=== PATIENT | female | born 1965 | race Caucasian/White ===

== ENCOUNTER 2019-03-28 10:41 | Inpatient (IN) ==
[2019-03-28 14:33] LABS: BASO% 0.2 % (0.0-0.8); EOS# 0.08 X1000 (0.0-0.7); EOS% 1.4 % (0.0-10.0); HEMATOCRIT 23.8 % (37.0-47.0); HEMOGLOBIN 7.7 g/dL (12.0-16.0); IMM GRAN% 0.5 % (0.0-0.5); LYMPH% 11.9 % (20.5-51.1); MCH 24.5 PG (27-31); MCHC 32.4 g/dL (33-37); MCV 75.8 FL (81-99); MONO# 0.51 X1000 (0.11-0.59); MONO% 8.7 % (1.7-9.3); MPV 11.2 FL (7.4-10.4); NEUT# 4.55 X1000 (1.4-6.5); NEUT% 77.3 % (42.2-75.2); PLT 258 X1000 (130-400); RBC 3.14 XMIL (4.2-5.4); RDW 13.3 % (11.5-14.5); WBC 5.88 X1000 (4.8-10.8)
[2019-03-28 14:34] LABS: BASO# 0.01 X1000 (0.0-0.2); IMM GRAN# 0.03 X1000 (0.0-0.04)
[2019-03-28 14:49] LABS: ALB/GLOB RATIO 0.6; CALCIUM 8.1 mg/dL (8.8-10.2); CREATININE 2.8 mg/dL (0.5-0.9); POTASSIUM 4.1 mmol/L (3.5-5.1); TOTAL BILIRUBIN 0.3 mg/dL (0.20-1.00); TOTAL PROTEIN 7.7 g/dL (6.3-8.3)
[2019-03-28 16:54] LABS: URINE SOURCE CLEAN CATCH
[2019-03-28 16:57] LABS: BILIRUBIN URINE NEGATIVE (NEGATIVE); BLOOD URINE SMALL (NEGATIVE); COLOR YELLOW; GLUCOSE URINE 300 mg/dL (NEGATIVE); KETONE URINE NEGATIVE (NEGATIVE); LEUKOCYTES URINE SMALL (NEGATIVE); NITRITE URINE NEGATIVE (NEGATIVE); PROTEIN URINE 300 mg/dL (NEGATIVE); SP GRAVITY URINE 1.005; TURBIDITY URINE HAZY (CLEAR); UROBILINOGEN URINE NORMAL (NORMAL)
[2019-03-28 16:58] LABS: UR EPITHELIAL CELLS <10 /HPF (<10); URINE BACTERIA 1+ /HPF; URINE RBC <10 /HPF (<10); URINE WBC TNTC /HPF (<10)
[2019-03-28] MEDS ORDERED: MERREM 1 GM in NS 50 ML IV ONE (18:36)
[2019-03-28 20:32] LABS: RETIC% 1.1 % (0.8-2.1)
[2019-03-28 20:55] LABS: UR AMPHETAMINES QUAL NONE DETECTED (NONE DETECT); UR BARBITUATES QUAL NONE DETECTED (NONE DETECT); UR BENZODIAZEPIN QUAL NONE DETECTED (NONE DETECT); UR CANNABINOIDS QUAL NONE DETECTED (NONE DETECT); UR COCAINE QUAL NONE DETECTED (NONE DETECT); UR METHADONE QUAL NONE DETECTED (NONE DETECT); UR OPIATES QUAL NONE DETECTED (NONE DETECT); UR OXYCODONE QUAL NONE DETECTED (NONE DETECT); UR PCP QUAL NONE DETECTED (NONE DETECT)
[2019-03-28 21:03] LABS: TSH 1.25 uIUmL (0.27-4.20)
--- NOTE | 2019-03-28 21:06 | Diag Imaging Result Doc PS360 ---
EXAM: CHEST-2 VIEWS HISTORY: CHF TECHNIQUE: Chest two views COMPARISON: 11/10/2017 FINDINGS: The lungs are well expanded. The heart is not enlarged. The vessels are not distended. There are no infiltrates. No pleural effusions. No change in the lower right lung nodule. IMPRESSION: No congestive failure. Electronically signed by Jose Eduardo Euceda 03/28/2019 9:03 PM
[2019-03-28] MEDS: NORVASC PO SCH ×2 (21:35→22:31)
[2019-03-28] MEDS ORDERED: TYLENOL WITH CODEINE #3 PO ONE (21:46)
[2019-03-28] MEDS: BACTROBAN OINTMENT TOP SCH (23:54)
[2019-03-29] MEDS: TOPROL XL PO SCH ×2 (00:03→08:37)
[2019-03-29] MEDS: TYLENOL PO PRN ×2 (02:36→23:40)
[2019-03-29] MEDS ORDERED: NS 250 ML ONE (03:16)
--- NOTE | 2019-03-29 06:04 | HISTORY AND PHYSICAL ---
PRIMARY CARE PHYSICIAN: Patient of Dr. Bowers in [place], [place]. REASON FOR ADMISSION: Bilateral lower extremity pain for one week's duration. HISTORY OF PRESENT ILLNESS: Ms. Rosa is a 53-year-old woman with past medical history of CKD stage 3, type 2 diabetes, hypertension, CHF type unknown and intermittent vaginal bleeding. About a week ago was at a local [facility] and had the toilet chisholm fall on to her left thigh. She says since then she has been having extreme pain, unable to bear weight on it and said there was also a tiny gash when it occurred, but over the last couple of days, she has noticed that there has been some swelling and pain in the posterior aspect of her left eye. As a result of this, she went to [facility]. In the process of their workup, she said the straight catheter that they put in her had a hard time coming out, and eventually they did remove it, and since then, she is having dysuria and subjective fevers for the last couple of days. No hematuria. She denies any cardiorespiratory symptoms. He denies any blood loss from any orifice. No vomiting or diarrhea. She also has a longstanding history of chronic intermittent bilateral chavez ulcers, which usually present as blisters and subsequently rupture and heal, only for another set of blisters to recur. This has been ongoing for several years according to the patient. Otherwise the patient denies any focal neurological complaints. No new onset arthralgias. No polyuria or polydipsia. She does also complain of left upper quadrant pain, which is chronic, with no specific aggravating or relieving factor, sometimes worse with movement. Otherwise, 12-system review was done, positive for findings per HPI except for chronic intermittent lower extremity swelling, which she attributes to diagnosis of CHF. No PND or orthopnea or chest pain. ALLERGIES: Quinolone, sulfa, penicillins, latex, codeine, SAMIR inhibitors. HOME MEDICATIONS: Have not been reconciled. FAMILY HISTORY: For diabetes, heart disease, Alzheimer's. SURGICAL HISTORY: Cholecystectomy, appendectomy, section, eye surgery for glaucoma. 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 SOCIAL HISTORY: Drinks alcohol occasionally, maybe once every 3 to 4 months and socially. LABORATORY DATA: White count 5000, hemoglobin and hematocrit 7 and 24, MCV of 75, platelet count 258, 77% neutrophils, sodium 131, BUN 36, creatinine 2.8. Last creatinine was 2.1, glucose 277, calcium 8.4, albumin 3.0, alk phos 180. Urinalysis: 300 protein, 200 glucose, too numerous to count WBCs, 1+ bacteria. IMAGING STUDIES: Patient reports that she had Doppler study of the legs. I cannot find the report. This was done today. PHYSICAL EXAMINATION: VITAL SIGNS: Blood pressure 165/70, respirations 18, heart rate is 94, temperature is 99 degrees. GENERAL: Chronically ill, legally blind, middle-aged woman who is not in acute distress. She is A and O x3. Normal mood and affect. HEENT: Head is normocephalic, atraumatic. Eyes: Pupils are reactive to light. She has no nystagmus. She has irregular pupils from prior surgery. Anicteric and mildly pale. ENT and oropharyngeal exam is grossly normal. NECK: Supple. No JVD or carotid bruit. No thyromegaly. CHEST: Decreased entry in the bases. CARDIOVASCULAR: First and second heart sounds heard. No gallops or rubs. Rhythm is regular. The patient does have a 2/6 ejection systolic murmur. ABDOMEN: Protuberant, soft with tenderness confined to the left upper quadrant area. No rebound or guarding. Bowel sounds are hypoactive. RECTAL: Deferred at this time. EXTREMITIES: Patient has trace edema in both lower extremities. She also has numerous superficial chronic ulcers of shins. Some of them are at various stages of healing. No surrounding erythema. Distal pulse volume is equal, symmetrical, regular. No clubbing or peripheral cyanosis. Patient has bilateral posterior thigh tenderness. The right one is actually slightly more swollen and slightly tender compared to the left one where she had the injury; however, there is no crepitus. No fluctuance. No redness in either thigh. NEUROLOGICAL EXAM: No gross focal deficits appreciated. SKIN: See above. Otherwise unremarkable. MUSCULAR EXAM: Grossly normal. ASSESSMENT: At this time: 1. Microcytic anemia probably secondary to chronic blood loss. 2. Acute on chronic kidney disease, could be from poor oral intake or medication effect i.e. diuretics. 3. Urinary tract infection. 4. Bilateral lower extremity weakness, proximal muscle weakness. ? myositis. 5. 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 6. Heart failure, type unknown. 7. Hypertensive heart disease and kidney disease. 8. Vaginal bleeding, etiology to be determined. PLAN: Patient will be transfused 1 unit of packed blood cells prior but after anemia workup is done to find a thorough etiology of her anemia since she is not actively bleeding anymore. It is still possible that this could be the result of the torrential vaginal bleeding she had a couple of months ago. Also we will treat patient with Keflex, which she has had in the past for bladder infection, will check urine cultures. The patient's thigh pain which I find somewhat unusual could be a myositis of known origin. I have ordered a total CK and aldolase as he patient is still profoundly tender and weak. Rheumatological workup and/or muscle biopsy may be entertained. The patient's chronic lesions on her chavez need to be explored further. This could be a manifestation of a vasculitis. A vasculitic process such as cryoglobulinemia may need to be explored. Hepatitis panel was ordered to assess hepatitis C. The patient has splenomegaly, which is a little worrisome for a lymphoproliferative disorder. A CT scan of the abdomen was ordered to further evaluate the etiology of her vaginal bleeding i.e. a pelvic mass and the prior history of splenomegaly. I would suggest if the patient complains of pain and weakness and CK is normal, maybe one can do a soft tissue MRI scan of both thighs to see if there is anything under the deep fascia that may be causing her symptoms. cc: MD Adan Gonzalez MD [facility] CENTERShari
--- NOTE | 2019-03-29 06:34 | Diag Imaging Result Doc PS360 ---
CT ABDOMEN/PELVIS W/O CONTRAST - 03/28/2019 INDICATION: LUQ pain anemia Splenomegaly COMPARISON: Chest CT 11/10/2017 FINDINGS: There is a stable granuloma in the lateral right middle lobe. No infiltrates in the lung bases. There is splenomegaly. The spleen measures 14.7 x 12.8 x 6.2 cm. The liver is grossly normal. There are cholecystectomy clips. There are some shotty retroperitoneal lymph nodes but no significant adenopathy. No radiodense renal stones. No hydronephrosis or hydroureter. Urinary bladder is rather distended. There is a drop of air in the urinary bladder, correlate with recent catheterization. The bladder wall appears normal. Uterus and rectum are normal. No bowel obstruction or inflammation. No herniation. There are moderate degenerative changes of the spine. No acute or suspicious bony lesion. IMPRESSION: 1. Splenomegaly. 2. Distended urinary bladder. There is also a drop of air in the urinary bladder, correlate with catheterization. This exam was performed using automated exposure control, adjustment of mA or kV according to patient size, and/or use of iterative reconstruction technique Electronically signed by Rico Grey 03/29/2019 6:32 AM
[2019-03-29] MEDS: KEFLEX PO SCH ×3 (08:30→19:14)
[2019-03-29] MEDS: NORVASC PO SCH (08:37)
[2019-03-29 09:17] LABS: BASO# 0.01 X1000 (0.0-0.2); BASO% 0.2 % (0.0-0.8); EOS# 0.13 X1000 (0.0-0.7); HEMATOCRIT 24.1 % (37.0-47.0); HEMOGLOBIN 7.9 g/dL (12.0-16.0); LYMPH# 0.79 X1000 (1.2-3.4); MCH 25.2 PG (27-31); MCHC 32.8 g/dL (33-37); MCV 76.8 FL (81-99); MONO% 10.7 % (1.7-9.3); MPV 10.8 FL (7.4-10.4); NEUT# 4.93 X1000 (1.4-6.5); NEUT% 75.1 % (42.2-75.2); PLT 230 X1000 (130-400); RBC 3.14 XMIL (4.2-5.4); RDW 13.7 % (11.5-14.5); WBC 6.56 X1000 (4.8-10.8)
[2019-03-29 09:53] LABS: CALCIUM 7.6 mg/dL (8.8-10.2); CREATININE 2.7 mg/dL (0.5-0.9); POTASSIUM 3.8 mmol/L (3.5-5.1)
[2019-03-29] MEDS: BACTROBAN OINTMENT TOP SCH ×3 (10:28→21:34)
--- NOTE | 2019-03-29 11:00 | PROVIDER DOCUMENTATION ---
This chart was entered by Gabriela Madison Scribe, acting as scribe for Ruben Medina MD. HPI-General Adult - General Chief Complaint: Edema Stated Complaint: EDEMA/LEGS Time Seen by Provider: 03/28/19 13:31 Source: patient, family Allergies/Adverse Reactions: Patient Allergies Allergy/AdvReac Type Severity Reaction Status Date / Time SAMIR Inhibitors Allergy SWELLING Verified 03/21/19 21:04 codeine Allergy SWELLING Verified 03/21/19 21:04 latex Allergy SWELLING Verified 03/21/19 21:04 levofloxacin [From Levaquin] Allergy ANAPHYLAXIS Verified 03/21/19 21:04 Sulfa (Sulfonamide Allergy NAUSEA Verified 03/21/19 21:04 Antibiotics) Penicillins AdvReac ANAPHYLAXIS Verified 03/21/19 21:04 Home Medications: Home Medication List Medication Instructions Recorded Confirmed Last Taken Type Apixaban [Eliquis] 5 mg PO QAM 03/28/19 03/28/19 03/28/19 09:00 History Furosemide 80 mg PO QAM 03/28/19 03/28/19 03/27/19 09:00 History Insulin Aspart [Novolog Flexpen] 10 unit SUBQ DIRECTED 03/28/19 03/28/19 03/27/19 09:00 History Insulin Aspart [Novolog] 10 unit SUBQ DIRECTED 03/28/19 03/28/19 Unknown History Metoprolol Tartrate 25 mg PO BID 03/28/19 03/28/19 Unknown History Mupirocin Ointment [Bactroban 1 ea TOP DIRECTED 03/28/19 03/28/19 Unknown History Ointment] - History of Present Illness -Gen Adult Nature of Presenting Problems: 53 yowf presents to the ed with c/o left posterior leg after a paper towel chisholm fell at [facility] hitting the back of her leg. pt sts she now believes she has a blood clot. pt sts she is blind. pt has been seen at multiple er recently. pt has BLE swelling with healing wounds noted. pt sts is taking all medications including insulin and blood thinners pt sts she is homeless and during the day sts in her car with her daughter. pt is legally blind and sts was turned away from the [employer]. Location of Pain/Injury: reports: lower extremity Quality of Pain: reports: fullness, indigestion Severity: reports: moderate Onset/Duration: reports: unsure Timing: reports: still present Context/Activities at Onset: reports: light activity Modifying Factors: improves with: nothing. worse with: palpation Associated Symptoms: reports: trouble walking. denies: back/neck pain, chest pain, diarrhea, EENT symptoms, headaches, nausea, shortness of breath, vomiting Similar Symptoms Previously?: Yes Recently seen or treated by another doctor?: Yes (has been seen at [facility] and [facility] ) Review of Systems - Adult - REVIEW OF SYSTEMS - ADULT Constitutional: denies: chills, fever Eyes: reports: see HPI, other (blind) Ears, Nose, Mouth & Throat: reports: no symptoms reported Cardiovascular: denies: chest pain, palpitations, syncope Respiratory: denies: shortness of breath, wheezing Gastrointestinal: denies: abdominal pain, diarrhea, nausea, vomiting Genitourinary: reports: no symptoms reported Musculoskeletal: reports: see HPI, other (BLE edema with pain). denies: bone pain, back pain, neck pain Integumentary: reports: no symptoms reported Neurological: denies: dizziness/vertigo, headache/migraines Psychiatric: reports: no symptoms reported Endocrine: reports: no symptoms reported Hematologic/Lymphatic: reports: no symptoms reported Allergic/Immunologic: reports: no symptoms reported All Other Systems: Reviewed and Negative Past History - Adult - PAST MEDICAL HISTORY-ADULT Review of Records: reports: Nursing Assessment Review, Medications Reviewed Major Childhood Illnesses: reports: denies history Cardiovascular: reports: blood clots, HTN Respiratory: reports: other (mass on lung) Gastrointestinal: reports: denies history Obstetrical/Gynecological: reports: denies history Genitourinary: reports: ESRD, kidney disease Musculoskeletal: reports: chronic pain Hand Dominance: Right Handed Neurological: reports: denies history Psychiatric: reports: denies history Endocrine/Immune: reports: Diabetes Diabetes Type: Type 2 Diabetes controlled by:: Insulin Dependent Other Conditions: reports: blindness - PRIOR SURGERIES/PROCEDURES Surgical/Procedure History: reports: cholecystectomy, - IMMUNIZATION STATUS Childhood Immunizations: See Nurse Assessment Flu Vaccine: See Nurse Assessment - FAMILY HISTORY Family History: reviewed, not pertinent - SOCIAL HISTORY Smoking: quit greater than 1 year Substance Use: alcohol Alcohol Use Frequency: occasionally Number of drinks per typical drinking period:: 2 drinks Living Situation: homeless Physical Exam-General - PHYSICAL EXAM-ADULT Initial Vital Signs Reviewed: Yes - CONSTITUTIONAL General Appearance: alert, obese - EYES Eyes: other (pt sts she is blind) - HEAD, EARS, NOSE, MOUTH & THROAT HENMT: moist mucous membranes, dental decay - NECK Neck: normal inspection - RESPIRATORY Respiratory: chest non-tender, lungs clear, normal breath sounds - CARDIOVASCULAR Cardiovascular: normal peripheral pulses, regular rate, rhythm - GASTROINTESTINAL (ABDOMEN) Abdominal Exam: normal bowel sounds, non tender, soft - LYMPHATIC Lymphatic: no adenopathy - MUSCULOSKELETAL Back Exam: normal inspection Extremity: normal range of motion, normal capillary refill, pelvis stable, swel ling (BLE edema), tenderness (BLE L>r), other (multiple wounds in diffrent stages of healing that daughter sts is baseline) - SKIN Integumentary: normal turgor, warm/dry, pallor, other (multiple healing wounds on BLE) - NEUROLOGIC Neurologic: grossly normal - PSYCHIATRIC Psych/Mental Status: normal mood/affect, normal thought content, normal thought process, oriented x 3 Progress - PLAN OF CARE/RESULTS Progress/Plan/Lab Results: Vital Signs - 8 hr 03/28/19 10:45 Temperature 99.0 F Pulse Rate 94 H Respiratory Rate 18 Blood Pressure 154/75 O2 Sat by Pulse Oximetry 98 social media developer is being contacted to see if help can be given pt and family [id number] Result Diagrams: 03/29/19 09:05 03/29/19 09:05 - REASSESSMENT Reassessment #1 Time Reassessed: 14:47 (pt is lying in bed with family at bedside) Status: unchanged Reassessment #2 Time Reassessed: 17:50 (pt is in bed with family at bedside) Status: unchanged - CONSULTS/PCP/HOSPITALIST Notification #1 *Consult/PCP/Hospitalist*: dr yang Time Discussed: 15:05 (spoke with dr yang in ed and dr yang requested pt f/u in his office ) Consult Disposition: F/U in office #2 Consult: hospitalist Consult Disposition: Admit Departure - Departure Date of Disposition Decision: 03/28/19 Time of Disposition Decision: 19:00 DIAGNOSIS: Urinary tract infection Anemia Qualifiers: Anemia type: unspecified type Qualified Code(s): D64.9 - Anemia, unspecified Disposition: ADMITTED INPATIENT 09 Certified Medical Emergency: Emergent Condition: Serious - Critical Care Note This patient required my direct & personal management of CC.: Yes Total Time (mins): 37 Critical Care Statement: This patient required my direct personal management to treat or rule out processes, the absence of which, could potentiallly result in sudden, clinically significant life or limb threatening deterioration. Attestation - Physician/ YOLANDA Attestation Patient care was provided by Advanced Practice Provider:: No The physician spent face to face time with patient:: Yes Advanced Practice Provider documentation review:: Supervising physician onsite and consulted in the evaluation and care of this patient. The physician did have a face to face encounter with the patient. This chart was documented by the indicated scribe, (Gabriela Madison Scribe) and accurately reflects the services I performed and decisions made by me, Ruben Medina MD, as attested by the provider's signature.
[2019-03-29 12:28] LABS: HEPATITIS PROFILE ACUTE SEE COMMENTS
[2019-03-29] MEDS ORDERED: D50W SYRINGE IV PRN (14:15)
--- NOTE | 2019-03-29 14:29 | PROGRESS NOTE ---
DATE: 03/29/2019 SUBJECTIVE: The patient reports still mild abdominal pain in the left upper quadrant. Denies any vaginal bleeding. The patient is blind. Denies any other complaints at this time. OBJECTIVE: Vital Signs: Temperature 98.4 degrees, heart rate 83, respiratory rate 18, blood pressure 155/59, O2 saturation 99% on room air. General: This is a chronically ill-appearing, 53- year-old, female, lying in bed in no acute distress. Cardiovascular: S1, S2 heard. No murmurs, gallops, or rubs. Regular rate and rhythm. Respiratory: Decreased air entry in both bases. The patient is not using any accessory muscles or having work of breathing. Abdomen: Soft, a little bit distended, nontender to palpation. Bowel sounds present. No organomegaly noted. No signs of peritoneal irritation. Extremities: The patient has trace edema in both lower extremity, with several superficial chronic ulcers on both shins that are at various stages of healing. There is also bilateral posterior thigh tenderness. The right one is actually slightly more swollen and slightly tender compared with the left one. No fluctuance. Neurological: The patient is alert and oriented x3. Moves all 4 extremities. LABORATORY DATA: Reviewed. ASSESSMENT AND PLAN: 1. Iron-deficiency anemia/splenomegaly. The reason why this patient came to the hospital was because of bilateral lower extremity pain, but the labs reveal low iron, and to look for the source of iron deficiency, we have done a CT scan of the abdomen, which shows splenomegaly. The patient reports having had a strong history of leukemia in her family. At this point, I am planning to consult Hematology/Oncology, and will go from there. There is also a history of recurrent vaginal bleeding, but according to the clerical assistant who is at bedside, she has not had any vaginal bleeding for the last year. 2. Urinary tract infection. The patient is on antibiotics. Will continue with antibiotics, and will wait for urine culture. 3. Bilateral lower extremity weakness. We are suspecting myositis. In any case, at this point, will continue treating infection, and see if that helps with muscle weakness. 4. Diabetes mellitus type 2 with nephropathy. Will continue with Accu-Cheks before meals and also at bedtime, and sliding scale insulin as well. 5. Hypertensive heart disease. Aware. 6. Disposition. Will continue to monitor this patient closely. cc: Tigre Pollard MD
[2019-03-29] MEDS ORDERED: INSULIN PEN NEEDLES ONE (15:26)
--- NOTE | 2019-03-29 16:26 | Extremity Venous Study ---
PROCEDURE NAME: Venous U/S Bilateral Legs - 03/28/2019 PROCEDURE: Bilateral lower extremity venous ultrasound. DATE OF STUDY: 03/28/2019. SWIMMING POOL SALESPERSON: Nabor. REQUESTING PHYSICIAN: Carol. INDICATIONS: Edema and history of DVT. FINDINGS: Deep and superficial veins bilateral lower extremities visualized along their course. All veins appeared compressible to forward flow. No evidence of intraluminal thrombus. SUMMARY: No deep or superficial venous thromboses in bilateral lower extremities. cc: Onofre Nova MD
[2019-03-29] MEDS: NON-FORMULARY BULK MED SUBQ SCH ×2 (17:47→21:33)
[2019-03-29] MEDS: ZOFRAN IV PRN (23:41)
[2019-03-30] MEDS: NON-FORMULARY BULK MED SUBQ SCH ×3 (06:14→18:31)
[2019-03-30] MEDS: TOPROL XL PO SCH (09:00)
[2019-03-30] MEDS: NORVASC PO SCH (09:01)
[2019-03-30] MEDS: BACTROBAN OINTMENT TOP SCH ×2 (09:01→21:10)
[2019-03-30] MEDS: KEFLEX PO SCH ×3 (09:01→18:31)
--- NOTE | 2019-03-30 09:56 | ECHO REPORT ---
ORDER DATE: 03/28/2019 INTERPRETING PHYSICIAN: Dr. Horton CLINICAL INDICATIONS: 53-year-old female with CHF, knee pain. REQUESTING PHYSICIAN: Hospitalist. M-MODE MEASUREMENTS: Left ventricle end diastole: 4.9 cm. Left ventricle end systole: 2.7 cm. Posterior wall: 1.1 cm. Interventricular septum: 1.1 cm. Left atrium: 3.8 cm. Aortic root: 3.0 cm. SUMMARY OF 2-DIMENSIONAL IMAGIN. The left ventricular function is normal, ejection fraction is estimated at 59%. Optison was added to optimize visualization of the endocardium. The study was difficult. There is mild degree of concentric LVH. 2. Right ventricle and right atrium appears to be normal. 3. The left atrium may be borderline enlarged. 4. Mitral valve opens normally with very mild degree of regurgitation. 5. Pulse wave Doppler of mitral inflow is normal. 6. Tissue Doppler of septal and lateral mitral annulus averages 5.5 cm. 7. Pulmonary venous flow shows normal pattern. There may be some impaired left ventricular relaxation in this case. 8. Tricuspid valve shows mild degree of regurgitation. 9. The inferior vena cava is not dilated. 10.Pulmonary pressure is estimated at 38 mmHg. 11.Pulmonic valve appears to be grossly normal. 12.There is no pericardial effusion, no mass, and no thrombus. Clinical correlation is recommended. cc: MD Adan Delacruz MD
[2019-03-30 10:58] LABS: HEMATOCRIT 24.6 % (37.0-47.0); MCH 24.7 PG (27-31); MCHC 32.5 g/dL (33-37); MCV 75.9 FL (81-99); MPV 11.1 FL (7.4-10.4); RBC 3.24 XMIL (4.2-5.4); RDW 13.5 % (11.5-14.5); WBC 8.48 X1000 (4.8-10.8)
[2019-03-30] MEDS ORDERED: VENOFER 500 MG in NS 250 ML IV ONE (11:00)
[2019-03-30 11:09] LABS: HEMOGLOBIN A1C 10.1 % (4.8-6.0)
--- NOTE | 2019-03-30 11:09 | PROGRESS NOTE ---
DATE: 03/30/2019 SUBJECTIVE: The patient reports still noticing some swelling in both legs. Denies any vaginal bleeding. Denies any abdominal pain. OBJECTIVE: Vital Signs: Temperature 99 degrees, heart rate 81, respiratory rate 20, blood pressure 156/61 and O2 saturation 98% on room air. General: This is a chronically ill-appearing, 53-year-old female lying in bed in no acute distress. Cardiovascular: S1, S2 heard. No murmurs, gallops, or rubs. Regular rate and rhythm. Respiratory: Decreased air entry in both bases. Patient is not using any accessory muscles or having work of breathing. Abdomen: Soft, a little bit distended. Nontender to palpation. Bowel sounds present. No organomegaly. No signs of peritoneal irritation. Extremities: Patient has trace edema in both lower extremities with several superficial chronic ulcers on both shins that are at bases stage of healing bilateral posterior thigh tenderness. Neurological: Patient alert and oriented x3. Moves all 4 extremities. LABORATORY DATA: Reviewed. ASSESSMENT AND PLAN: 1. Iron deficiency anemia/hepatosplenomegaly. We are going to replete iron today with Venofer. We are waiting for hematology or oncology consult to see what they think. No vaginal bleeding during the last year. We will see what hematology has to say. 2. Urinary tract infection secondary to Escherichia coli pansensitive. Urine culture shows greater than positive cocci. I do not know what the bacteria is yet. Considering that she reports some burning on urination, I prefer to go ahead and cover this patient with Zyvox. 3. Bilateral lower extremity weakness and swelling. For possible deep vein thrombosis, we are going to do a Doppler ultrasound and see what it shows. 4. Diabetes mellitus type 2. We will continue with Accu-Chek before meals and also at bedtime. 5. Hypertensive heart disease. Aware. 6. Disposition: Awaiting consult from hematology oncology and also checking CBC daily as well as to check hemoglobin. cc: Tigre Pollard MD
[2019-03-30 11:15] LABS: CALCIUM 7.4 mg/dL (8.8-10.2); CREATININE 3.1 mg/dL (0.5-0.9); POTASSIUM 4.3 mmol/L (3.5-5.1)
[2019-03-30] MEDS: TYLENOL PO PRN ×2 (15:40→21:10)
[2019-03-30] MEDS: ZYVOX 600 MG/D5W 600 MG/300 ML IVPB IV SCH ×2 (15:58→21:10)
--- NOTE | 2019-03-30 23:31 | HEMO/ONC CONSULTATION ---
DATE: 03/30/2019 ADMITTING PHYSICIAN: Dr. Caballero. REQUESTING PHYSICIAN: Dr. Rojas. We appreciate this consult. CHIEF COMPLAINT: Anemia and splenomegaly. HISTORY OF PRESENT ILLNESS: Ms Rosa is a very pleasant, 53-year-old female with history of CKD stage 3, diabetes mellitus type 2, hypertension, and congestive heart failure. The patient presented to [facility] Emergency Department after suffering an accident involving her left thigh. On presentation, the patient reported significant pain and swelling of her left thigh after an accident. The patient also reported that she was having dysuria and subjective fevers for several days prior. The patient was found to have a urinary tract infection in the emergency department. Additionally, the patient was found to be significantly anemic. CT of the abdomen and pelvis was obtained which revealed splenomegaly and distended bladder. The patient was admitted secondary to anemia and urinary tract infection as well as acute on chronic kidney disease. We are consulted secondary to anemia and splenomegaly. PAST MEDICAL HISTORY: As in HPI. PAST SURGICAL HISTORY: 1. Cholecystectomy. 2. Appendectomy. 3. section. 4. Glaucoma surgery. FAMILY HISTORY: Negative for any hematologic or oncologic problems. SOCIAL HISTORY: The patient drinks alcohol occasionally. She denies tobacco or illicit drug use. MEDICATIONS ON ADMISSION: Reconciliation is pending. ALLERGIES: To quinolones, sulfa, penicillin, latex, codeine, and SAMIR inhibitors. REVIEW OF SYSTEMS: A 14-point review of systems was obtained and is negative, except as mentioned in HPI. PHYSICAL EXAM: General: Ms Rosa is a 53-year-old female lying supine in bed in no immediate distress. Vital Signs: Temp 99 degrees, blood pressure 156/61, heart rate 91, respirations 20, O2 saturation 98% on room air. HEENT: Normocephalic, atraumatic. Mucous membranes are pale and moist. Sclerae is anicteric. Extraocular movements intact. Neck: Supple. Lungs: Clear to auscultation bilaterally. Chest expansion is equal bilaterally. Cardiovascular: S1, S2 is heard. No murmurs, rubs or gallops. Abdomen: Nondistended. Extremities: No clubbing or cyanosis. The patient does have 1+ bilateral lower extremity edema. Dermatologic: No rashes bruises. The patient does have scattered open lesions to bilateral lower extremities with no evidence of infection. Neurologic: The patient is awake, alert, and oriented x3. She has no focal deficit. LABORATORY DATA: MCV 76.8, MCHC 32.8, hemoglobin is 7.9, hematocrit 24.1, white blood cell count is 6.56, platelets 230,000. Sodium 131, potassium 3.8, chloride 97, CO2 is 22, BUN 34, creatinine 2.7. Glucose is 207, calcium 7.6. Hepatitis panel was nonreactive. IMAGING STUDIES: CT of the abdomen and pelvis reveals splenomegaly and distended bladder. Chest x-ray reveals no congestive heart failure. Extremity venous study reveals no deep or superficial venous thrombosis. ASSESSMENT AND PLAN: 1. Microcytic hypochromic anemia of questionable etiology. Will initiate workup at this time. 2. Splenomegaly. We will initiate workup. Additionally, we will scheduled a PET scan as an outpatient. 3. Acute on chronic kidney disease with known chronic kidney disease. Creatinine is currently 2.7. 4. Urinary tract infection. The patient is currently on antibiotics. 5. Diabetes mellitus type 2. The patient remains on sliding-scale insulin. Blood glucose is 207. 6. Hypertension. Blood pressure 156/61. Blood pressure is stable on medications. 7. We will follow along with you and make further recommendations pending outcomes. The above reflects the history, exam, assessment and plan of Dr. Austin. Dictated by TEODORO Cee for Chuckie Austin MD cc: TEODORO Cee MD
[2019-03-31] MEDS: ZYVOX 600 MG/D5W 600 MG/300 ML IVPB IV SCH ×2 (00:37→11:43)
[2019-03-31] MEDS: NON-FORMULARY BULK MED SUBQ SCH ×5 (00:37→21:20)
[2019-03-31] MEDS: ZOFRAN IV PRN (00:46)
--- NOTE | 2019-03-31 07:16 | EKG Report ---
Test Performed on : 03/31/2019 01:12:43 AM Test Reason : chest pain Blood Pressure : / mmHG Vent. Rate : 085 BPM Atrial Rate : 085 BPM P-R Int : 152 ms QRS Dur : 078 ms QT Int : 372 ms P-R-T Axes : 033 -32 106 degrees QTc Int : 442 ms Sinus rhythm. with premature atrial complexes. Left axis deviation Septal infarct (cited on or before 10-NOV-2017) T wave abnormality, consider lateral ischemia Abnormal ECG When compared with ECG of 10-NOV-2017 19:14, premature atrial complexes. are now present Confirmed by Jeff AMATO, Damir Caldera ([id number]) on 04/04/2019 12:41:01 PM
[2019-03-31 08:02] LABS: HEMATOCRIT 24.3 % (37.0-47.0); HEMOGLOBIN 7.9 g/dL (12.0-16.0); MCH 24.9 PG (27-31); MCHC 32.5 g/dL (33-37); MCV 76.7 FL (81-99); MPV 11.2 FL (7.4-10.4); RBC 3.17 XMIL (4.2-5.4); RDW 13.7 % (11.5-14.5); WBC 7.98 X1000 (4.8-10.8)
[2019-03-31 08:15] LABS: CALCIUM 7.5 mg/dL (8.8-10.2); CREATININE 3.7 mg/dL (0.5-0.9); POTASSIUM 4.6 mmol/L (3.5-5.1)
[2019-03-31] MEDS: KEFLEX PO SCH (09:29)
[2019-03-31] MEDS: TOPROL XL PO SCH (09:29)
[2019-03-31] MEDS: BACTROBAN OINTMENT TOP SCH ×2 (09:30→21:18)
[2019-03-31] MEDS: NORVASC PO SCH (09:30)
[2019-03-31] MEDS ORDERED: INSULIN PEN NEEDLES ONE (10:00)
[2019-03-31] MEDS: TYLENOL PO PRN (10:52)
[2019-03-31] MEDS ORDERED: NS 1,000 ML IV SCH (11:30)
--- NOTE | 2019-03-31 14:40 | PROGRESS NOTE ---
DATE: 03/31/2019 SUBJECTIVE: Patient reports still complaining of some pain in both legs. We have already ruled out DVT in both legs. No vaginal bleeding. She reports intermittent abdominal pain on and off. Daughter reports that she was having mild temperature but so far in the last 24 hours at least in what was documented in the chart the highest temperature has been 100 just around 3:30 in the evening, but she reports not feeling feverish. OBJECTIVE: Vital Signs: Temperature 98.6 degrees, heart rate 82, respiratory rate 16, blood pressure 160/69, and O2 saturation 100% on room air. General: This is a chronically ill- appearing 53-year-old female lying in bed in no acute distress. Cardiovascular: S1, S2 heard. No murmurs, gallops, or rubs. Regular rate and rhythm. Respiratory: Decreased air entry globally. The patient is not using any accessory muscles or having work of breathing. Abdomen: Soft. A little bit distended but nontender to palpation. Bowel sounds present. No organomegaly. No signs of peritoneal irritation. Extremities: Patient has trace edema in both lower extremities with several superficial chronic ulcers on both hands that are in several stages of healing. Neurological: Patient is alert and oriented x3. Moves 4 extremities. ASSESSMENT AND PLAN: 1. Iron deficiency anemia/splenomegaly. Patient has received here Venofer 500 mg IV. Also, hematology oncology has been consulted. They have ordered a test for rule out any leukemia. We will follow recommendations from Hematology/Oncology. 2. Urinary tract infection. The urine culture showed contaminant which is Staphylococcus epidermidis. I think at this time we will not need to continue with antibiotics so Zyvox has been stopped. 3. Bilateral lower extremity weakness and skin infection. Patient is going to receive Teflaro 600 mg IV q.12 hours and see how this patient does. 4. Diabetes mellitus type 2. We will continue with Accu-Chek's before meals and also at bedtime. 5. Acute on chronic kidney disease. Renal function has been at baseline at the beginning started getting worse. In that regard, I prefer to order a renal ultrasound. We will consult Dr. Martinez from Nephrology and we will go from there. 6. Disposition: We will continue to monitor this patient closely. cc: MD TODD Aguiar
[2019-03-31] MEDS: TEFLARO 600 MG in NS 250 ML IV SCH (15:42)
--- NOTE | 2019-03-31 18:16 | Diag Imaging Result Doc PS360 ---
EXAM: US RENAL 2 (RETROPER) COMPLETE HISTORY: amber/arf TECHNIQUE: Renal ultrasound COMPARISON: None. FINDINGS: The right kidney measures 10.2 x 5.2 x 4.8 cm. Normal cortical thickness. Normal echotexture. No stone or hydronephrosis. The left kidney measures 11.8 x 5.3 x 6.2 cm. Normal renal echotexture and cortical thickness. No renal stone or hydronephrosis. Several small renal cysts. The urinary bladder is distended and is normal. IMPRESSION: Normal renal ultrasound. Electronically signed by Jose Eduardo Euceda 03/31/2019 6:14 PM
[2019-03-31] MEDS: NS 1,000 ML IV SCH (18:41)
[2019-03-31] MEDS: AMBIEN PO SCH (21:20)
[2019-04-01] MEDS: TYLENOL PO PRN (01:45)
[2019-04-01] MEDS: TEFLARO 600 MG in NS 250 ML IV SCH ×2 (01:45→15:31)
[2019-04-01] MEDS: NON-FORMULARY BULK MED SUBQ SCH ×4 (06:17→22:23)
[2019-04-01 07:48] LABS: HEMOGLOBIN 7.4 g/dL (12.0-16.0); MCH 24.4 PG (27-31); MCHC 32.2 g/dL (33-37); MCV 75.9 FL (81-99); RBC 3.03 XMIL (4.2-5.4); RDW 13.9 % (11.5-14.5); WBC 8.17 X1000 (4.8-10.8)
[2019-04-01 08:00] LABS: CALCIUM 7.4 mg/dL (8.8-10.2); CREATININE 4.2 mg/dL (0.5-0.9); POTASSIUM 4.3 mmol/L (3.5-5.1)
[2019-04-01] MEDS: BACTROBAN OINTMENT TOP SCH ×2 (09:18→22:23)
[2019-04-01] MEDS: NS 1,000 ML IV SCH (09:18)
[2019-04-01] MEDS: TOPROL XL PO SCH (09:19)
[2019-04-01] MEDS: NORVASC PO SCH (09:20)
[2019-04-01 09:36] LABS: URINE SOURCE VOIDED
[2019-04-01 10:33] LABS: BILIRUBIN URINE NEGATIVE (NEGATIVE); BLOOD URINE SMALL (NEGATIVE); COLOR YELLOW; GLUCOSE URINE 200 mg/dL (NEGATIVE); KETONE URINE NEGATIVE (NEGATIVE); LEUKOCYTES URINE NEGATIVE (NEGATIVE); NITRITE URINE NEGATIVE (NEGATIVE); PROTEIN URINE 300 mg/dL (NEGATIVE); SP GRAVITY URINE 1.005; TURBIDITY URINE HAZY (CLEAR); UROBILINOGEN URINE NORMAL (NORMAL)
[2019-04-01 11:01] LABS: UR CREAT RANDOM 63.5 mg/dL (11-20)
--- NOTE | 2019-04-01 11:06 | Diag Imaging Result Doc PS360 ---
EXAM: CHEST-2 VIEWS HISTORY: Diminished lung sounds TECHNIQUE: Chest two views COMPARISON: 03/28/2019 FINDINGS: The lungs are well expanded. The heart is not enlarged. The vessels are not distended. Atelectasis versus a small infiltrate in the right costophrenic angle. Tiny pleural effusions. IMPRESSION: Development of tiny pleural effusions with right costophrenic angle atelectasis versus a tiny infiltrate. Electronically signed by Jose Eduardo Euceda 04/01/2019 11:04 AM
[2019-04-01 11:19] LABS: UR PROT RANDOM 283.9 mg/dL
[2019-04-01 11:26] LABS: UR EPITHELIAL CELLS <10 /HPF (<10); URINE BACTERIA NEGATIVE /HPF; URINE WBC <10 /HPF (<10)
[2019-04-01 11:28] LABS: URINE CASTS GRANULAR PRESENT; URINE YEAST NONE SEEN
--- NOTE | 2019-04-01 14:42 | NEPHROLOGY CONSULTATION ---
DATE: 04/01/2019 REASON FOR ADMISSION: Lower extremity pain, UTI, anemia. REASON FOR CONSULTATION: [id number] kidney disease. CONSULTING PHYSICIAN: Tigre Pollard MD. HISTORY OF PRESENT ILLNESS: This is a 53-year-old female known to our service for CKD, who was last seen in our office March 2018. She canceled all subsequent appointments for various reasons. She has called us multiple times secondary to "kidney pain" and had been referred for both emergency evaluation as well as for lab workup, which she never presented for. The patient's baseline creatinine is around 2.2. The patient on this admission came in to the hospital secondary to bilateral lower extremity pain when she had an injury at a restaurant and had extreme pain in her leg and was unable to bear weight on it. She went to [facility] and was catheterized for urine specimen and has had dysuria and subjective fevers since then. The patient states that she has had nausea and vomiting for about 2 months now. She also states that she has been homeless for the last month. Her primary physician is Dr. Robinson lopez at a medical clinic in [place], [place]. The patient underwent workup and imaging that indicated initial WBC of 5.8 and hemoglobin of 7.7. On admission, her creatinine was 2.8, she had a CO2 of 22, sodium 131, potassium 4.1, calcium 8.1. She was extremely in iron at 11 and had marginal albumin. Her urine on admission had 3+ protein, 3+ glucose, too numerous to count WBCs. She has underwent CT as well as x-ray. She was noted to have splenomegaly and distended urinary bladder that correlated with previous catheterization. There was no hydronephrosis. The bladder appeared normal otherwise. She has moderate degenerative changes of the spine. Renal ultrasound indicated kidney size 10 cm and 11.8 cm with no hydronephrosis. Chest x-ray negative for congestive heart failure on the . She had a lower extremity Doppler that was negative. During the course of the hospitalization, her creatinine has slowly crept up and yesterday jumped up to 3.7, today is 4.2. The patient states that she has not been eating and drinking well and that her urine output has decreased. PAST MEDICAL HISTORY: CKD stage 3, diabetes type 2, hypertension, CHF, glaucoma with legal blindness. PAST SURGICAL HISTORY: Cataract surgery, cholecystectomy, appendectomy, section. ALLERGIES: SAMIR inhibitors causes facial edema, codeine, Latex, Levaquin, sulfa, penicillin. Please see chart for complete list. The patient is also complaining that Norvasc is causing her throat and tongue to swell. HOME MEDICATIONS: Are listed as Eliquis, NovoLog, metoprolol, Bactroban, and furosemide. FAMILY HISTORY: Alzheimer's, heart disease, diabetes. SOCIAL HISTORY: Occasional ETOH. Denies tobacco or illicit drug use. The patient states that she is currently homeless. PHYSICAL EXAMINATION: VITAL SIGNS: Temperature 98.5, pulse 67, respiratory rate 19, blood pressure is 159/66, intake 240 mL, output not measured. GENERAL: Chronically ill-appearing female resting in bed. She is in no acute distress. HEENT: Normocephalic, atraumatic. Her pupils are irregular but reactive. Her conjunctivae are pale. She is noted to be legally blind. Oral mucosa moist. NECK: Supple without JVD. CARDIOVASCULAR: Regular rate and rhythm. She has a systolic murmur. PULMONARY: Clear bilaterally. She is on room air and no increased work of breathing. ABDOMEN: Soft, obese, positive bowel sounds. GENITOURINARY: She is voiding. EXTREMITIES: She has trace lower extremity edema more pedal than pretibial. She is ambulatory to the bedside commode. INTEGUMENTARY: Skin is warm and dry. She has chronic ulcers noted to the bilateral lower extremities with vascular changes noted. NEUROLOGIC: Grossly nonfocal otherwise. IMAGING: As noted above, kidney size 10 and 11.8 cm. ASSESSMENT AND PLAN: 1. [id number] kidney disease. Urine studies have been sent down. The patient has been on multiple antibiotics secondary to urinary tract infection. This could be ATN, however, she has also had significant decreased oral intake over the last few days. She has been refusing IV fluids secondary to her fear of her CHF becoming worse even though she is on room air at this time. She is now refusing antibiotics and her Norvasc. I did discuss with the patient that if her renal function continues to worsen and if her other labs worsen to a dangerous level that we would have to use dialysis as a bridge to recovery. The patient has agreed that if her urine indicate that she is dehydrated, I will go ahead and order a chest x- ray for her to assure that she does not have any current CHF issues going on and will start some gentle hydration. I discussed with the patient that I would not infuse fluids at a rapid rate secondary to her CHF. 2. Fluid volume. She does have some lower extremity edema. The patient's albumin is marginal. She normally takes 80 mg of Lasix a day per her clinical business manager secondary to her CHF. We will evaluate her labs prior to restarting that. 3. Social issues. Will make sure the family welfare social work professor is aware of the patient's home status. From the contents of the patient's room, it looks like all of her personal belongings are with her. They are requesting a private room so that her family can stay with her. I will defer that to the housekeeper and geriatric social worker to assist this patient. Dictated by TEODORO Esquivel for Deangelo Martinez MD cc: Deangelo Martinez MD MTD
--- NOTE | 2019-04-01 18:50 | PROGRESS NOTE ---
DATE: 04/01/2019 SUBJECTIVE: Patient is still complaining of pain in both legs. The patient, because she reports not drinking enough water, considering her renal function is getting worse. We decide to place on some gentle fluid hydration but she refused. Also apparently she refused to receive her antibiotics as well. OBJECTIVE: Vitals: Temperature 97.2 degrees, heart rate 86, respiratory rate 19, blood pressure 115/105, O2 saturation 98% on room air. General Examination: This is a chronically ill- appearing, 53-year-old female lying in bed, in no acute distress. Cardiovascular: S1, S2 heard. No murmurs, gallops, or rubs. Regular rate and rhythm. Respiratory: Decreased air entry globally. Patient is not using any accessory muscles or having work of breathing. Abdomen: Soft, nontender to palpation. Bowel sounds present. No organomegaly. Extremities: Patient has trace edema in both lower extremities with several superficial chronic ulcers in both hands that are in several stages of healing. Neurological: Patient alert and oriented x3. Moves 4 extremities. LABORATORY DATA: Reviewed. ASSESSMENT AND PLAN: 1. Iron deficiency anemia, splenomegaly. Patient is being evaluated by Oncology and Hematology. Workup is in progress. 2. Acute on chronic kidney disease. Creatinine continues to get worse. Apparently, patient is not making enough urine and she is supposed to. In any case, we are monitoring ins and outs and renal ultrasound has been ordered. That is normal and Dr. Martinez from Nephrology has been consulted. 3. Urine tract infection, resolved. 4. Bilateral lower extremity weakness on the skin infection. We will continue with Teflaro 600 mg IV q.12 hours. 5. Diabetes mellitus, type 2. We will continue with Accu-Chek's before meals and also at bedtime. cc: Tigre Pollard MD
[2019-04-01] MEDS: AMBIEN PO SCH (22:22)
[2019-04-02] MEDS: TYLENOL PO PRN (01:44)
[2019-04-02] MEDS: TEFLARO 600 MG in NS 250 ML IV SCH ×3 (02:34→22:49)
[2019-04-02] MEDS: NS 1,000 ML IV SCH ×2 (03:44→10:40)
[2019-04-02] MEDS: NON-FORMULARY BULK MED SUBQ SCH ×5 (06:03→22:16)
[2019-04-02 07:54] LABS: HEMATOCRIT 21.6 % (37.0-47.0); HEMOGLOBIN 7.1 g/dL (12.0-16.0); MCHC 32.9 g/dL (33-37); MCV 76.1 FL (81-99); MPV 10.9 FL (7.4-10.4); RBC 2.84 XMIL (4.2-5.4); WBC 6.64 X1000 (4.8-10.8)
[2019-04-02 08:11] LABS: CALCIUM 7.5 mg/dL (8.8-10.2); CREATININE 3.5 mg/dL (0.5-0.9); POTASSIUM 4.1 mmol/L (3.5-5.1)
[2019-04-02] MEDS: TOPROL XL PO SCH (10:38)
[2019-04-02] MEDS: NORVASC PO SCH (10:39)
[2019-04-02] MEDS: BACTROBAN OINTMENT TOP SCH ×2 (10:39→22:05)
[2019-04-02] MEDS ORDERED: LASIX IV SCH (11:15)
--- NOTE | 2019-04-02 13:53 | PROGRESS NOTE ---
DATE: 04/02/2019 SUBJECTIVE: The patient reports mild shortness of breath, but denies any fever or chills. OBJECTIVE: Vital Signs: Temperature 98.4 degrees, heart rate 85, respiratory rate 20, blood pressure 147/48, O2 saturation 100% on room air. General: This is a chronically ill-appearing 53-year-old female, lying in bed, in no acute distress. Cardiovascular: S1, S2 heard. No murmurs, gallops, or rubs. Regular rate and rhythm. Respiratory: Decreased air entry globally. The patient is not using any accessory muscles or having work of breathing. Abdomen: Soft, nontender to palpation. Bowel sounds present. No organomegaly. Extremity: The patient has trace edema in both lower extremities with several superficial chronic ulcers in both lower extremities. Neurological: Patient alert and oriented x3. Moves 4 extremities. LABORATORY DATA: White cell count 8.7, hemoglobin 7.4, hematocrit 21.6, platelets 243,000. BMP remarkable for creatinine 3.5. ASSESSMENT AND PLAN: 1. Iron deficiency anemia/splenomegaly. Hematology/Oncology is following this patient. Also because the hemoglobin has dropped again even though she received 1 unit of blood, I prefer to get Gastroenterology involved in her case, and we will see what they have to say. 2. Acute on chronic kidney disease. Creatinine started getting better today. It was 4.3 yesterday and 3.[address] Martinez following this patient. 3. Urinary tract infection, resolved. 4. Bilateral lower extremity weakness/skin infection. We will continue with Teflaro. 5. Iron deficiency anemia. As we mentioned above, hemoglobin has reached 7.1 ,and considering her history of CHF, I prefer to go ahead and transfuse 2 units of blood. 6. Diabetes, type 2, stable. We will continue to monitor. cc: Tigre Pollard MD
[2019-04-02] MEDS ORDERED: NS 500 ML ONE (16:08)
--- NOTE | 2019-04-02 18:59 | GASTROENTEROLOGY CONSULTATION ---
DATE: 04/02/2019 REASON FOR CONSULTATION: Iron-deficiency anemia. HISTORY OF PRESENT ILLNESS: This is a pleasant lady who came in 03/28/2019 with lower extremity pain, found to be anemic and had splenomegaly as well. Anemia is mostly microcytic. There are no signs of hematemesis or melena. The patient also has a chronic kidney disease with a baseline creatinine of 3. I do not have any iron studies or blood in the stool studies; however, she had grossly microcytic anemia. PAST MEDICAL HISTORY: See as in HPI. PAST SURGICAL HISTORY: Cholecystectomy, appendectomy, section, glaucoma. FAMILY HISTORY: Negative. SOCIAL HISTORY: Drinks occasionally. MEDICATIONS: Reviewed. ALLERGIES: Allergies to quinolone, sulfa, penicillin. REVIEW OF SYSTEMS: Negative. PHYSICAL EXAMINATION: General: A 53-year-old lady in no distress. Vital Signs: Temperature 99, blood pressure 150/60, heart rate 91, respirations 20, O2 sats 98%. HEENT: Conjunctival pallor. Neck: Supple. Trachea midline. Heart: Normal. Lungs: Normal. Abdomen: Soft, nontender. There is 1+ edema. Neurologic: Intact. LABORATORY DATA: Microcytic anemia with a hemoglobin and hematocrit of 7.9 and 24. She has had transfusions. A CT of the abdomen showed splenomegaly. IMPRESSION AND PLAN: 1. Microcytic hypochromic anemia. 2. Splenomegaly. 3. Acute on chronic kidney disease. 4. Diabetes. 5. [*] 6. GI prophylaxis. [*]. We will do an upper and lower endoscopy to eliminate any GI source for her anemia Wednesday electively. cc: Vijay Faith MD
[2019-04-02] MEDS: AMBIEN PO SCH ×2 (22:05→22:17)
[2019-04-03] MEDS: NS 1,000 ML IV SCH ×2 (00:08→16:03)
[2019-04-03] MEDS: TYLENOL PO PRN (00:17)
[2019-04-03 06:53] LABS: HEMATOCRIT 28.9 % (37.0-47.0); HEMOGLOBIN 9.5 g/dL (12.0-16.0); MCHC 32.9 g/dL (33-37); RBC 3.66 XMIL (4.2-5.4); WBC 5.56 X1000 (4.8-10.8)
[2019-04-03 07:16] LABS: ALBUMIN 2.5 g/dL (3.5-5.0); CALCIUM 7.9 mg/dL (8.8-10.2); CREATININE 3.2 mg/dL (0.5-0.9); PHOSPHORUS 3.8 mg/dL (2.7-4.5); POTASSIUM 4.1 mmol/L (3.5-5.1)
[2019-04-03] MEDS: TOPROL XL PO SCH (09:30)
[2019-04-03] MEDS: TEFLARO 600 MG in NS 250 ML IV SCH ×2 (09:50→23:24)
[2019-04-03] MEDS: NORVASC PO SCH (09:51)
--- NOTE | 2019-04-03 12:16 | PROGRESS NOTE ---
DATE: 04/03/2019 SUBJECTIVE: Patient reports feeling fine. Denies any hematemesis or blood in the stools. No fever or chills noted. OBJECTIVE: Vital Signs: Temperature 98.1, heart rate 79, respiratory rate 15, blood pressure 183/77, O2 saturation 97% on room air. General Examination: This is a chronically ill-appearing 53-year-old female lying in bed, in no acute distress. Cardiovascular: S1, S2 heard. No murmurs, gallops, or rubs. Regular rate and rhythm. Respiratory: Decreased air entry globally. Some coarse breath sounds noted in both pulmonary bases. Patient is not using any accessory muscles or having work of breathing. Abdomen: Soft, nontender to palpation. Bowel sounds present. No organomegaly. Extremity: Trace edema in both lower extremities with several superficial chronic ulcers in both lower extremities. Neurological: Patient is alert and oriented x3. Moves 4 extremities. LABORATORY DATA: White cell count 5.56, hemoglobin 9.5, hematocrit 28.9, platelets 237,000. BNP shows sodium 133, creatinine 2.2. ASSESSMENT AND PLAN: 1. Iron deficiency anemia. Splenomegaly. Hematology has been consulted and doing workup for possible leukemia. Because of drop again in hemoglobin, Gastroenterology has been consulted who are planning to do a colonoscopy and endoscopy tomorrow we will follow recommendations. 2. Acute on chronic kidney disease. Patient's creatinine is getting better. Today is 3.[address] Martinez is following this patient. 3. Urinary tract infection, resolved. 4. Bilateral lower extremity skin infection. We will continue with Teflaro. 5. Diabetes mellitus type 2. We will continue to check Accu-Cheks before meals and also at bedtime and sliding scale insulin as well. 6. Physical deconditioning. Physical Therapy has been working with this patient. 7. Disposition. If this patient is cleared with GI, I think she can be discharged home. Apparently, she has become very weak and addiction social worker is working on getting a rehab bed for her. cc: Tigre Pollard MD
[2019-04-03] MEDS: NON-FORMULARY BULK MED SUBQ SCH ×3 (12:33→23:23)
[2019-04-03] MEDS ORDERED: GOLYTELY PO ONE (14:00)
--- NOTE | 2019-04-03 14:15 | NEPHROLOGY PROGRESS NOTE ---
DATE: 04/03/2019 SUBJECTIVE: Patient sitting up on the side of the bed complaining some about her daughter. OBJECTIVE: Vital Signs: Temperature 98.1 degrees, pulse 79, respiratory rate 15, blood pressure 173/66, intake 1 L, output not measured. General: Middle-aged female resting in bed awake, alert, no acute distress. HEENT: Normocephalic, atraumatic. Oral mucosa moist. Neck: Supple. No JVD. Cardiovascular: Regular rate and rhythm. No murmur. Pulmonary: Clear bilaterally. Abdomen: Soft, positive bowel sounds. : Voiding. Extremities: Trace lower extremity edema. Integument: Skin is warm and dry with multiple vascular changes and old lesions that are healing noted. LAB DATA: WBC 5.5, hemoglobin 9.5, sodium 133, potassium 4.1, CO2 20, creatinine 3.2. ASSESSMENT AND PLAN: 1. Acute on chronic kidney disease. It looks like she had some prerenal issues that caused her creatinine to elevate. She did allow small amount of intravenous fluid to be given. She has had improvement with creatinine over the last 2 days. I have no indication to intervene with dialysis. The patient does have a baseline creatinine around 2.2. I did discuss with the patient the importance of medical followup regarding her kidney disease so that we can assist her with trying to prevent further worsening of her renal function. Will check labs in the morning. 2. Fluid volume. She is requesting her intravenous fluids be stopped again. Patient is eating and drinking. I will not restart them as she has had continued improvement with renal function. 3. Hypertension. The patient has currently her Lasix has been restarted, she has been initiated on Cozaar, is known that she has an SAMIR inhibitor allergy but not an ARB allergy. She continues on Toprol. Would add hydralazine if we need further addition for medications to maintain adequate blood pressure. Dictated by TEODORO Esquivel for Deangelo Martinez MD Face to face encounter, data reviewed, discussed with Raghu Stoddard on 04/03/19. I agree with the above assessment and plan of care. cc: Deangelo Martinez MD [facility]
[2019-04-03] MEDS: BACTROBAN OINTMENT TOP SCH (16:09)
[2019-04-03] MEDS: ANALGESIC BALM TOP PRN (16:10)
[2019-04-03] MEDS: APRESOLINE PO SCH ×2 (16:18→23:23)
[2019-04-03] MEDS: AMBIEN PO SCH (23:23)
[2019-04-03] MEDS: COZAAR PO SCH (23:24)
[2019-04-04] MEDS: BACTROBAN OINTMENT TOP SCH ×2 (04:19→11:10)
[2019-04-04] MEDS: NS 1,000 ML IV SCH (05:26)
[2019-04-04] MEDS: NON-FORMULARY BULK MED SUBQ SCH ×3 (06:43→18:13)
[2019-04-04] MEDS ORDERED: INSULIN PEN NEEDLES ONE (07:33)
[2019-04-04 08:16] LABS: HEMATOCRIT 28.2 % (37.0-47.0); HEMOGLOBIN 9.2 g/dL (12.0-16.0); MCH 25.8 PG (27-31); MCHC 32.6 g/dL (33-37); MCV 79.2 FL (81-99); MPV 10.9 FL (7.4-10.4); RBC 3.56 XMIL (4.2-5.4); RDW 14.7 % (11.5-14.5); WBC 6.65 X1000 (4.8-10.8)
[2019-04-04 08:33] LABS: ALBUMIN 2.5 g/dL (3.5-5.0); CALCIUM 7.3 mg/dL (8.8-10.2); CREATININE 2.8 mg/dL (0.5-0.9); PHOSPHORUS 3.3 mg/dL (2.7-4.5); POTASSIUM 4.2 mmol/L (3.5-5.1)
[2019-04-04] MEDS ORDERED: TOPROL XL PO SCH (09:00)
[2019-04-04 09:06] LABS: FLOW CYTOMETERY SOURCE WHOLE BLOOD; LEUKEMIA LYMPHOMA BY FLOW REFERRED FOR TESTING
[2019-04-04] MEDS: COZAAR PO SCH (11:10)
[2019-04-04] MEDS: APRESOLINE PO SCH (11:10)
[2019-04-04] MEDS: TYLENOL PO PRN (11:14)
[2019-04-04] MEDS: TEFLARO 600 MG in NS 250 ML IV SCH ×2 (11:17→23:00)
--- NOTE | 2019-04-04 14:19 | NEPHROLOGY PROGRESS NOTE ---
DATE: 04/04/2019 DATE SEEN: 04/04/2019. TIME SEEN: 0655. SUBJECTIVE: Ms. Rosa is resting quietly in bed. She complains of her left knee pain, states that she had fallen on it previously. She has been n.p.o., taking GoLYTELY during the night in prep of an EGD and colonoscopy this a.m. OBJECTIVE: VITAL SIGNS: Her most recent vital signs, temperature 97.7 degrees, blood pressure 162/78, heart rate 79, respirations 18. She is on room air. Last recorded saturation 100%. She has had 250 in. She has had only 4 mL documented out though patient has been stooling all night. LABORATORY DATA: Sodium 132, potassium 4.2, chloride 99, CO2 19, BUN 32, creatinine 2.8, glucose 164. Her anion gap is 14. Calcium 7.3. Phosphorus is 3.3, albumin is 2.5. Previous hemoglobin 9.2, hematocrit 28.2, white count 6.65, platelets 239,000. PHYSICAL EXAMINATION: General: This is a 54-year-old white female resting quietly in bed. She is in moderate distress secondary to left knee pain. Otherwise, no complaints of chest pain or increased work of breathing. HEENT: Normocephalic, atraumatic. Conjunctiva is pale. She has ROBERTH. Mucous membranes are moist. Neck: Supple. Trachea midline. No evidence of JVD. Cardiovascular: Regular rate and rhythm without murmur or gallop. Lungs: Clear to auscultation bilaterally. Equal excursion on room air. Abdomen: Soft, nontender. Positive bowel sounds. Genitourinary: Not inspected. Patient has been voiding adequate amounts with stooling. Extremities: Have trace pretibial edema. No clubbing or cyanosis. Left knee slightly swollen at site of a bruised area on the patella. Integumentary: Warm and dry. The patient does have old lesions that are healing to her bilateral lower extremities. Neurological: She is alert to person and to place and to time. ASSESSMENT AND PLAN: 1. Acute on chronic kidney disease. Patient's BUN and creatinine have continued to slowly improve. Difficulty obtaining an adequate intake and output. We will continue to monitor. 2. Fluid volume. We will stop her IV fluid at this time. The patient has been eating and drinking well. We will stop this fluid after her EGD and colonoscopy today. 3. Electrolytes and acid-base balance. These are acceptable. 4. Anemia. This is low but stable. 5. Hypertension. This is improved in the last 24 to 48 hours. 6. Left knee pain, we will defer to the primary care team. I would like to thank you for allowing us to follow with this patient. Dictated by TEODORO Fernandez for Deangelo Martinez MD Face to face encounter, data reviewed, discussed with Rohan High on 04/04/19. I agree with the above assessment and plan of care. cc: TEODORO Fernandez MD [facility]
--- NOTE | 2019-04-04 14:30 | PROGRESS NOTE ---
DATE: 04/04/2019 SUBJECTIVE: The patient reports feeling fine. As per nursing staff, she continues to refuse care. She was supposed to have a colonoscopy endoscopy, but yesterday she refused preparation, even though she expressed her desire to be scoped to find out the reason of her anemia. Unfortunately that has been going on for the last few days, that she refused sometimes antibiotics or fluids or any other medication that she considered she does not need to be on and it is becoming really difficult to manage her. OBJECTIVE: Vital Signs: Temperature 97.4 degrees, heart rate 91, respiratory rate 20, blood pressure 194/72 with O2 saturation 97% on room air. General examination: This is a chronically ill appearing, legally blind bilaterally, 53-year-old female, lying in bed in no acute distress. Cardiovascular exam: S1, S2 heard. No murmurs, gallops or rubs. Regular rate and rhythm. Respiratory exam: Decreased air entry globally. Some coarse breath sounds still present in both pulmonary bases, but patient is not using any accessory muscles or having work of breathing. Abdomen: Soft, nontender to palpation. Bowel sounds present. No organomegaly. Extremities: Mild edema in both lower extremities with several superficial chronic ulcers in both lower extremities. Neurological exam: Patient alert and oriented x3. Moves 4 extremities. LABORATORY DATA: White cell count 6.65, hemoglobin 9.2, hematocrit 28.2 platelets 239 with BMP that shows creatinine 2.8. ASSESSMENT AND PLAN: 1. Iron deficiency anemia/splenomegaly. Hematology has been consulted and workup has been ordered. Because of this anemia, Gastroenterology has been consulted, and they were planning to do colonoscopy endoscopy, but the patient is refusing care. She is not drinking her preparation and refused the procedure ultimately. Patient has been made aware of the risks of continuing refusing care. Unfortunately, I do think that this patient is able to understand her current situation. The daughter, who is at bedside, also is informed on a daily basis about the plan of care. 2. Acute on chronic kidney disease. Creatinine continues to improve. Actually, is almost back to her baseline. Dr. Martinez from Nephrology is following. 3. Urinary tract infection, resolved. 4. Bilateral lower extremity skin infection. Patient continues with Teflaro. 5. Diabetes mellitus type 2. We will continue with Accu-Cheks before meals and also at bedtime, and sliding scale insulin as well. 6. Physical deconditioning. Physical therapy working with this patient. She has become very weak, mostly in both lower extremities. 7. Disposition: I think if patient continues to refuse care and patient is interested in going to rehabilitation facility, we will talk with social science research assistant to inform her that this patient is ready to go to rehab. As we mentioned before, she is refusing care from Gastroenterology. She refused sometimes her antibiotics for skin infection. I think the best thing for her is to send to rehabilitation. cc: Tigre Pollard MD
--- NOTE | 2019-04-04 16:22 | PROVIDER PROGRESS NOTE ---
Progress Note SUBJECTIVE: Patient refused to complete golytely prep overnight. She is still having solid to loose brown stools. No abdominal pain, N/V. She is refusing to drink prep for diagnostic EGD/colonoscopy tomorrow. OBJECTIVE: Last Vital Signs Temp 98.0 F 04/04/19 15:47 Pulse 75 04/04/19 15:47 Resp 17 04/04/19 15:47 BP 163/68 04/04/19 15:47 Pulse Ox 100 04/04/19 15:47 Height 5 ft 4 in Weight 177 lb 2 oz GEN: awake, alert, NAD HEENT: anicteric, MMM NECK: supple, no jvd CV: RRR, no murmurs PULM: CTAB ABD: soft NT/ND, NABS EXT: excoriations LEs, no c/c NEURO: moving all extremities symmetrically LABS: 04/04/19 04/04/19 07:37 07:37 WBC 6.65 Hgb 9.2 L Plt Count 239 Sodium 132 L Potassium 4.2 Chloride 99 Carbon Dioxide 19 L BUN 32 H Creatinine 2.8 H Glucose 164 H Albumin 2.5 L A/P: Ms. Sejal Rosa is a 54 year old blind and homeless woman with CKD stage 3, IDDM2, hypertension, and congestive heart failure who was admitted with DIOR, UTI, and BRYANT on CKD. She also apparently has had vaginal bleeding in the recent past. She is currently refusing prep to perform diagnostic colonoscopy. #Anemia: hgb stable; she is having brown stools; no rectal bleeding; patient is refusing colonoscopy; recommend iron replacement therapy; hematology following #Splenomegaly: noted; no thrombocytopenia #IDDM2: SSI per primary #UTI: on abx #Hyponatremia: replete lytes prn #Hypoalbuminemia: noted Will follow with you. Please call with questions
[2019-04-05] MEDS: BACTROBAN OINTMENT TOP SCH ×2 (00:26→09:02)
[2019-04-05] MEDS: NON-FORMULARY BULK MED SUBQ SCH ×5 (00:26→17:45)
[2019-04-05] MEDS: AMBIEN PO SCH (00:26)
[2019-04-05] MEDS: COZAAR PO SCH ×3 (00:26→21:40)
[2019-04-05] MEDS: APRESOLINE PO SCH ×3 (00:27→21:39)
[2019-04-05 08:22] LABS: ALBUMIN 2.2 g/dL (3.5-5.0); CALCIUM 7.4 mg/dL (8.8-10.2); PHOSPHORUS 3.7 mg/dL (2.7-4.5); POTASSIUM 4.1 mmol/L (3.5-5.1)
[2019-04-05] MEDS: ANALGESIC BALM TOP PRN (09:02)
[2019-04-05] MEDS: TEFLARO 600 MG in NS 250 ML IV SCH ×2 (10:47→23:00)
[2019-04-05] MEDS: TOPROL XL PO SCH (10:57)
--- NOTE | 2019-04-05 12:11 | PROGRESS NOTE ---
DATE: 04/05/2019 SUBJECTIVE: The patient continues to refuse care. The patient was supposed to have an upper endoscopy, but said that she is not going to have it. In brief, during the last few days, she continues to refuse almost all care that we provided to her. OBJECTIVE: Vital Signs: Temperature 98.0, heart rate 76, respiratory rate 20, blood pressure 142/107, O2 saturation 97% on room air. General examination: This is a chronically ill appearing, legally blind bilaterally, 53-year-old, female lying in bed, in no acute distress. Cardiovascular: S1, S2 heard. No murmurs, gallops, or rubs. Regular rate and rhythm. Respiratory: Decreased air entry globally with some coarse breath sounds still present in both pulmonary bases, but patient is not using any accessory muscles or having work of breathing. Abdomen: Soft. Nontender to palpation. Bowel sounds present. No organomegaly. Extremities: Mild edema in both lower extremities with several superficial chronic ulcers in both lower extremities. Neurological: Patient is alert and oriented x3. Moves 4 extremities spontaneously. LABORATORY DATA: White cell count 6.6. The BMP from today reveals creatinine 3.0, sodium 133. ASSESSMENT AND PLAN: 1. Iron deficiency anemia/splenomegaly. Hematology has been consulted for this condition and work up has been ordered. Because of this anemia, also Gastroenterology was consulted and they were planning to do a colonoscopy/endoscopy, but unbelievably, she refused to have those procedures done here and she prefers to get them done as an outpatient. Daughter is aware of the refusal of care from this patient. 2. Acute on chronic kidney disease. I think renal function is back to her baseline. Dr. Martinez from Nephrology is following this patient. 3. Urinary tract infection, resolved. 4. Bilateral lower extremity skin infection. Patient continues with Teflaro. 5. Diabetes mellitus type 2. We will continue with Accu-Chek before meals and also at bedtime and sliding scale insulin as well. 6. Physical deconditioning. Physical therapy working with this patient. DISPOSITION: I think at this point, even though patient continues to refuse care, we will continue to check on her in a daily basis and checking labs daily as well. Also, we were informed regarding her request for rehabilitation that insurance company will provide a pre authorization and when that happen will start looking for a bed for her so she is going to stay in the hospital for a while. Clinically, this patient is stable, but unfortunately, she continues to refuse care. I do not know why. cc: Tigre Pollard MD [facility]
--- NOTE | 2019-04-05 14:25 | Diag Imaging Result Doc PS360 ---
EXAM: CHEST-2 VIEWS HISTORY: rib pain TECHNIQUE: Chest two views COMPARISON: 04/01/2019 FINDINGS: There are small bilateral pleural effusions. The heart remains mildly prominent. No pulmonary edema. No pneumothoraces. There is right basilar atelectasis. The overall appearance is similar to the prior exam IMPRESSION: Stable chest. Electronically signed by Jose Eduardo Euceda 04/05/2019 2:23 PM
--- NOTE | 2019-04-05 14:26 | Diag Imaging Result Doc PS360 ---
EXAM: RIBS ONLY LEFT HISTORY: left rib pain TECHNIQUE: Left rib detail, two views COMPARISON: None. FINDINGS: No displaced fracture. No pneumothorax. No lung contusion. No other rib abnormality. IMPRESSION: Negative exam. Electronically signed by Jose Eduardo Euceda 04/05/2019 2:24 PM
--- NOTE | 2019-04-05 15:30 | NEPHROLOGY PROGRESS NOTE ---
DATE: 04/05/2019 TIME SEEN: 07:05. SUBJECTIVE: Ms. Rosa is resting quietly on the right side. She prefers to lay this way. States that she complains of left chest rib pain radiating around towards her back, and left knee pain continues. OBJECTIVE: Vital Signs: Her most recent vital signs. Her last temperature 98.4 degrees, blood pressure 168/66, heart rate 76, respirations 18. She is on room air. Last recorded saturation is 96%. She has had 7850 recorded in; she has had zero recorded out. PHYSICAL EXAMINATION: This is a 54-year-old white female resting quietly in bed. Head of the bed is elevated. She appears in no acute distress.Skin: Warm and dry. HEENT: Normocephalic, atraumatic. Conjunctivae are pale pink. She has ROBERTH. Mucous membranes are dry. Neck: Supple. Trachea midline. No evidence of JVD. Cardiovascular: She is regular rate and rhythm. She is without murmur or gallop. Lungs: Clear to auscultation bilaterally. Equal excursion on room air. Abdomen: Soft, nontender, positive bowel sounds. She is tender to touch on her left mid axillary rib region. Abdomen is soft, round, nontender. Positive bowel sounds. Genitourinary: Not inspected. Patient has been voiding. Extremities: Have no edema. No clubbing or cyanosis except to the left knee which is slightly swollen with old bruising present over the patella area. Integumentary: Warm and dry with patient with old lesions and healing to bilateral lower extremities. Neurological: She is alert to person and place. LABORATORY DATA: Her sodium is 133, potassium 4.1, chloride 102, CO2 of 20, BUN 36, creatinine 3, glucose is 195. Her white count 6.65, hemoglobin 9.2, hematocrit 28.2, with a platelet count of 239,000. The patient has an anion gap of 11, calcium is 7.4, phosphorus 3.7, and albumin of 2.2. She has an erythropoietin level of 6. ASSESSMENT AND PLAN: 1. [id number] kidney disease. Patient's BUN and creatinine are stable. No improvement from yesterday. Her urine output has not been documented. 2. Volume status. IV fluids have been stopped. She is eating and drinking well. We will monitor. Request that they record her fluid and intake and output more accurately. 3. Electrolytes and acid-base balance. These are acceptable. 4. Anemia, low but stable. 5. Hypertension. This remains stable. 6. Left knee pain and left rib pain. We have ordered a chest x-ray this a.m. and a left knee to be completed today. This has not been completed at this time and remains ordered. I would like to thank you for allowing us to follow with this patient. Dictated by TEODORO Fernandez for Deangelo Martinez MD Face to face encounter, data reviewed, discussed with Rohan High on 04/05/19. I agree with the above assessment and plan of care. cc: TEODORO Fernandez MD [facility]
--- NOTE | 2019-04-05 19:03 | PROVIDER PROGRESS NOTE ---
Progress Note SUBJECTIVE: No acute overnight events. No N/V/F, CP, SOB, abdominal pain. Plan was for patient to have diagnostic EGD since she refused to drink prep for diagnostic colonoscopy. However, this morning, she refused EGD and asked for it to be schedule as outpatient as she said she could no longer remain NPO. OBJECTIVE: Last Vital Signs Temp 98.3 F 04/05/19 16:09 Pulse 67 04/05/19 16:09 Resp 24 04/05/19 16:09 BP 152/61 04/05/19 16:09 Pulse Ox 98 04/05/19 16:09 Height 5 ft 4 in Weight 177 lb 2 oz GEN: awake, alert, NAD HEENT: anicteric, MMM NECK: supple, no jvd CV: RRR, no murmurs PULM: CTAB ABD: soft NT/ND, NABS EXT: excoriations LEs, no c/c NEURO: moving all extremities symmetrically LABS: 04/05/19 07:45 Sodium 133 L Potassium 4.1 Chloride 102 Carbon Dioxide 20 L BUN 36 H Creatinine 3.0 H Glucose 195 H A/P: Ms. Sejal Rosa is a 54 year old blind and homeless woman with CKD stage 3, IDDM2, hypertension, and congestive heart failure who was admitted with DIOR, UTI, and BRYANT on CKD. She also apparently has had vaginal bleeding in the recent past. She is currently refusing prep to perform diagnostic colonoscopy and now EGD. #Anemia: hgb stable; she is having brown stools; no rectal bleeding; patient is refusing inpatient EGD/colonoscopy; recommend iron replacement therapy as per hematology #Splenomegaly: noted; no thrombocytopenia #IDDM2: SSI per primary #UTI: on abx #Hyponatremia: replete lytes prn #Hypoalbuminemia: noted #BRYANT: creatinine stable; renally dose meds Will sign off. Please call with questions or concerns. Follow-up in 2-4 weeks upon discharge.
[2019-04-06] MEDS: AMBIEN PO SCH (01:38)
[2019-04-06] MEDS: BACTROBAN OINTMENT TOP SCH ×3 (01:39→21:21)
[2019-04-06] MEDS: NON-FORMULARY BULK MED SUBQ SCH ×4 (01:40→17:34)
[2019-04-06 08:15] LABS: ALBUMIN 2.2 g/dL (3.5-5.0); CALCIUM 7.6 mg/dL (8.8-10.2); PHOSPHORUS 3.9 mg/dL (2.7-4.5); POTASSIUM 4.1 mmol/L (3.5-5.1)
[2019-04-06] MEDS: APRESOLINE PO SCH ×2 (09:26→21:21)
[2019-04-06] MEDS: TOPROL XL PO SCH (09:27)
[2019-04-06] MEDS: COZAAR PO SCH (09:28)
[2019-04-06] MEDS: TEFLARO 600 MG in NS 250 ML IV SCH ×2 (10:48→21:21)
[2019-04-06] MEDS ORDERED: EPOGEN SUBQ SCH (12:00)
--- NOTE | 2019-04-06 15:05 | NEPHROLOGY PROGRESS NOTE ---
DATE: 04/06/2019 DATE AND TIME: Date seen 04/06/2019. Time seen 0635. SUBJECTIVE: Ms. Rosa complains of rib discomfort on the left side and complains of left knee discomfort. OBJECTIVE: Vital Signs: Her most recent vital signs: Last temperature 98.2, blood pressure 140/50, heart rate 70, respirations 18. She is on room air. Last recorded saturation is 97%. She has had 250 mL in. She has had 0 recorded out, though she states that she has been getting up and going to the bathroom. LABORATORY: Sodium 132, potassium 4.1, chloride 102, CO2 21, BUN 39, creatinine 3, glucose 199. Her anion gap is 9. Her calcium is 7.6, phosphorus 3.9, albumin is 2.2. Previous hemoglobin of 9.2 on the . PHYSICAL EXAMINATION: General: This is a 54-year-old white female who is currently resting quietly in bed. She appears in no acute distress. Skin: Warm and dry. HEENT: Normocephalic, atraumatic. Conjunctivae pale pink. She has ROBERTH. Mucous membranes dry. Neck: Supple. Trachea midline. No JVD. Cardiovascular: Regular rate and rhythm. She is without murmur or gallop. Lungs: Clear to auscultation bilaterally. Equal excursion on room air. Abdomen: Soft, nontender. Positive bowel sounds. Genitourinary: Not inspected. Patient has been voiding adequate amounts. Requested to assist with keeping a strict I and O. Extremities: No edema except to the left knee with an area of ecchymosis over the patella. Neurologic: Alert and oriented x 3. ASSESSMENT AND PLAN: 1. Acute on chronic kidney disease. The patient's BUN and creatinine have remained stable. We will go ahead and request that she start a 24 hour urine today prior to her discharge and we will request that she follow up in our office upon discharge 2 weeks after leaving the hospital. 2. Fluid volume status. Patient's IVs have been stopped. No edema. Fluid volume seems to be unstable, not quite euvolemic. Again, requesting that they keep a strict I and O. 3. Electrolytes, acid-base balance and anemia. These are all acceptable. 4. Hypertension. This is improved. 5. Left knee pain and left rib pain. These are negative on x-rays. I would to thank you for allowing us to follow with this patient. Dictated by TEODORO Fernandez for Deangelo Martinez MD Face to face encounter, data reviewed, discussed with Rohan High on 04/06/19. I agree with the above assessment and plan of care. cc: TEODORO Fernandez MD [facility]
--- NOTE | 2019-04-06 18:26 | PROGRESS NOTE ---
DATE: 04/06/2019 INTERVAL HISTORY: No acute events overnight. SUBJECTIVE: She is feeling fine. Denies any chest pain or shortness of breath. The patient's family is at bedside. They want me to take her losartan off as she is supposedly allergic to her losartan. We discussed about her high blood pressure. We also discussed about her leg wounds. VITALS SIGNS: Suggestive of temperature of 97.9 degrees, pulse 67, respiratory rate 20, blood pressure 160/66, saturating 97% on room air. PHYSICAL EXAMINATION: General: Does not appear in any acute distress. HEENT: Oral cavity is moist. Lungs: Air entry bilaterally equal. No wheeze, rhonchi, or crackles. Cardiovascular: S1 and S2 normal. No murmur, rub or gallop. Abdomen: Soft. Generalized tender. Extremities: She has mild bilateral lower extremity edema extending up to the knee level. She also has bilateral lower extremity superficial appearing wound without any active discharge. LABORATORY DATA: Suggestive of no CBC today. She does have what appears to be now chronic kidney disease stage 4 to stage 5. She is on 24-hour urine collection at the moment. ASSESSMENT AND PLAN: 1. Iron deficiency anemia with splenomegaly. Hematology Oncology has been working her up. She also has an outpatient PET scan scheduled. The patient refused to undergo colonoscopy or upper endoscopy, and she wanted to get it done as an outpatient. I will continue her on erythropoietin as per Hematology recommendation. She has so far received 2 units of blood transfusion since admission since her hemoglobin was low. 2. Acute kidney injury on chronic kidney disease stage 3, now appears to have chronic kidney disease stage 4. She is getting 24-hour urine collection. Nephrology on board. Currently appears to be in stable condition. She should get outpatient nephrology, 3. Staphylococcus epidermidis urinary tract infection. She has been on intravenous ceftaroline and she has received 5 days of therapy. She also has a bilateral lower extremity wound, which does not look infected. She is not complaining of any burning micturition and my plan is to stop antibiotics today. 4. Diabetes mellitus type 2. I will consider increasing her insulin dose as she has hyperglycemia. 5. Essential hypertension. I will increase the dose of hydralazine and continue current dose of metoprolol. Apparently she has been listed to be allergic to a lot of medications including losartan as per the family and amlodipine. 6. Physical deconditioning. We are awaiting insurance approval, at that point the plan is to discharge her as soon as insurance is approved. Plan of care discussed with the patient and her family at bedside. All of their questions have been satisfactorily answered. cc: Nawaf Treadwell MD
[2019-04-06] MEDS ORDERED: HUMALOG SUBQ SCH (21:00)
[2019-04-07] MEDS: AMBIEN PO SCH ×2 (04:48→21:04)
[2019-04-07] MEDS: NON-FORMULARY BULK MED SUBQ SCH ×5 (04:49→21:06)
[2019-04-07] MEDS: TEFLARO 600 MG in NS 250 ML IV SCH (04:49)
[2019-04-07 07:35] LABS: BASO# 0.01 X1000 (0.0-0.2); BASO% 0.1 % (0.0-0.8); EOS# 0.26 X1000 (0.0-0.7); EOS% 3.8 % (0.0-10.0); HEMOGLOBIN 9.1 g/dL (12.0-16.0); IMM GRAN# 0.09 X1000 (0.0-0.04); IMM GRAN% 1.3 % (0.0-0.5); LYMPH# 0.74 X1000 (1.2-3.4); LYMPH% 10.9 % (20.5-51.1); MCHC 32.5 g/dL (33-37); MONO# 0.53 X1000 (0.11-0.59); MONO% 7.8 % (1.7-9.3); MPV 11.3 FL (7.4-10.4); NEUT# 5.19 X1000 (1.4-6.5); NEUT% 76.1 % (42.2-75.2); PLT 210 X1000 (130-400); RDW 15.1 % (11.5-14.5); WBC 6.82 X1000 (4.8-10.8)
[2019-04-07 10:48] LABS: UR CREATININE 118.4 mg/dL (11-20)
[2019-04-07 10:54] LABS: UR PROTEIN 498.5 mg/dL
[2019-04-07] MEDS: BACTROBAN OINTMENT TOP SCH ×2 (11:36→21:05)
[2019-04-07] MEDS: APRESOLINE PO SCH ×2 (11:36→21:04)
[2019-04-07] MEDS: TOPROL XL PO SCH (11:37)
[2019-04-07] MEDS: LOMOTIL PO SCH ×3 (11:55→21:05)
--- NOTE | 2019-04-07 13:06 | DISCHARGE SUMMARY ---
ADMISSION DATE: 03/28/2019 DISCHARGE DISPOSITION: To Rehab Facility. DISCHARGE CONDITION: The patient is hemodynamically stable. Alert and oriented x3. 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 She wants to go out of this hospital as soon as possible. She was previously refusing a lot of care. DISCHARGE DIAGNOSES: 1. Microcytic hypochromic anemia, likely due to iron deficiency anemia with suspected chronic blood loss. 2. Anemia with splenomegaly. Workup in progress. 3. Acute kidney injury on chronic kidney disease stage 3. 4. Now stable what appears to be chronic kidney disease stage 4. 5. Staphylococcus epidermidis cystitis. 6. Bilateral lower extremity wounds. 7. Insulin-dependent diabetes mellitus type 2 with hyperglycemia. 8. Essential hypertension. 9. Physical deconditioning. OTHER DIAGNOSES: 1. History of chronic kidney disease. 2. History of insulin-dependent diabetes mellitus. 3. History of recurrent urinary tract infection. 4. History of lower extremity DVT about 6 months ago. The details of which are unclear on home Eliquis which was held. 5. History of congestive heart failure and chronic bilateral lower extremity edema. DISCHARGE MEDICATIONS: 1. Mupirocin ointment to be applied on bilateral lower extremities b.i.d. 2. Insulin Aspart sliding scale with meals and at nighttime. The regimen of sliding scale has been provided to the facility. 3. Menthol methyl salicylate analgesic balm 1 g as needed on the areas of hip pain and knee pain. 4. Hydralazine 25 mg b.i.d. 5. Epoetin jostin 40,000 international units subcutaneously every 7 day. 6. Metoprolol succinate 100 mg daily. 7. Acetaminophen 650 mg every 6 hours as needed. CONSULTATIONS DURING HOSPITALIZATION: 1. Gastroenterology Dr. Arias. 2. Hematology Dr. Austin. 3. Nephrology Dr. Martinez. PROCEDURES DURING HOSPITALIZATION: None. Initially, there was a plan for EGD and colonoscopy. However, patient had refused to undergo these procedures, saying that she would prefer to get this procedure done as an outpatient. VITALS: At the time of discharge, temperature 98.2 degrees, pulse 72, respiratory rate 17, blood pressure 159/54, and saturating 96% on room air. PHYSICAL EXAMINATION: Patient has legal blindness. Does not appear in any acute distress. Oral cavity is moist. Air entry bilaterally equal. No wheeze, rhonchi, or crackles. Cardiovascular: S1, S2 normal. No murmur or gallop. Abdomen: Soft, nontender. She is complaining of diarrhea for which Lomotil has been ordered. Extremities: Bilateral lower extremity edema extending up to knee. She also has healed bilateral ulcers of lower extremities for which she was given intravenous ceftaroline. She was advised to discuss with the doctor about resuming her Lasix, adjusting for her kidney function. SIGNIFICANT LABS DURING HOSPITAL ADMISSION: The patient had a hemoglobin of 7.7 at the time of admission, which was 9.1 at the time of discharge. She received 2 units of packed red blood cells during this hospital admission. Platelet count of 210,000. At the time of discharge, her sodium is 132, carbon dioxide 21, BUN 39, creatinine of 3. Her blood glucose is 226. Her 24 hour urine suggests urine creatinine of 118. Urine protein of 498, and creatinine clearance of 19. Flow cytometric analysis of lymphocyte was canceled. Significant microbiology during hospital admission. Urine culture had Staphylococcus epidermidis. However, repeat urinalysis on 04/01 did not have any WBCs. She was on intravenous ceftaroline. SIGNIFICANT IMAGING DURING HOSPITAL ADMISSION: 1. Extremity venous study on 03/31 did not have any superficial or DVT of lower extremities. 2. Chest x-ray on 03/28 did not having congestive heart failure. 3. Abdominal pelvis CT performed for left upper quadrant pain and anemia with splenomegaly, distended urinary bladder. 4. Renal ultrasound on 03/31 had normal renal ultrasound. 5. Chest x-ray on 04/05 had negative exam. HOSPITAL COURSE/SUMMARY: Ms. Rosa is a 54 year old lady with past medical history of chronic kidney disease stage 3 and congestive heart failure of unclear type. She had echocardiogram during this admission, which had ejection fraction of 59% with mild concentric left ventricular hypertrophy with impaired left ventricular relaxation, who came in with chief complaints of bilateral lower extremity pain of about 1 weeks duration. Apparently, a week ago patient had a fall in the toilet of a restaurant on her left thigh. Since then, she has been having left lower extremity pain, and she was unable to bear weight. She had also noticed increasing swelling and pain in the posterior aspect of left eye. As a result of this, she had gone to [facility] where she had trouble with Rosario catheterization. Since then, she has been having some burning and subjective fevers without any hematuria. However, her lower extremity pain was getting worse so she decided to come to hospital. She also had bilateral intermittent chavez ulcers which would present with blisters, which was thought to be secondary to fluid buildup in her legs. While in the emergency room, she was found to have anemia with hemoglobin of 7.7. She received 2 units of blood transfusion. It was thought that anemia could be related to chronic blood loss, though fecal occult blood test was not performed. She was on Eliquis for history of deep venous thrombosis. Ultrasound did not detect any DVT over the lower extremities and Eliquis was held. The patient refused to undergo EGD and colonoscopy. Hematology was also consulted for her splenomegaly with anemia. However, the results were pending, and she was advised to follow up with Hematology as outpatient. While on arrival, she was also found to have acute kidney injury on chronic kidney disease stage 3. She did not require any dialysis, and she was making adequate urine. She was just managed conservatively, and it appears that her chronic kidney disease appeared to have stabilized to stage 4 level at the time of discharge. She was advised to follow up with outpatient Nephrology. She was treated with intravenous ceftaroline for Staph epidermidis urinary tract infection, and insulin for her hyperglycemia. Adjustments were made in her hydralazine dose to address her hypertension. At the time of discharge, she was hemodynamically stable. Discharge instructions were provided in detail to the patient's family and patient herself. All of their questions have been satisfactorily answered. TIME SPENT: More than 30 minutes were spent in discharging this patient. cc: Nawaf Treadwell MD [facility]
--- NOTE | 2019-04-07 15:09 | HEMO/ONC PROGRESS NOTE ---
DATE: 04/06/2019 CHIEF COMPLAINT: No new complaints. OBJECTIVE: Vital signs: Temperature 97.9 degrees, blood pressure 141/53, heart rate 67, respirations 16, O2 saturation 99% on room air. HEENT: Normocephalic, atraumatic. Mucous membranes are pale and moist. Sclerae is anicteric. Extraocular movements intact. Neck: Supple. Lungs: Clear to auscultation bilaterally. Chest expansion equal bilaterally. Cardiovascular: S1, S2 is heard. No murmurs, rubs or gallops. Abdomen: Nondistended. Extremities: No clubbing or cyanosis. She does have trace bilateral lower extremity edema. Dermatologic: The patient does have multiple bilateral lower extremity lesions. Neurologic: The patient is awake, alert, and oriented x3 and has no focal motor deficit. LABORATORY DATA: Sodium 132, potassium 4.1, chloride 102, CO2 is 21, BUN 39, creatinine 3.0, and glucose is 199. ASSESSMENT AND PLAN: 1. Anemia/splenomegaly, likely multifactorial secondary to iron deficiency as well as chronic kidney disease. The patient will receive Neupogen 52971 weekly beginning today. We will continue to follow the patient as an outpatient for Aranesp treatment. Of note, the patient is currently refusing a gastroenterology workup. 2. Acute on chronic kidney disease. Creatinine is currently 3.0. Nephrology is following. 3. Bilateral lower extremity skin infection. Currently on Teflaro. 4. Deconditioning. Physical therapy is following. PLANS: 1. Discharge to rehabilitation. 2. We will follow along and make further recommendations pending outcomes. Liezt Baldwin, Nurse Practitioner, dictating a progress note on Sejalmiriam Rosa for Dr. Divine Hamilton. The above reflects the history, exam, assessment and plan of Dr. Divine Hamilton. Dictated by TEODORO Cee for Divine Hamilton MD cc: TEODORO Cee MD
--- NOTE | 2019-04-07 16:57 | NEPHROLOGY PROGRESS NOTE ---
DATE: 04/07/2019 SUBJECTIVE: She is lying on her right side. Sleeping but easily arousable. She is anticipating transfer to rehab. OBJECTIVE: Vital Signs: Blood pressure 159/54, heart rate 72, respirations 17, afebrile. General: No acute distress. Skin: Warm and dry. Neck: Neck veins are not appreciated. Heart: Regular. No gallops. Lungs: Equal. No crackles. Abdomen: Soft, nontender. Bowel sounds present. Extremities: With minimal edema. No clubbing or cyanosis. IMPRESSION: Chronic kidney disease stage 4. Creatinine is stable at 3.0. A 24 hour urine was collected but with a creatinine clearance of 19. We will follow her closely in the office. Electrolytes, acid-base, anemia are acceptable. No change in treatment required at this time. Blood pressure is above target but acceptable. I would not titrate her regimen at this time but we will manage this as an outpatient. cc: Deangelo Martinez MD
[2019-04-07] MEDS ORDERED: INSULIN PEN NEEDLES ONE (21:05)
[2019-04-08] MEDS: NON-FORMULARY BULK MED SUBQ SCH ×4 (06:17→20:13)
[2019-04-08] MEDS: APRESOLINE PO SCH ×2 (09:36→20:11)
[2019-04-08] MEDS: LOMOTIL PO SCH ×4 (09:36→16:52)
[2019-04-08] MEDS: TOPROL XL PO SCH (09:37)
[2019-04-08] MEDS: BACTROBAN OINTMENT TOP SCH ×2 (09:37→20:12)
[2019-04-08] MEDS ORDERED: VENTOLIN HFA INH PRN (10:33)
[2019-04-08] MEDS ORDERED: VENTOLIN HFA INH SCH (11:30)
--- NOTE | 2019-04-08 13:25 | Diag Imaging Result Doc PS360 ---
CHEST-PORTABLE - 04/08/2019 INDICATION: dyspnea COMPARISON: 04/05/2019 FINDINGS: There is worsening opacification at the right lateral costophrenic angle compatible with some combination of infiltrate and possibly pleural effusion. The left lung is fairly clear. Heart size is normal. IMPRESSION: Worsening opacification at the right lateral costophrenic angle. Likely represents an infiltrate and possibly small pleural effusion. Electronically signed by Rico Grey 04/08/2019 1:22 PM
[2019-04-08] MEDS ORDERED: LEVAQUIN 750 MG/D5W 750 MG/150 ML IVPB IV ONE (13:41)
[2019-04-08] MEDS ORDERED: LASIX IV ONE (13:43)
[2019-04-08] MEDS: DUONEB (A & A) INH SCH ×3 (15:15→22:42)
--- NOTE | 2019-04-08 16:23 | PROGRESS NOTE ---
DATE: 04/08/2019 INTERVAL HISTORY: Patient has been complaining of shortness of breath and wanted to get breathing treatment especially nebulizer. At the time of my evaluation, she is denying any chest pain. She is occasionally coughing, but she is not bringing up any stuff. She was not able to be discharged yesterday because there were a few issues with the facility that I am not entirely aware about. VITAL SIGNS: Currently, vitals suggest temperature of 98 degrees, pulse 64, respiratory rate 13, blood pressure 150/59 and saturating 98% on room air. She did have a T-max of 99.8 degrees. PHYSICAL EXAMINATION: General: Does not appear in any acute distress. Oral cavity is moist. Lungs: Air entry bilaterally equal in suprascapular region. However, she does have significantly decreased air entry on the right infrascapular region as compared to left. No wheeze or rhonchi. S1, S2 normal. No murmur or gallop. Abdomen: Soft. Generalized tender. Extremities: She has mild bilateral lower extremity edema extending up to knee level. She has a bilateral lower extremity healing wounds, which looks like blisters which have healed. LABORATORY: No CBC or BMP today. Chest x-ray performed today suggests right lower lobe infiltrate or effusion. ASSESSMENT AND PLAN: 1. Shortness of breath and acute respiratory distress. This is likely hospital acquired pneumonia considering she has not had fever, and did not have white count yesterday. I am going to treat her with intravenous levofloxacin. Dose modified according to her kidney function. I will also give her a dose of intravenous Lasix. I will give her albuterol ipratropium nebulization. I will follow up with CBC and BMP tomorrow. 2. Iron deficiency anemia with splenomegaly. Hematology Oncology has been working her up. The patient refused to undergo colonoscopy or upper endoscopy, and wanted to get it done as an outpatient. Continue erythropoietin as per Hematology recommendations. She is status post 2 units of PRBC's since admission. I will also continue monitoring her hemoglobin. 3. Acute kidney injury on chronic kidney disease stage 3, now appears to have chronic kidney disease stage 4. Nephrology on board. Currently, unstable. She should get outpatient nephrology followup. 4. Staphylococcus epidermidis urinary tract infection, status post intravenous ceftaroline and 5 days treatment of it. 5. Diabetes mellitus type 2. Continue sliding scale insulin for hyperglycemia 6. Others: Essential hypertension. Continue current dose of hydralazine and metoprolol. Currently, blood pressure is in acceptable range. 7. Physical deconditioning. We are awaiting placement to a facility. Apparently, patient was homeless and would like to go to facility. 8. Plan of care discussed with the patient and her daughter at bedside. All of their questions have been satisfactorily answered. cc: Nawaf Treadwell MD
[2019-04-08] MEDS: AMBIEN PO SCH (20:10)
[2019-04-09] MEDS: DUONEB (A & A) INH SCH ×4 (03:30→22:26)
[2019-04-09] MEDS: NON-FORMULARY BULK MED SUBQ SCH ×5 (06:28→23:38)
[2019-04-09 08:00] LABS: CALCIUM 7.5 mg/dL (8.8-10.2); CREATININE 3.6 mg/dL (0.5-0.9); POTASSIUM 4.3 mmol/L (3.5-5.1)
[2019-04-09] MEDS: TOPROL XL PO SCH (08:27)
[2019-04-09] MEDS: APRESOLINE PO SCH ×2 (08:27→20:12)
[2019-04-09] MEDS: LOMOTIL PO SCH ×3 (08:30→17:52)
[2019-04-09] MEDS: BACTROBAN OINTMENT TOP SCH ×2 (08:31→20:12)
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
[2019-04-09] MEDS: AMBIEN PO SCH ×2 (20:12→23:39)
[2019-04-10] MEDS: DUONEB (A & A) INH SCH ×2 (03:46→10:11)
[2019-04-10] MEDS ORDERED: LEVAQUIN 500 MG/D5W 500 MG/100 ML IVPB IV SCH (06:00)
[2019-04-10] MEDS: NON-FORMULARY BULK MED SUBQ SCH ×2 (09:01→11:50)
[2019-04-10] MEDS: APRESOLINE PO SCH (09:02)
[2019-04-10] MEDS: BACTROBAN OINTMENT TOP SCH (09:04)
[2019-04-10] MEDS: LOMOTIL PO SCH ×2 (09:04→15:48)
[2019-04-10] MEDS: TOPROL XL PO SCH (09:05)
[2019-04-10] MEDS ORDERED: INSULIN PEN NEEDLES ONE (09:25)
[2019-04-10] MEDS ORDERED: DOXYCYCLINE PO SCH (13:30)
--- NOTE | 2019-04-10 13:44 | DISCHARGE SUMMARY ---
ADMISSION DATE: 03/28/2019 DISCHARGE DATE: 04/10/2019 Addendum to Discharge of 04/07/2019 DISCHARGE DISPOSITION: Home with family. Actually patient and her family is homeless. VITALS: On the day of discharge, temperature 98.2 degrees, pulse 71, respiratory rate 18, blood pressure 154/62, and saturating 96% on room air. PHYSICAL EXAMINATION: General: Does not appear in any acute distress. HEENT: She is legally blind on the left eye. On the right eye, she has perception of light. Oral cavity is moist. No pallor, cyanosis, clubbing, or icterus. Lungs: Air entry bilaterally equal except inspiratory crackles on right infrascapular region. No wheeze or rhonchi. Heart: S1, S2 normal. No murmur or gallop. Abdomen: Soft. Nontender. Extremities: Bilateral lower extremity edema extending up to knee levels. She also has healed blisters, bilateral lower extremity thought to be secondary to chronic edema. MEDICATION AT TIME OF DISCHARGE: Blood sugar is 245. MEDICATIONS: Updated medication list: 1. Mupirocin ointment 1 application as applied on both legs. 2. Insulin aspart 6 units with meals and night time or as per sliding scale- 30 day supply. 3. Albuterol sulfate 8.5 g inhaled every 4 hours as needed for shortness of breath. 4. Methanol salicylates/menthol ointment topical as needed for back pain and joint pain. 5. Hydralazine 25 mg p.o. TID - 90 tabs 6. Doxycycline 100 mg p.o. b.i.d. for 5 days for pneumonia. 7. Epoetin jostin 13878 units subcutaneously every 7 day for anemia of chronic kidney disease. 8. Metoprolol succinate 100 mg daily - 30 day supply. 9. Acetaminophen 650 mg p.o. every 6 hours as needed for pain. DISCHARGE INSTRUCTIONS: Patient should complete course of antibiotics for pneumonia. She should get her Lasix 80 mg in the morning time as per her breathing status as well as kidney function. She should also get a complete blood count and basic metabolic panel done within 3 to 5 days of discharge. Plan of care discussed with the patient. ADDENDUM: Many attempts were made to find a rehab place for this patient. She is currently homeless and has poor functional status. She needs help standing up out of bed. She is not able to go to the bathroom as her legs are weak and would give out. However, eventually, her insurance said that she has the same functional status as she had in January and she is not a candidate for a rehab. We conveyed this to the patient. She expressed that she would want to get discharged and go with her daughter. Her daughter is on phone at the time of my second encounter and I could overhear her agreement. cc: Nawaf Treadwell MD [facility]
[2019-04-10] MEDS ORDERED: ATIVAN PO ONE (15:48)
[2019-04-10 16:02] VITALS: BP 174/65
--- NOTE | 2019-04-10 18:23 | NEPHROLOGY PROGRESS NOTE ---
DATE: 04/10/2019 SUBJECTIVE: Patient resting in bed. She is hoping to go to a rehab facility today. OBJECTIVE: Vital Signs: Temperature 98.2 degrees, pulse 72, respiratory rate 12, blood pressure 151/49, intake 600 mL, output 700 mL. General: Middle-aged female currently resting in bed. She is awake and alert. She does not appear in any distress. HEENT: Normocephalic, atraumatic. Oral mucosa moist. Neck: Supple. No JVD. Cardiovascular: Regular rate and rhythm. Pulmonary: Clear bilaterally. Abdomen: Soft, positive bowel sounds. : Not inspected, voiding. Extremities: Trace lower edema. Integumentary: Skin warm and dry. LABORATORY DATA: Creatinine today 3.6 (3.0). ASSESSMENT AND PLAN: 1. Chronic kidney disease stage 4. Creatinine has been fairly stable at her baseline over several days. We will follow her up in the office in 2 to 3 weeks. 2. Electrolytes, acid-base balance, anemia, see above. 3. Fluid volume. She is not overloaded. 4. Hypertension, continue home or current medications. Dictated by TEODORO Esquivel for Deangelo Martinez MD Face to face encounter, data reviewed, discussed with Raghu Stoddard on 04/10/19. I agree with the above assessment and plan of care. cc: Deangelo Martinez MD [facility] [place]
== END 2019-04-10 17:13 | disposition home or self-care (01) | DRG 811 ==
LOC: ED 10:41 → SUATTDRO 20:21 → 3N 20:21
PROVIDERS: ATTEND Internal Medicine
CPT/HCPCS: 36430; 71010; 71020; 71045; 71046; 71100; 74176; 76770; 80048; 80053; 80069; 80074; 80101; 80301; 80307; 80324; 80345; 80346; 80353; 80358; 80361; 80365; 81001; 81050; 82550; 82570; 82575; 82607; 82668; 82728; 82746; 82948; 83036; 83540; 83615; 83992; 84155; 84156; 84165; 84300; 84443; 84484; 85025; 85027; 85045; 85651; 86850; 86900; 86901; 86920; 87077; 87088; 87186; 87205; 88184; 88185; 93005; 93010; 93306; 93970; 94640; 96365; 97110; 97163; 97166; 97530; 99285; A9270; C8929; G0431; G0434; G0479; G0480; J0712; J0885; J1756; J1940; J2020; J2185; J2405; J7030; J7040; J7050; P9016; Q9957; XXXXX

== ENCOUNTER 2019-06-18 01:39 | Inpatient (IN) ==
[2019-06-18 03:24] LABS: BASO# 0.02 X1000 (0.0-0.2); BASO% 0.4 % (0.0-0.8); EOS# 0.21 X1000 (0.0-0.7); EOS% 4.1 % (0.0-10.0); HEMATOCRIT 25.5 % (37.0-47.0); HEMOGLOBIN 8.4 g/dL (12.0-16.0); IMM GRAN# 0.02 X1000 (0.0-0.04); IMM GRAN% 0.4 % (0.0-0.5); LYMPH# 1.05 X1000 (1.2-3.4); LYMPH% 20.5 % (20.5-51.1); MCH 26.5 PG (27-31); MCHC 32.9 g/dL (33-37); MCV 80.4 FL (81-99); MONO# 0.51 X1000 (0.11-0.59); MPV 11.9 FL (7.4-10.4); NEUT% 64.6 % (42.2-75.2); PLT 140 X1000 (130-400); RBC 3.17 XMIL (4.2-5.4); RDW 14.4 % (11.5-14.5); WBC 5.11 X1000 (4.8-10.8)
[2019-06-18 03:46] LABS: ALBUMIN 2.7 g/dL (3.5-5.0); CALCIUM 7.4 mg/dL (8.8-10.2); CREATININE 2.3 mg/dL (0.5-0.9); POTASSIUM 4.5 mmol/L (3.5-5.1); TOTAL BILIRUBIN 0.3 mg/dL (0.20-1.00); TOTAL PROTEIN 6.3 g/dL (6.3-8.3)
--- NOTE | 2019-06-18 03:55 | PROVIDER DOCUMENTATION ---
HPI-General Adult - General Chief Complaint: General Adult Stated Complaint: EAR PAIN/CONGESTION Time Seen by Provider: 06/18/19 02:06 Source: patient, family (DAUGHTER AND SON-IN-LAW) Allergies/Adverse Reactions: Patient Allergies Allergy/AdvReac Type Severity Reaction Status Date / Time SAMIR Inhibitors Allergy SWELLING Verified 05/27/19 02:29 clonidine Allergy ANAPHYLAXIS Verified 05/27/19 02:29 codeine Allergy SWELLING Verified 05/27/19 02:29 hydralazine Allergy SWELLING Verified 05/27/19 02:29 latex Allergy SWELLING Verified 05/27/19 02:29 levofloxacin [From Levaquin] Allergy ANAPHYLAXIS Verified 05/27/19 02:29 losartan Allergy SWELLING Verified 05/27/19 02:29 nitroglycerin Allergy ANAPHYLAXIS Verified 05/27/19 02:29 Sulfa (Sulfonamide Allergy NAUSEA Verified 05/27/19 02:29 Antibiotics) Penicillins AdvReac ANAPHYLAXIS Verified 05/27/19 02:29 amlodipine AdvReac ANAPHYLAXIS Uncoded 05/27/19 02:29 Home Medications: Home Medication List Medication Instructions Recorded Confirmed Last Taken Type Insulin Aspart [Novolog] 10 unit SUBQ DIRECTED 03/28/19 06/18/19 Unknown History Metoprolol Succinate E.r. [Toprol 100 mg PO DAILY tab 04/07/19 06/18/19 Unknown Rx Xl] Albuterol Sulfate [Proair Hfa] 8.5 gm INHALATION Q4H PRN PRN 04/08/19 06/18/19 1 Day Ago History ~04/07/19 Apixaban [Eliquis] 5 mg PO DAILY 05/03/19 06/18/19 Unknown History Diphenoxylate/Atropine [Lomotil] 1 ea PO 4XDAY PRN PRN #5 tab 05/03/19 06/18/19 Unknown Rx Promethazine [Phenergan] 25 mg PO Q6H PRN PRN #14 tab 05/03/19 06/18/19 Unknown Rx Bacitracin Ointment 1 applicatn TOP TID #15 gm 05/27/19 06/18/19 Unknown Rx - History of Present Illness -Gen Adult Nature of Presenting Problems: A 54 Y/O FEMALE PRESENTS WITH C/O LEFT EAR PAIN, CHEST CONGESTION AND PRODUCTIVE COUGH FOR PAST 1 WEEK. PER FAMILY HAS HAD LOW GRADE FEVER. DENIES ANY EAR DISCHARGE, HEADACHE, DIZZINESS OR CP OR NAUSEA OR VOMITING. PT ALSO C/O ITCHING AND DISCHARGE FROM L EYE, SAYS SHE HAS BEEN RUBBIBG IT A LOT. PT HAS MULTIPLE BLISTERS ON HER LEGS AND SCALP AND SHE SAYS SHE PICKS IT UP ALL THE TIME. DENIES ANY SORE THROAT OR ABD PAIN. PT HAS MULTIPLE MEDICAL PROBLEMS AND IS BLIND. PT IS ACCOMPANIED BY HER SON-IN-LAW. PT HAS A HABIT OF PICKING ON HER SKIN LESIONS. Review of Systems - Adult - REVIEW OF SYSTEMS - ADULT Constitutional: reports: fever Eyes: reports: see HPI, decreased vision, other (ITCHING OF THE LEFT EYELID. BLEPHERITIS) Ears, Nose, Mouth & Throat: reports: see HPI Cardiovascular: reports: see HPI Respiratory: reports: see HPI, cough, shortness of breath Gastrointestinal: denies: no symptoms reported Genitourinary: denies: no symptoms reported Musculoskeletal: denies: no symptoms reported Integumentary: denies: no symptoms reported Neurological: denies: no symptoms reported Psychiatric: denies: no symptoms reported Endocrine: denies: no symptoms reported Hematologic/Lymphatic: denies: no symptoms reported Allergic/Immunologic: denies: no symptoms reported Past History - Adult - PAST MEDICAL HISTORY-ADULT Review of Records: reports: Nursing Assessment Review, Medications Reviewed, Social history reviewed & non-contributory. Major Childhood Illnesses: reports: denies history Cardiovascular: reports: denies history Respiratory: reports: denies history Gastrointestinal: reports: denies history Obstetrical/Gynecological: reports: denies history Genitourinary: reports: denies history Musculoskeletal: reports: denies history Neurological: reports: denies history Psychiatric: reports: denies history Endocrine/Immune: reports: Diabetes Other Conditions: reports: denies history - PRIOR SURGERIES/PROCEDURES Surgical/Procedure History: reports: cholecystectomy, - IMMUNIZATION STATUS Childhood Immunizations: See Nurse Assessment Flu Vaccine: See Nurse Assessment - FAMILY HISTORY Family History: reviewed, not pertinent Physical Exam-General - PHYSICAL EXAM-ADULT Initial Vital Signs Reviewed: Yes - CONSTITUTIONAL General Appearance: appears well, alert, no apparent distress - EYES Eyes: pink conjunctivae, other (LEFT LOWER EYELID BLEPHERITIS). negative: subconjunctival hemorrhage - HEAD, EARS, NOSE, MOUTH & THROAT HENMT: normocephalic/atraumatic, moist mucous membranes, normal ENT inspection, pharynx normal. negative: pharyngeal erythema - NECK Neck: full range of motion, supple - RESPIRATORY Respiratory: no accessory muscle use, crackles (AT THE BASES) - CARDIOVASCULAR Cardiovascular: normal peripheral pulses, regular rate, rhythm, no murmur - GASTROINTESTINAL (ABDOMEN) Abdominal Exam: non tender, soft - LYMPHATIC Lymphatic: negative: cervical node tenderness - MUSCULOSKELETAL Back Exam: no CVA tenderness, no vertebral tenderness Extremity: no calf tenderness, erythema, pedal edema, swelling DTR: knee (R): 2+, knee (L): 2+ - SKIN Integumentary: other (PT HAS SOME OPENED BLISTERS ON THE BILATERAL GORMAN, R>L PT HAS FOLLICULITIS OF SCALP WITH SOME SCABS.) Progress - PLAN OF CARE/RESULTS Progress/Plan/Lab Results: Vital Signs - 8 hr 06/18/19 01:44 Temperature 99.1 F Pulse Rate 76 Respiratory Rate 20 Blood Pressure 203/77 O2 Sat by Pulse Oximetry 98 Laboratory Results - last 24 hr 06/18/19 06/18/19 02:24 02:24 WBC 5.11 RBC 3.17 L Hgb 8.4 L Hct 25.5 L MCV 80.4 L MCH 26.5 L MCHC 32.9 L RDW Std Deviation 14.4 Plt Count 140 MPV 11.9 H Immature Gran % (Auto) 0.4 Neut % (Auto) 64.6 Lymph % (Auto) 20.5 Grainger % (Auto) 10.0 H Eos % (Auto) 4.1 Baso % (Auto) 0.4 Immature Gran # (Auto) 0.02 Neut # (Auto) 3.30 Lymph # (Auto) 1.05 L Grainger # (Auto) 0.51 Eos # (Auto) 0.21 Baso # (Auto) 0.02 Sodium 132 L Potassium 4.5 Chloride 99 Carbon Dioxide 23 L Anion Gap 10 BUN 31 H Creatinine 2.3 H Estimated GFR/1.73 m2 22 BUN/Creatinine Ratio 13 Glucose 229 H Calculated Osmolality 278 Calcium 7.4 L Total Bilirubin 0.30 AST 11 ALT 7 L Alkaline Phosphatase 197 H Total Protein 6.3 Albumin 2.7 L Globulin 4.0 Albumin/Globulin Ratio 1.0 Orders Category Date Time Status CHEST-2 VIEWS [RAD] Stat Exams 06/18/19 02:29 Taken CBC WITH ELECTRONIC DIFF [HEME] Stat Lab 06/18/19 02:24 Completed COMPREHENSIVE METABOLIC PANEL [CHEM] Stat Lab 06/18/19 02:24 Completed pro-bnp [PRO B-NATRIURETIC PEPTIDE] Stat Lab 06/18/19 02:24 Received Result Diagrams: 06/18/19 02:24 06/18/19 02:24 Departure - Departure Date of Disposition Decision: 06/18/19 Time of Disposition Decision: 04:20 DIAGNOSIS: CHF (congestive heart failure), Cough, Anemia, Blepharitis Disposition: ADMITTED INPATIENT 09 Certified Medical Emergency: Emergent Condition: Stable Referrals and Follow-Ups: Fern Bowers [Primary Care Provider] - - Critical Care Note This patient required my direct & personal management of CC.: No Attestation - Physician/ YOLANDA Attestation Patient care was provided by Advanced Practice Provider:: No The physician spent face to face time with patient:: Yes Advanced Practice Provider documentation review:: Supervising physician onsite and consulted in the evaluation and care of this patient. The physician did have a face to face encounter with the patient.
[2019-06-18] MEDS ORDERED: LASIX IV ONE (04:31)
[2019-06-18] MEDS ORDERED: DOXYCYCLINE PO ONE (04:35)
[2019-06-18] MEDS ORDERED: ERYTHROMYCIN OPH OINTMENT OPH ONE (04:45)
[2019-06-18] MEDS ORDERED: ZOFRAN IV PRN (07:19)
[2019-06-18] MEDS ORDERED: LOMOTIL PO PRN (07:22)
--- NOTE | 2019-06-18 07:25 | Diag Imaging Result Doc PS360 ---
EXAM: CHEST-2 VIEWS 06/18/2019 HISTORY: cough TECHNIQUE: PA and lateral chest COMMENT: There is blunting of the right costophrenic angle. There is a nodular opacity over the right base probably in the anterior lower lobe which has not changed since 05/03/2019. Overall the appearance the chest has changed very little. IMPRESSION: Right pleural effusion. Stable pulmonary nodule. Electronically signed by Merrick Yao 06/18/2019 7:23 AM
[2019-06-18] MEDS ORDERED: DOXYCYCLINE PO SCH (09:00)
[2019-06-18] MEDS ORDERED: TOPROL XL PO SCH (09:00)
[2019-06-18] MEDS: LASIX IV SCH (11:37)
[2019-06-18] MEDS: KEFLEX PO SCH ×2 (11:37→20:43)
[2019-06-18] MEDS: ELIQUIS PO SCH (11:38)
[2019-06-18] MEDS: PRILOSEC PO SCH (11:38)
[2019-06-18] MEDS: HUMULIN R (PARKWAY) SUBQ SCH ×3 (11:41→21:56)
[2019-06-18] MEDS: ERYTHROMYCIN OPH OINTMENT OPH SCH ×4 (11:44→20:44)
[2019-06-18] MEDS: BACITRACIN OINTMENT TOP SCH ×3 (11:44→16:46)
--- NOTE | 2019-06-18 11:46 | HISTORY AND PHYSICAL ---
CHIEF COMPLAINT: Congestion. HISTORY OF PRESENT ILLNESS: Ms. Rosa is a 54-year-old female. She states that she has been having congestion for greater than a month. She was in [facility] a month ago for a stroke, and she believes that after she was discharged, she had some type of viral infection. She had fevers, chills, and congestion. She was taking Tylenol at home for this. She also states that she had some kind of cellulitis to the left side of her face, and she was on Keflex for this. She states that the congestion has never got any better. States she has difficulty breathing at times. States she does not have any sputum production with this congestion. She is now denying any fever or chills. She does have chronic migraines, and since her stroke, she says she has facial numbness and weakness with her migraines. The patient is currently homeless. She stays with family and friends. Her daughter is her care caregiver, and she is at the bedside. The patient is legally blind. She is able to see some light reflections, but is unable to see. The patient states she was in [facility] last month, where she had a stroke and had severe left- sided weakness. This weakness has since improved. She does have bilateral lower leg weakness, and is unable to ambulate very well. The patient also has multiple skin ulcers all over her bilateral lower extremities. She has very hard edema and blistering noted and ulcerations. Most of these ulcers on her bilateral lower extremities are from ruptured blisters. She also has two very large scalp lesions. The patient seems to have ulcers all over her body. She states that these are present most of the time, some of them are open, some of them are not. The patient does pick at these wounds. The patient is denying any pain at this time. She states that she is still able to urinate appropriately. However, she does have chronic kidney disease. She is on 80 mg of Lasix at home. Daughter states she takes this Lasix. The patient also has chronic anemia. Her hemoglobin is 8.4 today. The patient denies any blood in her stools. ProBNP in the ER was noted to be 6699. The sodium was noted to be 132, glucose 229, BUN is 31, creatinine is 2.3. White blood cell count was normal at 5, hemoglobin is 8.4, hematocrit 25.5. Chest x-ray did show a right pleural effusion. However, this is unchanged since her last x-ray in April. PAST MEDICAL HISTORY: CVA last month with left-sided weakness, CHF, diabetes, chronic kidney disease, hypertension, hyperlipidemia, glaucoma which has caused the patient to be legally blind, migraines, DVT. PAST SURGICAL HISTORY: Eye surgery for glaucoma, section, left rotator cuff surgery, D and C, cholecystectomy, and appendectomy. FAMILY HISTORY: Significant for diabetes and Alzheimer's disease, and father had a stroke. SOCIAL HISTORY: The patient is homeless. She states that she stays with family or friends. Her daughter who is at the bedside is her superintendent gas distribution, and she lives with her. They state that they are trying to find temporary housing. She denies any alcohol, smoking, or illicit drug use. ALLERGIES: SAMIR inhibitors, clonidine, codeine, hydralazine, latex, Levaquin, losartan, nitroglycerin, sulfa, penicillin, amlodipine. HOME MEDICATIONS: 1. Phenergan 25 mg p.o. every 6 hours p.r.n. 2. Albuterol sulfate inhaler every 4 hours p.r.n. 3. Eliquis 5 mg p.o. daily. 4. Bacitracin ointment topical 3 times a day. 5. Lomotil 1 tablet p.o. 4 times a day p.r.n. 6. Insulin NovoLog 10 units subcutaneously. 7. Metoprolol 100 mg p.o. daily. LABORATORY AND DIAGNOSTIC DATA: White blood cell count 5.11, red blood cell count 3.17, hemoglobin 8.4, hematocrit 25.5, MCV 80.4, MCH 26.5, MCHC is 32.9, platelet count 140,000. Sodium 132, potassium 4.5, chloride 99, carbon dioxide 23, anion gap 10, BUN is 31, creatinine is 2.3, estimated GFR is 22, glucose is 229, calcium 7.4. Total bilirubin is 0.3, AST is 11, ALT is 7, alkaline phosphatase is 197. ProBNP is 6699. Chest x-ray shows right pleural effusion and a stable pulmonary nodule. This has not changed since the last x-ray of 05/03/2019. REVIEW OF SYSTEMS: A 10-point review of systems has been obtained and all were negative, except what is stated above in the HPI. PHYSICAL EXAMINATION: VITAL SIGNS: Temperature 98.3, pulse rate 80, respiratory rate 20, blood pressure is 181/74, O2 saturation is 99% on room air. Weight is 179 pounds, height 5 feet 4 inches. GENERAL: This is a 54-year-old female. She is sitting up on the side of the bed. She is in no acute distress. She is well nourished and well developed. HEENT: There are two very large lesions noted to the top of the scalp. She is atraumatic and normocephalic. There is drainage noted to the left eye area. Mucous membranes are moist. Pupils are equal, round, reactive to light. The patient is legally blind. She states that she can see shadows though. NECK: Supple. No lymphadenopathy. Trachea is midline. There is no JVD. No thyromegaly or bruits. CARDIOVASCULAR: Regular rate and rhythm. No murmurs, gallops, or rubs appreciated. RESPIRATORY: Lung sounds are clear with equal chest excursion. Respirations are nonlabored. GASTROINTESTINAL: Abdomen is soft, nontender, nondistended. Bowel sounds are present. NEUROLOGIC: Cranial nerves II through XII are intact. The patient is awake, alert, and oriented. She is able to follow all my commands and answer all my questions appropriately. There is no facial droop noted. No abnormalities. MUSCULOSKELETAL: Full distal strength throughout. The patient does have generalized weakness noted to the lower extremities. EXTREMITIES: There is no clubbing. The patient does have a severe amount of edema to the bilateral lower extremities. This is hardened. The lower extremities have some notable erythema. DP and PT pulses are present. SKIN: Warm and dry. There are multiple skin lesions all over the body. The patient does have blisters noted to the bilateral lower extremities. This appears to be from edema. Several other blisters have ruptured and have open wounds draining. ASSESSMENT AND PLAN: 1. Congestive heart failure exacerbation. The patient was given a dose of Lasix in the emergency room. We will repeat that dose today. We have placed her on the medical floor. She is on site monitor. She does not appear to be in any acute distress at this time. We have provided her with a diabetic diet, and will restart her home medications and check her fingerstick blood sugars before meals and at bedtime. 2. Hypertension, heart disease, and chronic kidney disease. We have placed this patient on her home medication of metoprolol. 3. Chronic kidney disease. The patient has a creatinine of 2.3 right now. This is a mild improvement since her last lab check. This probably is her normal range. She has seen Nephrology in the past. 4. Type 2 diabetes mellitus. We are going to check her fingersticks before meals and at bedtime. I provided her with sliding scale insulin if needed. I also started her on home dose insulin. 5. Anemia of chronic disease. The patient was followed up by Hematology on last admission. Her hemoglobin low at 8.4. This could be from her chronic kidney disease. However, she refused Gastroenterology consult on last admission. I am not quite sure if she is actually having some bleeding. We are going to check iron studies on her, and repeat her labs in the morning. The patient is on Eliquis at home for a past medical history of a deep venous thrombosis. She does not state that she is having any blood from her stools, and caregiver states that there is no blood in her stools. 6. Chronic skin lesions. Some of these lesions are from edema, and some of these lesions are some where she has scratched them and made them worse. She is receiving bacitracin ointment at home. We are going to continue this. We are also going to put her on Keflex. She has taken this at home before. She is allergic to several different kinds of antibiotics. 7. Possible conjunctivitis to the left eye. She is having some drainage from her left eye. However, the patient has been rubbing her eye quite a bit. She did have some difficulties with her eye in the past. I am just going to put her on some erythromycin ointment and see if this resolves her issue. 8. History of cerebrovascular accident. The patient does have weakness noted to her bilateral lower extremities. I believe she has had this in the past prior to her cerebrovascular accident. Will get Physical Therapy to come by and check on her and evaluate her and help her with ambulation. All other further treatment pending hospital course and lab data. Dictated by TEODORO Mai for Ziggy Mccormick MD cc: Ziggy Mccormick MD [facility]
[2019-06-18] MEDS: TYLENOL PO PRN (12:56)
[2019-06-18] MEDS: HUMALOG (PARKWAY) SUBQ SCH ×3 (12:58→18:44)
--- NOTE | 2019-06-18 14:10 | HISTORY AND PHYSICAL ---
ADDENDUM: Patient seen and examined by myself. Full note dictated and discussed with nurse practitioner. The patient apparently recently has had a stroke. She presented to the ER with cough, congestion. We are going to admit her to the hospital, and treat her for pneumonia. We will also make sure that she has taken her blood pressure medicines since her blood pressure is 203 systolic. Will follow her renal dysfunction. Further orders as needed. cc: Ziggy Mccormick MD
[2019-06-18] MEDS: VENTOLIN HFA INH PRN (20:10)
[2019-06-19] MEDS: LOPRESSOR PO SCH ×3 (01:02→21:02)
[2019-06-19] MEDS: TYLENOL PO PRN (01:02)
[2019-06-19] MEDS: PRILOSEC PO SCH ×2 (05:22→06:19)
[2019-06-19 05:52] LABS: BASO# 0.02 X1000 (0.0-0.2); BASO% 0.4 % (0.0-0.8); EOS# 0.22 X1000 (0.0-0.7); EOS% 4.6 % (0.0-10.0); HEMATOCRIT 25.2 % (37.0-47.0); HEMOGLOBIN 8.2 g/dL (12.0-16.0); IMM GRAN# 0.01 X1000 (0.0-0.04); IMM GRAN% 0.2 % (0.0-0.5); LYMPH# 0.92 X1000 (1.2-3.4); LYMPH% 19.2 % (20.5-51.1); MCHC 32.5 g/dL (33-37); MONO# 0.45 X1000 (0.11-0.59); MONO% 9.4 % (1.7-9.3); MPV 11.9 FL (7.4-10.4); NEUT# 3.17 X1000 (1.4-6.5); NEUT% 66.2 % (42.2-75.2); PLT 160 X1000 (130-400); RBC 3.15 XMIL (4.2-5.4); RDW 14.7 % (11.5-14.5); WBC 4.79 X1000 (4.8-10.8)
[2019-06-19 06:11] LABS: CALCIUM 7.5 mg/dL (8.8-10.2); CREATININE 2.5 mg/dL (0.5-0.9); MAGNESIUM 1.1 mg/dL (1.5-2.7); POTASSIUM 4.5 mmol/L (3.5-5.1)
[2019-06-19 06:16] LABS: HEMOGLOBIN A1C 8.1 % (4.8-6.0)
[2019-06-19 06:24] LABS: TSH 2.2 uIUmL (0.27-4.20)
[2019-06-19] MEDS: HUMULIN R (PARKWAY) SUBQ SCH ×4 (06:33→21:03)
[2019-06-19] MEDS ORDERED: MAGNESIUM SULFATE 2 GM/S.W.I. 2 GM/50 ML IVPB IV ONE (07:13)
--- NOTE | 2019-06-19 07:25 | Diag Imaging Result Doc PS360 ---
EXAM: CHEST-PORTABLE HISTORY: chf TECHNIQUE: Chest single view COMPARISON: 06/18/2019 FINDINGS: The lungs are well expanded. The heart is borderline mildly enlarged. The vessels are not distended. There are no infiltrates. Tiny right effusion identified. Stable right lower lung nodule. IMPRESSION: No pulmonary edema. Electronically signed by Jose Eduardo Euceda 06/19/2019 7:23 AM
[2019-06-19] MEDS: LASIX IV SCH (08:44)
[2019-06-19] MEDS: ELIQUIS PO SCH (08:44)
[2019-06-19] MEDS: KEFLEX PO SCH ×2 (08:45→21:02)
[2019-06-19] MEDS: ERYTHROMYCIN OPH OINTMENT OPH SCH ×6 (08:51→21:01)
[2019-06-19] MEDS: BACITRACIN OINTMENT TOP SCH ×3 (08:52→17:59)
--- NOTE | 2019-06-19 11:23 | EKG Report ---
Test Performed on : 06/18/2019 04:13:58 AM Test Reason : ER Blood Pressure : / mmHG Vent. Rate : 078 BPM Atrial Rate : 078 BPM P-R Int : 150 ms QRS Dur : 076 ms QT Int : 392 ms P-R-T Axes : -03 -30 141 degrees QTc Int : 446 ms Normal sinus rhythm. Left axis deviation Minimal voltage criteria for LVH, may be normal variant Septal infarct (cited on or before 10-NOV-2017) T wave abnormality, consider lateral ischemia Abnormal ECG When compared with ECG of 31-MAR-2019 01:12, premature atrial complexes. are no longer present Unconfirmed Result
[2019-06-19] MEDS: HUMALOG (PARKWAY) SUBQ SCH ×3 (14:56→18:12)
--- NOTE | 2019-06-19 19:21 | PROGRESS NOTE ---
DATE: 06/19/2019 SUBJECTIVE: Patient this morning has multiple complaints, more so to do with her poor social situation; however, she notes that she is unable to get out of bed. OBJECTIVE: Vital Signs: Reviewed. General: She is awake, alert. She is in no respiratory distress. HEENT: Normocephalic. Neck: Supple. Cardiovascular: Regular rate. Chest: Clear, nonlabored. Abdomen: Soft. Extremities: Moves all extremities. Skin: Warm and dry. She does have multiple skin lesions as well as bilateral lower extremity erythema and edema with weeping wounds. ASSESSMENT AND PLAN: 1. Bilateral lower extremity edema with weeping sores. We are going to consult wound therapy, and we will follow. 2. Type 2 diabetes. 3. Congestive heart failure with exacerbation. Continue Lasix. 4. Hypertension. 5. Chronic kidney disease. 6. Chronic medical noncompliance. 7. Poor social situation. We will continue to follow. Further orders as needed. cc: Ziggy Mccormick MD
[2019-06-19] MEDS: VENTOLIN HFA INH PRN (21:37)
[2019-06-20] MEDS: KEFLEX PO SCH ×3 (05:23→20:58)
[2019-06-20] MEDS: PRILOSEC PO SCH (06:08)
[2019-06-20 06:20] LABS: HEMATOCRIT 25.5 % (37.0-47.0); HEMOGLOBIN 8.4 g/dL (12.0-16.0); MCH 26.3 PG (27-31); MCHC 32.9 g/dL (33-37); MCV 79.7 FL (81-99); MPV 12.2 FL (7.4-10.4); RBC 3.2 XMIL (4.2-5.4); RDW 14.6 % (11.5-14.5); WBC 4.84 X1000 (4.8-10.8)
[2019-06-20] MEDS: HUMULIN R (PARKWAY) SUBQ SCH ×4 (06:23→20:59)
[2019-06-20 06:46] LABS: ALBUMIN 2.6 g/dL (3.5-5.0); CALCIUM 7.5 mg/dL (8.8-10.2); CREATININE 2.6 mg/dL (0.5-0.9); MAGNESIUM 1.5 mg/dL (1.5-2.7); POTASSIUM 4.4 mmol/L (3.5-5.1); TOTAL BILIRUBIN 0.3 mg/dL (0.20-1.00); TOTAL PROTEIN 6.5 g/dL (6.3-8.3)
[2019-06-20] MEDS: BACITRACIN OINTMENT TOP SCH ×3 (08:31→17:01)
[2019-06-20] MEDS: ERYTHROMYCIN OPH OINTMENT OPH SCH ×4 (08:31→20:59)
[2019-06-20] MEDS: LOPRESSOR PO SCH ×3 (08:33→21:00)
[2019-06-20] MEDS: LASIX PO SCH ×2 (08:33→20:58)
[2019-06-20] MEDS: HUMALOG (PARKWAY) SUBQ SCH ×3 (08:33→18:12)
[2019-06-20] MEDS: ELIQUIS PO SCH ×2 (08:33→21:01)
[2019-06-20] MEDS ORDERED: LOPRESSOR PO ONE (10:10)
[2019-06-20] MEDS: HYDROCHLOROTHIAZIDE PO SCH (10:13)
--- NOTE | 2019-06-20 22:23 | PROGRESS NOTE ---
DATE: 06/20/2019 SUBJECTIVE: Patient notes she has a headache. States this is not uncommon. She denies any fevers or chills. Denies any focalized weakness. Unfortunately, she has been quite noncompliant while in the hospital. She has refused her medications on several occasions, refused to have her legs wrapped, stating she was too tired to allow that to happen. OBJECTIVE: Vital Signs: Temperature 98, pulse 76, respiratory rate 18, BP 156/75. General: Patient is an obese female who is in no respiratory distress. HEENT: Normocephalic. Neck: Supple. Cardiovascular: Regular rate. Chest: Clear, nonlabored. No wheezing. Abdomen: Soft, distended. Extremities: Moves all extremities. Her bilateral lower extremities are wrapped currently. ASSESSMENT: 1. Congestive heart failure, systolic, with exacerbation. 2. Hypertension. 3. Chronic kidney disease. 4. Chronic noncompliance. 5. Blindness due to previous stroke. 6. History of cerebrovascular accident. 7. Type 2 diabetes. 8. Anemia of chronic disease. 9. Chronic renal failure. PLAN: We will continue patient in the hospital. We will continue Keflex and intravenous Lasix. Unfortunately, she is very recalcitrant to trying anything for her blood pressure. States that she is allergic to all blood pressure medications. We are going to attempt to increase metoprolol and add hydrochlorothiazide, as she states those are medicines that she can tolerate. May need to consider Levodopa. We are certain patient would benefit and should consider rehab. cc: Ziggy Mccormick MD
[2019-06-21] MEDS: HUMULIN R (PARKWAY) SUBQ SCH ×4 (06:03→21:08)
[2019-06-21] MEDS: ELIQUIS PO SCH ×2 (08:48→21:07)
[2019-06-21] MEDS: PRILOSEC PO SCH (08:48)
[2019-06-21] MEDS: KEFLEX PO SCH ×3 (08:48→21:07)
[2019-06-21] MEDS: LOPRESSOR PO SCH ×2 (08:49→21:07)
[2019-06-21] MEDS: BACITRACIN OINTMENT TOP SCH ×3 (08:49→16:50)
[2019-06-21] MEDS: HYDROCHLOROTHIAZIDE PO SCH (08:49)
[2019-06-21] MEDS: HUMALOG (PARKWAY) SUBQ SCH ×3 (08:49→19:14)
[2019-06-21] MEDS: LASIX PO SCH ×2 (08:49→21:07)
[2019-06-21] MEDS: ERYTHROMYCIN OPH OINTMENT OPH SCH ×4 (08:50→21:00)
[2019-06-21] MEDS ORDERED: LANTUS INSULIN SUBQ SCH (09:00)
[2019-06-21] MEDS ORDERED: APRESOLINE IV PRN (13:49)
[2019-06-21] MEDS ORDERED: LOPRESSOR IV ONE (13:56)
--- NOTE | 2019-06-21 19:29 | PROGRESS NOTE ---
DATE: 06/21/2019 SUBJECTIVE: Patient has no new complaints. She refused her blood pressure medication last night because, despite the fact that her blood pressures were 160s and 170s, she was afraid that it would bottom out her blood pressure. She has also refused multiple other treatments during the hospital stay. Compliance certainly seems to be an issue. I would expect this is also an issue at home. PHYSICAL EXAMINATION: Vital Signs: Temperature 97.8 degrees, pulse 76, respiratory rate 18, BP 146/62. General: Patient is awake, alert. She is in no distress. HEENT: Normocephalic. Neck: Supple. Cardiovascular: Regular rate. Chest: Clear. Abdomen: Soft. Extremities: Moves all extremities. Her bandages currently are clean, dry, and intact. She has recently allowed staff to replace her bandages. ASSESSMENT: 1. Congestive heart failure with exacerbation, improved. 2. Hypertension. 3. Known coronary artery disease. 4. Chronic kidney disease. 5. History of cerebrovascular accident, with resultant blindness. 6. Medical noncompliance. 7. Type 2 diabetes. PLAN: Continue patient in the hospital. Continue to follow. Expect that she will need rehab on discharge. Lawn Sprinkler Installer will be assisting. cc: Ziggy Mccormick MD
[2019-06-22] MEDS: TYLENOL PO PRN ×2 (02:12→21:19)
[2019-06-22] MEDS: PRILOSEC PO SCH (06:31)
[2019-06-22] MEDS: HUMULIN R (PARKWAY) SUBQ SCH ×4 (07:32→21:08)
[2019-06-22 07:48] LABS: HEMATOCRIT 26.5 % (37.0-47.0); HEMOGLOBIN 8.9 g/dL (12.0-16.0); MCH 26.7 PG (27-31); MCHC 33.6 g/dL (33-37); MCV 79.6 FL (81-99); MPV 11.4 FL (7.4-10.4); RBC 3.33 XMIL (4.2-5.4); RDW 14.5 % (11.5-14.5); WBC 4.03 X1000 (4.8-10.8)
[2019-06-22 08:13] LABS: ALBUMIN 2.7 g/dL (3.5-5.0); CALCIUM 7.9 mg/dL (8.8-10.2); CREATININE 2.6 mg/dL (0.5-0.9); MAGNESIUM 1.4 mg/dL (1.5-2.7); POTASSIUM 4.5 mmol/L (3.5-5.1); TOTAL BILIRUBIN 0.3 mg/dL (0.20-1.00); TOTAL PROTEIN 6.8 g/dL (6.3-8.3)
[2019-06-22] MEDS ORDERED: MAGNESIUM SULFATE 2 GM/S.W.I. 2 GM/50 ML IVPB IV ONE (08:14)
[2019-06-22] MEDS: ELIQUIS PO SCH ×2 (10:42→21:12)
[2019-06-22] MEDS: LOPRESSOR PO SCH ×2 (10:42→21:12)
[2019-06-22] MEDS: HYDROCHLOROTHIAZIDE PO SCH (10:42)
[2019-06-22] MEDS: LASIX PO SCH ×2 (10:43→21:12)
[2019-06-22] MEDS: BACITRACIN OINTMENT TOP SCH ×3 (10:43→16:30)
[2019-06-22] MEDS: KEFLEX PO SCH ×3 (10:43→21:08)
[2019-06-22] MEDS: HUMALOG (PARKWAY) SUBQ SCH ×3 (10:44→17:52)
[2019-06-22] MEDS: ERYTHROMYCIN OPH OINTMENT OPH SCH ×4 (10:44→21:07)
[2019-06-22] MEDS: LANTUS INSULIN SUBQ SCH (10:45)
--- NOTE | 2019-06-22 11:56 | DISCHARGE SUMMARY ---
ADMISSION DATE: 06/18/2019 DISCHARGE DATE: 06/23/2019 REASON FOR EARLY DISCHARGE SUMMARY: Required for insurance. PRIMARY CARE PHYSICIAN: Fern Bowers MD. ADMISSION DIAGNOSES: 1. Congestive heart failure exacerbation. 2. Hypertension, heart disease, and chronic kidney disease. 3. Diabetes type 2. 4. Anemia of chronic disease. 5. Chronic skin lesions. 6. Possible conjunctivitis to the left eye. 7. History of cerebrovascular accident. DISCHARGE DIAGNOSES: 1. Congestive heart failure exacerbation improved. 2. Hypertension. 3. Known coronary artery disease. 4. Chronic kidney disease. 5. History of cerebrovascular accident with resultant blindness. 6. Medical noncompliance. 7. Diabetes type 2. 8. Conjunctivitis of the left eye. 9. Chronic skin lesions. SUMMARY OF FINDINGS: This is a 54-year-old female that states she has been having congestion for greater than a month. She had been in [facility] a month ago for a stroke, and believes that after she was discharged she had some type of viral infection with fevers, chills and congestion, and was taking Tylenol at home for this. She also states that she had some kind of cellulitis to the left side of her face and was on Keflex. The congestion did not improve. She had difficulty breathing, productive cough with congestion, but denied any fever or chills. She was noted to be currently homeless, but stayed with family and friends, and the daughter is her caregiver and is at bedside. The patient is noted to be legally blind. Her stroke a month ago left her with severe left-sided weakness. The weakness has since improved, but she does have bilateral lower extremity weakness, and is not able to ambulate very well. She has multiple skin ulcers all over her bilateral lower extremities with very hard edema, and blistering noted and ulcerations. Most of the ulcerations on her bilateral lower extremities are from ruptured blisters. She has 2 very large scalp lesions, and notes to have ulcers all over her body. She does pick at these wounds and denied any pain. She was admitted. We gave her Lasix for diuresis. We placed her on erythromycin ointment for the conjunctivitis of her left eye 1 inch topically 4 times daily to her left eye. I also placed her on Keflex 500 mg p.o. t.i.d. for the skin lesions on her bilateral lower extremities. She is very noncompliant and has refused antibiotics, and some medications throughout this hospitalization. Physical Therapy was consulted. Wound Therapy was consulted, and it is now felt that she can safely be discharged to rehab on 06/23/2019 pending approval from her insurance. DISCHARGE MEDICATIONS: 1. Hydrochlorothiazide 25 mg p.o. daily. 2. Keflex 500 mg p.o. t.i.d. for 7 days. 3. Lantus 10 units subcutaneous daily. 4. Metoprolol 50 mg p.o. b.i.d. 5. Tylenol 650 mg q.6 hours p.r.n. 6. Erythromycin ointment 1 inch ophthalmically 4 times daily for 7 days. 7. Lasix 40 mg p.o. b.i.d. 8. ProAir inhaler q.4 hours p.r.n. 1 puff. 9. Eliquis 5 mg p.o. b.i.d. 10. Lomotil 1 p.o. 4 times daily p.r.n. for diarrhea. 11. Phenergan 25 mg p.o. q.6 hours p.r.n. 12. Bacitracin topically 3 times daily. 13. Metoprolol 25 mg p.o. b.i.d. FOLLOWUP: She will need to follow up with her primary care physician once she completes her rehab stay. All discharge instructions have been reviewed, and she verbalized understanding. TIME SPENT: This is a 35 minute discharge. Dictated by TEODORO Nye for Ziggy Mccormick MD cc: TEODORO Nye MD
--- NOTE | 2019-06-22 19:11 | PROGRESS NOTE ---
DATE: 06/22/2019 SUBJECTIVE: The patient continues to be noncompliant during the hospital stay. She has refused blood pressure medication. Blood pressures were 171s to 180s, but the patient was afraid of dropping blood pressure. She notes she has allergies all blood pressure medications except for Toprol and hydrochlorothiazide. She has refused having her dressings changed on her lower extremities. She has declined participation with physical therapy at times. OBJECTIVE: Vital signs: Temperature 98, pulse 72, BP 151/70 to 180 systolic. General: Patient is awake. She is in no distress. She is sitting up on the side of the bed with her feet on the floor. HEENT: Normocephalic. Neck: Supple. Cardiovascular: Regular rate. No murmurs. Chest: Clear, nonlabored. Abdomen: Soft, nondistended. Extremities: Moves all extremities. Currently, she has no dressing on the bilateral lower extremities. ASSESSMENT: 1. Congestive heart failure stable. 2. Hypertension blood pressure remains elevated. We have attempted to increase her Toprol and add hydrochlorothiazide, although due to noncompliance, it is unclear as to what her blood pressure medications would be if these medicines were taken on a regular basis. 3. Chronic kidney disease, stable. 4. Type 2 diabetes. 5. Chronic skin lesions. PLAN: We will continue the patient in the hospital. We will continue to attempt to treat her if possible due to her noncompliance. We will get Disability Program Navigator to continue to look for rehab placement. cc: Ziggy Mccormick MD
[2019-06-23] MEDS: HUMULIN R (PARKWAY) SUBQ SCH ×5 (06:01→22:15)
[2019-06-23] MEDS: PRILOSEC PO SCH (06:01)
[2019-06-23] MEDS: TYLENOL PO PRN ×2 (06:50→20:48)
--- NOTE | 2019-06-23 09:38 | VASCULAR LAB ---
PROCEDURE NAME: Arterial Limited Lower Ext - 06/22/2019 LEVEL GLASS FORMING MACHINE OPERATOR: Olegario REQUESTING PHYSICIAN: Dr. Mccormick INDICATION: Wounds. [employer] Consultant noted the patient has a recent history of DVT. They have dressings in place on the wounds limiting this study. As such, only a limited study was performed. FINDINGS: Brachial pressure on the right was 184. Dorsalis pedis on the right was noncompressible, on the left noncompressible. PT noncompressible on the right and on the left 211. Toe pressure on the right is noncompressible, left noncompressible. JENNIFER on the left is 1.15. SUMMARY: Limited study, but noncompressibility suggests calcific disease. Could correlate with angiography as indicated. cc: MD Ziggy Romano MD
[2019-06-23] MEDS: LASIX PO SCH ×2 (09:52→20:48)
[2019-06-23] MEDS: ELIQUIS PO SCH ×2 (09:52→20:48)
[2019-06-23] MEDS: LOPRESSOR PO SCH ×2 (09:52→20:48)
[2019-06-23] MEDS: HYDROCHLOROTHIAZIDE PO SCH (09:52)
[2019-06-23] MEDS: LANTUS INSULIN SUBQ SCH (09:53)
[2019-06-23] MEDS: HUMALOG (PARKWAY) SUBQ SCH ×3 (09:53→17:06)
[2019-06-23] MEDS: BACITRACIN OINTMENT TOP SCH ×3 (09:54→17:06)
[2019-06-23] MEDS: ERYTHROMYCIN OPH OINTMENT OPH SCH ×4 (09:55→20:47)
[2019-06-23] MEDS: KEFLEX PO SCH ×3 (09:55→20:47)
[2019-06-23] MEDS: VENTOLIN HFA INH PRN (20:38)
[2019-06-23 21:13] LABS: BILIRUBIN URINE NEGATIVE (NEGATIVE); BLOOD URINE 1+ (NEGATIVE); CLARITY CLEAR (CLEAR); COLOR YELLOW; KETONE URINE NEGATIVE (NEGATIVE); LEUKOCYTES URINE TRACE (NEGATIVE); NITRITE URINE NEGATIVE (NEGATIVE); PH URINE 6.5; UROBILINOGEN URINE NORMAL
[2019-06-23 21:18] LABS: URINE SOURCE CLEAN CATCH
[2019-06-23 21:19] LABS: URINE BACTERIA 2+ /HFP; URINE CAST NONE SEEN /LPF; URINE CRYSTAL NONE SEEN /HPF; URINE EPITHELIAL CELLS >10 /HPF (<10); URINE YEAST PRESENT /HPF
--- NOTE | 2019-06-23 22:29 | PROGRESS NOTE ---
DATE: 06/23/2019 SUBJECTIVE: Patient has multiple new complaints. She has swelling in her lower extremities that has been present for the entire time she has been in the hospital. She thinks that she may have had a stroke causing the swelling. Her blood pressures are elevated as she frequently refuses blood pressure medications, but also notes that she is allergic to all blood pressure medicines except hydrochlorothiazide and Toprol of which she is already on. She thinks that she may have a heart valve problem causing her elevations in her blood pressures. PHYSICAL EXAMINATION: Vital Signs: Temperature 98, pulse 75, BP 147/63 to 170 systolic. General: Patient is awake, alert. She is sitting on the side of bed. She is in no respiratory distress. She is alert and oriented x3. HEENT: Normocephalic. Neck: Supple. Cardiovascular: Regular rate. No murmurs. Chest: Clear and unlabored. No crackles. Extremities: Moves all extremities. She does have 1+ edema in bilateral lower extremities. Her dressings currently are off as this frequently appears to happen although the patient is unaware how her dressings continue to fall off. ASSESSMENT: 1. Hypertension. 2. Pedal edema. 3. Congestive heart failure. 4. Cerebrovascular accident with left-sided weakness. 5. Diabetes. 6. Chronic kidney disease. 7. Hyperlipidemia. 8. Glaucoma causing the patient to be legally blind. 9. Medical noncompliance. PLAN: The patient medically appears clear to discharge home. She has been refused by several rehabs as well as her insurance has refused to pay for her to go to rehab as by their own admission she has been able to ambulate. She has been able to transfer with minimal to no assistance. She is an extremely unfortunate individual given her young age to be as ill as she is. She has a daughter who although she has not left the room the entire time Ms. Rosa has been here has also refused to assist, participate or help in Ms. Rosa's care. Although I do believe Ms. Rosa is incapable or possibly unwilling or both to care for herself at home, she medically is not required to stay in the hospital at this point. cc: Ziggy Mccormick MD
[2019-06-24] MEDS: HUMULIN R (PARKWAY) SUBQ SCH ×4 (06:05→21:42)
[2019-06-24] MEDS: PRILOSEC PO SCH (06:05)
[2019-06-24] MEDS ORDERED: ALDOMET PO SCH (09:00)
[2019-06-24] MEDS: LOPRESSOR PO SCH ×2 (10:38→21:41)
[2019-06-24] MEDS: ELIQUIS PO SCH ×2 (10:39→21:41)
[2019-06-24] MEDS: HYDROCHLOROTHIAZIDE PO SCH (10:39)
[2019-06-24] MEDS: LASIX PO SCH ×2 (10:39→21:41)
[2019-06-24] MEDS: KEFLEX PO SCH ×3 (10:39→21:41)
[2019-06-24] MEDS: ERYTHROMYCIN OPH OINTMENT OPH SCH ×4 (10:40→21:41)
[2019-06-24] MEDS: LANTUS INSULIN SUBQ SCH (10:40)
[2019-06-24] MEDS: BACITRACIN OINTMENT TOP SCH ×3 (10:40→17:03)
[2019-06-24] MEDS: HUMALOG (PARKWAY) SUBQ SCH ×4 (10:40→18:52)
--- NOTE | 2019-06-24 18:30 | PROGRESS NOTE ---
DATE: 06/24/2019 SUBJECTIVE: The patient again has multiple complaints. She is concerned that her blood pressure is elevated and yet she refuses blood pressure medications. She is concerned that her diastolic is too low, although it is in the mid 60s. She wants me to explain to her exactly what each blood pressure level means. I did very briefly discuss with her that the difference between systolic pulse pressure and diastolic resting pressures. Oddly enough, Ms. Rosa's daughter, who has not left the room, has not participated at all in her care other than walking in the [place] with her. OBJECTIVE: Temperature 98.1 degrees, pulse 71, BP 167/70.General: The patient is legally blind. She is sitting on the side of the bed. She is currently eating and feeding herself. HEENT: Normocephalic. Neck supple. Cardiovascular: Regular rate. Chest clear. Abdomen soft, nondistended. Extremities: Moves all extremities. ASSESSMENT: 1. Medical noncompliance. 2. Hypertension. 3. Congestive heart failure with mild exacerbation, currently stable and very likely at her baseline. 4. Chronic kidney disease. PLAN: The patient certainly is stable to discharge home. She is able to ambulate in the [place] with her daughter at her side several hundred feet. She is tolerating oral medications. Continues to decline blood pressure medications because she is afraid her blood pressure is going to drop, although it has been elevated the entire time she has been in the hospital. cc: Ziggy Mccormick MD
[2019-06-24] MEDS: VENTOLIN HFA INH PRN (22:09)
--- NOTE | 2019-06-25 03:00 | EKG Report ---
Test Performed on : 06/24/2019 10:07:58 PM Test Reason : CP Blood Pressure : / mmHG Vent. Rate : 077 BPM Atrial Rate : 077 BPM P-R Int : 156 ms QRS Dur : 080 ms QT Int : 396 ms P-R-T Axes : 035 -35 138 degrees QTc Int : 448 ms Normal sinus rhythm. Left axis deviation T wave abnormality, consider lateral ischemia Abnormal ECG When compared with ECG of 18-JUN-2019 04:13, (Unconfirmed) No significant change was found Confirmed by Harry Valladares MD ([id number]) on 07/13/2019 3:29:29 PM
[2019-06-25] MEDS: TYLENOL PO PRN ×2 (05:30→22:23)
[2019-06-25] MEDS: PRILOSEC PO SCH (06:21)
[2019-06-25] MEDS: HYDROCHLOROTHIAZIDE PO SCH (10:59)
[2019-06-25] MEDS: KEFLEX PO SCH ×3 (11:00→22:22)
[2019-06-25] MEDS: LANTUS INSULIN SUBQ SCH (11:00)
[2019-06-25] MEDS: ELIQUIS PO SCH ×2 (11:00→22:23)
[2019-06-25] MEDS: LOPRESSOR PO SCH ×2 (11:00→22:23)
[2019-06-25] MEDS: BACITRACIN OINTMENT TOP SCH ×3 (11:01→16:11)
[2019-06-25] MEDS: HUMULIN R (PARKWAY) SUBQ SCH ×3 (11:01→22:24)
[2019-06-25] MEDS: HUMALOG (PARKWAY) SUBQ SCH ×3 (11:01→17:30)
[2019-06-25] MEDS: ERYTHROMYCIN OPH OINTMENT OPH SCH ×4 (11:01→22:22)
--- NOTE | 2019-06-25 16:31 | PROGRESS NOTE ---
DATE: 06/25/2019 SUBJECTIVE: Patient has a multitude of complaints, but no new complaints. OBJECTIVE: Vital signs: Reviewed. Temp 98 degrees, pulse 74, respiratory rate 18, BP 149/65. General: Patient is awake, alert. She is sitting on the side of the bed. She is in no distress. HEENT: Normocephalic. Neck: Supple. CV: Regular rate. Chest: Clear. No crackles. Abdomen: Soft, nondistended. Extremities: Moves all extremities. She does have 2+ edema in her bilateral lower extremities. ASSESSMENT: 1. Medical noncompliance. 2. Hypertension. Very difficult to control as the patient is allergic to every blood pressure medication except for the 2 that she is on. 3. Systolic congestive heart failure. We have upped her Lasix to 40 twice daily. 4. Chronic kidney disease. We will continue to follow her kidneys with the increased Lasix. 5. Type 2 diabetes. PLAN: The patient currently is medically stable for discharge. She has been stable for the past 4 days. We will discharge her home hopefully in the morning after we receive Medicare's approval. cc: Ziggy Mccormick MD
[2019-06-25] MEDS: VENTOLIN HFA INH PRN (20:25)
[2019-06-25] MEDS: LASIX PO SCH (22:23)
[2019-06-26] MEDS: HUMULIN R (PARKWAY) SUBQ SCH (06:37)
[2019-06-26] MEDS: PRILOSEC PO SCH (06:37)
[2019-06-26] MEDS ORDERED: LANTUS INSULIN SUBQ SCH (09:00)
[2019-06-26 09:19] VITALS: BP 166/68
[2019-06-26] MEDS: KEFLEX PO SCH (10:02)
[2019-06-26] MEDS: LASIX PO SCH (10:02)
[2019-06-26] MEDS: HYDROCHLOROTHIAZIDE PO SCH (10:02)
[2019-06-26] MEDS: ELIQUIS PO SCH (10:02)
[2019-06-26] MEDS: LOPRESSOR PO SCH (10:02)
[2019-06-26] MEDS: HUMALOG (PARKWAY) SUBQ SCH (10:05)
[2019-06-26] MEDS: ERYTHROMYCIN OPH OINTMENT OPH SCH (10:05)
[2019-06-26] MEDS: BACITRACIN OINTMENT TOP SCH ×2 (10:05→10:09)
--- NOTE | 2019-06-26 22:42 | DISCHARGE SUMMARY ---
ADMISSION DATE: 06/18/2019 DISCHARGE DATE: 06/26/2019 ADDENDUM: Ms. Rosa was medically stable to be discharged from the hospital on 06/23/2019. She filed an appeal with Medicare during this time. Social Work continued to attempt placement in a rehab facility which they were unable to find due to patient's insurance and its network, insurances refusal were unable after multiple attempts. During this time we continued care on Ms Rosa. Social Work continued to attempt to find placement. She was refused by several rehabs as well as her insurance refused to pain for her to go to rehab as by their own admission she was able to ambulate as well as transfer with minimal to no assistance. During this time Ms Rosa continued to refuse care, refusing her Keflex, erythromycin eye ointment, Prilosec. She refused daily lab work, fingerstick blood sugars at intervals as well as insulin doses at times both short. She was evaluated by Wound Care and refused dressing changes as well as many dressing changes. Blood pressure management was very difficult during this hospitalization as the patient refused blood pressure medicines stating that she was worried that her blood pressure would drop with blood pressures in the 140s to 190s over 60s to 80s. This was despite education per Dr. Mccormick on multiple times. She does state that she is allergic to all blood pressure medicines except Toprol and hydrochlorothiazide and she would agree to taking Lasix. Medications were adjusted adding her hydrochlorothiazide to Lasix 40 mg twice a day along with her metoprolol and blood pressures ranged from the 140s to 170s over 60s and 70s. The patient did agree to taking this combination of medications. In review of her past labs, her creatinine had been 3. We did follow her kidney function during this time and in reviewing her past records from November 2017 until May 2019 creatinine ranged from 2.7 to 4.2. Through this hospitalization her creatinine remained 2.3 to 2.6. Discharge appeal was received from [employer] today 06/26/2019. [facility]. The patient and her daughter were made aware of this decision and agreed to be discharged home. I called [facility] and discussed the patient's medications to assure that she had adequate prescriptions and refills. According to the pharmacy the patient had 3 months of insulin pen, Eliquis. She had refilled metoprolol 25 mg for 3 months on the 15 of June. Although we increased her dose to 50 mg b.i.d. from 25 mg b.i.d. the pharmacist stated that insurance would not refill the new prescription at this time. Therefore Ms. Rosa was instructed verbally as well as in writing that she needed to take 2 of her 25 mg tablets twice a day for a total of 4 a day until this prescription ended and we did call in a 50 mg p.o. b.i.d. prescription for 180 days which the pharmacist will hold, a prescription for magnesium 400 mg p.o. b.i.d. as well as Keflex 500 mg p.o. t.i.d. for 7 days, erythromycin ophthalmic ointment and bacitracin were called in as well as Lasix 40 mg b.i.d. the patient and daughter are aware . FOLLOWUP: Dr. Deangelo Martinez 07/05/2019 at 10:30 a.m. At this time she will need to have a BMP drawn to check her renal function. Dr. Cummins. The patient will need to keep her scheduled appointment which she states should be coming up in the next few weeks. The patient stated that she needed to find a new primary care provider. Therefore, she was given a list of PCPs that are accepting new patients and she was encouraged to call her insurance to verify their patients accepting her insurance and they are accepted under her plan and then schedule an appointment. She was also encouraged to call her insurance if she needed assistance in finding a primary care physician. DISCHARGE MEDICATIONS: 1. Eliquis 5 mg p.o. b.i.d. 2. NovoLog 10 units subcu with meals. 3. Bacitracin ointment to apply to scalp wounds daily. 4. Erythromycin ointment 1 inch ribbon to her left eye 4 times a day. 5. Hydrochlorothiazide 25 mg p.o. daily. 6. Keflex 500 mg p.o. t.i.d. for 7 days. 7. Lasix 40 mg p.o. b.i.d. 8. Magnesium oxide 400 mg p.o. b.i.d. 9. Metoprolol tartrate 50 mg p.o. b.i.d. 10. Lantus insulin 10 units subcu daily. The patient was instructed to call to be seen sooner or return to the emergency room for any syncope, dizziness, chest pain, palpitations, any shortness of breath, cough, fever, chills, not a temperature greater than 101, any nausea, vomiting, diarrhea, constipation, black or bloody vomitus or stools or hematuria, dysuria, frequency, urgency, for any redness, warmth, or purulent drainage from wounds in her scalp, bilateral legs or right breast or any other wounds that she may have or for any questions or concerns that she may have. She is being discharged home in stable condition with her daughter. TIME SPENT: Greater than 30 minutes. Dictated by TEODORO Godoy for Ziggy Mccormick MD cc: TEODORO Godoy MD
--- NOTE | 2019-06-27 07:14 | DISCHARGE SUMMARY ---
ADMISSION DATE: 06/18/2019 DISCHARGE DATE: 06/26/2019 ADDENDUM: Patient actually was stable for discharge several days ago, but declined to go home. The Medicare food service sales representatives today agreed with discharge. Therefore, she will be discharged home. She was admitted to the hospital as she does have a history of CVA, has poorly controlled hypertension, mainly due to her allergies. She says she can only take metoprolol which she is on and hydrochlorothiazide which were restarted. Oddly enough, she frequently refused blood pressure medications stating that she had a fear that it would drop her blood pressure too low, but each day she complained that her blood pressures were too high. She does exhibit quite frequent episodes of noncompliance. She would frequently take her dressings off her lower extremities several hours after they replaced. She refused to keep her legs or even to allow her legs to be elevated for any length of time to assist with the swelling in the lower extremities. Her daughter who stayed in the room with her 24 hours a day, refused to assist with any dressing changes, leg elevation, or even to set up her food tray. Ms. Rosa will be discharged home. Please see full note. cc: Ziggy Mccormick MD
== END 2019-06-26 10:34 | disposition home health service (06) | DRG 291 ==
LOC: P.ED 01:39 → P.MEDSURG 05:10
PROVIDERS: ATTEND Family Medicine

== ENCOUNTER 2019-10-26 18:54 | Inpatient (IN) ==
--- NOTE | 2019-10-26 20:35 | PROVIDER DOCUMENTATION ---
This chart was entered by Haydee Hardin Scribe, acting as scribe for Raleigh Antonio MD. HPI-Rash/Wound/ReCheck - General Chief Complaint: Edema Stated Complaint: WOUND CHECK Time Seen by Provider: 10/26/19 19:39 Source: patient Allergies/Adverse Reactions: Allergies Allergy/AdvReac Type Severity Reaction Status Date / Time SAMIR Inhibitors Allergy SWELLING Verified 10/26/19 19:22 amlodipine Allergy ANAPHYLAXIS Verified 10/26/19 19:22 clonidine Allergy ANAPHYLAXIS Verified 10/26/19 19:22 codeine Allergy SWELLING Verified 10/26/19 19:22 hydralazine Allergy SWELLING Verified 10/26/19 19:22 latex Allergy SWELLING Verified 10/26/19 19:22 levofloxacin [From Levaquin] Allergy ANAPHYLAXIS Verified 10/26/19 19:22 losartan Allergy SWELLING Verified 10/26/19 19:22 nitroglycerin Allergy ANAPHYLAXIS Verified 10/26/19 19:22 Sulfa (Sulfonamide Allergy NAUSEA Verified 10/26/19 19:22 Antibiotics) Penicillins AdvReac ANAPHYLAXIS Verified 10/26/19 19:22 Home Medications: Home Medication List Medication Instructions Recorded Confirmed Last Taken Type Insulin Aspart [Novolog] 10 unit SUBQ DIRECTED 03/28/19 10/26/19 Unknown H istory Albuterol Sulfate [Proair Hfa] 8.5 gm INHALATION Q4H PRN PRN 04/08/19 10/26/19 1 Day Ago History ~04/07/19 Apixaban [Eliquis] 5 mg PO BID 05/03/19 10/26/19 Unknown History Acetaminophen [Tylenol] 650 mg PO Q6H PRN PRN tab 06/22/19 10/26/19 Unknown Rx Furosemide [Lasix] 40 mg PO BID tab 06/22/19 10/26/19 Unknown Rx Insulin Glargine [Lantus Insulin] 10 unit SUBQ DAILY unit 06/22/19 10/26/19 Unknown Rx Magnesium Oxide [Magnesium] 400 mg PO BID #30 tab 06/23/19 10/26/19 Unknown Rx Hydrochlorothiazide 25 mg PO DAILY #30 tab 06/26/19 10/26/19 Unknown Rx Insulin Aspart [Novolog Flexpen] 10 unit SQ AC #100 insuln.pen 10/21/19 10/26/19 Unknown Rx Nitrofurantoin Kenton/Macrocryst 100 mg PO BID #20 cap 10/21/19 10/26/19 Unknown Rx [Macrobid] Promethazine [Phenergan] 1 - 2 tab PO Q6H PRN PRN #18 tab 10/21/19 10/26/19 Unknown Rx - History of Present Illness-Dermatology Nature of Presenting Problem: pt is a homeless 54 yowf with history of diabetes,chronic renal insufficiency, diabetic leg ulcers and blindness complainng of worsening LLE edema,pain,redness, odor, and ulcer on leftheel, for past week. Patient con tinues to have UTI despite taking oral antibiotic. pt is followed by Dr. [facility] wound clinic in [place] and was referred to er for admission. denies smoking, alcohol and drug use. pt requests not to be transferred to due to daughter being trespassed there. Location: reports: lower extremity (LLE) Quality: reports: painful, other (edema) Severity: reports: mild Onset/Duration: reports: other (pt sts few days) Timing: reports: still present Context/Associated Symptoms: reports: change in skin texture, edema (LLE), swelling/mass/lumps (LLE) Identifiable cause?: Yes Recently seen or treated by another doctor?: Yes ([facility] ed few days ago for uti ) Review of Systems - Adult - REVIEW OF SYSTEMS - ADULT Constitutional: reports: no symptoms reported. denies: fever, fatique, night sweats Eyes: reports: no symptoms reported Ears, Nose, Mouth & Throat: reports: no symptoms reported Cardiovascular: reports: see HPI, edema (LLE). denies: chest pain, orthopnea, palpitations Respiratory: reports: no symptoms reported Gastrointestinal: reports: no symptoms reported Genitourinary: reports: no symptoms reported Musculoskeletal: reports: no symptoms reported Integumentary: reports: see HPI, skin sores/ulcer (DM ulcer left heel), other (LLE edema). denies: hives, hair loss, itching Neurological: reports: no symptoms reported Psychiatric: reports: no symptoms reported Endocrine: reports: no symptoms reported Hematologic/Lymphatic: reports: no symptoms reported Allergic/Immunologic: reports: no symptoms reported All Other Systems: Reviewed and Negative Past History - Adult - PAST MEDICAL HISTORY-ADULT Review of Records: reports: Nursing Assessment Review, Medications Reviewed, Social history reviewed & non-contributory. Major Childhood Illnesses: reports: denies history Cardiovascular: reports: HTN, hyperlipidemia Respiratory: reports: denies history Gastrointestinal: reports: GERD Obstetrical/Gynecological: reports: denies history Genitourinary: reports: kidney disease Musculoskeletal: reports: denies history Neurological: reports: denies history Psychiatric: reports: denies history Endocrine/Immune: reports: Diabetes Other Conditions: reports: blindness - PRIOR SURGERIES/PROCEDURES Surgical/Procedure History: reports: cholecystectomy, , other (8 eye sx, D&C) - IMMUNIZATION STATUS Childhood Immunizations: See Nurse Assessment Flu Vaccine: See Nurse Assessment - FAMILY HISTORY Family History: reviewed, not pertinent - SOCIAL HISTORY Smoking: other (former) Substance Use: denies (alcohol and drug use) Living Situation: homeless Physical Exam-General - PHYSICAL EXAM-ADULT Initial Vital Signs Reviewed: Yes - CONSTITUTIONAL General Appearance: alert, mild distress, other (pugnent odor coming from room). negative: cachetic, lethargic, slow to respond, obtunded - EYES Eyes: other (blindness bilat eyes). negative: PERRL/EOMI (rt pupil dilated), EOM palsy, subconjunctival hemorrhage, sunken eyes - HEAD, EARS, NOSE, MOUTH & THROAT HENMT: normocephalic/atraumatic, moist mucous membranes - NECK Neck: non-tender, full range of motion, supple, normal inspection - RESPIRATORY Respiratory: chest non-tender, lungs clear, normal breath sounds - CARDIOVASCULAR Cardiovascular: normal peripheral pulses, regular rate, rhythm - GASTROINTESTINAL (ABDOMEN) Abdominal Exam: normal bowel sounds, non tender, soft - LYMPHATIC Lymphatic: no adenopathy - MUSCULOSKELETAL Back Exam: normal inspection Extremity: normal range of motion, non-tender, no calf tenderness, normal capillary refill, pelvis stable, erythema (LLE, surrounding ulcer on left heel), swelling (LLE), other (crusting DM ulcer dorsum left foot w/erythema and induration. LLE induration w/weeping ulcer and crusting throughout). negative: normal inspection, deformity - SKIN Integumentary: normal color, normal turgor, warm/dry - NEUROLOGIC Neurologic: grossly normal, no motor/sensory deficits - PSYCHIATRIC Psych/Mental Status: normal mood/affect, normal thought content, normal thought process, oriented x 3 Progress - PLAN OF CARE/RESULTS Progress/Plan/Lab Results: Vital Signs - 8 hr 10/26/19 19:17 10/26/19 21:03 10/26/19 22:00 Temperature 98.2 F 100.6 F H Pulse Rate 103 H 107 H Respiratory Rate 20 Blood Pressure 198/96 165/70 O2 Sat by Pulse Oximetry 98 100 Laboratory Results - last 24 hr 10/26/19 10/26/19 10/26/19 19:36 20:23 20:23 WBC 7.98 RBC 3.36 L Hgb 8.7 L Hct 27.0 L MCV 80.4 L MCH 25.9 L MCHC 32.2 L RDW Std Deviation 13.5 Plt Count 270 MPV 11.4 H Immature Gran % (Auto) 1.3 H Neut % (Auto) 81.0 H Lymph % (Auto) 8.0 L Kenton % (Auto) 8.0 Eos % (Auto) 1.4 Baso % (Auto) 0.3 Immature Gran # (Auto) 0.10 H Neut # (Auto) 6.47 Lymph # (Auto) 0.64 L Kenton # (Auto) 0.64 H Eos # (Auto) 0.11 Baso # (Auto) 0.02 D-Dimer, Quantitative Sodium 127 L Potassium 4.1 Chloride 101 Carbon Dioxide 18 L Anion Gap 9 BUN 42 H Creatinine 3.2 H Estimated GFR/1.73 m2 15 BUN/Creatinine Ratio 13 Glucose 300 H Calculated Osmolality 277 Calcium 7.6 L Total Bilirubin 0.40 AST 20 ALT 16 Alkaline Phosphatase 192 H Total Protein 7.2 Albumin 2.5 L Globulin 5.0 Albumin/Globulin Ratio 1.0 Urine Source CLEAN CATCH Urine Color YELLOW Urine Turbidity TURBID Urine pH 6.5 Ur Specific Slayden 1.017 Urine Protein 600 A Ur Glucose (Stick) 500 A Ur Ketones (Stick) NEGATIVE Urine Blood MODERATE A Urine Nitrite NEGATIVE Urine Bilirubin NEGATIVE Urobilinogen Dipstick NORMAL Urine Leukocytes LARGE A Urine WBC (Auto) 20-40 A Urine RBC (Auto) <10 U Epithel Cells (Auto) <10 Urine Bacteria (Auto) 4+ Urine Crystals NONE SEEN Small Round Cells NONE SEEN Urine Casts NONE SEEN Urine Yeast-like Cells NONE SEEN 10/26/19 20:23 WBC RBC Hgb Hct MCV MCH MCHC RDW Std Deviation Plt Count MPV Immature Gran % (Auto) Neut % (Auto) Lymph % (Auto) Kenton % (Auto) Eos % (Auto) Baso % (Auto) Immature Gran # (Auto) Neut # (Auto) Lymph # (Auto) Kenton # (Auto) Eos # (Auto) Baso # (Auto) D-Dimer, Quantitative 4.67 H Sodium Potassium Chloride Carbon Dioxide Anion Gap BUN Creatinine Estimated GFR/1.73 m2 BUN/Creatinine Ratio Glucose Calculated Osmolality Calcium Total Bilirubin AST ALT Alkaline Phosphatase Total Protein Albumin Globulin Albumin/Globulin Ratio Urine Source Urine Color Urine Turbidity Urine pH Ur Specific Slayden Urine Protein Ur Glucose (Stick) Ur Ketones (Stick) Urine Blood Urine Nitrite Urine Bilirubin Urobilinogen Dipstick Urine Leukocytes Urine WBC (Auto) Urine RBC (Auto) U Epithel Cells (Auto) Urine Bacteria (Auto) Urine Crystals Small Round Cells Urine Casts Urine Yeast-like Cells Orders Category Date Time Status [facility] Routine AdmDCTranf 10/26/19 22:09 Active Activity - Strict Bedrest ORDERED Care 10/26/19 22:09 Active Resuscitation Status Routine Care 10/26/19 22:09 Ordered Saline Loc DIRECTED Care 10/26/19 22:09 Active Vital Signs Order Q 4-HR ASSESS Care 10/26/19 22:09 Active Diabetic Diet Diet 10/26/19 22:[address] ABDOMEN/PELVIS W/O CONTRAST [CT] Stat Exams 10/26/19 22:11 Ordered CBC WITH ELECTRONIC DIFF [HEME] Stat Lab 10/26/19 20:23 Completed CMP [COMPREHENSIVE METABOLIC PANEL] [CHEM] Stat Lab 10/26/19 20:23 Completed D-DIMER [COAG] Stat Lab 10/26/19 20:23 Completed URINALYSIS W/POSS RFLX CULT [URINALYSIS] Stat Lab 10/26/19 19:36 Completed URINE CULTURE [RM] Routine Lab 10/26/19 22:00 Ordered URINE MANUAL MICROSCOPIC [URINALYSIS] Stat Lab 10/26/19 19:36 Completed CefTRIAXONE [Rocephin] 1 gm Med 10/26/19 21:55 Active 0.9% Sodium Chloride Inj [Ns] 50 ml IV NOW Morphine Med 10/26/19 22:09 Active 2 mg IV Q2H PRN PRN Ondansetron [Zofran] Med 10/26/19 22:09 Ordered 4 mg IV Q4H PRN PRN Vancomycin 1 gm/Ns Med 10/26/19 21:06 Discontinued 1 gm in 250 ml IV NOW Transfer/Admit Order [TRANSFER] Routine Transfer 10/26/19 22:14 Ordered Result Diagrams: 10/26/19 20:23 10/26/19 20:23 - CONSULTS/PCP/HOSPITALIST Notification #1 *Consult/PCP/Hospitalist*: /Hospitalist Time Discussed: 22:05 Consult Disposition: Admit Departure - Departure Date of Disposition Decision: 10/26/19 Time of Disposition Decision: 22:17 DIAGNOSIS: Urinary tract infection Qualifiers: Urinary tract infection type: site unspecified Hematuria presence: with hematuria Qualified Code(s): N39.0 - Urinary tract infection, site not specified; R31.9 - Hematuria, unspecified Cellulitis of lower extremity Qualifiers: Laterality: left Qualified Code(s): L03.116 - Cellulitis of left lower limb T2DM (type 2 diabetes mellitus) Qualifiers: Diabetes mellitus intermission coordinator insulin use: unspecified detention insulin use status Diabetes mellitus complication status: with other specified complication Qualified Code(s): E11.69 - Type 2 diabetes mellitus with other specified complication Chronic kidney disease Qualifiers: Chronic kidney disease stage: stage 4 (severe) Qualified Code(s): N18.4 - Chronic kidney disease, stage 4 (severe) Disposition: ADMITTED INPATIENT 09 Certified Medical Emergency: Emergent Condition: Stable Referrals and Follow-Ups: Margaret Chen MD [Primary Care Provider] - - Critical Care Note This patient required my direct & personal management of CC.: No Attestation - Physician/ YOLANDA Attestation Patient care was provided by Advanced Practice Provider:: No The physician spent face to face time with patient:: Yes Advanced Practice Provider documentation review:: Supervising physician onsite and consulted in the evaluation and care of this patient. The physician did have a face to face encounter with the patient. This chart was documented by the indicated scribe, (Haydee Hardin Scribe) and accurately reflects the services I performed and decisions made by me, Raleigh Antonio MD, as attested by the provider's signature.
[2019-10-26 20:37] LABS: BASO# 0.02 X1000 (0.0-0.2); BASO% 0.3 % (0.0-0.8); EOS# 0.11 X1000 (0.0-0.7); EOS% 1.4 % (0.0-10.0); HEMOGLOBIN 8.7 g/dL (12.0-16.0); IMM GRAN% 1.3 % (0.0-0.5); LYMPH# 0.64 X1000 (1.2-3.4); MCH 25.9 PG (27-31); MCHC 32.2 g/dL (33-37); MCV 80.4 FL (81-99); MONO# 0.64 X1000 (0.11-0.59); MPV 11.4 FL (7.4-10.4); NEUT# 6.47 X1000 (1.4-6.5); PLT 270 X1000 (130-400); RBC 3.36 XMIL (4.2-5.4); RDW 13.5 % (11.5-14.5); WBC 7.98 X1000 (4.8-10.8)
[2019-10-26 21:02] LABS: ALBUMIN 2.5 g/dL (3.5-5.0); CALCIUM 7.6 mg/dL (8.8-10.2); CREATININE 3.2 mg/dL (0.5-0.9); POTASSIUM 4.1 mmol/L (3.5-5.1); TOTAL BILIRUBIN 0.4 mg/dL (0.20-1.00); TOTAL PROTEIN 7.2 g/dL (6.3-8.3)
[2019-10-26] MEDS ORDERED: VANCOMYCIN 1 GM/NS 1 GM/250 ML IVPB IV ONE (21:06)
[2019-10-26 21:44] LABS: URINE SOURCE CLEAN CATCH
[2019-10-26 21:51] LABS: BILIRUBIN URINE NEGATIVE (NEGATIVE); BLOOD URINE MODERATE (NEGATIVE); COLOR YELLOW; GLUCOSE URINE 500 mg/dL (NEGATIVE); KETONE URINE NEGATIVE (NEGATIVE); LEUKOCYTES URINE LARGE (NEGATIVE); NITRITE URINE NEGATIVE (NEGATIVE); PH URINE 6.5; PROTEIN URINE 600 mg/dL (NEGATIVE); SP GRAVITY URINE 1.017; TURBIDITY URINE TURBID (CLEAR); UROBILINOGEN URINE NORMAL (NORMAL)
[2019-10-26] MEDS ORDERED: ROCEPHIN 1 GM in NS 50 ML IV ONE (21:55)
[2019-10-26 21:59] LABS: UR EPITHELIAL CELLS <10 /HPF (<10); URINE BACTERIA 4+ /HPF; URINE CASTS NONE SEEN; URINE CRYSTALS NONE SEEN; URINE RBC <10 /HPF (<10); URINE SMALL ROUND CELLS NONE SEEN; URINE WBC 20-40 /HPF (<10); URINE YEAST NONE SEEN
[2019-10-26] MEDS ORDERED: ZOFRAN IV PRN (22:09)
[2019-10-26] MEDS ORDERED: HUMULIN R (PARKWAY) SUBQ ONE (22:18)
[2019-10-26] MEDS: MORPHINE IV PRN (22:41)
[2019-10-27] MEDS: MORPHINE IV PRN ×2 (02:10→11:51)
--- NOTE | 2019-10-27 07:07 | Diag Imaging Result Doc PS360 ---
EXAM: CT ABDOMEN/PELVIS W/O CONTRAST - 10/26/2019 HISTORY: recurrent UTI TECHNIQUE: CT abdomen/pelvis without contrast. No contrast administered per request of the referring provider. COMPARISON: 03/28/2019 FINDINGS: There is a right pleural effusion with mild adjacent dependent/compressive atelectasis. There are stable calcified granuloma from old granulomatous disease at the lateral right lung base. There is splenomegaly similar to prior. There are no acute abnormalities of the liver, adrenal glands, or pancreas identified. The gallbladder surgically absent. There is retroperitoneal adenopathy similar to prior. There is no renal stone or hydronephrosis identified. There is a small amount of air in the urinary bladder lumen. There is some diffuse thickening of the urinary bladder rojas, although this could be exaggerated by the urinary bladder being less distended compared to the prior exam. There is no evidence of bowel obstruction. There is no substantial bowel wall thickening identified. There is no abscess identified. There is no free air or substantial free fluid identified. Images of pelvis otherwise show no abnormal mass or fluid collection. There is a lumbar spine degenerative changes noted. IMPRESSION: Right pleural effusion with adjacent mild dependent/compressive atelectasis. Stable splenomegaly. Stable retroperitoneal adenopathy. Small amount of air in urinary bladder lumen, possibly related to recent catheterization. Generalized thickening of urinary bladder rojas which could be chronic or could relate to cystitis. No hydronephrosis. No bowel obstruction. No abscess. No free air. The on-call radiologist provided preliminary results at 11:32 PM on 10/26/2019. This exam was performed using automated exposure control, adjustment of mA or kV according to patient size, and/or use of iterative reconstruction technique. Electronically signed by Shreyas Luu 10/27/2019 7:05 AM
[2019-10-27] MEDS ORDERED: VANCOMYCIN IV PER PHARMACY MISC SCH (10:00)
[2019-10-27] MEDS ORDERED: PHENERGAN PO PRN (10:04)
[2019-10-27] MEDS ORDERED: NS 1,000 ML IV ONE (10:30)
[2019-10-27 10:50] LABS: BASO# 0.04 X1000 (0.0-0.2); BASO% 0.5 % (0.0-0.8); EOS# 0.14 X1000 (0.0-0.7); EOS% 1.6 % (0.0-10.0); HEMATOCRIT 25.9 % (37.0-47.0); HEMOGLOBIN 8.1 g/dL (12.0-16.0); IMM GRAN% 1.1 % (0.0-0.5); LYMPH# 1.18 X1000 (1.2-3.4); LYMPH% 13.5 % (20.5-51.1); MCH 25.5 PG (27-31); MCHC 31.3 g/dL (33-37); MCV 81.4 FL (81-99); MONO# 0.88 X1000 (0.11-0.59); MONO% 10.1 % (1.7-9.3); NEUT# 6.37 X1000 (1.4-6.5); NEUT% 73.2 % (42.2-75.2); PLT 281 X1000 (130-400); RBC 3.18 XMIL (4.2-5.4); RDW 13.5 % (11.5-14.5); WBC 8.71 X1000 (4.8-10.8)
[2019-10-27] MEDS ORDERED: HUMALOG (PARKWAY) SUBQ SCH ×2 (11:00→13:00)
[2019-10-27 11:06] LABS: HEMOGLOBIN A1C 8.2 % (4.8-6.0)
[2019-10-27 11:17] LABS: FREE T4 1.28 ng/dL (0.93-1.70); TSH 1.79 uIUmL (0.27-4.20)
[2019-10-27 11:20] LABS: ALBUMIN 2.3 g/dL (3.5-5.0); CALCIUM 7.4 mg/dL (8.8-10.2); CREATININE 3.4 mg/dL (0.5-0.9); MAGNESIUM 1.3 mg/dL (1.5-2.7); POTASSIUM 3.7 mmol/L (3.5-5.1); TOTAL BILIRUBIN 0.4 mg/dL (0.20-1.00); TOTAL PROTEIN 6.7 g/dL (6.3-8.3)
[2019-10-27] MEDS: VENTOLIN HFA INH PRN (11:37)
[2019-10-27] MEDS: ZYVOX 600 MG/D5W 600 MG/300 ML IVPB IV SCH ×2 (11:50→22:52)
[2019-10-27] MEDS: ELIQUIS PO SCH ×2 (11:51→21:06)
[2019-10-27] MEDS: MAG-OX PO SCH ×2 (11:51→21:06)
--- NOTE | 2019-10-27 12:36 | HISTORY AND PHYSICAL ---
ADDENDUM ASSESSMENT AND PLAN: Urinary tract infection, feelings of urinary incontinence, and urgency. Micro urine culture is pending. She is going to have gram-negative antibiotic coverage pending 's order. Dictated by TEODORO Cai for Tigre Pollard MD cc: TEODORO Cai MD
--- NOTE | 2019-10-27 12:56 | Diag Imaging Result Doc PS360 ---
EXAM: CHEST-1 VIEW 10/27/2019 HISTORY: r/o pna TECHNIQUE: AP portable at 1237 COMMENT: There is increasing pleural fluid on the right compared to 06/19/2019. There is apparent atelectasis or pneumonia in both lung bases particularly the right. IMPRESSION: Right pleural effusion and basilar atelectasis versus pneumonia. Minimal left lower lobe atelectasis. Electronically signed by Merrick Yao 10/27/2019 12:54 PM
--- NOTE | 2019-10-27 16:26 | Vascular Study Report ---
EXAM: Venous U/S Bilateral Legs - 10/27/2019 HISTORY: LE swelling; h/o B DVT TECHNIQUE: Bilateral lower extremity Doppler venous ultrasound COMPARISON: None. FINDINGS: The deep veins of the bilateral extremities demonstrate flow, with compressibility and augmentation. There are no filling defects identified. IMPRESSION: No evidence of deep venous thrombosis in either lower extremity. Electronically signed by Shreyas Luu 10/27/2019 4:24 PM
--- NOTE | 2019-10-27 17:23 | HISTORY AND PHYSICAL ---
PRIMARY CARE PROVIDER: Located in [place], a female doctor named Dr. Chen. CHIEF COMPLAINT: Left leg pain. HISTORY OF PRESENT ILLNESS: Ms. Sejal Rsoa is a 54-year-old female who is actually homeless, has a medical history of stroke with left-sided weakness, congestive heart failure, diabetes, chronic kidney disease, hypertension, is here with complaints of left foot wound. This left leg essentially has cellulitis throughout with open wounds throughout. She does have a deep tissue injury in the left heel. She has a left inner thigh to posterior thigh cellulitis as well. According to the daughter, who is at the bedside, she does get treated at the wound clinic, but they really were unable to give a whole lot of detail. Apparently, she says that she was prescribed Macrobid and clindamycin, but refused to take any of it. She had some nausea and vomiting last Wednesday where she had come to the ER, had apparently passed out, but was discharged, so it is really unclear how long this infection has been going on. The family says 1 week. It looks like it has been a whole lot longer than that, specifically how severe the deep tissue injury looks. She complains of chills, pain. The pain has only been for about 2 days. The family at the bedside states they do not really look at her leg and that they were just told to keep it covered. I believe they home hop. They go to different people's places to his stay or hotel rooms. She is supposed to be on Eliquis. She states she takes it, but refuses to go see her primary, so it is really unclear how medically compliant she really is. PAST MEDICAL HISTORY: 1. 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 2. Congestive heart failure. 3. Diabetes mellitus type 2. 4. CKD stage 4. 5. Hypertension. 6. Hyperlipidemia. 7. Glaucoma with legal blindness. 8. Migraines. 9. Bilateral DVTs in the past. 10. Multiple bouts of cellulitis in different locations of the body with wounds in the past. SURGICAL HISTORY: 1. Glaucoma surgery. 2. section. 3. Left rotator cuff surgery. 4. D and C. 5. Cholecystectomy. 6. Appendectomy. SOCIAL HISTORY: She is homeless. They go from car to a friend's homes to motels, essentially just wherever they can find a place to stay. She quit smoking in 1999, started at the age of 18, was a 1/2-pack per day smoker. Denies alcohol or illicit drug use. She has been wheelchair bound since May. 20 years ago. She has one daughter who is also homeless that they stay together. FAMILY HISTORY: Mother had breast cancer. Father had Alzheimer's, prostate cancer, and stroke. ALLERGIES: 1. BOSTON inhibitor, swelling. 2. Amlodipine, anaphylaxis. 3. Clonidine, anaphylaxis. 4. Codeine, swelling. 5. Hydralazine, swelling. 6. Latex, swelling. 7. Levaquin, anaphylaxis. 8. Losartan, swelling. 9. Nitroglycerin, anaphylaxis. 10. Sulfa drugs, nausea. 11. Penicillins, anaphylaxis. HOME MEDICATIONS: 1. Eliquis 5 mg p.o. twice daily. 2. Insulin NovoLog 10 units subcutaneously as directed. 3. Hydrochlorothiazide 25 mg p.o. daily. 4. Insulin Lantus 10 units subcutaneously daily. 5. Albuterol as needed. 6. Magnesium oxide 400 mg p.o. twice daily. 7. Insulin aspartate 10 units subcutaneously with meals. 8. Phenergan 1 to 2 tablets p.o. every 6 hours p.r.n. 9. Tylenol 650 mg p.o. every 6 hours p.r.n. REVIEW OF SYSTEMS: A 14-point review of systems are complete and all are negative except those mentioned above in the HPI. PHYSICAL EXAMINATION: VITAL SIGNS: Temperature 97.9 degrees, heart rate 99, respiratory rate 20, blood pressure 160/52, and O2 saturation 100% on room air. GENERAL: Ms. Sejal Rosa is a 54-year-old female. She is in no acute distress. She is able to answer some questions appropriately. HEENT: Atraumatic, normocephalic. Pupils are equal. One eye deviates, and she is legally blind. Mucous membranes are dry. NECK: Trachea midline. CARDIOVASCULAR: S1, S2. Regular rate and rhythm. No rubs, gallops, murmurs. She has left 2+ lower extremity pitting edema. Right lower extremity with 1+ pitting, edema +1 dorsalis pedal pulses, +2 radial pulses. Negative JVD or carotid bruits. PULMONARY: Clear to auscultation, bilateral breath sounds. No accessory muscle use or work of breathing noted. GASTROINTESTINAL: Soft, nontender, nondistended. Positive bowel sounds x4. EXTREMITIES: Decreased range of motion in all extremities. Weakness on the left compared to the right. NEUROLOGIC: A and O x3. Follows commands. Sensory is decreased in the lower extremities. SKIN: Warm and dry except for the left lower extremity has weeping with multiple open wounds, left heel deep tissue injury, left inner thigh to posterior thigh cellulitis, redness. The right lower extremity from the knee down is red as well. It continues to weep. Reported sacral wound, which will be visualized by wound care nurse as she is at the bedside currently treating with Betadine, the left lower extremity and Boston wrapping it. Also has multiple little scab wounds all over her body. LABORATORY DATA: White blood cells 8000, hemoglobin 8, hematocrit 25, platelet count 281,000. D- dimer 4.67. Sodium 131, potassium 3.7, BUN 43, creatinine 3.4, glucose 157. Hemoglobin A1c is 8.2, calcium 7.4, magnesium 1.3, bilirubin 0.4, AST 15, ALT 13, proBNP 15,938, albumin is 2.3. Triglycerides 104, total cholesterol 109. TSH 1.79, free T4 is 1.2. A urinalysis, 600 protein, 500 glucose, moderate blood, large leukocytes, 20 to 40 white blood cells, 4+ bacteria. Microbiology, urine culture pending. IMAGING STUDIES: Abdominal pelvic CT, right pleural effusion with adjacent mild dependent compressive atelectasis, stable state, splenomegaly, stable retroperitoneal adenopathy, small amount of air in the bladder, possible cystitis, no hydronephrosis, no bowel obstruction, no abscess, no free air. ASSESSMENT AND PLAN: 1. Left lower extremity cellulitis with multiple open wounds, a deep tissue injury of the heel and thigh is also involved with the cellulitis, the inner thigh to the posterior thigh. She is on Zyvox. Blood cultures obtained. Wound care is consulted. Culture of the weeping wounds obtained. 2. Possibly acute on chronic systolic congestive heart failure or diastolic heart failure. Last echocardiogram was in March, and the ejection fraction was 59% at that time. It was a difficult study. Pulmonary pressure 38. She is on Lasix at home. We are going to hold that for now. She does have some acute kidney injury on top of her chronic kidney disease stage 4. Home medications does not really include anything for heart failure besides having Lasix that is scheduled. ProBNP is over 15,000. 3. Acute kidney injury on chronic kidney disease stage 4. She is actually requesting that Dr. Martinez see her here. We will monitor her most likely for another day. If kidney function worsens, and we will do a consult, holding the Lasix for now. Going to give at least 1 liter of fluids slowly and hold any nephrotoxic medications. 4. Uncontrolled diabetes mellitus type 2. Hemoglobin A1c is 8.2. We will do pattern blood glucoses, sliding scale insulin, diabetic diet. 5. History of cerebrovascular accident in May 2019 with left-sided weakness. Continue on Eliquis 5 mg by mouth twice a day. 6. Hypertension. Continue home medications except for what is nephrotoxic. 7. Hyperlipidemia. 8. Glaucoma, legally blind. 9. History of deep vein thrombosis, and she has an elevated D-dimer. There is no reported shortness of breath, but she does have swelling in the lower extremities, so we will get a venous ultrasound. If we have to, we can also order a V/Q scan. Dictated by TEODORO Cai for Tigre Pollard MD Addendum: Patient seen and examined by myself. Agree with TEODORO note. It reflects my assessment and plan. Patient is being admitted to hospital for cellulitis of left lower extremities. Patient also has acute on CKD. Will monitor patient closely. Will check BMP daily. Will start insulin for diabetes mellitus. Wound care has been consulted. Patient is non compliant with meds. cc: TEODORO aCi MD [facility]
[2019-10-27] MEDS: NORCO-7.5 PO PRN (21:07)
[2019-10-27] MEDS: HUMALOG (PARKWAY) SUBQ SCH (21:07)
[2019-10-28] MEDS: MORPHINE IV PRN ×3 (05:39→21:12)
[2019-10-28 06:05] LABS: BASO# 0.02 X1000 (0.0-0.2); BASO% 0.2 % (0.0-0.8); EOS# 0.16 X1000 (0.0-0.7); HEMATOCRIT 22.6 % (37.0-47.0); IMM GRAN# 0.07 X1000 (0.0-0.04); IMM GRAN% 0.9 % (0.0-0.5); LYMPH# 1.14 X1000 (1.2-3.4); LYMPH% 14.2 % (20.5-51.1); MCH 25.5 PG (27-31); MCV 82.2 FL (81-99); MONO# 0.75 X1000 (0.11-0.59); MONO% 9.3 % (1.7-9.3); MPV 10.9 FL (7.4-10.4); NEUT# 5.91 X1000 (1.4-6.5); NEUT% 73.4 % (42.2-75.2); PLT 238 X1000 (130-400); RBC 2.75 XMIL (4.2-5.4); RDW 13.4 % (11.5-14.5); WBC 8.05 X1000 (4.8-10.8)
[2019-10-28 06:26] LABS: ALBUMIN 1.8 g/dL (3.5-5.0); CREATININE 3.6 mg/dL (0.5-0.9); MAGNESIUM 1.4 mg/dL (1.5-2.7); POTASSIUM 3.7 mmol/L (3.5-5.1); TOTAL BILIRUBIN 0.3 mg/dL (0.20-1.00); TOTAL PROTEIN 5.8 g/dL (6.3-8.3)
[2019-10-28] MEDS: HUMALOG (PARKWAY) SUBQ SCH ×4 (06:34→21:12)
[2019-10-28] MEDS ORDERED: CALCIUM GLUCONATE 2 GM in NS 100 ML IV ONE (06:38)
[2019-10-28] MEDS: MAG-OX PO SCH ×2 (08:49→20:28)
[2019-10-28] MEDS: ELIQUIS PO SCH ×2 (08:49→20:28)
[2019-10-28] MEDS: LANTUS INSULIN SUBQ SCH (08:55)
[2019-10-28] MEDS ORDERED: LASIX PO SCH (09:15)
[2019-10-28] MEDS ORDERED: BENADRYL IV PRN (09:58)
[2019-10-28] MEDS: HYDROCHLOROTHIAZIDE PO SCH (10:01)
[2019-10-28] MEDS: ZYVOX 600 MG/D5W 600 MG/300 ML IVPB IV SCH ×2 (11:53→23:03)
[2019-10-28] MEDS: LOPRESSOR PO SCH ×2 (14:07→20:29)
--- NOTE | 2019-10-28 14:37 | PROGRESS NOTE ---
DATE: 10/28/2019 SUBJECTIVE: Patient reports feeling some itching. Patient attributes it to allergic reaction but was very mild. Denies any fever or chills. OBJECTIVE: Vital Signs: Temperature 98.2 degrees, heart rate 90, respiratory rate 20, blood pressure 171/64, O2 saturation 100% on room air. General: On examination, this is a chronically ill-appearing, 54-year-old lying in bed, in no acute distress. Cardiovascular: S1, S2 heard. No murmurs, gallops, or rubs. Regular rate and rhythm. Respiratory: Clear bilaterally to auscultation. No work of breathing or using accessory muscles. Abdomen: Soft, nontender to palpation. Bowel sounds present. No organomegaly. Extremities: There is 2+ pedal edema noted in both lower extremities. Neurological exam: Weakness in the left lower extremity greater than the right. The patient is awake and alert. Skin: Left lower extremity has weeping with multiple open wounds. Left heel deep tissue injury. Left inner thigh to posterior thigh cellulitis. There are also weeping lesions noted in all toes in the left foot. LABORATORY DATA: Hemoglobin 7.0 today. Sodium 128 with calcium 7.0. ASSESSMENT AND PLAN: 1. Left lower extremity cellulitis with multiple open wounds. Wound Care has been consulted. The patient has been on Zyvox. We will continue with same management. 2. Acute on chronic systolic congestive heart failure. The patient is going to be started on Lasix today. Her renal function is a little bit elevated but I think she needs to start the medication today. ProBNP has been high at admission. 3. Acute on chronic kidney disease stage 4. Creatinine continues to get worse but in's and out's have not been charted. We will instruct the nurse to do it and if we notice some oliguria, then we will consult Dr. Martinez from Nephrology. 4. Uncontrolled diabetes mellitus type 2. Hemoglobin A1c is 8.2. We will continue insulin sliding scale and Accu-Chek before meals and also at bedtime. 5. History of cerebrovascular accident in 2012 with left-sided weakness. We will continue with Eliquis. 6. Hypertension. Blood pressure is uncontrolled. Patient claimed that she is on beta-delbert but she is not. At this point, we will start small doses of Coreg and see how her blood pressure is after that. 7. Hyperlipidemia. We will continue home medications. 8. History of DVT. We have order ultrasound of both legs and those are negative for DVT. cc: Tigre Pollard MD MTDD
[2019-10-28] MEDS: NORCO-7.5 PO PRN (23:28)
[2019-10-29] MEDS: NORCO-7.5 PO PRN ×2 (05:06→18:01)
[2019-10-29] MEDS: LOPRESSOR PO SCH ×4 (05:06→20:49)
[2019-10-29 06:08] LABS: BASO# 0.03 X1000 (0.0-0.2); BASO% 0.3 % (0.0-0.8); EOS# 0.28 X1000 (0.0-0.7); EOS% 2.8 % (0.0-10.0); HEMATOCRIT 23.7 % (37.0-47.0); HEMOGLOBIN 7.3 g/dL (12.0-16.0); LYMPH# 1.38 X1000 (1.2-3.4); LYMPH% 13.6 % (20.5-51.1); MCH 25.3 PG (27-31); MCHC 30.8 g/dL (33-37); MCV 82.3 FL (81-99); MONO# 0.67 X1000 (0.11-0.59); MONO% 6.6 % (1.7-9.3); MPV 10.8 FL (7.4-10.4); NEUT% 75.7 % (42.2-75.2); PLT 296 X1000 (130-400); RBC 2.88 XMIL (4.2-5.4); RDW 13.5 % (11.5-14.5); WBC 10.16 X1000 (4.8-10.8)
[2019-10-29] MEDS: HUMALOG (PARKWAY) SUBQ SCH ×4 (06:08→22:02)
[2019-10-29 06:19] LABS: ALBUMIN 1.9 g/dL (3.5-5.0); CALCIUM 7.3 mg/dL (8.8-10.2); CREATININE 3.5 mg/dL (0.5-0.9); MAGNESIUM 1.5 mg/dL (1.5-2.7); POTASSIUM 4.1 mmol/L (3.5-5.1); TOTAL BILIRUBIN 0.2 mg/dL (0.20-1.00); TOTAL PROTEIN 6.3 g/dL (6.3-8.3)
[2019-10-29] MEDS ORDERED: ALBUMIN 25% IV ONE ×2 (07:41→10:30)
[2019-10-29] MEDS ORDERED: MAGNESIUM SULFATE 2 GM/S.W.I. 2 GM/50 ML IVPB IV ONE (07:42)
[2019-10-29] MEDS: VENTOLIN HFA INH PRN (09:00)
[2019-10-29] MEDS: ROCEPHIN 1 GM in NS 50 ML IV SCH (09:35)
[2019-10-29] MEDS: LANTUS INSULIN SUBQ SCH (09:37)
[2019-10-29] MEDS: MAG-OX PO SCH ×2 (09:37→20:49)
[2019-10-29] MEDS: ELIQUIS PO SCH ×2 (09:37→20:49)
[2019-10-29] MEDS: HYDROCHLOROTHIAZIDE PO SCH (09:37)
[2019-10-29] MEDS ORDERED: XANAX PO PRN (10:52)
--- NOTE | 2019-10-29 11:52 | PROGRESS NOTE ---
DATE: 10/29/2019 SUBJECTIVE: This patient is complaining of bilateral lower extremity pain. As per the patient, she is allergic to penicillin, and apparently she stops breathing when she takes the treatment. She received ceftriaxone in the emergency department, and she did well. Also, I gave her a dose of ceftriaxone at least 1 hour ago, and she has been doing fine after that. So since I have a positive culture that showed Serratia marcescens in her left foot and urine culture that showed Klebsiella pneumoniae, both of them sensitive to ceftriaxone, I will go ahead and continue with the same treatment. I will also continue providing coverage for Staphylococcus. Her blood sugar has been stable. She is hyponatremic, which is chronic. Also she has chronic kidney disease, her legs are swollen, and her left leg looks really infected with her erythema and some pus around her toes. Wound Care on board, and they wrapped her leg. It has a strong odor. I will continue with ceftriaxone and Zyvox for now. Since this patient has low albumin, I will give her albumin to see if that helps with the swelling. I will also replace the magnesium which is low. OBJECTIVE: Vital Signs: Temperature 97.7 degrees, pulse 73, respiratory rate 18, blood pressure 145/59, oxygen saturation 99% on room air. HEENT: Head normocephalic, no trauma. Neck: Supple no JVD. Central trachea. Chest: Clear to auscultation. Some crepitus at the bases. Abdomen: Soft, nontender, nondistended. No hepatosplenomegaly. Extremities: Two to 3+ lower extremity edema. She does have left lower extremity covered with a new dressing. She has some pus around her toes and erythema, swollen foot. The left lower extremity also has been weeping with multiple superficial open wounds. She has a left heel deep tissue injury, and the posterior leg and side is erythematous as well. LABORATORY: WBC 10.1, hemoglobin 7.3, hematocrit 23.7, and platelets 296,000. Sodium 136, potassium 4.1, chloride 100, bicarbonate 16, BUN 46, creatinine 3.5, glucose 137, calcium 7.3, magnesium 1.5, albumin 1.9. ASSESSMENT AND PLAN: 1. Left lower extremity cellulitis with multiple open wounds. Wound Care on board, and I also have requested Surgery Department to see the patient. I will add ceftriaxone to her medications, and she seems to be tolerating this treatment. She already received 2 doses of that, and the patient states that she is allergic to penicillins. 2. Fluid overload. I requested to the patient to keep the legs elevated as much as she can. She has been placed on hydrochlorothiazide which I will stop for now given her kidney dysfunction. I am also going to give her albumin because her albumin level is 1.9. Probably depending on the kidney function tomorrow, we will start this patient on Lasix to see how she does. We did an echocardiogram a couple months ago and did not show any acute ejection fraction problems. Actually, her ejection fraction is 59% with stable wall motion. She does have some pulmonary hypertension, though. 3. Chronic kidney is, probably stage 4. I will give her a dose of albumin and will monitor. Probably, we need to start this patient on some Lasix as well. I will stop the hydrochlorothiazide. I will give her a low dose of Lasix tonight after the albumin to see how she does and monitor in the morning. She already received 40 of Lasix during this hospitalization. 4. Type 2 diabetes, hemoglobin A1c is 8.2. For now we will continue with the same management. 5. History of cerebrovascular accident in 2013 with left-sided weakness, aware. 6. Hypertension, stable. 7. Hyperlipidemia. Continue home medication. 8. History of DVT, aware. We did a lower extremity venous ultrasound to rule out deep venous thrombosis, and those did not show any blood clots. 9. Right pleural effusion versus pneumonia, continue with antibiotics. 1. Possible urinary tract infection due to Klebsiella pneumoniae, continue with ceftriaxone. 2. Hypoalbuminemia. I will replace the magnesium. 3. Anemia. Her hemoglobin is 7.3 with borderline low MCV. I will ask for an anemia workup. 4. It looks like this patient is homeless, and she has been living in her car with her daughter and son. As per the patient, she has not been eating well lately. She has hypoalbuminemia, and I requested to give her some protein shake with all meals. Also had requested a dietitian to evaluate this patient. The leg is covered at this moment, but I want Surgery Department to evaluate this patient. I think she will probably need some more aggressive intervention at this moment, but I will let Surgery Department to have that decision. As per the patient, she is allergic to penicillins, but she is tolerating the ceftriaxone. This is the second dose, and she is not having any kind of reactions. On the other hand, we have a positive culture of her left foot that showed Serratia marcescens and also urine culture that showed Klebsiella pneumoniae. Continue with the same treatment. cc: Forrest Mead MD
[2019-10-29] MEDS: ZYVOX 600 MG/D5W 600 MG/300 ML IVPB IV SCH ×2 (12:47→20:55)
[2019-10-29] MEDS ORDERED: BENADRYL PO ONE (13:52)
[2019-10-29] MEDS ORDERED: LASIX IV ONE (21:00)
[2019-10-30] MEDS: ZYVOX 600 MG/D5W 600 MG/300 ML IVPB IV SCH ×2 (02:01→11:07)
[2019-10-30] MEDS: LOPRESSOR PO SCH ×4 (02:02→20:22)
[2019-10-30 06:05] LABS: BASO# 0.01 X1000 (0.0-0.2); BASO% 0.1 % (0.0-0.8); EOS# 0.22 X1000 (0.0-0.7); EOS% 2.4 % (0.0-10.0); HEMATOCRIT 22.6 % (37.0-47.0); HEMOGLOBIN 6.9 g/dL (12.0-16.0); IMM GRAN# 0.06 X1000 (0.0-0.04); IMM GRAN% 0.7 % (0.0-0.5); LYMPH# 1.06 X1000 (1.2-3.4); LYMPH% 11.6 % (20.5-51.1); MCH 25.3 PG (27-31); MCHC 30.5 g/dL (33-37); MCV 82.8 FL (81-99); MONO# 0.61 X1000 (0.11-0.59); MONO% 6.7 % (1.7-9.3); MPV 10.8 FL (7.4-10.4); NEUT% 78.5 % (42.2-75.2); PLT 285 X1000 (130-400); RBC 2.73 XMIL (4.2-5.4); RDW 13.5 % (11.5-14.5); WBC 9.16 X1000 (4.8-10.8)
[2019-10-30 06:15] LABS: ALBUMIN 2.1 g/dL (3.5-5.0); CALCIUM 7.4 mg/dL (8.8-10.2); CREATININE 4.1 mg/dL (0.5-0.9); MAGNESIUM 2.1 mg/dL (1.5-2.7); POTASSIUM 4.4 mmol/L (3.5-5.1); TOTAL BILIRUBIN 0.2 mg/dL (0.20-1.00); TOTAL PROTEIN 6.2 g/dL (6.3-8.3)
[2019-10-30] MEDS: HUMALOG (PARKWAY) SUBQ SCH ×3 (06:37→16:31)
[2019-10-30] MEDS: VENTOLIN HFA INH PRN (07:40)
[2019-10-30] MEDS: ROCEPHIN 1 GM in NS 50 ML IV SCH (09:39)
[2019-10-30] MEDS: ELIQUIS PO SCH ×2 (09:39→20:21)
[2019-10-30] MEDS: LANTUS INSULIN SUBQ SCH (09:39)
[2019-10-30] MEDS: MAG-OX PO SCH ×2 (09:39→20:22)
[2019-10-30] MEDS: NORCO-7.5 PO PRN (10:14)
[2019-10-30] MEDS ORDERED: NS 500 ML IV ONE (13:51)
--- NOTE | 2019-10-30 14:53 | PROGRESS NOTE ---
DATE: 10/30/2019 SUBJECTIVE: Patient has no major complaints except she does not feel well. OBJECTIVE: VITAL SIGNS: Blood pressure is 139/46, heart rate 77, respiratory rate 18, temperature was 100.2 degrees. Cardiovascular: Regular rate and rhythm. Pulmonary: Bilateral breath sounds clear to auscultation. Gastrointestinal: Abdomen is soft, nontender, nondistended. Bowel sounds are positive. LABORATORY DATA: White count 9, hemoglobin 6.9 and 22, platelets 285,000. Sodium 129, creatinine>4. PROBLEM LIST: 1. Left lower extremity cellulitis positive for Serratia marcescens. We will continue Rocephin and follow closely. It is sensitive both the urinary tract infection and the Klebsiella in her urine. 2. Klebsiella urinary tract infection. She is on Rocephin. We will continue that. 3. Volume overload. We will continue diuretics and follow. Her creatinine is rising, so we will continue to monitor. She may need further treatment. 4. Chronic renal failure which is acute on chronic and progressing to stage 5. She may need renal input. 5. History of cerebrovascular accident. We will continue treatment and follow. DISPOSITION: Pending her clinical status. Her social situation is very poor. They are homeless and they live in a car with her invalid daughter and several dogs. We will continue to follow closely. cc: Ricky Shah MD MTDShari
[2019-10-30] MEDS: LASIX IV SCH (14:56)
[2019-10-30 15:22] LABS: FERRITIN 365 ng/mL (13-150)
[2019-10-30] MEDS ORDERED: NS 500 ML ONE (18:13)
[2019-10-30] MEDS: TYLENOL PO PRN (18:19)
[2019-10-30] MEDS ORDERED: MOTRIN LIQUID PO ONE (19:49)
[2019-10-31] MEDS: LOPRESSOR PO SCH ×4 (02:22→20:56)
[2019-10-31] MEDS: HUMALOG (PARKWAY) SUBQ SCH ×6 (02:24→21:15)
[2019-10-31 07:17] LABS: BASO# 0.01 X1000 (0.0-0.2); BASO% 0.1 % (0.0-0.8); EOS# 0.27 X1000 (0.0-0.7); EOS% 3.9 % (0.0-10.0); HEMATOCRIT 25.5 % (37.0-47.0); HEMOGLOBIN 7.9 g/dL (12.0-16.0); IMM GRAN# 0.05 X1000 (0.0-0.04); IMM GRAN% 0.7 % (0.0-0.5); LYMPH% 8.8 % (20.5-51.1); MCH 25.7 PG (27-31); MCV 83.1 FL (81-99); MONO# 0.73 X1000 (0.11-0.59); MONO% 10.7 % (1.7-9.3); MPV 10.6 FL (7.4-10.4); NEUT# 5.18 X1000 (1.4-6.5); NEUT% 75.8 % (42.2-75.2); PLT 267 X1000 (130-400); RBC 3.07 XMIL (4.2-5.4); RDW 13.5 % (11.5-14.5); WBC 6.84 X1000 (4.8-10.8)
[2019-10-31 07:21] LABS: ALBUMIN 2.2 g/dL (3.5-5.0); CALCIUM 7.3 mg/dL (8.8-10.2); CREATININE 4.4 mg/dL (0.5-0.9); MAGNESIUM 2.1 mg/dL (1.5-2.7); POTASSIUM 4.4 mmol/L (3.5-5.1); TOTAL BILIRUBIN 0.4 mg/dL (0.20-1.00); TOTAL PROTEIN 6.5 g/dL (6.3-8.3)
[2019-10-31] MEDS: TYLENOL PO PRN (07:50)
[2019-10-31] MEDS: ROCEPHIN 1 GM in NS 50 ML IV SCH (07:51)
[2019-10-31] MEDS: ELIQUIS PO SCH ×2 (10:37→20:56)
[2019-10-31] MEDS: LASIX IV SCH (10:37)
[2019-10-31] MEDS: MAG-OX PO SCH ×2 (10:38→20:56)
[2019-10-31] MEDS: LANTUS INSULIN SUBQ SCH (10:38)
[2019-10-31] MEDS: NORCO-7.5 PO PRN (15:07)
--- NOTE | 2019-10-31 15:39 | PROGRESS NOTE ---
DATE: 10/31/2019 SUBJECTIVE: She seems better today, not as upset; there is no family in the room today. OBJECTIVE: Vital Signs: Blood pressure 143/59, heart rate 75, respiratory rate 20, temperature 98 degrees, 98% on room air. Cardiovascular: Regular rate and rhythm. Pulmonary: Bilateral breath sounds, diminished at bases. GI: Abdomen soft, nontender, nondistended. Bowel sounds are positive. LOWER EXTREMITIES: Her leg was seen without a dressing today. She has kind of diffuse ichthyotic changes. She also has some open areas of ulceration with occasional active bleeding. LABORATORY DATA: White count is 6, hemoglobin and hematocrit 7 and 25, platelets 267,000. Creatinine is 4.4. PROBLEM LIST: 1. Left lower extremity cellulitis with serratia marcescens. She is on Rocephin, seems to be doing okay. 2. Klebsiella urinary tract infection. She is on Rocephin. This will be day 3 of treatment. 3. Type 2 diabetes, appears to be stable. DISPOSITION: She is requesting rehab now so we will go ahead and pursue that. She is homeless otherwise, but I think she would benefit from skilled therapy. Dr. Farmer has evaluated her and will make final recommendations on her wound care. cc: Ricky Shah MD [facility]
--- NOTE | 2019-10-31 16:53 | GENERAL SURGERY CONSULTATION ---
DATE: 10/31/2019 CHIEF COMPLAINT: left heel ulcer and cellulitis left leg. HISTORY: This is a 54-year-old female who has diabetes and chronic kidney disease plus other medical problems. She presented with some left leg discomfort. She has some ulcerations of her leg primarily her heel with some erythema in her medial thigh. She also reports some discomfort in her left lateral hip. Apparently she has been followed by wound care doctor in [place] who did debrided her heel. Other medical problems are listed. She has had previous surgeries which are also listed. SOCIAL HISTORY: She apparently is homeless and noncompliant with regard to her medical care FAMILY HISTORY: Pertinent for breast cancer. MEDICATIONS: Listed. ALLERGIES: She has multiple drug allergies. REVIEW OF SYSTEMS: Noted above. PHYSICAL EXAMINATION: Vital Signs: She is afebrile. Heart rate 75, blood pressure 143/59. Lungs: Clear. Heart: Regular rate and rhythm. Abdomen: Soft. Extremities: She has some mild erythema and swelling and tenderness the left medial thigh. The left leg has been wrapped. There is a left heel eschar. I did not palpate pedal pulses. White count is 6800, hemoglobin 7, hematocrit 25. BUN 56, creatinine 4.4. ASSESSMENT: Left heel decubitus ulcer and left thigh cellulitis. The cellulitis should respond to antibiotic therapy. The heel ulcer will need to be elevated and she will need to have her heel suspended off the bed. We will x-ray her heel to be certain there is no evidence of osteomyelitis. With complaints of her left hip, it may be judicious to x-ray her left hip, as well. cc: Sanket Farmer MD
--- NOTE | 2019-10-31 16:59 | Diag Imaging Result Doc PS360 ---
HIP 1 VIEW LEFT - 10/31/2019 INDICATION: left hip pain TECHNIQUE: COMPARISON: None FINDINGS: There is no visible fracture or dislocation. IMPRESSION: No definite fracture or dislocation. Electronically signed by Rico Grey 10/31/2019 4:57 PM
--- NOTE | 2019-10-31 17:00 | Diag Imaging Result Doc PS360 ---
FOOT COMPLETE LEFT - 10/31/2019 INDICATION: left heel eschar TECHNIQUE: Three views COMPARISON: 09/30/2019 FINDINGS: There is diffuse pedal edema. There is soft tissue ulceration over the calcaneus. There are degenerative heel spurs. No fractures or bony erosions. There is severe peripheral vascular disease with arterial calcification. IMPRESSION: Nonspecific findings. Electronically signed by Rico Grey 10/31/2019 4:58 PM
[2019-11-01] MEDS: LOPRESSOR PO SCH ×4 (01:24→22:28)
[2019-11-01 05:59] LABS: CREATININE 4.4 mg/dL (0.5-0.9); POTASSIUM 4.9 mmol/L (3.5-5.1); TOTAL BILIRUBIN 0.2 mg/dL (0.20-1.00); TOTAL PROTEIN 6.2 g/dL (6.3-8.3)
[2019-11-01 06:01] LABS: BASO# 0.01 X1000 (0.0-0.2); BASO% 0.1 % (0.0-0.8); EOS% 2.9 % (0.0-10.0); HEMATOCRIT 24.7 % (37.0-47.0); HEMOGLOBIN 7.6 g/dL (12.0-16.0); IMM GRAN# 0.03 X1000 (0.0-0.04); IMM GRAN% 0.4 % (0.0-0.5); LYMPH% 11.5 % (20.5-51.1); MCH 25.4 PG (27-31); MCHC 30.8 g/dL (33-37); MCV 82.6 FL (81-99); MONO# 0.63 X1000 (0.11-0.59); MPV 10.7 FL (7.4-10.4); NEUT# 5.31 X1000 (1.4-6.5); NEUT% 76.1 % (42.2-75.2); PLT 246 X1000 (130-400); RBC 2.99 XMIL (4.2-5.4); RDW 13.6 % (11.5-14.5); WBC 6.98 X1000 (4.8-10.8)
[2019-11-01] MEDS ORDERED: CALCIUM GLUCONATE 1 GM in NS 50 ML IV ONE (06:37)
[2019-11-01] MEDS: HUMALOG (PARKWAY) SUBQ SCH ×4 (06:38→22:29)
[2019-11-01] MEDS: VENTOLIN HFA INH PRN (07:39)
[2019-11-01] MEDS: LANTUS INSULIN SUBQ SCH (08:47)
[2019-11-01] MEDS: LASIX IV SCH (08:47)
[2019-11-01] MEDS: TYLENOL PO PRN ×2 (08:48→16:56)
[2019-11-01] MEDS: MAG-OX PO SCH (08:48)
[2019-11-01] MEDS: ELIQUIS PO SCH ×2 (08:48→22:31)
[2019-11-01] MEDS ORDERED: CALCIUM GLUCONATE 1 GM in NS 100 ML IV ONE (09:00)
[2019-11-01] MEDS: ROCEPHIN 1 GM in NS 50 ML IV SCH (11:53)
--- NOTE | 2019-11-01 13:51 | PROGRESS NOTE ---
DATE: 11/01/2019 SUBJECTIVE: The patient has no major complaints. She is sitting up in bed. OBJECTIVE: Vital Signs: Blood pressure is 144/60, heart rate 76, respiratory rate 14, temperature 98 degrees, saturating 98% on room air. Cardiovascular: Regular rate and rhythm. Pulmonary: Bilateral breath sounds, diminished at bases. GI: Soft, nontender, nondistended. Bowel sounds are positive. Extremities: Right leg is wrapped in an Unna boot. LABORATORY DATA: White count 6.9, hemoglobin and hematocrit 7.6 and 24.7, platelets 246,000. Sodium is at 128, creatinine is up to 4.4, which is stable from yesterday, but increased from earlier in the week. She has been in the 4 range before previously. PROBLEM LIST: 1. Left lower extremity cellulitis with Serratia marcescens. She is on Rocephin, which is day 4, and she seems to be doing okay. She has not had any fevers since 10/30/2019. 2. Klebsiella urinary tract infection. We will continue to monitor. She is also on Rocephin day 4. 3. Type 2 diabetes. Appears to be relatively well. 4. Diabetic foot ulcers. We are getting wound care. Dr. Farmer does not feel like we need any further debridement or anything from that standpoint. 5. Acute on chronic renal failure. Her baseline creatinine is usually less than 3. It is up to 4.4. I am going to hold her Lasix today, and will continue to monitor. Will stop her magnesium oxide and will see how her numbers look. If it continues to worsen, we may need to get a Nephrology opinion. cc: Ricky Shah MD
[2019-11-02] MEDS: LOPRESSOR PO SCH ×4 (01:15→20:23)
[2019-11-02] MEDS: TYLENOL PO PRN (01:33)
[2019-11-02] MEDS: NORCO-7.5 PO PRN ×2 (05:47→20:24)
[2019-11-02 07:06] LABS: BASO# 0.01 X1000 (0.0-0.2); BASO% 0.2 % (0.0-0.8); EOS# 0.17 X1000 (0.0-0.7); EOS% 2.9 % (0.0-10.0); HEMATOCRIT 25.1 % (37.0-47.0); HEMOGLOBIN 7.8 g/dL (12.0-16.0); IMM GRAN# 0.04 X1000 (0.0-0.04); IMM GRAN% 0.7 % (0.0-0.5); LYMPH# 0.81 X1000 (1.2-3.4); MCH 25.8 PG (27-31); MCHC 31.1 g/dL (33-37); MCV 83.1 FL (81-99); MONO# 0.68 X1000 (0.11-0.59); MONO% 11.7 % (1.7-9.3); MPV 10.3 FL (7.4-10.4); NEUT# 4.08 X1000 (1.4-6.5); NEUT% 70.5 % (42.2-75.2); PLT 211 X1000 (130-400); RBC 3.02 XMIL (4.2-5.4); RDW 13.7 % (11.5-14.5); WBC 5.79 X1000 (4.8-10.8)
[2019-11-02 07:26] LABS: ALBUMIN 2.3 g/dL (3.5-5.0); CALCIUM 7.1 mg/dL (8.8-10.2); CREATININE 4.1 mg/dL (0.5-0.9); MAGNESIUM 2.1 mg/dL (1.5-2.7); POTASSIUM 5.2 mmol/L (3.5-5.1); TOTAL BILIRUBIN 0.2 mg/dL (0.20-1.00); TOTAL PROTEIN 6.7 g/dL (6.3-8.3)
[2019-11-02] MEDS: HUMALOG (PARKWAY) SUBQ SCH ×4 (07:41→20:49)
[2019-11-02] MEDS: ELIQUIS PO SCH ×2 (08:58→20:23)
[2019-11-02] MEDS ORDERED: LASIX PO SCH (09:00)
[2019-11-02] MEDS: LANTUS INSULIN SUBQ SCH (09:00)
--- NOTE | 2019-11-02 11:45 | PROGRESS NOTE ---
DATE: 11/02/2019 SUBJECTIVE: The patient still complains of being tired and fatigued. She is still having pain in her feet. PHYSICAL EXAMINATION: Vital Signs: Temperature 98 degrees, pulse 78, respiratory rate 18, BP 153/59. General: The patient is awake, alert. She is sitting on the side of the bed. She is in no distress. HEENT: Normocephalic. Neck: Supple. Cardiovascular: Regular rate. Chest: Clear. Abdomen: Soft. Extremities: Moves all extremities. Right leg is still wrapped in an Unna boot. ASSESSMENT: 1. Cellulitis with Serratia marcescens. 2. Klebsiella urinary tract infection. 3. Diabetes with very poor home control and diabetic foot ulcerations, as well as blindness. 4. Acute on chronic renal failure. 5. Volume depletion. PLAN: The patient's IV has infiltrated. We are going to try switching her over to Keflex, which both her cellulitis Serratia and her urinary tract infection Klebsiella are sensitive to. Will continue to follow her blood sugars. Her creatinine is elevated a little bit at 4.1. We stopped her IV Lasix. Will hold Lasix entirely today. Continue to push fluids. Potassium is up a little at 5.2, sodium is at 130. She does have some anemia at 7 and 25. I expect at some point, she will require dialysis, but currently she is stable. She has refused in the past. Will continue to follow. Further orders as needed. cc: Ziggy Mccormick MD
[2019-11-02] MEDS: KEFLEX PO SCH ×2 (13:23→17:43)
[2019-11-03] MEDS: LOPRESSOR PO SCH ×4 (01:44→20:51)
[2019-11-03] MEDS: NORCO-7.5 PO PRN ×2 (04:59→20:52)
[2019-11-03] MEDS: HUMALOG (PARKWAY) SUBQ SCH ×4 (06:28→21:39)
[2019-11-03 06:44] LABS: BASO# 0.01 X1000 (0.0-0.2); BASO% 0.1 % (0.0-0.8); EOS# 0.12 X1000 (0.0-0.7); EOS% 1.7 % (0.0-10.0); HEMATOCRIT 24.6 % (37.0-47.0); HEMOGLOBIN 7.6 g/dL (12.0-16.0); IMM GRAN# 0.03 X1000 (0.0-0.04); IMM GRAN% 0.4 % (0.0-0.5); LYMPH# 1.12 X1000 (1.2-3.4); LYMPH% 15.7 % (20.5-51.1); MCH 25.6 PG (27-31); MCHC 30.9 g/dL (33-37); MCV 82.8 FL (81-99); MONO# 0.81 X1000 (0.11-0.59); MONO% 11.3 % (1.7-9.3); MPV 10.2 FL (7.4-10.4); NEUT# 5.06 X1000 (1.4-6.5); NEUT% 70.8 % (42.2-75.2); PLT 208 X1000 (130-400); RBC 2.97 XMIL (4.2-5.4); RDW 13.8 % (11.5-14.5); WBC 7.15 X1000 (4.8-10.8)
[2019-11-03 07:08] LABS: ALBUMIN 2.2 g/dL (3.5-5.0); CREATININE 3.8 mg/dL (0.5-0.9); POTASSIUM 5.3 mmol/L (3.5-5.1); TOTAL BILIRUBIN 0.3 mg/dL (0.20-1.00); TOTAL PROTEIN 6.8 g/dL (6.3-8.3)
[2019-11-03 07:10] LABS: CALCIUM 6.9 mg/dL (8.8-10.2)
[2019-11-03] MEDS: VENTOLIN HFA INH PRN (08:35)
[2019-11-03] MEDS ORDERED: KEFLEX PO SCH (09:00)
[2019-11-03] MEDS: CALTRATE 600 PO SCH (09:16)
[2019-11-03] MEDS: ELIQUIS PO SCH ×2 (09:16→20:51)
[2019-11-03] MEDS: LANTUS INSULIN SUBQ SCH (09:16)
[2019-11-03] MEDS: OMNICEF PO SCH ×2 (09:16→20:52)
[2019-11-03] MEDS: TYLENOL PO PRN ×2 (10:26→17:26)
--- NOTE | 2019-11-03 11:34 | PROGRESS NOTE ---
DATE: 11/03/2019 SUBJECTIVE: Patient still complains of foot pain. OBJECTIVE: Vital Signs: Temperature 98, pulse 78, respiratory 20, BP 153/59. General: Patient is awake, sitting on side of the bed with her feet dangling over the side. She is in no current respiratory distress. HEENT: Normocephalic. Neck: Supple. Cardiovascular: Regular rate. Chest: Clear. Abdomen: Soft. Extremities: Left lower extremity bandage is clean and intact. ASSESSMENT/PLAN: 1. Hypocalcemia 6.9, but corrects to normal given her albumin at 2.2. 2. Left lower extremity cellulitis with Serratia marcescens. 3. Klebsiella urinary tract infection. 4. Diabetes with diabetic foot ulcerations. 5. Acute on chronic renal failure. Creatinine has improved slightly down to 3.8. 6. Hyperkalemia, stable at 5.3. 7. Hyponatremia stable at 128. 8. Intentional medical noncompliance. Patient refuses to participate at all with physical therapy. Either she or her daughter, who is currently living in the hospital room with the patient, frequently unwraps her feet and then complains that the staff did not wrap her foot. We are going to continue her in the hospital for now and attempt to develop some type of follow-up plan that hopefully she will comply with. cc: Ziggy Mccormick MD
--- NOTE | 2019-11-03 17:10 | GENERAL SURGERY PROGRESS NOTE ---
DATE: 11/03/2019 SUBJECTIVE: She remains afebrile with normal white count. ASSESSMENT AND PLAN: We are treating her leg wounds with Betadine. Her heel eschar may need excisional debridement. She continues to need to keep the heel off the bed. Dr. Schmidt will cover the weekend in my absence. Her x-rays done were negative for bone injury or infection. cc: Sanket Farmer MD
[2019-11-04] MEDS: LOPRESSOR PO SCH ×4 (02:14→20:51)
[2019-11-04] MEDS: NORCO-7.5 PO PRN ×2 (04:20→20:51)
[2019-11-04] MEDS: HUMALOG (PARKWAY) SUBQ SCH ×4 (06:27→22:17)
[2019-11-04 06:54] LABS: CALCIUM 7.1 mg/dL (8.8-10.2); CREATININE 3.9 mg/dL (0.5-0.9); POTASSIUM 5.2 mmol/L (3.5-5.1); TOTAL BILIRUBIN 0.3 mg/dL (0.20-1.00); TOTAL PROTEIN 6.4 g/dL (6.3-8.3)
[2019-11-04 07:12] LABS: HEMATOCRIT 22.7 % (37.0-47.0); MCH 25.5 PG (27-31); MCHC 30.8 g/dL (33-37); MCV 82.8 FL (81-99); MPV 10.2 FL (7.4-10.4); RBC 2.74 XMIL (4.2-5.4); RDW 13.7 % (11.5-14.5); WBC 5.58 X1000 (4.8-10.8)
[2019-11-04] MEDS: ELIQUIS PO SCH ×2 (09:04→20:51)
[2019-11-04] MEDS: CALTRATE 600 PO SCH (09:04)
[2019-11-04] MEDS: OMNICEF PO SCH ×2 (09:04→20:51)
[2019-11-04] MEDS: LANTUS INSULIN SUBQ SCH (10:11)
--- NOTE | 2019-11-04 17:59 | PROGRESS NOTE ---
DATE: 11/04/2019 SUBJECTIVE: The patient states that she has lots of pain in both legs, all the way down to her feet. Denies any fevers or chills. OBJECTIVE: Temperature 98 degrees, pulse 78, respiratory rate 18, BP 153/59.General: The patient is awake, alert. She is sitting in the bed, actually with her feet up on the bed. HEENT: Normocephalic. Neck supple. Cardiovascular: Regular rate. Chest clear. Abdomen soft. Extremities: Moves all extremities. Left lower extremity bandage is clean, dry and intact. ASSESSMENT: 1. Anemia of chronic disease. We did offer the patient transfusion; however, her daughter notes that she had a fever with the last transfusion, so therefore they have declined transfusing at this point. 2. Hyponatremia. 3. Hyperkalemia. 4. Chronic kidney disease with a creatinine of 3.9. 5. Hypocalcemia, although corrects to normal with her low albumin. 6. Moderate protein-calorie malnutrition. 7. Type 2 diabetes with very poor home control. Blood sugar has actually been very well controlled here. 8. Klebsiella urinary tract infection. Continue Omnicef. PLAN: We will continue her in the hospital over the weekend. General Surgery has seen her and felt as though she may have to have debridement, after which time we will ask Advertising Rep to assist with discharge planning. cc: Ziggy Mccormick MD
[2019-11-05] MEDS: LOPRESSOR PO SCH ×4 (02:25→19:51)
[2019-11-05] MEDS: HUMALOG (PARKWAY) SUBQ SCH ×4 (06:09→21:28)
[2019-11-05] MEDS: LANTUS INSULIN SUBQ SCH (08:20)
[2019-11-05] MEDS: ELIQUIS PO SCH ×2 (08:21→21:28)
[2019-11-05] MEDS: CALTRATE 600 PO SCH (08:21)
[2019-11-05] MEDS: OMNICEF PO SCH ×2 (08:21→21:28)
[2019-11-05] MEDS: SODIUM BICARBONATE PO SCH ×3 (11:42→21:28)
--- NOTE | 2019-11-05 12:58 | PROGRESS NOTE ---
DATE: 11/05/2019 SUBJECTIVE: Patient still complains of pain in her bilateral lower extremities. PHYSICAL EXAMINATION: Vital Signs: Reviewed. Temperature 99.5 degrees, pulse 80, respiratory rate 18, BP 160/45. General: Patient is in no distress. She is sitting in the bed with her legs hanging over the side. HEENT: Normocephalic. Neck: Supple. Cardiovascular: Regular rate. Chest: Clear. Abdomen: Soft. Extremities: Moves all extremities. ASSESSMENT: 1. Left lower extremity cellulitis. Continue antibiotics. 2. Klebsiella urinary tract infection, on antibiotics. 3. Type 2 diabetes with diabetic foot ulcerations and poor control. 4. Acute metabolic acidosis secondary to renal failure. We attempted to start patient on sodium bicarbonate but she has refused. PLAN: We will continue patient in the hospital. Continue antibiotics and we will follow. Hopefully, she can transition to rehab. If not, she will need to go home. cc: Ziggy Mccormick MD
[2019-11-06] MEDS: TYLENOL PO PRN (00:17)
[2019-11-06] MEDS: LOPRESSOR PO SCH ×4 (01:02→20:56)
[2019-11-06 05:54] LABS: HEMATOCRIT 22.4 % (37.0-47.0); HEMOGLOBIN 6.8 g/dL (12.0-16.0); MCH 25.7 PG (27-31); MCHC 30.4 g/dL (33-37); MCV 84.5 FL (81-99); MPV 10.1 FL (7.4-10.4); RBC 2.65 XMIL (4.2-5.4); RDW 13.7 % (11.5-14.5); WBC 5.72 X1000 (4.8-10.8)
[2019-11-06] MEDS: HUMALOG (PARKWAY) SUBQ SCH ×4 (06:18→20:56)
[2019-11-06 06:25] LABS: CREATININE 3.6 mg/dL (0.5-0.9); TOTAL BILIRUBIN 0.3 mg/dL (0.20-1.00); TOTAL PROTEIN 6.7 g/dL (6.3-8.3)
[2019-11-06 06:26] LABS: CALCIUM 6.6 mg/dL (8.8-10.2)
[2019-11-06] MEDS: ELIQUIS PO SCH ×2 (09:17→20:56)
[2019-11-06] MEDS: OMNICEF PO SCH ×2 (09:17→20:56)
[2019-11-06] MEDS: SODIUM BICARBONATE PO SCH ×2 (09:17→21:02)
[2019-11-06] MEDS: CALTRATE 600 PO SCH (09:18)
[2019-11-06] MEDS: LANTUS INSULIN SUBQ SCH (09:18)
--- NOTE | 2019-11-06 22:11 | PROGRESS NOTE ---
DATE: 11/06/2019 SUBJECTIVE: Patient has a multitude of complaints in an attempt to stay in the hospital longer. States that her legs are swelling, which has not really changed. Her legs are having pain, which again, has not really changed. States she is too tired to go home. States that she will be better off going home tomorrow. States that she has no home to go. PHYSICAL EXAM: Vital signs: Temperature 95, pulse 88, respiratory rate 18, BP 160/45. General: Patient is a very difficult individual who continually declines medical treatment. Although, oddly enough, also refuses to leave the hospital. HEENT: Normocephalic. Neck: Supple. Cardiovascular: Regular rate. Chest: Clear. Abdomen: Soft. Extremities: Her left lower extremity bandage is clean, dry and intact. Edema actually is less than it has been in the past. Neurologic: No focal changes. ASSESSMENT: 1. Anemia. Hemoglobin and hematocrit has dropped slightly to 6.8 and 22. However as noted previously, the patient has refused transfusions because she had a fever once with a transfusion. 2. Left lower extremity cellulitis with Serratia. She is on p.o. antibiotics as she had continued to manipulate her IV until it infiltrated. 3. Klebsiella urinary tract infection. Again, she is on p.o. antibiotics due to the failure to be able to continue with IV antibiotics. 4. Type 2 diabetes. 5. Diabetic foot ulcerations. 6. Acute on chronic renal failure. Creatinine is 3.8. Discussed with patient that she is not a candidate yet, but certainly should consider dialysis in the future. The patient states that she will not start dialysis. 7. Hyponatremia. 8. Hyperkalemia. Resolved. 9. Metabolic acidosis secondary to renal tubular acidosis. The patient again refuses sodium bicarb. PLAN: As expected, when we told Ms. Rosa that she would discharged home today. I have actually told her that she is going to be discharged home today for the past 3 days. As expected, the patient invoked her Medicare right to stay in the hospital for the next 3 days. We will not change any medical care. The patient is actually not receiving any medical care for the past 3 days that would require her to be in the hospital. We are going to continue treating her with whatever treatments she allows. Again, certainly would prefer to give her a blood transfusion, although, she has declined this for 2 days in a row. cc: Ziggy Mccormick MD
[2019-11-07] MEDS: LOPRESSOR PO SCH ×4 (01:00→21:33)
[2019-11-07] MEDS: HUMALOG (PARKWAY) SUBQ SCH ×4 (06:16→21:51)
[2019-11-07] MEDS: SODIUM BICARBONATE PO SCH ×3 (09:10→21:51)
[2019-11-07] MEDS: CALTRATE 600 PO SCH ×2 (09:10→09:13)
[2019-11-07] MEDS: OMNICEF PO SCH ×2 (09:10→21:33)
[2019-11-07] MEDS: ELIQUIS PO SCH ×2 (09:10→21:33)
[2019-11-07] MEDS: LANTUS INSULIN SUBQ SCH (09:17)
--- NOTE | 2019-11-07 17:38 | PROGRESS NOTE ---
DATE: 11/07/2019 SUBJECTIVE: Patient refused to go home yesterday stating that she had appealed her Medicare right to stay 3 more days. Oddly enough her daughter has been overheard yelling at Ms. Rosa telling her that she cannot go into the longterm because they will take her check and then the daughter would have nothing to live off. No current change in Ms. Rosa's chronic clinical condition. She appears to be at her stable but unfortunate baseline. PHYSICAL EXAMINATION: Vital Signs: Reviewed. She is afebrile. Blood pressure 160/45, heart rate stable in the 80s. Physical exam is unchanged. ASSESSMENT: 1. Chronic renal failure as noted previously. Patient has refused any type of treatment including dialysis. However, she did finally allow sodium bicarb. 2. Anemia. Hemoglobin and hematocrit is low and she certainly should consider having a transfusion, although again, the patient's daughter refused to allow that to happen as Ms. Rosa had a fever once before when she had transfusion. 3. Diabetes. 4. Hypocalcemia that corrects to normal due to her protein calorie malnutrition. 5. Moderate protein-calorie malnutrition. 6. Left lower lobe extremity cellulitis, stable. 7. Klebsiella urinary tract infection stable. PLAN: We will continue to await Medicare decision as Medicare has previously declined her to go to rehab. We will leave her in the hospital until Medicare decides otherwise. cc: Ziggy Mccormick MD
[2019-11-08] MEDS: LOPRESSOR PO SCH ×4 (02:36→21:28)
[2019-11-08] MEDS: HUMALOG (PARKWAY) SUBQ SCH ×4 (07:17→21:43)
[2019-11-08] MEDS: ELIQUIS PO SCH ×2 (08:05→21:28)
[2019-11-08] MEDS: CALTRATE 600 PO SCH ×2 (08:05→08:09)
[2019-11-08] MEDS: OMNICEF PO SCH ×2 (08:05→21:29)
[2019-11-08] MEDS: SODIUM BICARBONATE PO SCH ×3 (08:05→21:29)
[2019-11-08] MEDS: LANTUS INSULIN SUBQ SCH (08:06)
--- NOTE | 2019-11-08 15:10 | PROGRESS NOTE ---
DATE: 11/08/2019 SUBJECTIVE: Patient only complains of the same complaint that she has had each day which is legs hurt. She does not take pain medications for her leg pain. PHYSICAL EXAMINATION: Temperature 98, pulse 72, respiratory rate 18, BP 157/60. General: Patient is in no respiratory distress. HEENT: Normocephalic. Neck: Supple. Cardiovascular: Regular rate. No murmurs. Chest: Clear and unlabored. Abdomen: Soft, nontender. Extremities: Moves all extension. Left lower extremity is bandaged, clean, dry, and intact. ASSESSMENT: 1. Chronic renal failure. Creatinine is mildly elevated compared to her baseline. Currently is at 3.6. That has been stable throughout the hospitalization. 2. Moderate protein calorie malnutrition, stable. 3. Hypocalcemia, corrects to normal due to her low albumin. 4. Anemia. As noted multiple times previously, the patient has declined transfusion. 5. Left lower extremity cellulitis with Serratia marcescens. She is currently day 10 of antibiotics. 6. Klebsiella urinary tract infection. Again, day 10 of antibiotics. 7. Diabetic foot ulceration. PLAN: The patient was ready for discharge 3 days ago but declined the opportunity to go home and Medicare. We are awaiting Medicare's decision. The patient had been turned down as far as rehab goes. Patient is hinting that she is going to refuse to go home until [facility]. Discussed with her that the [facility] is actually an outpatient treatment facility and that she could very easily go home and follow up with them for treatment. We will continue antibiotics. Continue to follow. cc: Ziggy Mccormick MD MTDD
[2019-11-08] MEDS ORDERED: BENADRYL CREAM TOP PRN (21:25)
[2019-11-09] MEDS: LOPRESSOR PO SCH ×3 (02:07→14:32)
[2019-11-09] MEDS: HUMALOG (PARKWAY) SUBQ SCH ×2 (06:35→11:54)
[2019-11-09] MEDS: OMNICEF PO SCH (08:03)
[2019-11-09] MEDS: ELIQUIS PO SCH (08:03)
[2019-11-09] MEDS: SODIUM BICARBONATE PO SCH (08:04)
[2019-11-09] MEDS: CALTRATE 600 PO SCH (08:04)
[2019-11-09] MEDS: LANTUS INSULIN SUBQ SCH (08:04)
[2019-11-09 12:14] VITALS: BP 148/71
--- NOTE | 2019-11-09 20:23 | DISCHARGE SUMMARY ---
ADMISSION DATE: 10/26/2019 DISCHARGE DATE: 11/09/2019 SUBJECTIVE: Patient has no major complaints. OBJECTIVE: Blood pressure 148/71, heart rate 82, respiratory rate 18, temperature 97.8 degrees, 99% on room air. Cardiovascular: Regular rate and rhythm. Pulmonary: Bilateral breath sounds clear to auscultation. GI: Soft, nontender, nondistended. Bowel sounds are positive. LABORATORY DATA: I do not have any new data. ASSESSMENT: 1. Cellulitis of the left lower extremity. She has had multiple treatments. She is on day 10 of antibiotics, day 11 today, probably 14. 2. Escherichia coli urinary tract infection. Same thing. I am going to continue regular antibiotics and follow. 3. Chronic renal failure is stable. DISPOSITION: 1. She has no inpatient rehab ability right now or options #1 except [facility], but after discussion with her family and her daughter feels that she would be unable to go there because she will lose access to her mother's financial abilities. We are looking at that right now. 2. She feels that she is going to probably be discharged back to her car because that is where she has been before. We will continue to monitor. cc: Ricky Shah MD
== END 2019-11-09 16:49 | DRG 637 ==
LOC: P.ED 18:54 → P.MEDSURG 22:46 → SUATTDRO 22:46
PROVIDERS: ATTEND Internal Medicine

== ENCOUNTER 2019-11-22 18:33 | Inpatient (IN) ==
--- NOTE | 2019-11-22 19:48 | PROVIDER DOCUMENTATION ---
HPI-Rash/Wound/ReCheck - General Chief Complaint: Edema Stated Complaint: SWELLING Time Seen by Provider: 11/22/19 19:19 Source: patient Allergies/Adverse Reactions: Allergies Allergy/AdvReac Type Severity Reaction Status Date / Time SAMIR Inhibitors Allergy SWELLING Verified 11/22/19 18:55 amlodipine Allergy ANAPHYLAXIS Verified 11/22/19 18:55 clonidine Allergy ANAPHYLAXIS Verified 11/22/19 18:55 codeine Allergy SWELLING Verified 11/22/19 18:55 hydralazine Allergy SWELLING Verified 11/22/19 18:55 latex Allergy SWELLING Verified 11/22/19 18:55 levofloxacin [From Levaquin] Allergy ANAPHYLAXIS Verified 11/22/19 18:55 losartan Allergy SWELLING Verified 11/22/19 18:55 nitroglycerin Allergy ANAPHYLAXIS Verified 11/22/19 18:55 Sulfa (Sulfonamide Allergy NAUSEA Verified 11/22/19 18:55 Antibiotics) Penicillins AdvReac ANAPHYLAXIS Verified 11/22/19 18:55 Home Medications: Home Medication List Medication Instructions Recorded Confirmed Last Taken Type Insulin Aspart [Novolog] 10 unit SUBQ DIRECTED 03/28/19 10/26/19 Unknown History Albuterol Sulfate [Proair Hfa] 8.5 gm INHALATION Q4H PRN PRN 04/08/19 10/26/19 1 Day Ago History ~04/07/19 Apixaban [Eliquis] 5 mg PO BID 05/03/19 10/26/19 Unknown History Acetaminophen [Tylenol] 650 mg PO Q6H PRN PRN tab 06/22/19 10/26/19 Unknown Rx Furosemide [Lasix] 40 mg PO BID tab 06/22/19 10/26/19 Unknown Rx Insulin Glargine [Lantus Insulin] 10 unit SUBQ DAILY unit 06/22/19 10/26/19 Unknown Rx Magnesium Oxide [Magnesium] 400 mg PO BID #30 tab 06/23/19 10/26/19 Unknown Rx Hydrochlorothiazide 25 mg PO DAILY #30 tab 06/26/19 10/26/19 Unknown Rx Insulin Aspart [Novolog Flexpen] 10 unit SQ AC #100 insuln.pen 10/21/19 10/26/19 Unknown Rx Promethazine [Phenergan] 1 - 2 tab PO Q6H PRN PRN #18 tab 10/21/19 10/26/19 Unknown Rx Metoprolol [Lopressor] 25 mg PO BID 11/05/19 11/05/19 Unknown History Calcium Carbonate [Caltrate 600] 600 mg PO DAILY tab 11/06/19 Unknown Rx CefDINIR [Omnicef] 300 mg PO BID #20 cap 11/06/19 Unknown Rx Hydrocodone/APAP 7.5 mg/325 mg 1 ea PO Q12H PRN PRN #10 tab 11/06/19 Unknown Rx [[place]-7.5] Metoprolol [Lopressor] 25 mg PO Q12HR #60 tab 11/06/19 Unknown Rx Nystatin Powder [Mycostatin Powder] 1 applicatn TOP BID #1 bottle 11/09/19 Unknown Rx Apixaban [Eliquis] 5 mg PO BID #60 tab 11/20/19 Unknown Rx Sulfamethoxazole/Tmp D.s. [Septra 1 ea PO BID #30 tab 11/20/19 Unknown Rx Ds] - History of Present Illness-Dermatology Nature of Presenting Problem: Pt is a 54 year old female presenting today from Dr. To's office with the complaint of bilateral lower extremity pain and swelling with blister like sores that are oozing. Denies fever, chest pain, and SOB at this time. Pt has chronic history of PVD, DM, CFH, HTN, HLD, and CKD. Location: reports: lower extremity (bilateral) Quality: reports: painful Severity: reports: severe Onset/Duration: reports: gradual Timing: reports: still present, getting worse Context/Associated Symptoms: reports: denies symptoms Exposure: reports: other (chornic PVD and DM) Similar Symptoms Previously?: Yes Recently seen or treated by another doctor?: Yes (Dr. To today) Review of Systems - Adult - REVIEW OF SYSTEMS - ADULT Constitutional: reports: no symptoms reported Eyes: reports: no symptoms reported Ears, Nose, Mouth & Throat: reports: no symptoms reported Cardiovascular: reports: see HPI Respiratory: reports: no symptoms reported Gastrointestinal: reports: no symptoms reported Genitourinary: reports: no symptoms reported Musculoskeletal: reports: no symptoms reported Integumentary: reports: see HPI Neurological: reports: no symptoms reported Psychiatric: reports: no symptoms reported Endocrine: reports: no symptoms reported Hematologic/Lymphatic: reports: no symptoms reported Allergic/Immunologic: reports: no symptoms reported All Other Systems: Reviewed and Negative Past History - Adult - PAST MEDICAL HISTORY-ADULT Review of Records: reports: Old Records Reviewed, Nursing Assessment Review, Medications Reviewed, Social history reviewed & non-contributory. Major Childhood Illnesses: reports: denies history Cardiovascular: reports: HTN, hyperlipidemia Respiratory: reports: denies history Gastrointestinal: reports: GERD Obstetrical/Gynecological: reports: denies history Genitourinary: reports: kidney disease Musculoskeletal: reports: denies history Neurological: reports: denies history Psychiatric: reports: denies history Endocrine/Immune: reports: Diabetes Other Conditions: reports: blindness - PRIOR SURGERIES/PROCEDURES Surgical/Procedure History: reports: cholecystectomy, , other (8 eye sx, D&C) - IMMUNIZATION STATUS Childhood Immunizations: See Nurse Assessment Flu Vaccine: See Nurse Assessment - FAMILY HISTORY Family History: reviewed, not pertinent - SOCIAL HISTORY Smoking: other (former smoker) Physical Exam-General - PHYSICAL EXAM-ADULT Initial Vital Signs Reviewed: Yes - CONSTITUTIONAL General Appearance: appears well, alert, no apparent distress - EYES Eyes: pink conjunctivae, other (pt blind) - HEAD, EARS, NOSE, MOUTH & THROAT HENMT: normocephalic/atraumatic, moist mucous membranes, normal ENT inspection - NECK Neck: non-tender, full range of motion, supple, normal inspection - RESPIRATORY Respiratory: chest non-tender, lungs clear, normal breath sounds, no pleuratic chest pain, no respiratory distress, no accessory muscle use - CARDIOVASCULAR Cardiovascular: regular rate, rhythm - GASTROINTESTINAL (ABDOMEN) Abdominal Exam: normal bowel sounds, non tender, soft - LYMPHATIC Lymphatic: no adenopathy - MUSCULOSKELETAL Back Exam: normal inspection, no CVA tenderness, no vertebral tenderness Extremity: erythema (mild to moderate), inflammation (moderate to severe with blister like sore that are oozing bilaterally. worse on the left.), pulse deficit (mild), pedal edema, swelling (moderate to severe bilateral 4+ edema noted), tenderness (moderate tenderness noted bilaterally to feet and legs) - SKIN Integumentary: other (see lower extremity exam) - NEUROLOGIC Neurologic: dental hygienist mobile coordinator II-XII nml as tested, grossly normal, no motor/sensory deficits - PSYCHIATRIC Psych/Mental Status: normal mood/affect, normal thought content, normal thought process, oriented x 3 Progress - PLAN OF CARE/RESULTS Progress/Plan/Lab Results: Vital Signs - 8 hr 11/22/19 23:18 11/23/19 00:00 11/23/19 00:30 Temperature 97.6 F Pulse Rate 83 83 80 Respiratory Rate 25 H 26 H 21 Blood Pressure 176/97 187/76 178/79 O2 Sat by Pulse Oximetry 100 11/23/19 01:00 11/23/19 01:46 11/23/19 02:01 Temperature Pulse Rate 78 85 79 Respiratory Rate 24 20 23 Blood Pressure 173/93 185/74 181/87 O2 Sat by Pulse Oximetry 100 100 11/23/19 02:15 11/23/19 03:55 11/23/19 04:30 Temperature Pulse Rate 85 79 80 Respiratory Rate 20 26 H 25 H Blood Pressure 180/88 149/77 109/70 O2 Sat by Pulse Oximetry 100 98 95 11/23/19 05:00 Temperature Pulse Rate 74 Respiratory Rate 18 Blood Pressure 148/62 O2 Sat by Pulse Oximetry 96 Laboratory Results - last 24 hr 11/22/19 11/22/19 11/22/19 20:35 20:35 20:35 WBC 6.82 RBC 2.90 L Hgb 7.1 L Hct 24.0 L MCV 82.8 MCH 24.5 L MCHC 29.6 L RDW Std Deviation 14.5 Plt Count 263 MPV 11.0 H Immature Gran % (Auto) 0.4 Neut % (Auto) 73.4 Lymph % (Auto) 15.5 L Rab[place] % (Auto) 8.7 Eos % (Auto) 1.9 Baso % (Auto) 0.1 Immature Gran # (Auto) 0.03 Neut # (Auto) 5.00 Lymph # (Auto) 1.06 L Rab[place] # (Auto) 0.59 Eos # (Auto) 0.13 Baso # (Auto) 0.01 Sodium Cancelled 131 L Potassium Cancelled 4.9 Chloride Cancelled 102 Carbon Dioxide Cancelled 16 L Anion Gap Cancelled 13 BUN Cancelled 42 H Creatinine Cancelled 3.8 H Estimated GFR/1.73 m2 Cancelled 12 BUN/Creatinine Ratio Cancelled 11 Glucose Cancelled 183 H POC Glucose Calculated Osmolality Cancelled 278 Calcium Cancelled 6.8 L* Total Bilirubin 0.30 AST 21 ALT 13 Alkaline Phosphatase 168 H Creatine Kinase 288 H Creatine Kinase Index 1.4 CK-MB (CK-2) 3.89 Troponin T High Sens Total Protein 7.1 Albumin 2.2 L Globulin 5.0 Albumin/Globulin Ratio 0.0 Plasma Lactate 01/15/20 01/15/20 01/15/20 20:35 20:35 22:47 WBC RBC Hgb Hct MCV MCH MCHC RDW Std Deviation Plt Count MPV Immature Gran % (Auto) Neut % (Auto) Lymph % (Auto) Rabun % (Auto) Eos % (Auto) Baso % (Auto) Immature Gran # (Auto) Neut # (Auto) Lymph # (Auto) Rabun # (Auto) Eos # (Auto) Baso # (Auto) Sodium Potassium Chloride Carbon Dioxide Anion Gap BUN Creatinine Estimated GFR/1.73 m2 BUN/Creatinine Ratio Glucose POC Glucose 143 H Calculated Osmolality Calcium Total Bilirubin AST ALT Alkaline Phosphatase Creatine Kinase Creatine Kinase Index CK-MB (CK-2) Troponin T High Sens 102 H* Total Protein Albumin Globulin Albumin/Globulin Ratio Plasma Lactate 0.6 11/22/19 23:59 WBC RBC Hgb Hct MCV MCH MCHC RDW Std Deviation Plt Count MPV Immature Gran % (Auto) Neut % (Auto) Lymph % (Auto) Rab[place] % (Auto) Eos % (Auto) Baso % (Auto) Immature Gran # (Auto) Neut # (Auto) Lymph # (Auto) Rabun # (Auto) Eos # (Auto) Baso # (Auto) Sodium Potassium Chloride Carbon Dioxide Anion Gap BUN Creatinine Estimated GFR/1.73 m2 BUN/Creatinine Ratio Glucose POC Glucose Calculated Osmolality Calcium Total Bilirubin AST ALT Alkaline Phosphatase Creatine Kinase Creatine Kinase Index CK-MB (CK-2) Troponin T High Sens 98 H Total Protein Albumin Globulin Albumin/Globulin Ratio Plasma Lactate Orders Category Date Time Status Admit - [facility] Routine AdmDCTranf 11/22/19 22:20 Active Activity - Strict Bedrest ORDERED Care 11/22/19 22:20 Active FSBS/Accucheck Result AC + HS Care 11/22/19 22:28 Active Resuscitation Status Routine Care 11/22/19 22:20 Ordered Vital Signs Order Q 4-HR ASSESS Care 11/22/19 22:20 Active Z-Document. for Tele Applied ORDERED Care 11/22/19 22:22 Active Diabetic Diet Diet 11/22/19 22:22 Active BLOOD CULTURE [BLDCUL] Stat Lab 11/22/19 20:35 Results BMP [BASIC METABOLIC PANEL] [CHEM] Timed Lab 11/23/19 06:00 Ordered CBC WITH ELECTRONIC DIFF [HEME] Stat Lab 11/22/19 20:35 Completed CBC WITH ELECTRONIC DIFF [HEME] Timed Lab 11/23/19 06:00 Uncollected CK PROFILE [SP CHEM] Stat Lab 11/22/19 20:35 Completed COMPREHENSIVE METABOLIC PANEL [CHEM] Stat Lab 11/22/19 20:35 Completed LACTATE, PLASMA [CHEM] Stat Lab 11/22/19 20:35 Completed TROPONIN T HIGH SENSITIVITY Stat Lab 11/22/19 20:35 Completed TROPONIN T HIGH SENSITIVITY Stat Lab 11/22/19 23:59 Completed 0.9% Sodium Chloride Inj [Ns] 100 ml Med 11/23/19 00:57 Discontinued .ROUTE As directed Calcium Carbonate [Oscal 500] Med 11/22/19 21:10 Discontinued 2 each PO NOW ONE Calcium Carbonate [Oscal 500] Med 11/22/19 23:14 Discontinued 2 each PO NOW ONE Calcium Gluconate 1 gm Med 11/23/19 00:45 Discontinued 0.9% Sodium Chloride Inj [Ns] 50 ml IV NOW CefEPIME 2 GM/NS [Maxipime 2 gm/Ns] Med 11/23/19 09:00 Active 2 gm in 100 ml IV DAILY CefEPIME [Maxipime] Med 11/23/19 00:56 Discontinued 2 gm .ROUTE .STK-MED ONE Insulin Human Regular ([place] [Humulin R ([place])] Med 11/22/19 22:22 Discontinued See Protocol SUBQ NOW ONE Linezolid 600 mg/D5w [Zyvox 600 mg/D5w] Med 11/22/19 23:00 Discontinued 600 mg in 300 ml IV Q12H Linezolid [Zyvox] Med 11/22/19 22:30 Discontinued 2,000 mg .SEE ORDER Q24H Pharmacy Order [Vancomycin IV Per Pharmacy] Med 11/22/19 22:30 Active 1 each MISC DIRECTED Vancomycin 1 gm/Ns Med 11/22/19 21:15 Discontinued 1 gm in 250 ml IV NOW Vancomycin 1,250 mg Med 11/25/19 10:00 Active 0.9% Sodium Chloride Inj [Ns] 250 ml IV Q60H Vancomycin 500 mg/Ns Med 11/23/19 02:00 Discontinued 500 mg in 100 ml IV NOW Oxygen Device Routine Oth 11/22/19 22:22 Active Telemetry [OM.EQ] Routine Oth 11/22/19 22:20 Active EKG [EKG] Stat Ther 11/22/19 19:40 Draft Transfer/Admit Order [TRANSFER] Routine Transfer 11/22/19 22:28 Completed Transfer/Admit Order [TRANSFER] Routine Transfer 11/23/19 00:47 Completed Discussed POC with Dr. Shah. Agree to admit. Pt having increased pain to bilateral lower extremities. Will continue Vanc, start Zyvox 2g IV daily, order wound care consult, and schedule a CBC and BMP for tomorrow. Orders read-back and verified. Discussed with pharmacy the dosage for Zyvox. They recommend 600mg IV BID. Clarified with Dr. Shah. ABX was not Zyvox (this medication was held). Clarified read-back, verified, and spelled out abx ordered is cefepime 2g IV once daily (this medication given). Also new orders for calcium gluconate 1amp IV once. Verified that Dr. Shah was comfortable admitting to med-surg here instead of cardiac unit and DG and he was okay with pt staying here. Result Diagrams: 11/22/19 20:35 11/22/19 20:35 - EKG 1 Time of EKG reading by physician:: 21:25 EKG Read and Signed by:: Raleigh Antonio Rate: 81 Rhythm: Normal Sinus Rhythm [place]: normal QRS: normal VA Interval: normal ST Wave: normal Departure - Departure Date of Disposition Decision: 11/22/19 Time of Disposition Decision: 22:04 DIAGNOSIS: Troponin level elevated, Hypocalcemia Cellulitis Qualifiers: Site of cellulitis: extremity Site of cellulitis of extremity: lower extremity Laterality: unspecified laterality Qualified Code(s): L03.119 - Cellulitis of unspecified part of limb Anemia Qualifiers: Anemia type: unspecified type Qualified Code(s): D64.9 - Anemia, unspecified Disposition: ADMITTED INPATIENT 09 Certified Medical Emergency: Emergent Condition: Stable Referrals and Follow-Ups: None,PCP [Primary Care Provider] - - Critical Care Note This patient required my direct & personal management of CC.: No Attestation - Physician/ YOLANDA Attestation Patient care was provided by Advanced Practice Provider:: Yes Advanced Practice Provider:: Annita Suero V. Advanced Practice Provider documentation review:: The Mid-level provider documentation, treatment plan and medical decision making was reviewed by the physician who agrees with all treatment and medical decision making by the MLP. The physician spent face to face time with patient:: No Advanced Practice Provider documentation review:: Supervising physician onsite and consulted in the evaluation and care of this patient. The physician did not have a face to face encounter with the patient.
[2019-11-22 20:53] LABS: BASO# 0.01 X1000 (0.0-0.2); BASO% 0.1 % (0.0-0.8); EOS# 0.13 X1000 (0.0-0.7); EOS% 1.9 % (0.0-10.0); HEMOGLOBIN 7.1 g/dL (12.0-16.0); IMM GRAN# 0.03 X1000 (0.0-0.04); IMM GRAN% 0.4 % (0.0-0.5); LYMPH# 1.06 X1000 (1.2-3.4); LYMPH% 15.5 % (20.5-51.1); MCH 24.5 PG (27-31); MCHC 29.6 g/dL (33-37); MCV 82.8 FL (81-99); MONO# 0.59 X1000 (0.11-0.59); MONO% 8.7 % (1.7-9.3); NEUT% 73.4 % (42.2-75.2); PLT 263 X1000 (130-400); RDW 14.5 % (11.5-14.5); WBC 6.82 X1000 (4.8-10.8)
[2019-11-22 21:00] LABS: ALBUMIN 2.2 g/dL (3.5-5.0); CREATININE 3.8 mg/dL (0.5-0.9); POTASSIUM 4.9 mmol/L (3.5-5.1); TOTAL BILIRUBIN 0.3 mg/dL (0.20-1.00); TOTAL PROTEIN 7.1 g/dL (6.3-8.3)
[2019-11-22 21:01] LABS: CALCIUM 6.8 mg/dL (8.8-10.2)
[2019-11-22] MEDS ORDERED: OSCAL 500 PO ONE ×2 (21:10→23:14)
[2019-11-22] MEDS ORDERED: VANCOMYCIN 1 GM/NS 1 GM/250 ML IVPB IV ONE (21:15)
[2019-11-22 21:16] LABS: CK INDEX 1.4 (0.0-2.5); CK-MB 3.89 ng/mL (0.0-5.0)
[2019-11-22] MEDS ORDERED: HUMULIN R (PARKWAY) SUBQ ONE (22:22)
[2019-11-22] MEDS ORDERED: VANCOMYCIN IV PER PHARMACY MISC SCH (22:30)
[2019-11-22] MEDS ORDERED: ZYVOX SCH (22:30)
[2019-11-22] MEDS ORDERED: ZYVOX 600 MG/D5W 600 MG/300 ML IVPB IV SCH (23:00)
--- NOTE | 2019-11-22 23:19 | EKG Report ---
Test Performed on : 11/22/2019 9:15:52 PM Test Reason : chest pain Blood Pressure : / mmHG Vent. Rate : 081 BPM Atrial Rate : 081 BPM P-R Int : 138 ms QRS Dur : 074 ms QT Int : 398 ms P-R-T Axes : 028 -17 074 degrees QTc Int : 462 ms Normal sinus rhythm. Septal infarct , age undetermined Abnormal ECG When compared with ECG of 24-JUN-2019 22:07, Nonspecific T wave abnormality now evident in Inferior leads Nonspecific T wave abnormality has replaced inverted T waves in Lateral leads Unconfirmed Result
[2019-11-23] MEDS ORDERED: CALCIUM GLUCONATE 1 GM in NS 50 ML IV ONE (00:45)
[2019-11-23] MEDS ORDERED: MAXIPIME ONE (00:56)
[2019-11-23] MEDS ORDERED: NS 0 ML ONE (00:57)
[2019-11-23] MEDS ORDERED: VANCOMYCIN 500 MG/NS 500 MG/100 ML IVPB IV ONE (02:00)
[2019-11-23 07:06] LABS: BASO# 0.01 X1000 (0.0-0.2); BASO% 0.1 % (0.0-0.8); EOS# 0.23 X1000 (0.0-0.7); EOS% 3.3 % (0.0-10.0); HEMATOCRIT 22.1 % (37.0-47.0); HEMOGLOBIN 6.6 g/dL (12.0-16.0); IMM GRAN# 0.03 X1000 (0.0-0.04); IMM GRAN% 0.4 % (0.0-0.5); LYMPH% 18.5 % (20.5-51.1); MCH 24.9 PG (27-31); MCHC 29.9 g/dL (33-37); MCV 83.4 FL (81-99); MONO# 0.62 X1000 (0.11-0.59); MONO% 8.8 % (1.7-9.3); NEUT# 4.84 X1000 (1.4-6.5); NEUT% 68.9 % (42.2-75.2); PLT 269 X1000 (130-400); RBC 2.65 XMIL (4.2-5.4); RDW 14.7 % (11.5-14.5); WBC 7.03 X1000 (4.8-10.8)
[2019-11-23 07:38] LABS: CREATININE 3.3 mg/dL (0.5-0.9); POTASSIUM 4.5 mmol/L (3.5-5.1)
[2019-11-23] MEDS ORDERED: MAXIPIME 2 GM/NS 2 GM/100 ML IVPB IV SCH (09:00)
[2019-11-23] MEDS ORDERED: NORCO-7.5 PO PRN (09:04)
[2019-11-23] MEDS ORDERED: ZOFRAN IV PRN (09:23)
[2019-11-23 09:55] LABS: IRON SATURATION 12 %; TIBC 162 ug/dL; TOTAL IRON 20 ug/dL (49-151); UNBOUND IRON 142 ug/dL (112-346)
[2019-11-23] MEDS: MAG-OX PO SCH ×2 (10:16→21:55)
[2019-11-23] MEDS: CALTRATE 600 PO SCH (10:16)
[2019-11-23] MEDS ORDERED: MAXIPIME 2 GM in NS 100 ML IV SCH (10:30)
[2019-11-23] MEDS: MAXIPIME 2 GM in NS 100 ML IV SCH (11:08)
[2019-11-23] MEDS: VENTOLIN HFA INH PRN ×2 (11:33→20:55)
[2019-11-23] MEDS: HUMULIN R (PARKWAY) SUBQ SCH ×4 (11:36→21:55)
[2019-11-23 14:55] LABS: FERRITIN 481 ng/mL (13-150)
--- NOTE | 2019-11-23 15:26 | HISTORY AND PHYSICAL ---
PRIMARY CARE PROVIDER: Dr. To. CHIEF COMPLAINT: Left lower extremity swelling, wound and oozing. HISTORY OF PRESENT ILLNESS: Ms. Sejal Rosa is a 54-year-old female with a medical history of stroke that left her with some left-sided weakness in May 2019, congestive heart failure, diabetes mellitus type 2, CKD stage 4, hypertension, hyperlipidemia, glaucoma with legal blindness, bilateral DVTs in the past, multiple bouts of cellulitis in different locations of the body with wounds in the past and migraines. Now she has a nonhealing wound in the left heel that is currently oozing with signs of cellulitis. She will be going to [facility] on Wednesday for permanent residence. Currently, we are going to treat her for the cellulitis on the leg with IV antibiotics. She is also requesting that she have a hospice consult. She states that she is stage IV on her CKD that she will refuse to have dialysis and she would rather have palliative care than have dialysis. PAST MEDICAL HISTORY: 1. 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 2. Congestive heart failure. 3. Diabetes mellitus type 2. 4. Chronic kidney disease stage 4. 5. Hypertension. 6. Hyperlipidemia. 7. Glaucoma with legal blindness. 8. Migraines. 9. Bilateral DVTs in the past. 10. Multiple bouts of cellulitis in different locations of the body with wounds in the past. SURGICAL HISTORY: 1. Glaucoma surgery. 2. section. 3. Left greater rotator cuff surgery. 4. D and C. 5. Cholecystectomy. 6. Appendectomy. SOCIAL HISTORY: Currently homeless, but will have a permanent residence at [facility] on Wednesday. Currently, her daughter and recently her daughter's boyfriend, who just apparently left, have been living in a friend's home, [employer], in the car just wherever they could find a place to stay. She states in the last 3 days the daughter's boyfriend left, nowhere to be found, left them without food or anywhere to stay. She states that her daughter is unable to help her care for her wounds. Even though her daughter is 21 years old, she has mental conditions that prevent her from being able to adequately care for her mother. She quit smoking in the year 1999. She started at the age of 18, was a half pack per day smoker. Denies alcohol or illicit drug use. She has been wheelchair bound since May, 20 years ago. Her daughter is 21 years old. FAMILY HISTORY: Mother, breast cancer. Father, Alzheimer's, prostate cancer, and stroke. Daughter has morbid obesity and mental illness. ALLERGIES: 1. SAMIR inhibitors cause swelling. 2. Amlodipine anaphylaxis. 3. Clonidine anaphylaxis. 4. Codeine swelling. 5. Hydralazine swelling. 6. Latex swelling. 7. Levaquin anaphylaxis. 8. Losartan swelling. 9. Nitroglycerin anaphylaxis. 10. Sulfa drugs nausea. 11. Penicillin anaphylaxis. HOME MEDICATIONS: 1. Eliquis 5 mg p.o. twice daily. 2. Albuterol inhaled daily. 3. Lopressor 25 mg p.o. every 12 hours. 4. Calcium carbonate 600 mg p.o. daily. 5. Hydrochlorothiazide 25 mg p.o. daily. 6. Lantus 10 units subcutaneous daily. 7. Lasix 40 mg p.o. twice daily. 8. Magnesium oxide 400 mg p.o. twice daily. 9. Nystatin powder topical. 10. [place] 7.5 one tablet p.o. every 12 hours p.r.n. 11. NovoLog 10 units subcutaneously before meals. 12. Phenergan 1 to 2 tabs 25 mg tablets every 6 hours p.r.n. 13. Tylenol 650 mg p.o. every 6 hours p.r.n. REVIEW OF SYSTEMS: Fourteen point review of systems are complete. All are negative except as mentioned in the above HPI. PHYSICAL EXAMINATION: VITAL SIGNS: Temperature 98.1 degrees, heart rate 82, respiratory rate 18, blood pressure 153/59, O2 saturation 100% on room air. GENERAL: Ms. Sejal Rosa is a 54-year-old female. She is in no acute distress. She is able to answer questions appropriately. HEENT: Atraumatic, normocephalic. Pupils are equal, reactive unable to do extraocular movements as she is legally blind. She only sees shadows. Mucous membranes are moist. NECK: Trachea midline. CARDIOVASCULAR: S1, S2. Regular rate and rhythm. No rubs, gallops, murmurs. One to 2+ lower extremity edema +1 dorsalis pedal pulses, +2 radial pulses. Negative JVD or carotid bruits. PULMONARY: Clear to auscultation bilateral breath sounds. No accessory muscle use or work of breathing noted. Tolerating room air. GASTROINTESTINAL: Soft, nontender, nondistended. Positive bowel sounds x4. EXTREMITIES: Decreased range of motion. Decreased strength. NEUROLOGIC: A and O x3. Follows commands. Decreased sensory in the lower extremities. SKIN: Warm dry. Bilateral lower extremities multiple skin wounds, small little wounds that are dry and in different healing stages. She has cellulitis on the left leg and then the inner aspect of the left knee and thigh area is red. It almost looks cellulitic. The left heel was eschar the last time she was here now it is draining and open. LABORATORY DATA: White blood cells 7000, hemoglobin 6.6, hematocrit 22.1, platelet count 269,000. Sodium 132, potassium 4.5, BUN 45, creatinine 3.3, glucose 155, calcium 7.0, iron is 20, total iron binding capacity is 162, saturation 12, unsaturated iron 142, bilirubin 0.30, AST 21, ALT 13, CK 288, troponins 98, was initially 102. This is in the setting of kidney failure. Albumin 2.2. Cultures: Blood cultures obtained. IMAGING: Only an EKG, normal sinus rhythm, rate 81, QTc is 462. ASSESSMENT AND PLAN: 1. Nonhealing wound in the left heel. Wound care has been consulted. She is on IV antibiotic coverage. Cellulitis. Continue the IV antibiotics as prescribed. 2. Anxiety. We will do some Xanax at night to have before bed as needed. 3. Patient is requesting for hospice or palliative care, so we will do a consult. 4. She is homeless, but it looks like she is going to go to [facility] Wednesday with a permanent residence to receive adequate health care. 5. History of strokes, has been on Eliquis. Although she is anemic at this time we will continue the Eliquis. 6. History of deep venous thrombosis. We will continue the Eliquis. 7. Anemia is chronic in nature. There is some iron deficiency, and vital signs are stable. However, her hematocrit is only 22.1. Her hemoglobin 6.6. We will check a stool sample. She denies any bloody stools, but she does not really have any help either. She cannot see visually what color it is. She denies any abdominal pain. 8. Chronic kidney disease stage 4. The reason she is requesting to have hospice is she states she will refuse to have dialysis if she ever needed it. Currently, chronic kidney disease stage 4 is stable, but we will monitor it daily. 9. Diabetes mellitus type 2 with hyperglycemia. Pattern blood glucoses, sliding scale insulin. 10. Hypocalcemia. She received some calcium. 11. Reported congestive heart failure. She is on Lasix. Her ejection fraction was actually 59% back in March. 12. Glaucoma with legal blindness. She can only see shadows. 13. Deep venous thrombosis prophylaxis. She is on Eliquis. Dictated by TEODORO Cai for Ziggy Mccormick MD cc: TEODORO Cai MD
[2019-11-23] MEDS: LASIX PO SCH (17:09)
[2019-11-23] MEDS ORDERED: NS 500 ML IV ONE (18:44)
[2019-11-23] MEDS ORDERED: LASIX PO SCH (21:00)
[2019-11-23] MEDS: MYCOSTATIN POWDER TOP SCH (21:54)
[2019-11-23] MEDS: ELIQUIS PO SCH (21:55)
[2019-11-23] MEDS: ICAR-C PO SCH (21:55)
[2019-11-23] MEDS: LOPRESSOR PO SCH (22:11)
[2019-11-23 22:19] LABS: URINE SOURCE CLEAN CATCH
[2019-11-23 22:22] LABS: BILIRUBIN URINE NEGATIVE (NEGATIVE); BLOOD URINE SMALL (NEGATIVE); COLOR YELLOW; GLUCOSE URINE 200 mg/dL (NEGATIVE); KETONE URINE NEGATIVE (NEGATIVE); LEUKOCYTES URINE NEGATIVE (NEGATIVE); NITRITE URINE NEGATIVE (NEGATIVE); PROTEIN URINE 300 mg/dL (NEGATIVE); SP GRAVITY URINE 1.017; TURBIDITY URINE HAZY (CLEAR); UROBILINOGEN URINE NORMAL (NORMAL)
[2019-11-23 22:23] LABS: UR EPITHELIAL CELLS <10 /HPF (<10); URINE BACTERIA NEGATIVE /HPF; URINE RBC <10 /HPF (<10); URINE WBC <10 /HPF (<10)
[2019-11-23] MEDS: XANAX PO PRN (22:33)
--- NOTE | 2019-11-23 22:52 | HISTORY AND PHYSICAL ---
ADDENDUM: Patient seen and examined by myself. Full note dictated and discussed with nurse practitioner. Patient presented to the hospital as she has multiple times in the past. The ER initially called overnight for admission stating that her right foot had some necrosis area. This is chronic, actually unchanged and in fact probably even better than when she left the hospital last time. They noted that she was hypocalcemic which actually given her significantly low albumin corrects to normal. We, however, did agree to admit given that her hemoglobin and hematocrit have dropped slightly although I believe this is more delusional affect to 6.6 and 22. Sodium is 132. Her potassium is actually better than she has been at 3.3. We are going to transfuse her, admit her to observation. She apparently does have a chronic inpatient bed on Wednesday. cc: Ziggy Mccormick MD
[2019-11-24] MEDS: HUMULIN R (PARKWAY) SUBQ SCH ×4 (06:03→20:51)
[2019-11-24] MEDS: LASIX PO SCH ×2 (06:03→17:00)
[2019-11-24] MEDS: MAG-OX PO SCH ×2 (09:14→20:51)
[2019-11-24] MEDS: MAXIPIME 2 GM in NS 100 ML IV SCH ×2 (09:14→12:28)
[2019-11-24] MEDS: ICAR-C PO SCH ×2 (09:14→20:51)
[2019-11-24] MEDS: CALTRATE 600 PO SCH (09:14)
[2019-11-24] MEDS: MYCOSTATIN POWDER TOP SCH ×2 (09:15→20:52)
[2019-11-24] MEDS: HYDROCHLOROTHIAZIDE PO SCH (09:15)
[2019-11-24] MEDS: LOPRESSOR PO SCH ×2 (09:15→20:52)
[2019-11-24] MEDS: ELIQUIS PO SCH ×2 (09:15→20:52)
[2019-11-24] MEDS: LANTUS INSULIN SUBQ SCH (09:16)
[2019-11-24 11:08] LABS: ALBUMIN 2.2 g/dL (3.5-5.0); CALCIUM 7.1 mg/dL (8.8-10.2); CREATININE 3.6 mg/dL (0.5-0.9); MAGNESIUM 1.5 mg/dL (1.5-2.7); POTASSIUM 4.8 mmol/L (3.5-5.1); TOTAL BILIRUBIN 0.6 mg/dL (0.20-1.00); TOTAL PROTEIN 7.6 g/dL (6.3-8.3)
[2019-11-24 11:58] LABS: BASO# 0.03 X1000 (0.0-0.2); BASO% 0.4 % (0.0-0.8); EOS# 0.32 X1000 (0.0-0.7); EOS% 4.6 % (0.0-10.0); HEMATOCRIT 28.8 % (37.0-47.0); HEMOGLOBIN 8.9 g/dL (12.0-16.0); IMM GRAN# 0.03 X1000 (0.0-0.04); IMM GRAN% 0.4 % (0.0-0.5); LYMPH# 0.96 X1000 (1.2-3.4); LYMPH% 13.7 % (20.5-51.1); MCH 25.9 PG (27-31); MCHC 30.9 g/dL (33-37); MONO# 0.58 X1000 (0.11-0.59); MONO% 8.3 % (1.7-9.3); MPV 10.6 FL (7.4-10.4); NEUT# 5.11 X1000 (1.4-6.5); NEUT% 72.6 % (42.2-75.2); PLT 303 X1000 (130-400); RBC 3.43 XMIL (4.2-5.4); RDW 14.5 % (11.5-14.5); WBC 7.03 X1000 (4.8-10.8)
[2019-11-24] MEDS: VENTOLIN HFA INH PRN (12:01)
--- NOTE | 2019-11-24 16:51 | Diag Imaging Result Doc PS360 ---
EXAM: CHEST-PORTABLE - 11/24/2019 HISTORY: Rehab placement TECHNIQUE: Portable chest COMPARISON: 10/27/2019 FINDINGS: There is a medium right pleural effusion which is increased. There is some ill-defined infiltrate or atelectasis at the mid and lower right lung. The left lung appears grossly clear. There is mild skinfold artifact noted over the left lung. There is no evidence of pneumothorax. The right heart border is partially obscured, heart size appears grossly normal. IMPRESSION: Medium right pleural effusion. Ill-defined infiltrate or atelectasis on the right. Electronically signed by Shreyas Luu 11/24/2019 4:49 PM
[2019-11-24] MEDS: XANAX PO PRN (20:51)
--- NOTE | 2019-11-24 21:45 | PROGRESS NOTE ---
DATE: 11/24/2019 SUBJECTIVE: Patient is sleeping quite soundly this morning. She did grunt and snort when attempting to arouse her. She also did not wake up as the tech was getting her blood pressure while I am standing in the room. OBJECTIVE: Vital signs: Temperature 98.3 degrees, pulse 89, respiratory rate 18, BP 151/57. General: Patient is morbidly obese. She is in no current distress. She is sleeping soundly. Does awaken to stimuli but falls back asleep immediately. HEENT: Normocephalic. Neck: Supple. Cardiovascular: Regular rate. Chest: Clear. Abdomen: Soft, obese. Extremities: Moves all extremities. She does have cellulitis of her bilateral lower extremities. This does not actually appear to have changed. She does have a chronic-appearing area on her left heel with weeping drainage of her midcalf down to her foot. ASSESSMENT: 1. Nonhealing wound of her left foot. Unfortunately expected at some point in the future she may have to have an amputation. 2. Chronic anxiety. 3. Chronic blindness. 4. Anemia. Does have chronic anemia, although her hemoglobin and hematocrit are actually slightly lower than her usual. Currently they are 6 and 22. As noted multiple times in previous record upon seeing Ms. Rosa, the daughter has actually refused to allow Ms. Rosa to have a transfusion. Currently the daughter is not around, and Ms. Rosa states that she would take blood. 5. Chronic kidney disease stage 4. Creatinine is actually slightly better than upon recent discharge from the hospital. 6. Type 2 diabetes with hyperglycemia. PLAN: We are going to continue patient in the hospital, continue to transfuse. We have stopped her vancomycin as this did elevate her creatinine on her last visit, and she did not grow anything requiring vancomycin. We will continue antibiotics otherwise. Hopefully, she can transition to rehab at this time. She certainly needs long-term care as she is incapable of caring for herself. cc: Ziggy Mccormick MD
[2019-11-25 06:14] LABS: BASO# 0.02 X1000 (0.0-0.2); BASO% 0.3 % (0.0-0.8); EOS# 0.37 X1000 (0.0-0.7); EOS% 5.4 % (0.0-10.0); HEMATOCRIT 27.1 % (37.0-47.0); HEMOGLOBIN 8.2 g/dL (12.0-16.0); IMM GRAN# 0.06 X1000 (0.0-0.04); IMM GRAN% 0.9 % (0.0-0.5); LYMPH# 1.19 X1000 (1.2-3.4); LYMPH% 17.4 % (20.5-51.1); MCH 25.5 PG (27-31); MCHC 30.3 g/dL (33-37); MCV 84.2 FL (81-99); MONO# 0.59 X1000 (0.11-0.59); MONO% 8.7 % (1.7-9.3); MPV 10.6 FL (7.4-10.4); NEUT# 4.59 X1000 (1.4-6.5); NEUT% 67.3 % (42.2-75.2); PLT 304 X1000 (130-400); RBC 3.22 XMIL (4.2-5.4); RDW 14.6 % (11.5-14.5); WBC 6.82 X1000 (4.8-10.8)
[2019-11-25] MEDS: LASIX PO SCH ×2 (06:40→18:36)
[2019-11-25 06:51] LABS: ALBUMIN 2.1 g/dL (3.5-5.0); CREATININE 3.5 mg/dL (0.5-0.9); MAGNESIUM 1.6 mg/dL (1.5-2.7); POTASSIUM 4.8 mmol/L (3.5-5.1); TOTAL BILIRUBIN 0.3 mg/dL (0.20-1.00); TOTAL PROTEIN 7.1 g/dL (6.3-8.3)
[2019-11-25] MEDS: HUMULIN R (PARKWAY) SUBQ SCH ×4 (07:14→23:04)
[2019-11-25] MEDS: MYCOSTATIN POWDER TOP SCH ×2 (09:30→23:07)
[2019-11-25] MEDS ORDERED: VANCOMYCIN 1,250 MG in NS 250 ML IV SCH (10:00)
[2019-11-25] MEDS: LOPRESSOR PO SCH ×2 (10:09→23:03)
[2019-11-25] MEDS: ICAR-C PO SCH ×2 (10:09→23:03)
[2019-11-25] MEDS: ELIQUIS PO SCH ×2 (10:09→23:03)
[2019-11-25] MEDS: MAG-OX PO SCH ×2 (10:09→23:03)
[2019-11-25] MEDS: CALTRATE 600 PO SCH (10:09)
[2019-11-25] MEDS: HYDROCHLOROTHIAZIDE PO SCH (10:09)
[2019-11-25] MEDS: MAXIPIME 2 GM in NS 100 ML IV SCH (10:09)
[2019-11-25] MEDS: LANTUS INSULIN SUBQ SCH (10:10)
--- NOTE | 2019-11-25 15:20 | PROGRESS NOTE ---
DATE: 11/25/2019 SUBJECTIVE: Patient herself has no complaints, states that she is feeling a little better. PHYSICAL EXAMINATION: Vital Signs: Reviewed. Temperature 98.4 degrees, pulse 75, respiratory rate 18, BP 168/62. General: Patient is a chronically ill-appearing female who is blind. She is sitting in the bed with her feet draped over the side. Bandages are clean, dry, and intact. HEENT: Normocephalic. Neck: Supple. Cardiovascular: Regular rate. CHEST: Clear, nonlabored.Abdomen: Soft, nondistended. Extremities: Bilateral lower extremities have weeping edema with chronically poorly healed wounds. ASSESSMENT: 1. Nonhealing wound, left heel. 2. Chronic anxiety. 3. History of strokes currently on Eliquis. 4. Anemia, stable at 8 and 27. 5. Stage 4 renal failure. Creatinine 3.5. 6. Hypocalcemia, although corrects to normal given her moderate protein-calorie malnutrition. PLAN: We are going to continue patient in the hospital, continue to follow, hopefully to rehab Wednesday. cc: Ziggy Mccormick MD
[2019-11-25] MEDS: XANAX PO PRN (23:03)
[2019-11-26] MEDS: LASIX PO SCH ×2 (05:32→17:40)
[2019-11-26 05:41] LABS: BASO# 0.02 X1000 (0.0-0.2); BASO% 0.3 % (0.0-0.8); EOS# 0.33 X1000 (0.0-0.7); EOS% 5.6 % (0.0-10.0); HEMATOCRIT 28.5 % (37.0-47.0); HEMOGLOBIN 8.6 g/dL (12.0-16.0); IMM GRAN# 0.08 X1000 (0.0-0.04); IMM GRAN% 1.3 % (0.0-0.5); LYMPH# 1.03 X1000 (1.2-3.4); LYMPH% 17.3 % (20.5-51.1); MCH 25.6 PG (27-31); MCHC 30.2 g/dL (33-37); MCV 84.8 FL (81-99); MONO# 0.56 X1000 (0.11-0.59); MONO% 9.4 % (1.7-9.3); MPV 10.3 FL (7.4-10.4); NEUT# 3.92 X1000 (1.4-6.5); NEUT% 66.1 % (42.2-75.2); PLT 318 X1000 (130-400); RBC 3.36 XMIL (4.2-5.4); RDW 14.7 % (11.5-14.5); WBC 5.94 X1000 (4.8-10.8)
[2019-11-26 06:04] LABS: ALBUMIN 2.1 g/dL (3.5-5.0); CALCIUM 7.1 mg/dL (8.8-10.2); CREATININE 3.6 mg/dL (0.5-0.9); MAGNESIUM 1.7 mg/dL (1.5-2.7); POTASSIUM 4.8 mmol/L (3.5-5.1); TOTAL BILIRUBIN 0.3 mg/dL (0.20-1.00); TOTAL PROTEIN 7.3 g/dL (6.3-8.3)
[2019-11-26] MEDS: HUMULIN R (PARKWAY) SUBQ SCH ×4 (06:55→21:53)
[2019-11-26] MEDS: CALTRATE 600 PO SCH (09:38)
[2019-11-26] MEDS: HYDROCHLOROTHIAZIDE PO SCH (09:38)
[2019-11-26] MEDS: LANTUS INSULIN SUBQ SCH (09:38)
[2019-11-26] MEDS: ELIQUIS PO SCH ×2 (09:38→21:52)
[2019-11-26] MEDS: ICAR-C PO SCH ×2 (09:38→21:53)
[2019-11-26] MEDS: LOPRESSOR PO SCH ×2 (09:38→21:52)
[2019-11-26] MEDS: MAG-OX PO SCH ×2 (09:38→21:53)
[2019-11-26] MEDS: MYCOSTATIN POWDER TOP SCH ×2 (10:47→21:48)
[2019-11-26] MEDS: MAXIPIME 2 GM in NS 100 ML IV SCH (10:47)
--- NOTE | 2019-11-26 13:49 | PROGRESS NOTE ---
DATE: 11/26/2019 SUBJECTIVE: Patient denies any new complaints. States overall she is feeling a little bit better. Denies any fevers or chills. PHYSICAL EXAMINATION: Temperature 97.6, pulse 87, respiratory rate 18, BP 150/96. General: Patient is awake. She is in no distress. Sitting up on the bed with her feet hanging off the side. HEENT: Normocephalic. Neck: Supple. Cardiovascular: Regular rate. Chest: Clear. Abdomen: Soft. Extremities: Bandages are clean and dry. ASSESSMENT: 1. Nonhealing wound, left heel. The patient will continue on Keflex for the next several weeks and continue wound therapy. 2. History of strokes. 3. Blindness. 4. Diabetes. 5. Chronic kidney disease stage 4. cc: Ziggy Mccormick MD
[2019-11-27] MEDS: LASIX PO SCH ×2 (05:48→19:38)
[2019-11-27] MEDS: HUMULIN R (PARKWAY) SUBQ SCH ×4 (06:55→20:44)
[2019-11-27] MEDS: LOPRESSOR PO SCH ×2 (10:39→20:41)
[2019-11-27] MEDS: CALTRATE 600 PO SCH (10:39)
[2019-11-27] MEDS: ICAR-C PO SCH ×2 (10:39→20:41)
[2019-11-27] MEDS: ELIQUIS PO SCH ×2 (10:39→20:41)
[2019-11-27] MEDS: MAG-OX PO SCH ×2 (10:39→20:41)
[2019-11-27] MEDS: HYDROCHLOROTHIAZIDE PO SCH (10:39)
[2019-11-27] MEDS: MYCOSTATIN POWDER TOP SCH ×2 (10:40→20:41)
[2019-11-27] MEDS: MAXIPIME 2 GM in NS 100 ML IV SCH (10:40)
[2019-11-27] MEDS: LANTUS INSULIN SUBQ SCH (10:40)
--- NOTE | 2019-11-27 19:41 | PROGRESS NOTE ---
DATE: 11/27/2019 SUBJECTIVE: Patient notes that she is feeling better. She has no complaints. OBJECTIVE: Vital signs: Temperature 98 degrees, pulse 87, respiratory rate 18, BP 159/65. General: Patient is in no distress, sitting up on the side of the bed preparing to eat breakfast. HEENT: Normocephalic. Neck: Supple. Cardiovascular: Regular rate. Chest: Clear. Abdomen: Soft. Extremities: Moves all extremities. She does have lower extremity edema. Bandage is clean, dry and intact. ASSESSMENT: 1. Nonhealing wound left foot. 2. Situational anxiety improved once she has been removed from the situation i.e. being homeless. 3. History of stroke, currently on Eliquis. 4. History of deep venous thrombosis, Eliquis. 5. Anemia of chronic disease. Hemoglobin and hematocrit are actually improved to 8 and is 27 after transfusion. 6. Stage 4 chronic kidney disease, stable. PLAN: We are going to continue patient in the hospital. We are awaiting transfer to further inpatient care. She will continue Keflex for the next 2 to 3 weeks. Expect that this may be indefinite. cc: Ziggy Mccormick MD MTDD
[2019-11-28] MEDS: MYCOSTATIN POWDER TOP SCH ×3 (03:16→20:44)
[2019-11-28] MEDS: LASIX PO SCH ×2 (05:07→16:53)
[2019-11-28] MEDS: HUMULIN R (PARKWAY) SUBQ SCH ×4 (06:42→20:51)
[2019-11-28] MEDS: KEFLEX PO SCH ×3 (10:38→20:14)
[2019-11-28] MEDS: ELIQUIS PO SCH ×2 (10:38→20:14)
[2019-11-28] MEDS: LOPRESSOR PO SCH ×2 (10:39→20:14)
[2019-11-28] MEDS: LANTUS INSULIN SUBQ SCH (10:39)
[2019-11-28] MEDS: CALTRATE 600 PO SCH (10:39)
[2019-11-28] MEDS: MAG-OX PO SCH ×2 (10:39→20:14)
[2019-11-28] MEDS: HYDROCHLOROTHIAZIDE PO SCH (10:39)
[2019-11-28] MEDS: ICAR-C PO SCH ×2 (10:39→20:14)
[2019-11-29] MEDS: LASIX PO SCH ×2 (05:34→17:21)
[2019-11-29] MEDS: HUMULIN R (PARKWAY) SUBQ SCH ×3 (06:59→16:37)
--- NOTE | 2019-11-29 07:54 | PROGRESS NOTE ---
DATE: 11/28/2019 SUBJECTIVE: Patient with no new complaints although she is hinting that she is going to refuse to leave the hospital and invoke her Medicare right to stay 3 days in the hospital. PHYSICAL EXAMINATION: Vital signs: Temperature 98.3 degrees, pulse 87, respiratory rate 18, blood pressure 159/65. General: Patient is a chronically ill-appearing female who is at her chronic baseline. She is in no respiratory distress. She is sitting up on the side of the bed with her feet hanging over the edge despite multiple discussions by myself, nurse practitioner, nurses, ER staff, [facility] staff notes that she needs to elevate her feet to improve some of her pitting edema. HEENT: Normocephalic. Neck: Supple. Cardiovascular: Regular rate. Chest: Clear, nonlabored. Abdomen: Soft, nondistended. Extremities: 3+ edema in bilateral lower extremities. Bandage clean, dry and intact. She does have a poorly healing wound on her left heel. ASSESSMENT: 1. Diabetes with diabetic neuropathy and diabetic skin infection. 2. Blindness. 3. History of stroke. 4. Congestive heart failure. 5. Medical noncompliance. 6. Situational anxiety. PLAN: We are going to continue patient in the hospital today. Hopefully, she can transition to rehab later this afternoon. We will continue her clinical course as noted previously and will follow. cc: Ziggy Mccormick MD
[2019-11-29] MEDS: CALTRATE 600 PO SCH (08:54)
[2019-11-29] MEDS: KEFLEX PO SCH ×3 (08:54→22:36)
[2019-11-29] MEDS: MAG-OX PO SCH ×2 (08:54→22:37)
[2019-11-29] MEDS: ELIQUIS PO SCH ×2 (08:54→22:36)
[2019-11-29] MEDS: HYDROCHLOROTHIAZIDE PO SCH (08:54)
[2019-11-29] MEDS: ICAR-C PO SCH ×2 (08:54→22:38)
[2019-11-29] MEDS: LOPRESSOR PO SCH ×2 (08:54→22:36)
[2019-11-29] MEDS: LONITEN PO SCH ×2 (08:55→22:36)
[2019-11-29] MEDS: LANTUS INSULIN SUBQ SCH (08:55)
[2019-11-29] MEDS: MYCOSTATIN POWDER TOP SCH ×2 (09:00→22:30)
--- NOTE | 2019-11-29 21:58 | PROGRESS NOTE ---
DATE: 11/29/2019 SUBJECTIVE: The patient has no new complaints. PHYSICAL EXAM: Vital signs: Temperature 98.4 degrees, pulse 85, respiratory rate 18, BP 173/73. General: Patient is awake. She is in no distress. HEENT: Normocephalic. Neck: Supple. Cardiovascular: Regular rate. Chest: No wheezing, no crackles, relatively clear. Abdomen: Soft, nondistended. Extremities: Moves all extremities. She does have 2+ edema in her lower extremities. Again, she is sitting on the bed with her legs hanging off the side despite multiple discussions in the past. ASSESSMENT: 1. Chronic renal failure. 2. Moderate protein-calorie malnutrition. 3. Anemia, stable. 4. Chronic anxiety. 5. Nonhealing wounds, left heel. 6. Situational anxiety. 7. Glaucoma with legal blindness. PLAN: We are going to continue patient in the hospital. Continue physical therapy. She currently is on home dose medications and can transition to rehab. cc: Ziggy Mccormick MD
[2019-11-30] MEDS: HUMULIN R (PARKWAY) SUBQ SCH ×4 (01:27→20:29)
[2019-11-30] MEDS: LASIX PO SCH ×2 (06:34→17:53)
[2019-11-30] MEDS ORDERED: BENADRYL CREAM TOP PRN (08:09)
[2019-11-30] MEDS: ELIQUIS PO SCH ×2 (10:02→20:26)
[2019-11-30] MEDS: LONITEN PO SCH ×2 (10:02→20:26)
[2019-11-30] MEDS: ICAR-C PO SCH ×2 (10:02→20:25)
[2019-11-30] MEDS: HYDROCHLOROTHIAZIDE PO SCH (10:02)
[2019-11-30] MEDS: MAG-OX PO SCH ×2 (10:03→20:25)
[2019-11-30] MEDS: KEFLEX PO SCH ×3 (10:03→20:26)
[2019-11-30] MEDS: LANTUS INSULIN SUBQ SCH (10:03)
[2019-11-30] MEDS: CALTRATE 600 PO SCH (10:03)
[2019-11-30] MEDS: LOPRESSOR PO SCH ×2 (10:03→20:25)
[2019-11-30] MEDS: MYCOSTATIN POWDER TOP SCH ×2 (11:37→20:27)
--- NOTE | 2019-11-30 22:41 | PROGRESS NOTE ---
DATE: 11/30/2019 SUBJECTIVE: The patient states that she is ready to get discharged and hopes that the process can be completed soon. OBJECTIVE: Temperature 97.9 degrees, pulse 84, respiratory rate 18, BP 159/66.General: The patient is awake. She is sitting on the bed with her feet dangling over the edge. HEENT: Normocephalic. Neck supple. Cardiovascular: Regular rate. Chest nonlabored. No wheezing. Abdomen soft. Extremities: Her extremities have 2+ edema. Bandage is clean, dry and intact. ASSESSMENT: 1. Recent blood culture with Serratia marcescens in October. We are going to continue Keflex p.o. 2. Anemia of chronic disease, stable. 3. Situational anxiety. 4. History of strokes. 5. Blindness. 6. Diabetes. 7. Stage 4 kidney disease. PLAN: We are going to continue the patient in the hospital. Continue care, and hopefully transition to rehab soon. cc: Ziggy Mccormick MD
[2019-12-01] MEDS: LASIX PO SCH ×2 (05:58→16:50)
[2019-12-01] MEDS: HUMULIN R (PARKWAY) SUBQ SCH ×4 (06:43→20:24)
[2019-12-01] MEDS ORDERED: APRESOLINE PO PRN (06:47)
[2019-12-01] MEDS: LONITEN PO SCH ×2 (09:57→20:24)
[2019-12-01] MEDS: HYDROCHLOROTHIAZIDE PO SCH (09:57)
[2019-12-01] MEDS: KEFLEX PO SCH ×3 (10:00→20:24)
[2019-12-01] MEDS: ICAR-C PO SCH ×2 (10:00→20:24)
[2019-12-01] MEDS: MYCOSTATIN POWDER TOP SCH ×2 (10:00→20:24)
[2019-12-01] MEDS: ELIQUIS PO SCH ×2 (10:00→20:23)
[2019-12-01] MEDS: LANTUS INSULIN SUBQ SCH (10:00)
[2019-12-01] MEDS: MAG-OX PO SCH ×2 (10:00→20:23)
[2019-12-01] MEDS: LOPRESSOR PO SCH ×2 (10:00→20:24)
[2019-12-01] MEDS: CALTRATE 600 PO SCH (10:00)
[2019-12-01] MEDS: ATARAX PO PRN (10:02)
--- NOTE | 2019-12-02 00:03 | PROGRESS NOTE ---
DATE: 12/01/2019 SUBJECTIVE: The patient notes that she is ready to go to rehab. Denies any other complaints. PHYSICAL EXAMINATION: Vital signs reviewed. Temperature 98 degrees, pulse 84, respiratory rate 18, BP 142/60. General: The patient is awake, pleasant. She is in no distress. She is sitting on the bed with her feet hanging over the side, despite multiple discussions in the past. HEENT: Normocephalic. Neck: Supple. Cardiovascular: Regular rate. Chest: Clear, nonlabored. Abdomen: Soft. Extremities: Does move all extremities well although does have marked edema in the bilateral lower extremities, left greater than right, with an eschar on the left heel. DISCHARGE MEDICATIONS: Please see home med list. ASSESSMENT: 1. Nonhealing wound, left heel. 2. Stage IV chronic renal failure. 3. Moderate protein-calorie malnutrition. 4. Anemia, stable. PLAN: We will continue the patient in the hospital. Continue supportive care until which time she can transition to further inpatient care. cc: Ziggy Mccormick MD MTDD
[2019-12-02] MEDS: LASIX PO SCH ×3 (06:36→17:03)
[2019-12-02] MEDS: ICAR-C PO SCH ×3 (10:36→22:00)
[2019-12-02] MEDS: CALTRATE 600 PO SCH (10:36)
[2019-12-02] MEDS: MAG-OX PO SCH ×2 (10:36→22:00)
[2019-12-02] MEDS: HYDROCHLOROTHIAZIDE PO SCH (10:36)
[2019-12-02] MEDS: ELIQUIS PO SCH ×2 (10:37→22:00)
[2019-12-02] MEDS: LOPRESSOR PO SCH ×2 (10:37→22:00)
[2019-12-02] MEDS: MYCOSTATIN POWDER TOP SCH ×2 (10:37→22:02)
[2019-12-02] MEDS: LONITEN PO SCH ×3 (10:38→22:00)
[2019-12-02] MEDS: HUMULIN R (PARKWAY) SUBQ SCH ×4 (10:41→22:03)
[2019-12-02] MEDS: LANTUS INSULIN SUBQ SCH (10:41)
[2019-12-02] MEDS: CLEOCIN PO SCH ×2 (13:21→22:00)
[2019-12-02] MEDS: IMODIUM PO PRN (15:00)
[2019-12-02 15:34] LABS: OCCULT BLOOD 1 NEGATIVE (NEGATIVE)
--- NOTE | 2019-12-02 18:53 | PROGRESS NOTE ---
DATE: 12/02/2019 SUBJECTIVE: Patient notes that she is itching. She thinks it is due to her current new antibiotic. PHYSICAL EXAMINATION: Vital Signs: Reviewed. Temp 98 degrees, pulse 89, respiratory rate 18, BP 145/57. General: Patient is awake, alert. She is sitting up on the bed. She is in no distress. HEENT: Normocephalic. Neck: Supple. Cardiovascular: Regular rate. Chest: Clear. Abdomen: Soft. Extremities: Positive edema. PLAN: We are going to stop Keflex. We are not going to start a different antibiotic today. We are going to start clindamycin tomorrow for anemia, stable. Her chronic kidney disease is stable. Hopefully she can discharge to rehab. cc: Ziggy Mccormick MD
[2019-12-03] MEDS: TYLENOL PO PRN ×2 (03:25→09:57)
[2019-12-03] MEDS: CLEOCIN PO SCH ×3 (06:03→22:17)
[2019-12-03] MEDS: LASIX PO SCH ×2 (06:04→16:22)
[2019-12-03] MEDS: HUMULIN R (PARKWAY) SUBQ SCH ×5 (06:04→22:31)
[2019-12-03] MEDS: LANTUS INSULIN SUBQ SCH (09:57)
[2019-12-03] MEDS: LOPRESSOR PO SCH ×2 (09:57→22:18)
[2019-12-03] MEDS: ICAR-C PO SCH ×2 (09:57→22:18)
[2019-12-03] MEDS: HYDROCHLOROTHIAZIDE PO SCH (09:57)
[2019-12-03] MEDS: ELIQUIS PO SCH ×2 (09:57→22:18)
[2019-12-03] MEDS: CALTRATE 600 PO SCH (09:57)
[2019-12-03] MEDS: MAG-OX PO SCH ×2 (10:05→22:17)
[2019-12-03] MEDS: MYCOSTATIN POWDER TOP SCH ×2 (10:05→22:31)
[2019-12-03] MEDS: LONITEN PO SCH ×2 (10:05→22:16)
[2019-12-03] MEDS: ATARAX PO PRN ×2 (11:20→22:19)
--- NOTE | 2019-12-03 18:08 | PROGRESS NOTE ---
DATE: 12/03/2019 SUBJECTIVE: Patient without any new complaints. OBJECTIVE: Vital signs: Temperature 98, pulse 78, respiratory 18, BP 137/58. General: Patient is sitting up on the side of bed with her feet hanging over the side, on the floor. HEENT: Normocephalic. Neck: Supple. Cardiovascular: Regular rate. Chest: Clear. Abdomen: Soft. ASSESSMENT: 1. Urticaria. Has not improved despite stopping Keflex which would certainly make it unlikely that she is allergic to Keflex. Patient thinks that she is allergic to Betadine. She does have an extensive allergy list. 2. Nonhealing wound, left heel. 3. Bilateral lower extremity edema. 4. Stage 4 chronic kidney disease. 5. Diabetes. 6. Blindness secondary to glaucoma. PLAN: Hopefully patient can transition to rehab soon. We will continue to attempt to manage his blood pressure, although due to her extreme allergies it is difficult. We will continue to attempt to manage her lower extremity edema and infection. Although, again, as noted due to her extreme allergies, we are unfortunately running out of options. cc: Ziggy Mccormick MD
[2019-12-04] MEDS: LASIX PO SCH ×3 (06:01→17:25)
[2019-12-04] MEDS: CLEOCIN PO SCH ×3 (06:02→20:52)
[2019-12-04] MEDS: HUMULIN R (PARKWAY) SUBQ SCH ×4 (06:02→21:13)
[2019-12-04] MEDS: ELIQUIS PO SCH ×2 (11:11→20:52)
[2019-12-04] MEDS: MAG-OX PO SCH ×2 (11:11→20:52)
[2019-12-04] MEDS: LOPRESSOR PO SCH ×2 (11:11→20:52)
[2019-12-04] MEDS: HYDROCHLOROTHIAZIDE PO SCH (11:11)
[2019-12-04] MEDS: LANTUS INSULIN SUBQ SCH (11:11)
[2019-12-04] MEDS: MYCOSTATIN POWDER TOP SCH ×2 (11:11→20:52)
[2019-12-04] MEDS: LONITEN PO SCH ×2 (11:11→21:12)
[2019-12-04] MEDS: ICAR-C PO SCH ×2 (11:11→21:12)
[2019-12-04] MEDS: CALTRATE 600 PO SCH (11:11)
--- NOTE | 2019-12-04 18:08 | PROGRESS NOTE ---
DATE: 12/04/2019 SUBJECTIVE: Patient has no new complaints. PHYSICAL EXAMINATION: Vital Signs: Reviewed. Temp 97 degrees, pulse 85, respiratory rate 18, BP 175/80. General: Patient is an obese female who is in no respiratory distress. She is pleasant. She is sitting up on the bed with her feet hanging over the edge while she is sleeping on the table. HEENT: Normocephalic. Neck: Supple. Cardiovascular: Regular rate. Chest: Clear. Abdomen: Soft. Extremities: She actually has less edema than she had. Skin: Dry and bandaged. ASSESSMENT: 1. Cellulitis. 2. Hypertension. 3. Congestive heart failure. 4. Cerebrovascular accident. 5. Glaucoma causing blindness. PLAN: We are going to continue patient in the hospital. She is quite recalcitrant to treatment given her multiple allergies. She seems to be tolerating clindamycin currently. We will follow. Hopefully to rehab soon. cc: Ziggy Mccormick MD
[2019-12-05] MEDS: LASIX PO SCH ×2 (05:38→18:46)
[2019-12-05] MEDS: HUMULIN R (PARKWAY) SUBQ SCH ×4 (06:30→20:12)
[2019-12-05] MEDS: CLEOCIN PO SCH ×3 (06:30→20:07)
[2019-12-05] MEDS: LONITEN PO SCH ×2 (08:27→20:06)
[2019-12-05] MEDS: HYDROCHLOROTHIAZIDE PO SCH (08:27)
[2019-12-05] MEDS: ELIQUIS PO SCH ×2 (08:27→20:07)
[2019-12-05] MEDS: ICAR-C PO SCH ×2 (08:27→20:06)
[2019-12-05] MEDS: CALTRATE 600 PO SCH (08:27)
[2019-12-05] MEDS: LOPRESSOR PO SCH ×2 (08:27→20:07)
[2019-12-05] MEDS: MAG-OX PO SCH ×2 (08:27→20:06)
[2019-12-05] MEDS: MYCOSTATIN POWDER TOP SCH ×2 (08:29→20:13)
[2019-12-05] MEDS: LANTUS INSULIN SUBQ SCH (08:29)
--- NOTE | 2019-12-05 18:27 | PROGRESS NOTE ---
DATE: 12/05/2019 SUBJECTIVE: The patient has no complaints. States she is ready transition to rehab. The patient is pleasant. She is awake, alert. She is in no distress. She is sitting up in the bed with her feet hanging over the side as noted multiple times despite multiple discussions for the reasons and importance of elevating her legs. She states that she is allergic to all antibiotics. Notes that she gets yeast infections although she does not currently have a visible rash or have any type of yeast rash on her skin. PHYSICAL EXAMINATION: Vital Signs: Reviewed. Temperature 98 degrees, pulse 81, respiratory rate 18, BP 131/89. HEENT: Normocephalic. Neck: Supple. Cardiovascular: Regular rate. Chest: Clear. Abdomen: Soft. Extremities: She has 3+ edema bilateral lower extremities. No weeping edema. ASSESSMENT: 1. Nonhealing wound, left heel. 2. Chronic edematous changes bilateral lower extremities. 3. Blindness due to glaucoma. 4. History of strokes. 5. Chronic anemia. PLAN: We are going to continue patient in the hospital. Continue to follow. Hopefully, she can transition to rehab soon. cc: Ziggy Mccormick MD
[2019-12-06 06:02] LABS: HEMATOCRIT 23.3 % (37.0-47.0); MCH 25.6 PG (27-31); MCV 85.3 FL (81-99); RBC 2.73 XMIL (4.2-5.4); RDW 15.1 % (11.5-14.5); WBC 4.35 X1000 (4.8-10.8)
[2019-12-06 06:28] LABS: ALBUMIN 2.5 g/dL (3.5-5.0); CALCIUM 7.3 mg/dL (8.8-10.2); CREATININE 3.3 mg/dL (0.5-0.9); MAGNESIUM 1.8 mg/dL (1.5-2.7); POTASSIUM 5.5 mmol/L (3.5-5.1); TOTAL BILIRUBIN 0.3 mg/dL (0.20-1.00); TOTAL PROTEIN 7.2 g/dL (6.3-8.3)
[2019-12-06] MEDS: CLEOCIN PO SCH ×2 (06:38→14:36)
[2019-12-06] MEDS: LASIX PO SCH ×2 (06:38→18:05)
[2019-12-06] MEDS: HUMULIN R (PARKWAY) SUBQ SCH ×4 (06:40→21:33)
[2019-12-06] MEDS: MAG-OX PO SCH ×2 (08:14→21:33)
[2019-12-06] MEDS: CALTRATE 600 PO SCH (08:15)
[2019-12-06] MEDS: ELIQUIS PO SCH ×2 (08:15→21:35)
[2019-12-06] MEDS: HYDROCHLOROTHIAZIDE PO SCH (08:15)
[2019-12-06] MEDS: IMODIUM PO PRN (08:15)
[2019-12-06] MEDS: LANTUS INSULIN SUBQ SCH (08:15)
[2019-12-06] MEDS: LOPRESSOR PO SCH ×2 (08:15→21:35)
[2019-12-06] MEDS: LONITEN PO SCH ×2 (08:15→21:34)
[2019-12-06] MEDS: ICAR-C PO SCH ×2 (08:15→21:34)
[2019-12-06] MEDS: MYCOSTATIN POWDER TOP SCH ×2 (09:00→21:35)
[2019-12-06] MEDS: XANAX PO PRN (18:53)
--- NOTE | 2019-12-06 19:07 | PROGRESS NOTE ---
DATE: 12/06/2019 SUBJECTIVE: Patient with no complaints, although she states she is itching all over. Denies any fevers or chills. She is frequently picking at her skin. PHYSICAL EXAMINATION: Vital Signs: Reviewed. Temperature 98 degrees, pulse 81, respiratory rate 18, BP 148/52. General: Patient is awake, pleasant. She is in no respiratory distress. She is sitting with her feet hanging off the bedside on the floor, despite multiple previous discussions. Her feet are swollen and edematous. She does not keep them elevated. Neck: Supple. Cardiovascular: Regular rate. Chest: Clear. Abdomen: Soft. ASSESSMENT: 1. Frequent medical noncompliance. 2. Stage 4 chronic kidney disease. 3. Chronic edematous changes of bilateral lower extremities. 4. Nonhealing wound, left heel. 5. Blindness due to glaucoma. 6. Chronic anemia. PLAN: We are going to continue patient in the hospital. Continue to follow. Hopefully, she can transition to rehab soon. cc: Ziggy Mccormick MD
[2019-12-07] MEDS: HUMULIN R (PARKWAY) SUBQ SCH ×2 (06:20→11:52)
[2019-12-07] MEDS: LASIX PO SCH (06:20)
[2019-12-07] MEDS: ELIQUIS PO SCH (09:57)
[2019-12-07] MEDS: ICAR-C PO SCH (09:57)
[2019-12-07] MEDS: MAG-OX PO SCH (09:57)
[2019-12-07] MEDS: CALTRATE 600 PO SCH (09:57)
[2019-12-07] MEDS: LOPRESSOR PO SCH (09:57)
[2019-12-07] MEDS: HYDROCHLOROTHIAZIDE PO SCH (09:57)
[2019-12-07] MEDS: LONITEN PO SCH (09:58)
[2019-12-07] MEDS: LANTUS INSULIN SUBQ SCH (09:58)
--- NOTE | 2019-12-07 14:10 | DISCHARGE SUMMARY ---
ADMISSION DATE: 11/22/2019 DISCHARGE DATE: 12/07/2019 PRIMARY CARE PHYSICIAN: Dr. To ADMISSION DIAGNOSES: 1. Nonhealing wound of the left heel. 2. Anxiety. 3. History of stroke on Eliquis. 4. History of deep vein thrombosis. 5. Anemia, chronic in nature. 6. Chronic kidney disease stage 4. 7. Diabetes type 2 with hyperglycemia. 8. Hypocalcemia. 9. Glaucoma with legal blindness. 10. Homelessness. DISCHARGE DIAGNOSES: 1. Frequent medical noncompliance. 2. Stage 4 chronic kidney disease. 3. Chronic edematous changes of bilateral lower extremities. 4. Nonhealing wound of the left heel. 5. Blindness due to glaucoma. 6. Chronic anemia. SUMMARY OF FINDINGS: This is a 54-year-old female who presented with a nonhealing wound of the left heel that is oozing with signs of cellulitis. She was placed on IV antibiotics. She initially requested a hospice consult and states that she has refused dialysis and would rather have had palliative care than dialysis, but has since changed her mind. She has also been refusing any p.o. antibiotics as she has multiple drug allergies. We had wound care to follow with her nonhealing heel wound. Physical therapy has been following. She is on a diabetic diet with Glucerna with each meal, and now it is felt that she can be discharged to rehab today. DISCHARGE MEDICATIONS: Include acetaminophen 650 mg p.o. every 6 hours p.r.n., albuterol inhaler every 4 hours p.r.n., Xanax 0.25 mg p.o. every night at bedtime p.r.n., Eliquis 5 mg p.o. b.i.d., calcium carbonate 600 mg p.o. daily, hydrochlorothiazide 25 mg p.o. daily, Lantus 10 units subcutaneously daily, magnesium 400 mg p.o. b.i.d., metoprolol 25 mg p.o. every 12 hours, nystatin powder topically b.i.d., Lasix 40 mg p.o. b.i.d., [place] 7.5 one p.o. every 12 hours p.r.n., NovoLog FlexPen 10 units subcutaneously before meals, Phenergan 25 mg 1 to 2 tablets p.o. every 6 hours p.r.n. TIME SPENT: This is a 35 minute discharge. Dictated by TEODORO Nye for Ziggy Mccormick MD cc: TEODORO Nye MD Dr. Powell
[2019-12-07 14:44] VITALS: BP 128/60
--- NOTE | 2019-12-07 20:54 | DISCHARGE SUMMARY ---
ADMISSION DATE: 11/23/2019 DISCHARGE DATE: 12/07/2019 ADDENDUM: Patient seen and examined by myself. Full note dictated and discussed with nurse practitioner. On discharge, patient is awake, alert. She is in no distress. She will be transitioned to rehab. Unfortunately, she continues to be quite recalcitrant to treatment. She is refusing antibiotics currently, stating that she is allergic to all of them. We will continue to attempt to educate her on keeping her legs elevated to help with her edema. cc: Ziggy Mccormick MD
== END 2019-12-07 15:25 | DRG 603 ==
LOC: P.ED 18:33 → SUATTDRO 11-23 06:34 → P.EDIPHOLD 11-23 06:34 → P.MEDSURG 11-23 08:20
PROVIDERS: ATTEND Family Medicine

== ENCOUNTER 2020-02-14 13:25 | Inpatient (IN) ==
--- NOTE | 2020-02-14 14:23 | Diag Imaging Result Doc PS360 ---
FOOT COMPLETE LEFT - 02/14/2020 INDICATION: cellulitis TECHNIQUE: Three views COMPARISON: None FINDINGS: There is severe diffuse pedal edema. There is some soft tissue gas at the posterior and inferior plantar foot. There is also soft tissue gas at the medial midfoot, at the base of the first metatarsal. No fractures or bony erosions. There are degenerative heel spurs. IMPRESSION: Severe cellulitis. Multifocal soft tissue gas consistent with penetrating injury or gas forming cellulitis. No fractures or bony erosions. Electronically signed by Rico Grey 02/14/2020 2:21 PM
--- NOTE | 2020-02-14 14:24 | Diag Imaging Result Doc PS360 ---
LOWER LEG-LEFT - 02/14/2020 INDICATION: cellulitis TECHNIQUE: Four views COMPARISON: None FINDINGS: No fractures or bony erosions. There is moderate diffuse subcutaneous edema throughout the lower leg. IMPRESSION: Moderate nonspecific subcutaneous edema of the lower leg compatible with cellulitis and/or pedal edema. Electronically signed by Rico Grey 02/14/2020 2:22 PM
[2020-02-14] MEDS ORDERED: VANCOMYCIN 1 GM/NS 1 GM/250 ML IVPB IV ONE (14:33)
[2020-02-14] MEDS ORDERED: MERREM 1 GM in NS 50 ML IV ONE (14:35)
[2020-02-14 15:06] LABS: INR 3.04; PROTIME 32.4 Seconds (11.0-16.0)
[2020-02-14 15:07] LABS: PTT 64.8 Seconds (22.3-41.8)
[2020-02-14 15:25] LABS: ALB/GLOB RATIO 0.4; ALBUMIN 2.1 g/dL (3.5-5.0); CALCIUM 7.2 mg/dL (8.8-10.2); CREATININE 4.9 mg/dL (0.5-0.9); MAGNESIUM 1.7 mg/dL (1.5-2.7); POTASSIUM 4.7 mmol/L (3.5-5.1); TOTAL BILIRUBIN 0.45 mg/dL (0.20-1.00); TOTAL PROTEIN 7.6 g/dL (6.3-8.3)
[2020-02-14 15:30] LABS: BASO# 0.06 X1000 (0.0-0.2); BASO% 0.2 % (0.0-0.8); EOS# 0.12 X1000 (0.0-0.7); EOS% 0.4 % (0.0-10.0); HEMOGLOBIN 8.4 g/dL (12.0-16.0); IMM GRAN# 0.16 X1000 (0.0-0.04); IMM GRAN% 0.5 % (0.0-0.5); LYMPH# 1.07 X1000 (1.2-3.4); LYMPH% 3.6 % (20.5-51.1); MCH 26.3 PG (27-31); MCHC 32.3 g/dL (33-37); MCV 81.5 FL (81-99); MONO# 1.77 X1000 (0.11-0.59); MPV 9.4 FL (7.4-10.4); NEUT# 26.34 X1000 (1.4-6.5); NEUT% 89.3 % (42.2-75.2); PLT 451 X1000 (130-400); RBC 3.19 XMIL (4.2-5.4); WBC 29.52 X1000 (4.8-10.8)
[2020-02-14] MEDS ORDERED: NS 1,000 ML IV ONE ×2 (15:30→18:19)
--- NOTE | 2020-02-14 15:33 | Diag Imaging Result Doc PS360 ---
EXAM: CHEST-PORTABLE INDICATION: pre=op TECHNIQUE: One view COMPARISON: 11/24/2019 FINDINGS: There is a small right pleural effusion and right basilar atelectasis and/or infiltrate. This effusion is actually smaller than the previous study. The left lung is clear. There is no evidence of pneumothorax. Cardiac silhouette is unremarkable. IMPRESSION: Small right pleural effusion with adjacent right basilar atelectasis and/or infiltrate. Electronically signed by Rick Hardin 02/14/2020 3:31 PM
--- NOTE | 2020-02-14 15:45 | PROVIDER DOCUMENTATION ---
This chart was entered by Haydee Hardin Scribe, acting as scribe for Will Cates CRNP. HPI-Rash/Wound/ReCheck - General Chief Complaint: General Adult Stated Complaint: DIABETIC ULCER Time Seen by Provider: 02/14/20 13:30 Source: RN/MD Allergies/Adverse Reactions: Allergies Allergy/AdvReac Type Severity Reaction Status Date / Time SAMIR Inhibitors Allergy SWELLING Verified 02/14/20 13:55 amlodipine Allergy ANAPHYLAXIS Verified 02/14/20 13:55 clonidine Allergy ANAPHYLAXIS Verified 02/14/20 13:55 codeine Allergy SWELLING Verified 02/14/20 13:55 hydralazine Allergy SWELLING Verified 02/14/20 13:55 latex Allergy SWELLING Verified 02/14/20 13:55 levofloxacin [From Levaquin] Allergy ANAPHYLAXIS Verified 02/14/20 13:55 losartan Allergy SWELLING Verified 02/14/20 13:55 nitroglycerin Allergy ANAPHYLAXIS Verified 02/14/20 13:55 Sulfa (Sulfonamide Allergy NAUSEA Verified 02/14/20 13:55 Antibiotics) Penicillins AdvReac ANAPHYLAXIS Verified 02/14/20 13:55 Home Medications: Home Medication List Medication Instructions Recorded Confirmed Last Taken Type Albuterol Sulfate [Proair Hfa] 8.5 gm INHALATION Q4H PRN PRN 04/08/19 02/14/20 1 Day Ago History ~04/07/19 Acetaminophen [Tylenol] 650 mg PO Q6H PRN PRN tab 06/22/19 02/14/20 Unknown Rx Furosemide [Lasix] 40 mg PO BID tab 06/22/19 02/14/20 Unknown Rx Insulin Glargine [Lantus Insulin] 10 unit SUBQ DAILY unit 06/22/19 02/14/20 Unknown Rx Magnesium Oxide [Magnesium] 400 mg PO BID #30 tab 06/23/19 02/14/20 Unknown Rx Hydrochlorothiazide 25 mg PO DAILY #30 tab 06/26/19 02/14/20 Unknown Rx Calcium Carbonate [Caltrate 600] 600 mg PO DAILY tab 11/06/19 02/14/20 Unknown Rx Metoprolol [Lopressor] 25 mg PO Q12HR #60 tab 11/06/19 02/14/20 Unknown Rx Nystatin Powder [Mycostatin Powder] 1 applicatn TOP BID #1 bottle 11/09/19 02/14/20 Unknown Rx Alprazolam [Xanax] 0.25 mg PO HS PRN PRN #30 tab 11/26/19 02/14/20 Unknown Rx Hydrocodone/APAP 7.5 mg/325 mg 1 ea PO Q12H PRN PRN #20 tab 11/26/19 02/14/20 Unknown Rx [[place]-7.5] Apixaban [Eliquis] 5 mg PO BID 02/14/20 02/14/20 Unknown History Insulin Aspart [Novolog Flexpen] 10 unit SQ TID 02/14/20 02/14/20 Unknown History Promethazine [Phenergan] 1 tab PO Q6H PRN PRN 02/14/20 02/14/20 Unknown History - History of Present Illness-Dermatology Nature of Presenting Problem: 54 yof c/o multiple chronic BLE DM ulcer's ongoing. pt has received prior tx for wounds @ wound center w/Dr. Farmer. Admitted to [facility] 10/26. pt is a resident at [facility]. pt reports "dressing is not being changed consistently, sometimes the wound rn not there her dressing has to sit on foot all weekend." pt is blind. Location: reports: lower extremity (bilat) Quality: reports: painful Severity: reports: mild Onset/Duration: reports: other (ongoing) Timing: reports: still present Context/Associated Symptoms: reports: other (DM ulcers BLE) Identifiable cause?: Yes Similar Symptoms Previously?: Yes Recently seen or treated by another doctor?: Yes Review of Systems - Adult - REVIEW OF SYSTEMS - ADULT Constitutional: reports: no symptoms reported. denies: fever, fatique, night sweats Eyes: reports: no symptoms reported Ears, Nose, Mouth & Throat: reports: no symptoms reported Cardiovascular: reports: no symptoms reported Respiratory: reports: no symptoms reported Gastrointestinal: reports: no symptoms reported Genitourinary: reports: no symptoms reported Musculoskeletal: reports: no symptoms reported Integumentary: reports: see HPI, skin sores/ulcer (bilat LE DM wounds). denies: hives, itching, rash Neurological: reports: no symptoms reported Psychiatric: reports: no symptoms reported Endocrine: reports: no symptoms reported Hematologic/Lymphatic: reports: no symptoms reported Allergic/Immunologic: reports: no symptoms reported All Other Systems: Reviewed and Negative Past History - Adult - PAST MEDICAL HISTORY-ADULT Review of Records: reports: Nursing Assessment Review, Medications Reviewed, Social history reviewed & non-contributory. Major Childhood Illnesses: reports: denies history Cardiovascular: reports: HTN, hyperlipidemia Respiratory: reports: denies history Gastrointestinal: reports: GERD Obstetrical/Gynecological: reports: denies history Genitourinary: reports: kidney disease Musculoskeletal: reports: denies history Neurological: reports: denies history Psychiatric: reports: denies history Endocrine/Immune: reports: Diabetes Other Conditions: reports: blindness - PRIOR SURGERIES/PROCEDURES Surgical/Procedure History: reports: cholecystectomy, , other (8 eye sx, D&C) - IMMUNIZATION STATUS Childhood Immunizations: See Nurse Assessment Flu Vaccine: See Nurse Assessment - FAMILY HISTORY Family History: reviewed, not pertinent - SOCIAL HISTORY Smoking: other (former smoker) Substance Use: none/never, alcohol Alcohol Use Frequency: occasionally Physical Exam-General - PHYSICAL EXAM-ADULT Initial Vital Signs Reviewed: Yes - CONSTITUTIONAL General Appearance: alert. negative: anxious, slow to respond, obtunded - EYES Eyes: PERRL/EOMI - HEAD, EARS, NOSE, MOUTH & THROAT HENMT: normocephalic/atraumatic, moist mucous membranes - NECK Neck: non-tender, full range of motion, supple, normal inspection - RESPIRATORY Respiratory: chest non-tender, lungs clear, normal breath sounds - CARDIOVASCULAR Cardiovascular: normal peripheral pulses, regular rate, rhythm - GASTROINTESTINAL (ABDOMEN) Abdominal Exam: normal bowel sounds, non tender, soft - MUSCULOSKELETAL Back Exam: normal inspection Extremity: normal range of motion, non-tender, normal inspection - SKIN Integumentary: normal turgor, other (pt has multiple weeping wounds on BLE. large dm ulcer on left heel.). negative: normal color, warm/dry - NEUROLOGIC Neurologic: grossly normal, no motor/sensory deficits - PSYCHIATRIC Psych/Mental Status: normal mood/affect, normal thought content, normal thought process, oriented x 3 Progress - PLAN OF CARE/RESULTS Progress/Plan/Lab Results: Vital Signs - 8 hr 02/14/20 13:50 Temperature 98.3 F Pulse Rate 96 H Respiratory Rate 20 Blood Pressure 157/69 O2 Sat by Pulse Oximetry 99 02/14/20 14:30 Gram Stain - Final Foot - Left Laboratory Results - last 24 hr 02/14/20 02/14/20 02/14/20 14:40 14:40 14:40 WBC 29.52 H RBC 3.19 L Hgb 8.4 L Hct 26.0 L MCV 81.5 MCH 26.3 L MCHC 32.3 L RDW Std Deviation 14.0 Plt Count 451 H MPV 9.4 Immature Gran % (Auto) 0.5 Neut % (Auto) 89.3 H Lymph % (Auto) 3.6 L [place] % (Auto) 6.0 Eos % (Auto) 0.4 Baso % (Auto) 0.2 Immature Gran # (Auto) 0.16 H Neut # (Auto) 26.34 H Lymph # (Auto) 1.07 L [place] # (Auto) 1.77 H Eos # (Auto) 0.12 Baso # (Auto) 0.06 ESR 118 H PT INR PTT (Actin FS) Sodium 123 L Potassium 4.7 Chloride 91 L Carbon Dioxide 16 L Anion Gap 16 BUN 69 H Creatinine 4.9 H Estimated GFR/1.73 m2 9 BUN/Creatinine Ratio 14 Glucose 174 H Calculated Osmolality 272 Calcium 7.2 L Magnesium 1.7 Total Bilirubin 0.45 AST 10 ALT 8 L Alkaline Phosphatase 240 H Total Protein 7.6 Albumin 2.1 L Globulin 5.5 Albumin/Globulin Ratio 0.4 Plasma Lactate Acetone Level NEGATIVE Blood Type Antibody Screen 02/14/20 02/14/20 02/14/20 14:40 14:40 14:40 WBC RBC Hgb Hct MCV MCH MCHC RDW Std Deviation Plt Count MPV Immature Gran % (Auto) Neut % (Auto) Lymph % (Auto) [place] % (Auto) Eos % (Auto) Baso % (Auto) Immature Gran # (Auto) Neut # (Auto) Lymph # (Auto) [place] # (Auto) Eos # (Auto) Baso # (Auto) ESR PT 32.4 H INR 3.04 PTT (Actin FS) 64.8 H Sodium Potassium Chloride Carbon Dioxide Anion Gap BUN Creatinine Estimated GFR/1.73 m2 BUN/Creatinine Ratio Glucose Calculated Osmolality Calcium Magnesium Total Bilirubin AST ALT Alkaline Phosphatase Total Protein Albumin Globulin Albumin/Globulin Ratio Plasma Lactate 0.7 Acetone Level Blood Type O POSITIVE Antibody Screen NEGATIVE Orders Category Date Time Status Consent for Surgery DIRECTED Care 02/14/20 15:30 Active Nursing- Obtain EKG once Care 02/14/20 14:37 Active CHEST-PORTABLE [RAD] Stat Exams 02/14/20 14:36 Completed FOOT COMPLETE LEFT [RAD] Stat Exams 02/14/20 13:47 Completed LOWER LEG-LEFT [RAD] Stat Exams 02/14/20 13:47 Completed ACETONE SERUM [CHEM] Stat Lab 02/14/20 14:40 Completed BLOOD CULTURE [BLDCUL] Stat Lab 02/14/20 14:48 Results CBC WITH DIFF [HEME] Stat Lab 02/14/20 14:40 Completed CMP [COMPREHENSIVE METABOLIC PANEL] [CHEM] Stat Lab 02/14/20 14:40 Completed LACTATE, PLASMA [CHEM] Stat Lab 02/14/20 14:40 Completed MAGNESIUM [CHEM] Stat Lab 02/14/20 14:40 Completed PROTIME WITH INR [COAG] Stat Lab 02/14/20 14:40 Completed PTT [COAG] Stat Lab 02/14/20 14:40 Completed SED RATE [HEME] Stat Lab 02/14/20 14:40 Completed TYPE & SCREEN [BBK] Stat Lab 02/14/20 14:40 Completed WOUND CULTURE INC GRAM STAIN [RM] Routine Lab 02/14/20 14:30 Results 0.9% Sodium Chloride Inj [Ns] 1,000 ml Med 02/14/20 15:30 Discontinued IV 999 mls/hr Meropenem [Merrem] 1 gm Med 02/14/20 14:35 Discontinued 0.9% Sodium Chloride Inj [Ns] 50 ml IV NOW Vancomycin 1 gm/Ns Med 02/14/20 14:33 Discontinued 1 gm in 250 ml IV NOW EKG [EKG] Stat Ther 02/14/20 14:37 Ordered Transfer/Admit Order [TRANSFER] Routine Transfer 02/14/20 17:[address] Madison advises to admit patient to hospitalist for clearance for surgery. Pre-op for Left AKA tomorrow morning. He has spoken to the patient at the bedside and her daughter over the phone informing both of risks vs benefits of procedure. Result Diagrams: 02/14/20 14:40 02/14/20 14:40 - EKG 1 Time of EKG reading by physician:: 16:59 EKG Read and Signed by:: Aureliano Ribeiro EKG Interpretation (*Must complete 3 of following elements*): Abnormal Rate: 98 Rhythm: NSR Story: left QRS: poor R wave progression ST Wave: non-specific ST changes Comments: artifact present, no stemi - XRAY 1 XRAY: Left XRAY Study: other (LLE) Impression: See EMR Report ( LOWER LEG-LEFT - 02/14/2020 INDICATION: cellulitis TECHNIQUE: Four views COMPARISON: None FINDINGS: No fractures or bony erosions. There is moderate diffuse subcutaneous edema throughout the lower leg. IMPRESSION: Moderate nonspecific subcutaneous edema of the lower leg compatible with cellulitis and/or pedal edema. Electronically signed by Rico Grey 02/14/2020 2:22 PM) 2 XRAY: Left XRAY Study: Foot Impression: Abnormal, See EMR Report ( FOOT COMPLETE LEFT - 02/14/2020 INDICATION: cellulitis TECHNIQUE: Three views COMPARISON: None FINDINGS: There is severe diffuse pedal edema. There is some soft tissue gas at the posterior and inferior plantar foot. There is also soft tissue gas at the medial midfoot, at the base of the first metatarsal. No fractures or bony erosions. There are degenerative heel spurs. IMPRESSION: Severe cellulitis. Multifocal soft tissue gas consistent with penetrating injury or gas forming cellulitis. No fractures or bony erosions. Electronically signed by Rico Grey 0 2:21 PM) Comparison with other Films: no prior study 3 XRAY Study: Chest Impression: See EMR Report ( FINDINGS: There is a small right pleural effusion and right basilar atelectasis and/or infiltrate. This effusion is actually smaller than the previous study. The left lung is clear. There is no evidence of pneumothorax. Cardiac silhouette is unremarkable. IMPRESSION: Small right pleural effusion with adjacent right basilar atelectasis and/or infiltrate.) - CONSULTS/PCP/HOSPITALIST Notification #1 *Consult/PCP/Hospitalist*: Dr. Madison Time Discussed: 14:30 Consult Disposition: Will see in ED #2 Consult: TEODORO Duckworth Time Discussed: 15:43 Reason/Comments: Gangrene of foot, Cellulitis LLE, Chronic kidney disease Consult Disposition: Admit Departure - Departure Date of Disposition Decision: 02/14/20 Time of Disposition Decision: 17:31 DIAGNOSIS: Gangrene of left foot Cellulitis Qualifiers: Site of cellulitis: extremity Site of cellulitis of extremity: lower extremity Laterality: left Qualified Code(s): L03.116 - Cellulitis of left lower limb Chronic kidney disease Qualifiers: Chronic kidney disease stage: unspecified stage Qualified Code(s): N18.9 - Chronic kidney disease, unspecified Disposition: ADMITTED INPATIENT 09 Certified Medical Emergency: Emergent Condition: Critical Additional Instructions: ED Follow Up Instructions: You have been treated by a care provider in the Emergency Department. These instructions are being provided to you so you can have an understanding of how to care for yourself upon discharge. Upon discharge from the Emergency Department, you are responsible for making arrangements for follow-up care by a physician of your choice. Take all prescribed medications as directed. Return to the Emergency Department immediately for any new or worsening symptom s. You may call the Physician Referral phone number at [phone] to obtain a list of Physicians who are taking new patients. Referrals and Follow-Ups: None,PCP [Primary Care Provider] - - Critical Care Note This patient required my direct & personal management of CC.: No Attestation - Physician/ YOLANDA Attestation Patient care was provided by Advanced Practice Provider:: Yes Advanced Practice Provider:: Will Cates Advanced Practice Provider documentation review:: The Mid-level provider documentation, treatment plan and medical decision making was reviewed by the physician who agrees with all treatment and medical decision making by the MLP. The physician spent face to face time with patient:: Yes (Dr. Ribeiro face to face [phone]) Advanced Practice Provider documentation review:: Supervising physician onsite and consulted in the evaluation and care of this patient. The physician did have a face to face encounter with the patient. This chart was documented by the indicated scribe, (Haydee Hardin Scribe) and accurately reflects the services I performed and decisions made by me, Will Cates CRNP, as attested by the provider's signature.
--- NOTE | 2020-02-14 15:47 | CONSULTATION ---
DATE OF CONSULTATION: 02/14/2020 HISTORY OF PRESENT ILLNESS: Ms. Sejal Rosa is a 54-year-old white female diabetic who was brought to [facility] Emergency Department from the longterm. She has developed an infection involving her left foot. She has had problems with chronic heel ulcer involving her left foot and has been treated in [place] [facility] and also by Dr. Farmer at [facility]. Most recently, she has been treated at the longterm. She was brought to the emergency room because of increasing swelling, drainage and redness involving her left foot. We were asked to evaluate her because of this wound. PHYSICAL EXAM: General: On exam, Ms. Sejal Rosa is an overweight, middle-aged white female who is awake and cooperative. HEENT: She has no jaundice. No oral lesions. Neck: No cervical or supraclavicular lymphadenopathy. Heart: Regular rate. Lungs: Clear. Abdomen: Soft without tenderness. She has bilateral chronic lymphedema or swelling involving both lower extremities. She has thickening of the skin involving both legs left worse than right. She has got swelling of the foot with cellulitis and purulent drainage on the bottom of her foot. She has a chronic ulcer which is large involving her heel. She has palpable femoral pulses bilaterally. She has no ulcers involving her right lower extremity. Neurological: She had no focal deficits. IMPRESSION: Chronic left foot wound at the heel in a diabetic who now has worsening swelling and infection of the entire left foot. She has chronic thickening of the skin involving her left leg and she will require a left [id number] amputation to control her left foot wounds and infection, because the skin is not good for wound healing below the left knee. I have discussed this frankly with the patient. I have also spoke with her daughter by phone. We have discussed her rehab potential. She could get a prosthetic, but it will be difficult for her to walk again. She has eaten today. We will plan to admit her to the hospitalist. She is receiving IV antibiotics, will be resuscitated and we will plan for left [id number] amputation tomorrow. cc: Kristin Madison MD
[2020-02-14 16:10] LABS: SED RATE 118 mm/hr (0-20)
--- NOTE | 2020-02-14 18:23 | SEPSIS: TISSUE PERFUSION ASSMT ---
Sepsis: Tissue Perfusion Assmt - Physical Exam Assessment Date: 02/14/20 Time Assessment Initialized: 18:30 Vital Signs: Last Vital Signs Temp 98.3 F 02/14/20 13:50 Pulse 96 H 02/14/20 13:50 Resp 20 02/14/20 13:50 BP 157/69 02/14/20 13:50 Pulse Ox 99 02/14/20 13:50 Height 5 ft 4 in Weight 84.368 kg Lung Sounds: crackles Heart Sounds: Regular Capillary Refill Time: Less Than 2 Seconds Peripheral Pulse Evaluation: radial (R): 2+, radial (L): 2+, dorsalis-pedis (R): 0, dorsalis-pedis (L): 0, posterior tibialis (R): 0, posterior tibialis (L): 0 Skin Exam: flushed - Alternative Fluid Bolus Bolus Option: Alternative Fluid Resuscitation Bolus for morbidly obese patients with a BMI >30, Refer to [place] Body Weight Chart for Reference. Is patient's BMI >30?: Yes Fluid Bolus dosed using the [place] Body Weight Chart: No (Patient has CKD and bilateral edema of legs.) - Plan Plan: See Orders (Patient has CKD and volume overload.)
--- NOTE | 2020-02-14 18:25 | HISTORY AND PHYSICAL ---
PRIMARY CARE PHYSICIAN: Dr. Damir Aguilar at [facility]. CHIEF COMPLAINT: Multiple chronic bilateral lower extremity diabetic ulcers, followed by the [facility] with possibly dressings not being changed consistently. HISTORY OF PRESENTING ILLNESS: This is a 54-year-old female who presents to [facility] via EMS from [facility] with complaints of multiple chronic bilateral lower extremity diabetic ulcers that her ongoing. She is followed for her wound at the Wound [facility] by Dr. Farmer from General Surgery. The patient states that her dressings are not changed consistently and that she has not had a dressing change since before the weekend. She has a foul smelling odor to the left heel diabetic ulcer with other multiple weeping wounds to bilateral lower extremities. Workup showed a white blood cell count of 29.52, sodium of 123. Her BUN was 69 with a creatinine of 4.9. She was seen by General Surgery in the emergency room and is scheduled to have a left AKA in the a.m., so she is being admitted for further evaluation and treatment. 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 PAST SURGICAL HISTORY: Glaucoma, , left greater rotator cuff surgery, D and C, cholecystectomy and appendectomy. FAMILY HISTORY: Her mother had breast cancer. Father had Alzheimer disease, prostate cancer, and a stroke. Daughter has morbid obesity and mental illness. ALLERGIES TO: SAMIR inhibitors, amlodipine, clonidine, codeine, hydralazine, latex, Levaquin, losartan, nitroglycerin, sulfa, and penicillins. HOME MEDICATIONS: A current list will be obtained, reconciled, reviewed and restarted as appropriate. We will place an order for nursing to update and confirm home medications. LABORATORY DATA: Showed a white blood cell count of 29.52, hemoglobin 8.4, hematocrit 26, platelets 451,000. PT and INR of 32.4 and 3.04. Sodium 123, potassium 4.7, chloride 91, CO2 16, BUN of 69, creatinine 4.9, glucose 174, magnesium 1.7. Plasma lactate of 0.7. Acetone level was negative. A chest x-ray showed a small right pleural effusion with an adjacent right basilar atelectasis and/or infiltrate. Lower extremity x-ray of the left leg showed a moderate nonspecific subcutaneous edema of the lower leg compatible with cellulitis and/or pedal edema. A left foot x-ray showed severe cellulitis, multifocal soft tissue gas consistent with penetrating injury or gas-forming cellulitis. No fractures or bony erosions. REVIEW OF SYSTEMS: She denied any fever, chills, blurred vision, dizziness, chest pain, coughing, shortness of breath. She denied any abdominal pain, constipation, diarrhea, burning or hurting with urination. She was positive for bilateral lower extremity chronic wound infection. PHYSICAL EXAMINATION: On arrival, she had a temperature of 98.3 degrees, pulse 96, respirations 20, blood pressure 157/69 saturating 99% on room air. GENERAL: This is a 54-year-old female who is lying in the bed and answers questions appropriately. HEENT: Normocephalic, atraumatic. Normal ENT inspection. Oropharynx and nares are clear. EYES: Pupils are equal, round, and reactive to light and accommodation. She has glaucoma and is legally blind. NECK: Normal inspection normal range of motion. LUNGS: Clear to auscultation bilaterally. Equal lung expansion and chest wall movement. HEART: With regular rate and rhythm. No murmurs, rubs, or gallops. ABDOMEN: Soft, nontender, nondistended. Bowel sounds are present x4 quadrants. SKIN: The patient has multiple weeping wounds to her bilateral lower extremities. A large diabetic ulcer to her left heel with foul smelling odor. NEUROLOGICAL: The cranial nerves 2-12 appear grossly intact. ASSESSMENT: 1. A left chronic heel wound with cellulitis. 2. Leukocytosis. 3. Acute kidney injury. 4. Diabetes type 2. 5. Hyponatremia. OUR PLAN: She is being admitted, has been seen by General surgery who has been consulted and will have a left AKA in the a.m. She can have a diabetic diet tonight will be n.p.o. after midnight. Pattern blood sugars with sliding scale insulin. Placed on home medications once reconciled. We will place on vancomycin per pharmacy protocol, meropenem 1 g IV every 8, normal saline at 75 mL an hour. Recheck a CBC and BMP in the a.m. Further orders after seen by attending and by fashion consultant sales. Dictated by TEODORO Nye for Nawaf Treadwell MD cc: TEODORO Nye MD I agree with most components of history, physical, assessment and plan. A separate addendum has been dictated. MTDD
[2020-02-14] MEDS ORDERED: VANCOMYCIN IV PER PHARMACY MISC SCH (18:31)
[2020-02-14] MEDS ORDERED: TYLENOL PO PRN (18:31)
[2020-02-14] MEDS ORDERED: NS 1,000 ML IV SCH (18:31)
[2020-02-14] MEDS ORDERED: VANCOMYCIN 650 MG in NS 150 ML IV ONE (19:00)
--- NOTE | 2020-02-14 19:14 | HISTORY AND PHYSICAL ---
ADDENDUM: I agree with most components of history, physical, assessment and plan. In brief, Ms. Rosa is a 54-year-old lady with past medical history of insulin- dependent diabetes mellitus, likely diabetic nephropathy leading to CKD stage 5, essential hypertension, anxiety, chronic bilateral lymphedema and chronic left foot wound, blindness, chronic anemia with splenomegaly, reported history of DVT in 2019; however, the ultrasound was negative in 2019. She came in with chief complaints of worsening left lower extremity pain, oozing and foul smelling discharge since several days from the [facility]. General surgical team was consulted. In the emergency room, the patient was found to have a temperature of 98.3 degrees, pulse 96, respiratory rate 20, blood pressure 157/69. She was saturating 99% on room air. She had profound leukocytosis of 29,000. Her lactate was normal. She had acute kidney injury on chronic kidney disease, so hospitalist team was consulted for further management. The general surgical team was planning amputation. REVIEW OF SYSTEMS: Positive for the patient being hungry. Positive for foul- smelling left foot discharge. Negative for chest pain. Negative for shortness of breath. Negative for cough. PHYSICAL EXAMINATION: HEENT: Oral cavity is moist. LUNGS: Air entry bilaterally equal. No wheeze or rhonchi. The patient does have right lower infrascapular crackles. CARDIOVASCULAR: S1, S2 normal. No murmur, rub, or gallop. She is tachycardic. ABDOMEN: Obese, soft, nontender. EXTREMITIES: She has bilateral lower extremity edema, looks like lymphedema, especially legs and foot. She has completely denuded skin of left foot plantar aspect with foul- smelling discharge and oozing. LABORATORY DATA: Her WBC is 29,000, hemoglobin 8.4, platelets are 451,000. Her INR is 3.04. Sodium is 123, chloride 91, BUN 16, and creatinine 4.9. MICROBIOLOGY: Blood cultures are in lab. Her wound cultures were growing gram- negative rods on February 11. IMAGING: Chest x-ray has right lower lobe effusion, which is chronic. Lower extremity x-ray has necrotizing soft tissue infection. ASSESSMENT: 1. Severe Sepsis without septic shock due to left foot necrotizing cellulitis on top of bilateral chronic lower extremity lymphedema. 2. Hyponatremia, hypochloremia, acute kidney injury on chronic kidney disease stage 4 in the setting of sepsis. 3. Coagulopathy, which could be in the setting of sepsis versus use of Eliquis. 4. Chronic right lung pleural effusion. 5. Chronic anemia with splenomegaly and cervical lymphadenopathy on previous imaging. The patient did not have outpatient hematology followup. 6. Reported history of deep venous thrombosis, though the ultrasound lower extremity in 2019 was negative; reported history of cerebrovascular accident in 2019, though head CT on 01/25/2019 was negative on chronic anticoagulation with Eliquis. PLAN: 1. I will resuscitate the patient with intravenous fluids and start patient on intravenous meropenem and intravenous vancomycin. I will follow up with final blood culture and wound culture results. The patient likely has severe sepsis considering her acute kidney injury as well as coagulopathy. 2. I will start patient on insulin for insulin-dependent diabetes mellitus. 3. General surgical team's recommendation appreciated and likely patient to undergo above-knee amputation tomorrow. 4. Give one time Vitamin K for coagulopathy considering she needs source control with amputation tomorrow. 4. Plan of care discussed with the patient. She was allowed to ask questions. All of her questions have been answered. cc: MD TODD Velez
--- NOTE | 2020-02-14 20:05 | EKG Report ---
Test Performed on : 02/14/2020 4:56:53 PM Test Reason : pre-op Blood Pressure : / mmHG Vent. Rate : 098 BPM Atrial Rate : 098 BPM P-R Int : 138 ms QRS Dur : 084 ms QT Int : 352 ms P-R-T Axes : 037 -32 107 degrees QTc Int : 449 ms Normal sinus rhythm. Left axis deviation Septal infarct (cited on or before 22-NOV-2019) ST & T wave abnormality, consider lateral ischemia Abnormal ECG When compared with ECG of 22-NOV-2019 21:15, (Unconfirmed) Nonspecific T wave abnormality, improved in Inferior leads Unconfirmed Result
[2020-02-14] MEDS ORDERED: VITAMIN K SUBQ ONE (21:31)
[2020-02-14] MEDS: LOPRESSOR PO SCH (21:39)
[2020-02-14] MEDS: NORCO-7.5 PO PRN (21:39)
[2020-02-14] MEDS: MAG-OX PO SCH (21:40)
[2020-02-14] MEDS: VENTOLIN HFA INH PRN (22:16)
[2020-02-14] MEDS: MERREM 1 GM in NS 50 ML IV SCH (23:59)
[2020-02-15] MEDS: TYLENOL PO PRN ×2 (04:10→12:56)
[2020-02-15] MEDS ORDERED: HUMALOG SUBQ SCH ×2 (07:00→07:30)
[2020-02-15 07:07] LABS: INR 2.11; PROTIME 24.1 Seconds (11.0-16.0)
[2020-02-15 07:11] LABS: BASO# 0.04 X1000 (0.0-0.2); BASO% 0.2 % (0.0-0.8); EOS# 0.23 X1000 (0.0-0.7); HEMATOCRIT 25.2 % (37.0-47.0); IMM GRAN# 0.14 X1000 (0.0-0.04); IMM GRAN% 0.6 % (0.0-0.5); LYMPH# 0.85 X1000 (1.2-3.4); LYMPH% 3.6 % (20.5-51.1); MCH 26.3 PG (27-31); MCHC 31.7 g/dL (33-37); MCV 82.9 FL (81-99); MONO# 1.37 X1000 (0.11-0.59); MONO% 5.9 % (1.7-9.3); MPV 9.3 FL (7.4-10.4); NEUT# 20.71 X1000 (1.4-6.5); NEUT% 88.7 % (42.2-75.2); PLT 441 X1000 (130-400); RBC 3.04 XMIL (4.2-5.4); WBC 23.34 X1000 (4.8-10.8)
[2020-02-15] MEDS: MERREM 1 GM in NS 50 ML IV SCH ×3 (07:11→22:32)
[2020-02-15 07:26] LABS: CALCIUM 7.5 mg/dL (8.8-10.2); CREATININE 4.6 mg/dL (0.5-0.9); POTASSIUM 4.5 mmol/L (3.5-5.1)
[2020-02-15 07:30] LABS: LYMPHS 4 % (21-51); MONO 2 % (1-9); SEGS 94 % (42-75)
[2020-02-15] MEDS: NORCO-7.5 PO PRN (09:20)
[2020-02-15 12:02] LABS: INR 2.01; PROTIME 23.2 Seconds (11.0-16.0)
[2020-02-15] MEDS ORDERED: VITAMIN K SUBQ ONE (12:28)
[2020-02-15] MEDS: CALTRATE 600 PO SCH (12:43)
[2020-02-15] MEDS: LOPRESSOR PO SCH ×2 (12:43→22:32)
[2020-02-15] MEDS: LANTUS INSULIN SUBQ SCH (12:44)
[2020-02-15] MEDS: HUMALOG SUBQ SCH ×2 (12:45→18:45)
--- NOTE | 2020-02-15 12:51 | PROGRESS NOTE ---
DATE: 02/15/2020 INTERVAL HISTORY: Ms. Rosa was given vitamin K yesterday for her elevated INR following which her INR did go down. To the nurse, I had conveyed to the surgical team about her elevated INR. VITAL SIGNS: Currently, temperature of 99.5 degrees, pulse 104, respiratory 18, and blood pressure 154/92. SUBJECTIVE: Ms. Rosa is complaining of headache. She is complaining of shoulder pain. She denies chest pain or shortness of breath. She denies any cough. She denies nausea, vomiting, or abdominal pain. She wanted to drink some water, and I repeatedly explained to her that considering potential need for surgery she may not be able to get water. PHYSICAL EXAMINATION: Not in acute distress. She has blindness. Oral cavity is dry.Lungs: Air entry bilaterally equal. No wheeze, rhonchi, or crackles. However, she is not compliant with examination. Cardiovascular: S1, S2 normal. No murmur or gallop. Not currently tachycardic. Abdomen: Obese. Soft. Nontender. Extremities: She has bilateral lower extremity edema extending up to thigh bilaterally with chronic lymphedema. She also has completely denuded skin of the left foot plantar aspect with foul smelling discharge and oozing. Input and output, she did not allow urine catheter placement so it could not be recorded. LABORATORY: WBC 33057, hemoglobin 8, and platelet 441,000. INR after vitamin K administration came down from 3 to 2.01. Her sodium and chloride slightly improved, and her creatinine improved from 4.9 to 4.4.6. Her blood glucose is 149. MICROBIOLOGY: Blood cultures are in lab. Wound cultures from the left foot taken outside is growing Escherichia coli and Proteus, which are fairly sensitive to 3rd generation cephalosporins. The patient has had several anaphylaxis reactions listed to levofloxacin, sulfa and penicillin so I will avoid cephalosporins as well. ASSESSMENT AND PLAN: 1. Severe sepsis without septic shock due to left foot necrotizing cellulitis with bilateral chronic lower extremity lymphedema, and history of diabetes mellitus which is dependent on insulin. Continue intravenous vancomycin and intravenous meropenem. Follow up final blood culture results. We are awaiting improvement in INR before patient could go for definitive surgery to control the source of her current sepsis. Appreciate surgical team's recommendation. 2. Coagulopathy in the setting of sepsis with the use of Eliquis. Her last use of Eliquis was likely morning of 02/13. She is status post vitamin K. I will consider giving her vitamin K versus fresh frozen plasma depending on her course and repeat INR's. I will keep surgical team informed. 3. Hyponatremia, hypochloremia, and acute kidney injury on chronic kidney disease stage 4 with history of diabetic nephropathy. Her acute kidney injury likely because of sepsis is status post intravenous fluid resuscitation and improvement in kidney function. I will stop IV fluids considering she has edema bilateral lower extremities, and currently is feeling subjectively short of breath. 4. Chronic anemia with splenomegaly and cervical lymphadenopathy. She would need outpatient Hematology followup. 5. Chronic right lung effusion. It appears stable. She will need outpatient follow-up. 6. Reported history of DVT and stroke, though I could not find any documentation of it. Her ultrasound lower extremity was negative in 2019 for DVT. I may just decide to keep her off Eliquis. DISPOSITION: Continue to monitor patient on telemetry unit. Plan of care discussed with the patient. I also discussed the care and plan of care with the surgeon on the phone. Depending on her INR, she may go down for surgery later today or tomorrow. I will await a repeat INR. cc: Nawaf Treadwell MD
[2020-02-15] MEDS: MAG-OX PO SCH ×2 (12:59→22:32)
[2020-02-15] MEDS ORDERED: NS 500 ML IV ONE (13:09)
[2020-02-15] MEDS ORDERED: DILAUDID IV PRN (14:22)
[2020-02-15] MEDS ORDERED: VERSED ONE (15:48)
[2020-02-15] MEDS ORDERED: XYLOCAINE-MPF 2% ONE (15:48)
[2020-02-15] MEDS ORDERED: DIPRIVAN 1% ONE (15:49)
[2020-02-15] MEDS ORDERED: FENTANYL ONE (15:49)
[2020-02-15 16:17] LABS: INR 1.97; PROTIME 22.8 Seconds (11.0-16.0)
[2020-02-15] MEDS ORDERED: OFIRMEV 1000 MG/ISOTONIC SOLN 1,000 MG/100 ML BOTTLE ONE (16:49)
[2020-02-15] MEDS ORDERED: SODIUM CHLORIDE 0.9% ONE (16:51)
[2020-02-15] MEDS ORDERED: ZOFRAN ONE (17:24)
[2020-02-15] MEDS ORDERED: NEO-SYNEPHRINE ONE (17:28)
[2020-02-15] MEDS: DILAUDID ONE ×4 (19:07→19:37)
[2020-02-15 19:17] LABS: URINE SOURCE CATH
[2020-02-15] MEDS ORDERED: PHENERGAN ONE (19:19)
[2020-02-15 19:22] LABS: BILIRUBIN URINE NEGATIVE (NEGATIVE); BLOOD URINE TRACE (NEGATIVE); COLOR YELLOW; GLUCOSE URINE TRACE mg/dL (NEGATIVE); KETONE URINE NEGATIVE (NEGATIVE); LEUKOCYTES URINE NEGATIVE (NEGATIVE); NITRITE URINE NEGATIVE (NEGATIVE); PH URINE 5.5; PROTEIN URINE 200 mg/dL (NEGATIVE); SP GRAVITY URINE 1.014; TURBIDITY URINE CLEAR (CLEAR); UROBILINOGEN URINE NORMAL (NORMAL)
[2020-02-15 19:23] LABS: UR EPITHELIAL CELLS <10 /HPF (<10); URINE BACTERIA NEGATIVE /HPF; URINE RBC <10 /HPF (<10); URINE WBC <10 /HPF (<10)
--- NOTE | 2020-02-15 19:33 | OPERATIVE NOTE ---
PROCEDURE DATE: 02/15/2020 PREOPERATIVE DIAGNOSES: 1. Infected gangrenous left foot. 2. Diabetes mellitus. 3. Venous insufficiency. 4. Lymphedema of the lower extremities. POSTOPERATIVE DIAGNOSES: 1. Infected gangrenous left foot. 2. Diabetes mellitus. 3. Venous insufficiency. 4. Lymphedema of the lower extremities. PRINCIPAL PROCEDURE: 1. Left [id number] amputation. 2. Right internal jugular vascular catheter using ultrasound. SURGEON: Kristin Madison MD. ANESTHESIA: General. ESTIMATED BLOOD LOSS: 200 mL. DRAINS: None. INDICATIONS: Ms. Sejal Rosa is a 54-year-old, white female who is overweight and a diabetic. She has had a chronic heel ulcer involving her left foot. She presented to the emergency department yesterday from the senior care with gangrenous and active infection involving her left foot. She has bilateral lower extremity skin changes secondary to chronic venous insufficiency and lymphedema. She had cellulitis involving her left leg and foot. She had purulent drainage from her left foot and she had an ulcer going down to the heel, left foot. An [id number] amputation was recommended. She had to be admitted, receive IV antibiotics, and be resuscitated and we did her procedure today. She was anticoagulated and that had to be corrected also. FINDINGS: She had soft tissue edema at our amputation site. She appeared to have good blood flow in the muscles. The muscles were viable at the point of amputation and we were able to get the wound closed. DESCRIPTION OF PROCEDURE: The patient was brought to the operating room, received general anesthesia, and was intubated. Initially, we placed a right internal jugular Vas-Catheter. The right neck was prepped and draped within a sterile field. I used ultrasound guidance to place this Vas-Catheter. The ultrasound was used to find the internal jugular vein between the 2 heads of the right sternocleidomastoid muscle. An 18-gauge needle was used, using ultrasound guidance to access the right internal jugular vein on the first stick. A guidewire was placed through this needle into the right side of the heart. The needle was removed. A trey was made at its exit site on the skin with an 11 blade scalpel. Sequential dilators were placed over the guidewire, and then we placed a 13.5 cm in length Vas-Cath over the guidewire into the superior vena cava. Both ports were functioning and were flushed with saline. The Vas-Cath was secured to the skin with two 2-0 nylon stitches. We then directed our attention to the left [id number] amputation. The Rosario catheter tube was placed and her left leg was prepped and draped in a sterile field. I have marked a fishmouth incision, mid thigh using a skin marker and then I made my incision with a 10 blade scalpel and used cautery for most of the dissection. I made the posterior incision 1st and then the anterior incision. I used the cautery to transect through the soft tissue and anterior compartment muscle layers. I dissected down to the femur anteriorly. As bleeding was encountered we used the cautery to control bleeding or Jade clamps, and 2-0 and 0 silk ties. The large vessels were controlled with 0 stick ties. We made sure that we identified nerves and they were ligated high in our wound. I came across the mid femur with an oscillating saw and then used the amputation knife to come across the posterior layers of muscle and soft tissue. The leg and knee was removed from the field. I used again Jade clamps 0 silk and 2-0 silk suture ligatures to control bleeding and also the cautery. Once bleeding was controlled. We closed our wound in layers. I closed the deep muscle over the femur with interrupted 0 Vicryl stitches. I used an orthopedic pulse technology project manager to irrigate the wound with 3 L of fluid and I closed the anterior fascia to the posterior fascia with interrupted 0 Vicryl stitches and then the skin was closed with a skin clip form carpenter. Xeroform was applied followed by fluff dressing, and a stockinette. We left the Rosario catheter tube in place. She went to the recovery room with plans to extubate her and send her back to the floor. It must be noted that prior to surgery, she received 2 units fracture fresh frozen plasma and during the operation she received 2 units of packed red blood cells. Our estimated blood loss was 200 mL. cc: Kristin Madison MD
[2020-02-15] MEDS ORDERED: LR 1,000 ML ONE (19:46)
--- NOTE | 2020-02-15 20:03 | Diag Imaging Result Doc PS360 ---
EXAM: CHEST-PORTABLE HISTORY: right vas cath placement TECHNIQUE: Single view COMPARISON: 02/14/2020 FINDINGS: A right jugular line has been placed since the prior exam. Tip overlies the distal superior vena cava. No thorax. There is a small right pleural effusion with basilar atelectasis and/or infiltrate. Left lung is clear. Mild cardiac prominence. IMPRESSION: No postprocedural pneumothorax. Electronically signed by Jose Eduardo Euceda 02/15/2020 8:01 PM
[2020-02-15] MEDS ORDERED: MORPHINE IV PRN (20:17)
[2020-02-15] MEDS ORDERED: LR 1,000 ML IV SCH (21:00)
[2020-02-15] MEDS: PERIDEX MT SCH (22:32)
[2020-02-15] MEDS: NORCO-10 PO PRN (22:35)
[2020-02-16] MEDS: TYLENOL PO PRN ×2 (01:25→17:10)
[2020-02-16] MEDS: NORCO-10 PO PRN (04:28)
[2020-02-16] MEDS: MERREM 1 GM in NS 50 ML IV SCH ×4 (05:39→23:57)
[2020-02-16 06:37] LABS: BASO# 0.01 X1000 (0.0-0.2); BASO% 0.1 % (0.0-0.8); EOS# 0.09 X1000 (0.0-0.7); EOS% 0.9 % (0.0-10.0); HEMATOCRIT 23.1 % (37.0-47.0); HEMOGLOBIN 7.3 g/dL (12.0-16.0); IMM GRAN# 0.08 X1000 (0.0-0.04); IMM GRAN% 0.8 % (0.0-0.5); LYMPH# 0.42 X1000 (1.2-3.4); LYMPH% 4.1 % (20.5-51.1); MCH 26.7 PG (27-31); MCHC 31.6 g/dL (33-37); MCV 84.6 FL (81-99); MONO# 0.77 X1000 (0.11-0.59); MONO% 7.5 % (1.7-9.3); MPV 8.9 FL (7.4-10.4); NEUT# 8.96 X1000 (1.4-6.5); NEUT% 86.6 % (42.2-75.2); PLT 315 X1000 (130-400); RBC 2.73 XMIL (4.2-5.4); RDW 14.7 % (11.5-14.5); WBC 10.33 X1000 (4.8-10.8)
[2020-02-16 07:20] LABS: CREATININE 4.1 mg/dL (0.5-0.9); POTASSIUM 4.5 mmol/L (3.5-5.1)
[2020-02-16] MEDS: MYCOSTATIN POWDER TOP SCH ×2 (08:15→20:30)
[2020-02-16] MEDS: LOPRESSOR PO SCH ×2 (08:16→20:28)
[2020-02-16] MEDS: HYDROCHLOROTHIAZIDE PO SCH (08:16)
[2020-02-16] MEDS: MAG-OX PO SCH (08:16)
[2020-02-16] MEDS: LASIX PO SCH ×2 (08:16→20:29)
[2020-02-16] MEDS: CALTRATE 600 PO SCH (08:17)
[2020-02-16] MEDS: PERIDEX MT SCH ×2 (08:17→20:30)
[2020-02-16] MEDS ORDERED: ELIQUIS PO SCH (09:00)
[2020-02-16] MEDS ORDERED: TUMS PO SCH (09:00)
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
[2020-02-16] MEDS: LANTUS INSULIN SUBQ SCH (11:48)
[2020-02-16] MEDS: HUMALOG SUBQ SCH ×3 (11:48→17:52)
[2020-02-16] MEDS: SODIUM BICARBONATE PO SCH ×2 (15:00→17:10)
--- NOTE | 2020-02-16 15:16 | PROGRESS NOTE ---
DATE: 02/16/2020 INTERVAL HISTORY: Ms. Rosa underwent operative intervention with left above- knee amputation as well as right internal jugular vascular catheter placement by Dr. Madison yesterday, which she tolerated well. In the morning time, Ms. Rosa is sitting in the bed. She denies any complaints. She denies any chest pain or shortness of breath. She is complaining of some discomfort at the right-sided chest central line placement and was requesting me to discontinue it. We discussed about her clear lung sounds. We discussed about her amputation and need for followup. I answered all of her questions. VITAL SIGNS: Currently, temperature of 99.2 degrees, pulse 95, respiratory 15, respiratory rate 20, blood pressure 153/55. She is saturating 98% on room air. PHYSICAL EXAMINATION: HEENT: She has blindness. She has conjunctival pallor. Oral cavity is dry. Lungs: Air entry bilaterally equal. No wheeze or crackles. Cardiovascular: S1, S2 normal. No murmur or gallop. Right-sided chest dialysis catheter. Abdomen: Soft, nontender. Right lower extremity: Has chronic lymphedema. Left side has above-knee amputation with dressing on. MICROBIOLOGY: Wound is growing gram-negative keara. Outpatient collected wound has Escherichia coli and Proteus Penneri which were fairly sensitive. IMAGING: No new imaging today. ASSESSMENT AND PLAN: 1. Severe sepsis without septic shock due to left foot necrotizing cellulitis with bilateral chronic lower extremity lymphedema and history of insulin-dependent diabetes mellitus. I will stop intravenous vancomycin. I will keep intravenous meropenem and will plan stopping it soon once cleared by surgery. 2. Coagulopathy in the setting of sepsis with the use of Eliquis. She received vitamin K and fresh frozen plasma as her surgery was necessary. She has been resumed with Eliquis. 3. Acute blood loss anemia: due to blood loss sustained during surgery. She is s/p 2 units of PRBC. 3. Hyponatremia, hypochloremia and elevated creatinine on presentation due to severe sepsis on top of chronic kidney disease stage 4 with history of diabetic nephropathy. She received intravenous fluids and her hyponatremia has improved. I will continue calcium supplementation for hypocalcemia. 4. Chronic anemia with splenomegaly and cervical lymphadenopathy. She would need outpatient Hematology followup. 5. Chronic right lung effusion which is stable and would need outpatient followup. 6. History of reported history of deep venous thrombosis and stroke without definitive documentation. I will continue her on current dose of Eliquis which overall is also sufficient for deep venous thrombosis prophylaxis. DISPOSITION: Continue to monitor patient on surgical floor. Plan of care discussed with her. All her questions have been answered. cc: Nawaf Treadwell MD MTDD
--- NOTE | 2020-02-16 17:42 | PROGRESS NOTE ---
DATE: 02/16/2020 Ms. Sejal Rosa is now postoperative day 1 from a left ievwp-ygv-zrmt amputation for infection of her left foot. She also had some cellulitis in the medial aspect of her left thigh. I felt I did the amputation above the cellulitis. We irrigated the wound well. We were able to close it. She did have a lot of soft tissue edema. Her hematocrit is 23. I am concerned about restarting her Eliquis so early after a large wound, and we will probably hold that until tomorrow or Wednesday if okay with our hospitalists. She has a Vas-Cath that I placed because of her acute renal failure which seems to be improving, but we can use it as an IV. I would continue IV antibiotics for now. cc: Kristin Madison MD
[2020-02-16] MEDS: LOVENOX SUBQ SCH (19:10)
[2020-02-17 06:06] LABS: BASO# 0.02 X1000 (0.0-0.2); BASO% 0.2 % (0.0-0.8); EOS# 0.26 X1000 (0.0-0.7); EOS% 3.1 % (0.0-10.0); HEMATOCRIT 22.2 % (37.0-47.0); HEMOGLOBIN 6.9 g/dL (12.0-16.0); IMM GRAN# 0.09 X1000 (0.0-0.04); IMM GRAN% 1.1 % (0.0-0.5); LYMPH# 1.02 X1000 (1.2-3.4); LYMPH% 12.3 % (20.5-51.1); MCH 26.3 PG (27-31); MCHC 31.1 g/dL (33-37); MCV 84.7 FL (81-99); MONO# 1.15 X1000 (0.11-0.59); MONO% 13.9 % (1.7-9.3); MPV 8.8 FL (7.4-10.4); NEUT# 5.73 X1000 (1.4-6.5); NEUT% 69.4 % (42.2-75.2); PLT 310 X1000 (130-400); RBC 2.62 XMIL (4.2-5.4); RDW 14.6 % (11.5-14.5); WBC 8.27 X1000 (4.8-10.8)
[2020-02-17] MEDS: MERREM 1 GM in NS 50 ML IV SCH (06:09)
[2020-02-17] MEDS: TYLENOL PO PRN (06:09)
[2020-02-17 06:40] LABS: CREATININE 4.3 mg/dL (0.5-0.9); POTASSIUM 4.6 mmol/L (3.5-5.1)
[2020-02-17 06:44] LABS: CALCIUM 6.4 mg/dL (8.8-10.2)
[2020-02-17] MEDS ORDERED: CALCIUM GLUCONATE 4.65 MEQ in NS 50 ML IV ONE (07:37)
[2020-02-17] MEDS: HUMALOG SUBQ SCH ×3 (08:00→16:12)
[2020-02-17] MEDS: VENTOLIN HFA INH PRN (08:11)
[2020-02-17] MEDS: PERIDEX MT SCH ×2 (09:21→20:11)
[2020-02-17] MEDS: LASIX PO SCH ×2 (09:34→20:11)
[2020-02-17] MEDS: CALTRATE 600 PO SCH (09:34)
[2020-02-17] MEDS: HYDROCHLOROTHIAZIDE PO SCH (09:34)
[2020-02-17] MEDS: SODIUM BICARBONATE PO SCH ×3 (09:34→16:55)
[2020-02-17] MEDS: LANTUS INSULIN SUBQ SCH (09:35)
[2020-02-17] MEDS: LOPRESSOR PO SCH ×2 (09:48→20:11)
[2020-02-17] MEDS: MYCOSTATIN POWDER TOP SCH ×2 (09:48→20:12)
--- NOTE | 2020-02-17 12:10 | NEPHROLOGY PROGRESS NOTE ---
DATE: 02/17/2020 SUBJECTIVE: She is lying in bed. She states she has been able to eat. No shortness of breath. OBJECTIVE: Blood pressure 145/57, heart rate 78, respirations 17, afebrile. Generally in no acute distress. Skin is warm and dry. Neck veins not distended. Heart is regular. No gallops. Lungs are equal. No crackles. Extremities 2+ edema. No clubbing or cyanosis. IMPRESSION: 1. Chronic kidney disease stage 5. Creatinine 4.3 today, unchanged over the last 24 hours. Most recent baseline creatinine around 3. She states that she will not accept dialysis under any circumstances. 2. Status post above knee amputation. 3. Volume status. Moderate hypovolemia. No fluids are ordered. 4. Hypocalcemia. Calcium has been ordered. 5. Acidosis. Continue sodium bicarbonate. cc: Deangelo Martinez MD
--- NOTE | 2020-02-17 12:52 | PROGRESS NOTE ---
DATE: 02/17/2020 SUBJECTIVE: Ms. Sejal Rosa is now postop day 2 from a left uftvj-yol-cvin amputation. Her wound looks satisfactory. I re-dressed it this morning. OBJECTIVE: Clinically, she looks more alert. She remains anemic. Her heart rate is 78 to 80, blood pressure 145/57, O2 saturation is 99%. She is afebrile. She is on IV antibiotics, Merrem. Vancomycin has been stopped. Her white blood cell count is normal now and her hematocrit is 22%. BUN and creatinine are 60 and 4.3, and that is about the same as it was on 02/15/2020. PLAN: She is on a diabetic diet. I placed her on Lovenox instead of Eliquis for now just because of the size of her left vbboi-git-oqie amputation wound. Antibiotics continue. cc: Kristin Madison MD
[2020-02-17] MEDS ORDERED: VANCOMYCIN 1,250 MG in NS 250 ML IV SCH (15:00)
[2020-02-17] MEDS ORDERED: NORCO-10 PO PRN (15:25)
[2020-02-17] MEDS ORDERED: MORPHINE IV PRN (15:25)
--- NOTE | 2020-02-17 15:51 | PROGRESS NOTE ---
DATE: 02/17/2020 INTERVAL HISTORY: No acute events overnight. Her urine catheter was removed. She is complaining of left lower extremity pain. She wants me to advance her diet to regular since she is hungry. She is also asking me to remove her right-sided chest catheter. VITAL SIGNS: Temperature 98.1 degrees, pulse 77, respiratory rate 20, blood pressure 142/58, saturating 100% on room air. REVIEW OF SYSTEMS: Negative for chest pain, shortness of breath, nausea, vomiting, cough, or abdominal pain. PHYSICAL EXAMINATION: heent: Oral cavity is moist. She has bilateral blindness. Conjunctival pallor. Air entry bilaterally equal. No wheeze, rhonchi, or crackles. Cardiovascular: S1, S2 normal. No murmur. No gallop. Abdomen: Soft, nontender. Extremities: She has chronic lymphedema of her right lower extremity. Left side above-knee amputation with dressing on. chest: She has a right-sided chest catheter. Input and output: Not charted properly. LABORATORIES: WBC of 8.2, hemoglobin 6.9, platelets 310,000. Her ionized calcium is 0.95. Sodium is 127, chloride 97, and her carbon dioxide is 16 with anion gap of 14. She has hypocalcemia of 6.4. Vitamin D level is 5. MICROBIOLOGY: Left foot wound is growing Proteus and Citrobacter freundii which are sensitive to most antibiotics. ASSESSMENT AND PLAN: 1. Left foot necrotizing cellulitis with bilateral chronic lower extremity lymphedema and history of diabetic neuropathy. She is status post left above-knee amputation on 02/15/2020. Her wound is growing Proteus and Citrobacter. Continue intravenous meropenem for another 48 hours. Appreciate General Surgical Team's recommendations. 2. Acute blood loss anemia. She is status post 2 units of packed red blood cell transfusion. I will start her on iron multivitamin tablets. Follow up with CBC tomorrow and would transfuse with goal hemoglobin more than 7 g/dL. She Needs outpatient workup for her Chronic anemia with splenomegaly and cervical lymphadenopathy. . 3. Hyponatremia, hypochloremia, and normal anion gap metabolic acidosis due to chronic kidney disease stage 4 due to diabetic nephropathy. Continue sodium bicarbonate. Appreciate Nephrology Team's recommendations. 4. Hypocalcemia in the setting of sepsis, acidosis, and vitamin D deficiency. Continue oral calcium. I will give 1-time intravenous calcium and we will start her on calcitriol supplementation. 5. Insulin dependent diabetes mellitus: Continue current dose of glargine with sliding scale. Patient is requesting regular diet. 6. Others. Severe sepsis without septic shock, coagulopathy due to Eliquis use and sepsis requiring FFP and Vitamin K preoperatively have resolved; chronic right lung effusion is stable; continue home metoprolol for essential hypertension; continue chlorhexidine for pneumonia prophylaxis; the patient has been started on enoxaparin for deep venous thrombosis prophylaxis; and she is on intravenous morphine and oral [place] as needed for pain. DISPOSITION: Continue to monitor the patient inside the hospital. Plan of care discussed with the patient. Her questions have been satisfactorily answered. cc: Nawaf Treadwell MD MTDD
[2020-02-17] MEDS: LOVENOX SUBQ SCH (16:50)
[2020-02-17] MEDS: ROCALTROL PO SCH (16:51)
[2020-02-17] MEDS: FERROUS SULFATE PO SCH (16:52)
[2020-02-18 05:52] LABS: INR 1.42; PROTIME 17.7 Seconds (11.0-16.0)
[2020-02-18 05:55] LABS: BASO# 0.02 X1000 (0.0-0.2); BASO% 0.4 % (0.0-0.8); EOS# 0.25 X1000 (0.0-0.7); EOS% 4.4 % (0.0-10.0); HEMATOCRIT 21.7 % (37.0-47.0); HEMOGLOBIN 6.8 g/dL (12.0-16.0); IMM GRAN# 0.06 X1000 (0.0-0.04); IMM GRAN% 1.1 % (0.0-0.5); LYMPH# 0.85 X1000 (1.2-3.4); MCH 26.4 PG (27-31); MCHC 31.3 g/dL (33-37); MCV 84.1 FL (81-99); MONO# 0.68 X1000 (0.11-0.59); MPV 8.8 FL (7.4-10.4); NEUT# 3.79 X1000 (1.4-6.5); NEUT% 67.1 % (42.2-75.2); PLT 249 X1000 (130-400); RBC 2.58 XMIL (4.2-5.4); RDW 14.4 % (11.5-14.5); WBC 5.65 X1000 (4.8-10.8)
[2020-02-18 06:17] LABS: CALCIUM 6.6 mg/dL (8.8-10.2); CREATININE 4.5 mg/dL (0.5-0.9); POTASSIUM 5.1 mmol/L (3.5-5.1)
[2020-02-18] MEDS ORDERED: CALCIUM GLUCONATE 1 GM in NS 50 ML IV ONE (06:30)
[2020-02-18] MEDS: LOPRESSOR PO SCH ×2 (08:15→21:21)
[2020-02-18] MEDS: LASIX PO SCH ×2 (08:15→21:21)
[2020-02-18] MEDS: HUMALOG SUBQ SCH ×3 (08:32→16:51)
--- NOTE | 2020-02-18 09:26 | PROGRESS NOTE ---
DATE: 02/18/2020 Ms. Sejal Rosa is a 54-year-old, white female status post dwikz-mzg-uisr amputation on the left. The dressing is being changed daily. There is no evidence of infection. Her heart rate is 85, blood pressure 161/64, O2 saturation 95%, she is afebrile. Her white blood cell count is normal. Hematocrit is 22% and that is stable. Her BUN and creatinine are 63 and 4.5, and that is stable. Glucose is in the 100s. She is continuing to receive IV antibiotics. Dr. Treadwell is going to stop those in the near future. She is on Eliquis but we have kept her on Lovenox at this time. I think she is far enough out from her surgery that her Eliquis could be restarted tomorrow. cc: Kristin Madison MD
[2020-02-18] MEDS: TYLENOL PO PRN ×2 (11:46→21:21)
[2020-02-18] MEDS: THERA M PLUS PO SCH (11:48)
[2020-02-18] MEDS: LANTUS INSULIN SUBQ SCH (11:49)
[2020-02-18] MEDS: SODIUM BICARBONATE PO SCH ×3 (11:54→16:50)
[2020-02-18] MEDS: ROCALTROL PO SCH (11:54)
[2020-02-18] MEDS: PERIDEX MT SCH ×2 (11:54→21:22)
[2020-02-18] MEDS: MYCOSTATIN POWDER TOP SCH ×2 (11:54→21:24)
[2020-02-18] MEDS: HYDROCHLOROTHIAZIDE PO SCH (11:55)
[2020-02-18] MEDS: CALTRATE 600 PO SCH (11:56)
[2020-02-18] MEDS: FERROUS SULFATE PO SCH (11:56)
--- NOTE | 2020-02-18 14:44 | PROGRESS NOTE ---
DATE: 02/18/2020 INTERVAL HISTORY: Ms. Rosa did not have any acute overnight events. Her hemoglobin had dropped but she wanted us to wait for 1 day before considering a blood transfusion. She was started on calcitriol. She states that she has been making urine but has been incontinent. SUBJECTIVE: She denies any chest pain, shortness of breath, or cough. She complains of feeling cold. VITALS: Temperature 99.2 degrees, pulse 80, respiratory rate 26, blood pressure 166/71, saturating 98% on room air. PHYSICAL EXAMINATION: Not in acute distress. Oral cavity is moist. Lungs: Air entry bilaterally equal. No wheeze, rhonchi, or crackles. Cardiovascular: S1, S2 normal. No murmur, rub, or gallop. She has a right-sided chest central catheter. Abdomen: Soft, tender. She has chronic lymphedema of the right lower extremity. Left above-knee amputation. She is alert and oriented x3. LABS: Suggestive of WBC 5.6, hemoglobin 6.8, platelets 249,000. Sodium 128, chloride 99, BUN 63, creatinine 4.5, her calcium is 6.6. MICROBIOLOGY: No new data. IMAGING: No new data. ASSESSMENT AND PLAN: 1. Left foot necrotizing cellulitis with a history of chronic bilateral lower extremity lymphedema and insulin-dependent diabetes mellitus, status post above-knee amputation on February 14. Continue intravenous meropenem for another 24 hours and stop it. 2. Acute blood loss anemia sustained during surgery, status post 2 units of packed red blood cells. Continue iron, multivitamin tablet. Her hemoglobin is less than 7 today. However, she wanted us to wait for another 24 hours and recheck before considering blood transfusion. She also needs outpatient workup for chronic anemia with splenomegaly and cervical lymphadenopathy. 3. Hyponatremia, hypochloremia, normal anion gap metabolic acidosis due to chronic kidney disease stage 4 due to diabetic nephropathy. Continue sodium bicarbonate and follow up renal profile daily. 4. Hypocalcemia in the setting of sepsis, acidosis, and vitamin D deficiency. Continue oral calcium and calcitriol supplementation. 5. Insulin-dependent diabetes mellitus. Currently, blood glucose in acceptable range on current dose of glargine and sliding scale insulin. 6. Others. Severe sepsis without septic shock; coagulopathy due to Eliquis use and sepsis requiring fresh frozen plasma and vitamin K have resolved. She has stable chronic right lung effusion. I will continue her metoprolol for essential hypertension, chlorhexidine for postoperative pneumonia prophylaxis, and enoxaparin for deep venous thrombosis prophylaxis. She has been on intravenous morphine and oral Hubertus for pain. She had a bowel movement yesterday. 7. Disposition. Monitor patient inside the hospital as I await further surgical recommendation regarding discharge plan. Plan of care discussed with Ms. Rosa. Her questions have been answered. cc: Nawaf Treadwell MD
[2020-02-18] MEDS: MERREM 500 MG in NS 50 ML IV SCH (16:42)
[2020-02-18] MEDS: LOVENOX SUBQ SCH (19:32)
[2020-02-18] MEDS: XANAX PO PRN (21:21)
[2020-02-18] MEDS: LIPITOR PO SCH (21:22)
[2020-02-19 06:14] LABS: BASO# 0.02 X1000 (0.0-0.2); BASO% 0.3 % (0.0-0.8); EOS# 0.35 X1000 (0.0-0.7); EOS% 5.8 % (0.0-10.0); HEMATOCRIT 22.1 % (37.0-47.0); HEMOGLOBIN 7.1 g/dL (12.0-16.0); IMM GRAN# 0.09 X1000 (0.0-0.04); IMM GRAN% 1.5 % (0.0-0.5); LYMPH# 0.95 X1000 (1.2-3.4); LYMPH% 15.8 % (20.5-51.1); MCHC 32.1 g/dL (33-37); MONO# 0.74 X1000 (0.11-0.59); MONO% 12.3 % (1.7-9.3); MPV 8.6 FL (7.4-10.4); NEUT# 3.86 X1000 (1.4-6.5); NEUT% 64.3 % (42.2-75.2); PLT 265 X1000 (130-400); RBC 2.63 XMIL (4.2-5.4); WBC 6.01 X1000 (4.8-10.8)
[2020-02-19 06:38] LABS: ALBUMIN 1.9 g/dL (3.5-5.0); CREATININE 4.7 mg/dL (0.5-0.9); PHOSPHORUS 6.4 mg/dL (2.7-4.5); POTASSIUM 4.8 mmol/L (3.5-5.1)
[2020-02-19 07:03] LABS: CALCIUM 6.8 mg/dL (8.8-10.2)
[2020-02-19] MEDS: LANTUS INSULIN SUBQ SCH (11:22)
[2020-02-19] MEDS: HUMALOG SUBQ SCH ×3 (11:22→17:58)
[2020-02-19] MEDS: PERIDEX MT SCH ×2 (11:25→21:00)
[2020-02-19] MEDS: ROCALTROL PO SCH (11:25)
[2020-02-19] MEDS: THERA M PLUS PO SCH (11:25)
[2020-02-19] MEDS: SODIUM BICARBONATE PO SCH ×3 (11:25→17:58)
[2020-02-19] MEDS: FERROUS SULFATE PO SCH (11:26)
[2020-02-19] MEDS: LOPRESSOR PO SCH ×2 (11:26→20:57)
[2020-02-19] MEDS: MYCOSTATIN POWDER TOP SCH ×2 (11:26→21:00)
[2020-02-19] MEDS: HYDROCHLOROTHIAZIDE PO SCH (11:26)
[2020-02-19] MEDS: LASIX PO SCH (11:26)
[2020-02-19] MEDS: CALTRATE 600 PO SCH (11:26)
[2020-02-19] MEDS: MERREM 500 MG in NS 50 ML IV SCH (11:34)
[2020-02-19] MEDS: LASIX IV SCH (14:27)
--- NOTE | 2020-02-19 15:28 | NEPHROLOGY PROGRESS NOTE ---
DATE: 02/19/2020 SUBJECTIVE: She is sitting up on the side of the bed. No shortness of breath. She has been able to eat though she is nauseated. OBJECTIVE: Vital Signs: Blood pressure 160/72, heart rate 83, respirations 16, afebrile. General: No acute distress. Skin: Warm and dry. Neck: Neck veins are not appreciated. Heart: Regular. No gallops. Lungs: Equal. No crackles or wheezes. Abdomen: Soft, nontender. Bowel sounds present. Extremities: With 3+ edema. No clubbing or cyanosis. IMPRESSION: 1. Chronic kidney disease stage 5. Creatinine is modestly above her baseline, creatinine of 3.5. She states today that she would accept dialysis if it was necessary. No overt uremic symptoms. 2. Volume overload. Significant hypoalbuminemia. Chest x-ray from the did not describe pulmonary edema. I will give furosemide 100 mg twice daily as well as albumin over the next 3 days and observe her response. 3. Anemia. We will check iron stores, B12, and folate and replace as appropriate. cc: Deangelo Martinez MD
--- NOTE | 2020-02-19 17:53 | PROGRESS NOTE ---
DATE: 02/19/2020 INTERVAL HISTORY: No acute events overnight. Her hemoglobin was 7.1. SUBJECTIVE: Ms. Rosa denies new complaints. She denies chest pain, shortness of breath, or cough. She had a bowel movement. We discussed about awaiting surgical team's recommendation for planning her discharge. VITAL SIGNS: Currently, temperature 98.2 degrees, pulse 83, respiratory rate 16, blood pressure 160/72, saturating 99% on room air. PHYSICAL EXAMINATION: General: Not in acute distress. HEENT: Oral cavity is moist. Lungs: Air entry bilaterally equal. No wheeze, rhonchi, crackles. Cardiovascular: S1, S2 normal. No murmur or gallop. She has a right-sided chest central line catheter. Abdomen: Soft, nontender. Extremities: She has chronic lymphedema of right lower extremity. Left above-knee amputation with dressing on. Neurologic: She is alert and oriented x3. She does have blindness of both eyes. LABS: Suggestive of hemoglobin of 7.1, platelet 265,000. Sodium 127. Her BUN is 66, creatinine 4.7. Her calcium remains low at 6.8. Microbiology: Previously left foot culture was growing Proteus and Citrobacter. ASSESSMENT AND PLAN: 1. Left foot necrotizing cellulitis with history of chronic bilateral lower extremity lymphedema and diabetes, status post left above-knee amputation on February 14. I will stop intravenous meropenem today. 2. Acute blood loss anemia due to blood loss during surgery on top of chronic anemia related to chronic kidney disease. She is status post 2 units of packed red blood cell transfusion. Continue iron multivitamin tablet. The patient would like to avoid blood transfusion as much as possible. She also needs outpatient workup for her chronic anemia with splenomegaly and cervical lymphadenopathy which were detected in the past. 3. Hyponatremia, hypochloremia and normal anion gap metabolic acidosis due to CKD stage 4 related to diabetic nephropathy. Continue sodium bicarbonate. Follow up renal profile daily. Continue oral calcium supplement with calcitriol for vitamin D deficiency and hypocalcemia which is also made worse by her current acidosis. 4. Chronic bilateral lower extremity lymphedema. Continue intravenous albumin and intravenous Lasix as per Nephrology's recommendation. 5. Others. Continue current dose of glargine and sliding scale insulin with meals for insulin- dependent diabetes mellitus; enoxaparin for DVT prophylaxis; metoprolol and hydrochlorothiazide for essential hypertension; atorvastatin for perioperative cardiac risk reduction; alprazolam as needed for anxiety. Severe sepsis without septic shock and coagulopathy in the setting of sepsis and Eliquis use requiring vitamin K and FFP on presentation have resolved. Though patient claims to have experienced a stroke and DVTs, the ultrasound of lower extremities and head CT scan in 2019 did not have any evidence of it. Accordingly, patient may not need Eliquis at the time of discharge. DISPOSITION: The patient is medically ready to be discharged back to [facility]. I am awaiting final surgical team's recommendation before I anticipate discharge in next 24 hours. The patient is in agreement with the plan. cc: Nawaf Treadwell MD
[2020-02-19] MEDS: LOVENOX SUBQ SCH (17:59)
[2020-02-19] MEDS: LIPITOR PO SCH (21:00)
[2020-02-20] MEDS: LASIX IV SCH ×2 (01:44→13:07)
[2020-02-20 06:21] LABS: IRON SATURATION 16 %; TIBC 108 ug/dL; TOTAL IRON 17 ug/dL (49-151); UNBOUND IRON 91 ug/dL (112-346)
[2020-02-20 06:31] LABS: FERRITIN 406 ng/mL (13-150)
[2020-02-20 06:34] LABS: CREATININE 4.3 mg/dL (0.5-0.9); PHOSPHORUS 6.5 mg/dL (2.7-4.5)
[2020-02-20 06:36] LABS: CALCIUM 6.5 mg/dL (8.8-10.2)
[2020-02-20] MEDS ORDERED: CALCIUM GLUCONATE 1 GM in NS 50 ML IV ONE (06:40)
[2020-02-20] MEDS: HUMALOG SUBQ SCH ×3 (07:59→17:58)
--- NOTE | 2020-02-20 08:09 | PROGRESS NOTE ---
DATE: 02/20/2020 Ms. Rosa is now postop day 5 from a left krpyu-gos-mcdf amputation. The site shows no evidence of infection. It is intact. It is draining some edema fluid and we are dressing the wound daily. She is working with physical therapy. She has chronic renal insufficiency and Dr. Martinez is seeing the patient. She has a right IJ Vas-Cath if needed but her creatinine actually went down over the last 24 hours. Her heart rate is 81, blood pressure 156/64, O2 saturation 100%, T-max is 99 degrees. Her white blood cell count is normal, hematocrit is 22%. BUN and creatinine are 70 and 4.3. cc: Kristin Madison MD
[2020-02-20] MEDS: ALBUMIN 25% IV SCH (10:27)
[2020-02-20] MEDS: PERIDEX MT SCH ×2 (10:30→21:51)
[2020-02-20] MEDS: MYCOSTATIN POWDER TOP SCH ×2 (10:30→21:51)
[2020-02-20] MEDS: THERA M PLUS PO SCH (10:30)
[2020-02-20] MEDS: ROCALTROL PO SCH (10:30)
[2020-02-20] MEDS: SODIUM BICARBONATE PO SCH ×3 (10:30→18:01)
[2020-02-20] MEDS: CALTRATE 600 PO SCH (10:31)
[2020-02-20] MEDS: HYDROCHLOROTHIAZIDE PO SCH (10:31)
[2020-02-20] MEDS: FERROUS SULFATE PO SCH (10:31)
[2020-02-20] MEDS: LOPRESSOR PO SCH ×2 (10:31→21:50)
[2020-02-20] MEDS: LANTUS INSULIN SUBQ SCH (10:34)
[2020-02-20] MEDS: VENOFER 200 MG in NS 150 ML IV SCH (11:01)
[2020-02-20] MEDS ORDERED: PRILOSEC PO ONE (12:12)
--- NOTE | 2020-02-20 12:28 | PROGRESS NOTE ---
DATE: 02/20/2020 SUBJECTIVE: This morning, Ms. Rosa refers to be doing well. She was actually taking her lunch at the time of the encounter. She says she has had some on and off chest discomfort, but she was eating well. OBJECTIVE: Vital Signs: Blood pressure 144/58, pulse of 83, respirations of 20, temperature 98.4 degrees. General: Ms. Rosa is a 54-year-old, female. She was sitting up at the edge of the bed. She is in no distress. HEENT: Mucosa is pink and moist. Anicteric. Acyanotic. Neck: Supple. Chest: Air entry was bilaterally reduced. Cardiovascular: Regular rate and rhythm. Abdomen: Soft, distended, but nontender. Extremities: The right lower extremity has about 3+ pedal edema. There is some chronic stasis skin changes also noted. The left has an AKA. LABORATORY DATA: Laboratory data has been reviewed. No CBC for this morning. The previous one seems to suggest a hemoglobin of 7.1 yesterday. Chemistry is also reviewed. BUN is up to 70, creatinine of 4.3. ASSESSMENT: 1. Nauseation, presumably due to uremic gastritis. 2. Left foot necrotizing cellulitis. The patient is status post above-knee amputation on 02/15/2020. Today is day 5 postoperative. 3. Acute blood loss on top of anemia of chronic disease. 4. Chronic kidney disease stage 5 associated with volume overload, nauseation, concerning for uremia, acidosis, and anemia. The patient is being evaluated by Nephrology as well. I think Ms. Rosa is likely heading towards renal replacement therapy in the next few days. 5. Bilateral blindness. 6. Diabetes mellitus with end-organ complications. 7. Vitamin deficiencies, including vitamin D and folate. Will continue replacement. cc: Nnamdi Nation MD MTDD
[2020-02-20] MEDS: PHOSLO PO SCH ×2 (13:10→18:01)
--- NOTE | 2020-02-20 14:18 | NEPHROLOGY PROGRESS NOTE ---
DATE: 02/20/2020 SUBJECTIVE: She is complaining of dysuria. Some increase in urine output with Lasix. Shortness of breath is minimal. OBJECTIVE: Vitals as recorded. No acute distress.Skin: Warm and dry. Neck: Neck veins are not appreciated. Heart: Regular. No gallops. Lungs: Equal. No crackles or wheezes. Abdomen: Soft, minimally tender. Bowel sounds present. Extremities: 2+ edema. No clubbing or cyanosis. IMPRESSION: 1. Volume overload. Continue Lasix and albumin. 2. Chronic kidney disease stage 5. No change in renal function. She does technically meet criteria for dialysis but no acute indications. No changes. Will follow. cc: Deangelo Martinez MD
[2020-02-20] MEDS: ZOFRAN IV PRN ×2 (14:26→23:45)
[2020-02-20 15:38] LABS: URINE SOURCE CLEAN CATCH
[2020-02-20 15:41] LABS: BILIRUBIN URINE NEGATIVE (NEGATIVE); BLOOD URINE TRACE (NEGATIVE); COLOR YELLOW; GLUCOSE URINE NEGATIVE (NEGATIVE); KETONE URINE NEGATIVE (NEGATIVE); LEUKOCYTES URINE MODERATE (NEGATIVE); NITRITE URINE NEGATIVE (NEGATIVE); PROTEIN URINE 100 mg/dL (NEGATIVE); SP GRAVITY URINE 1.011; TURBIDITY URINE HAZY (CLEAR); UROBILINOGEN URINE NORMAL (NORMAL)
[2020-02-20 15:43] LABS: UR EPITHELIAL CELLS <10 /HPF (<10); URINE BACTERIA NEGATIVE /HPF; URINE RBC <10 /HPF (<10); URINE WBC 20-40 /HPF (<10)
[2020-02-20 15:52] LABS: URINE YEAST PRESENT
[2020-02-20] MEDS: LOVENOX SUBQ SCH (17:59)
[2020-02-20] MEDS: VENTOLIN HFA INH PRN (18:17)
[2020-02-20] MEDS: LIPITOR PO SCH (21:50)
[2020-02-21] MEDS: LASIX IV SCH ×2 (02:31→13:51)
[2020-02-21] MEDS: PRILOSEC PO SCH ×2 (05:58→06:25)
[2020-02-21 06:34] LABS: HEMATOCRIT 20.6 % (37.0-47.0); HEMOGLOBIN 6.6 g/dL (12.0-16.0); MCH 27.6 PG (27-31); MCV 86.2 FL (81-99); RBC 2.39 XMIL (4.2-5.4); RDW 14.6 % (11.5-14.5); WBC 9.13 X1000 (4.8-10.8)
[2020-02-21 07:35] LABS: ALBUMIN 2.3 g/dL (3.5-5.0); CREATININE 4.1 mg/dL (0.5-0.9); PHOSPHORUS 6.1 mg/dL (2.7-4.5); POTASSIUM 4.2 mmol/L (3.5-5.1)
[2020-02-21] MEDS: HUMALOG SUBQ SCH ×4 (07:37→16:27)
[2020-02-21 07:48] LABS: CALCIUM 6.7 mg/dL (8.8-10.2)
[2020-02-21] MEDS ORDERED: NS 500 ML IV ONE (08:04)
[2020-02-21] MEDS: VENOFER 200 MG in NS 150 ML IV SCH (08:13)
[2020-02-21] MEDS: SODIUM BICARBONATE PO SCH ×3 (08:14→16:30)
[2020-02-21] MEDS: ROCALTROL PO SCH (08:14)
[2020-02-21] MEDS: HYDROCHLOROTHIAZIDE PO SCH (08:14)
[2020-02-21] MEDS: THERA M PLUS PO SCH (08:15)
[2020-02-21] MEDS: FOLIC ACID PO SCH (08:15)
[2020-02-21] MEDS: LOPRESSOR PO SCH ×2 (08:15→20:03)
[2020-02-21] MEDS: PHOSLO PO SCH ×3 (08:15→16:31)
[2020-02-21] MEDS: PERIDEX MT SCH ×2 (08:16→22:39)
[2020-02-21] MEDS: LANTUS INSULIN SUBQ SCH (08:16)
[2020-02-21] MEDS: FERROUS SULFATE PO SCH (08:18)
[2020-02-21 08:24] LABS: RETIC% 1.53 % (0.8-2.1); RETIC-HE 26.6 PG (28.2-36.6)
[2020-02-21] MEDS: VENTOLIN HFA INH PRN (08:27)
[2020-02-21] MEDS ORDERED: TYLENOL PO PRN (10:03)
[2020-02-21] MEDS ORDERED: NS 1,000 ML IV PRN (10:03)
[2020-02-21] MEDS ORDERED: NS 2,000 ML MISC PRN (10:03)
[2020-02-21] MEDS: MYCOSTATIN POWDER TOP SCH ×2 (10:44→22:39)
--- NOTE | 2020-02-21 10:46 | NEPHROLOGY PROGRESS NOTE ---
DATE: 02/21/2020 SUBJECTIVE: She complains of nausea which she attributes to the IV iron. Ongoing weakness, shortness of breath, swelling. Interested in dialysis. OBJECTIVE: Vital Signs: Blood pressure 132/87, heart rate 66, respirations 18, afebrile. Intake 400 mL. Output 200 mL but incompletely measured. General: Chronically ill, no acute distress. Skin: Warm and dry. Conjunctivae are pink. Neck: Neck veins are not visible in the erect position. Heart: Regular. No rubs. Lungs: Equal. No crackles or wheezes. Abdomen: Soft, obese, nontender. Bowel sounds present. Extremities: There is 3+ edema. No clubbing or cyanosis. IMPRESSION: Chronic kidney disease stage 5. I again reviewed uremic symptoms with the patient and the goals of care with dialysis. She is interested in trying it, to see if it helps with her symptoms. Two hour treatment today and a 2 K bath with a goal of 1 to 1.5 L ultrafiltration. Repeat daily for the next 3 days. Her hemoglobin is below 7 so we will transfuse today. cc: Deangelo Martinez MD
--- NOTE | 2020-02-21 12:24 | PROGRESS NOTE ---
DATE: 02/21/2020 Ms. Sejal Rosa is now postop day 6 from a left zkcad-pdn-pbna amputation. She is having some edema fluid leaked from the wound. Otherwise, it appears to be intact and without infection. I placed a right IJ Vas-Cath in case she needed dialysis. She has chronic kidney disease stage 5. I believe that Dr. Martinez plans on dialysis. Her heart rate is 74, blood pressure 140/79, and O2 saturation 99%. She is afebrile. Her white blood cell count is normal. Her hematocrit is only 20%, but that has been fairly stable. Her BUN and creatinine are 76 and 4.1. She had a C. Difficile culture sent that is negative. cc: Kristin Madison MD
[2020-02-21] MEDS: ALBUMIN 25% IV SCH (12:47)
[2020-02-21] MEDS ORDERED: VITAMIN D PO SCH (13:30)
--- NOTE | 2020-02-21 13:44 | PROGRESS NOTE ---
DATE: 02/21/2020 SUBJECTIVE: Today Ms. Rosa refers to be doing okay. However, she said she feels very low. She said she has already been seen early on by Nephrology. There is a plan for dialysis today. OBJECTIVE: Vital signs: Blood pressure 140/79, pulse of 74, respirations 18, temperature is 98.1 degrees. General: Ms. Rosa is a 54-year-old female. She was sitting at the edge of the bed. No distress. Mucosa is pink and moist. Anicteric. Acyanotic. Neck: Supple. There is trace of JVD. Chest: Air entry is bilaterally reduced. There is positive crackles in the posterior lung stephens. Cardiovascular: Regular rate and rhythm. Gastrointestinal: Abdomen is soft, distended, but nontender. Extremities: There is 3+ pedal edema on the on the right lower extremity. The left has above-knee amputation which has a dressing. LABORATORY DATA: Hemoglobin is 6.6. Chemistry: Creatinine is 4.1, BUN continues to climb up. The patient is more acidotic than yesterday. ASSESSMENT: 1. Nauseation presumably due to uremia. 2. Chronic kidney disease stage 5, associated with volume distention. Nauseation concerning for uremia. Acidosis. The patient is pending dialysis today. 3. Left foot necrotizing cellulitis. Patient is status post a left above-knee amputation. Today is day 6 postop. 4. Bilateral blindness. 5. Diabetes mellitus with end-organ complications. 6. Vitamin D and folate deficiencies. We will continue to replace. 7. Normocytic anemia. Hemoglobin is down to 6.6. She is going to be group and crossmatch and transfused 1 PRBC during dialysis. We will also get occult blood testing to make sure that she is not losing any blood from the gastrointestinal tract. 8. Vitamin D deficiency. We will continue replacement. cc: Nnamdi Nation MD
[2020-02-21] MEDS: LOVENOX SUBQ SCH (16:31)
[2020-02-21] MEDS: LIPITOR PO SCH (20:03)
[2020-02-22] MEDS: LASIX IV SCH ×2 (02:30→16:27)
[2020-02-22] MEDS: PRILOSEC PO SCH ×2 (05:03→06:18)
[2020-02-22 07:23] LABS: HEMOGLOBIN 7.5 g/dL (12.0-16.0); MCH 27.8 PG (27-31); MCHC 32.6 g/dL (33-37); MCV 85.2 FL (81-99); MPV 9.5 FL (7.4-10.4); RBC 2.7 XMIL (4.2-5.4); RDW 14.5 % (11.5-14.5); WBC 8.26 X1000 (4.8-10.8)
[2020-02-22 07:41] LABS: ALBUMIN 2.9 g/dL (3.5-5.0); CALCIUM 7.3 mg/dL (8.8-10.2); CREATININE 3.1 mg/dL (0.5-0.9); PHOSPHORUS 4.6 mg/dL (2.7-4.5); POTASSIUM 3.8 mmol/L (3.5-5.1)
[2020-02-22] MEDS: HUMALOG SUBQ SCH ×3 (09:06→17:30)
--- NOTE | 2020-02-22 09:22 | PROGRESS NOTE ---
DATE: 02/22/2020 Ms. Sejal Rosa is status post left rmxhj-crw-mjfs amputation. The wound remains intact. She is dialyzing through a right IJ Vas-Cath. Her heart rate is 77, blood pressure 157/51, O2 saturation 97%, she is afebrile. Her white blood cell count is normal, hematocrit is 23%. BUN and creatinine are 48 and 3.1. Physical therapy has been ordered to help the patient with transfers. At discharge, she will be going back to a snf from what I understand. cc: Kristin Madison MD
[2020-02-22] MEDS: VENOFER 200 MG in NS 150 ML IV SCH (10:11)
[2020-02-22] MEDS: ALBUMIN 25% IV SCH (10:14)
[2020-02-22] MEDS: LOPRESSOR PO SCH ×2 (10:14→22:06)
[2020-02-22 11:54] LABS: HEPATITIS PROFILE ACUTE SEE COMMENTS
[2020-02-22] MEDS: PHOSLO PO SCH ×3 (12:04→17:31)
[2020-02-22] MEDS: FOLIC ACID PO SCH (12:05)
[2020-02-22] MEDS: FERROUS SULFATE PO SCH (12:05)
[2020-02-22] MEDS: LANTUS INSULIN SUBQ SCH (12:06)
[2020-02-22] MEDS: HYDROCHLOROTHIAZIDE PO SCH (12:06)
[2020-02-22] MEDS: THERA M PLUS PO SCH (12:07)
[2020-02-22] MEDS: SODIUM BICARBONATE PO SCH ×3 (12:08→17:31)
[2020-02-22] MEDS: PERIDEX MT SCH (12:10)
[2020-02-22] MEDS: ROCALTROL PO SCH (12:11)
[2020-02-22] MEDS: MYCOSTATIN POWDER TOP SCH (12:11)
--- NOTE | 2020-02-22 12:18 | PROGRESS NOTE ---
DATE: 02/22/2020 SUBJECTIVE: I have seen and examined Ms. Rosa today. She was sitting up at the edge of the bed. She says she was feeling cold. Otherwise, she said she felt a lot better after dialysis yesterday. She denies any more nauseation. OBJECTIVE: Vital Signs: Blood pressure is 157/51, pulse 77, respirations are 20, temperature is 98.3 degrees. General Examination: Ms. Rosa is a 54-year-old, female. She is in bed. No distress. HEENT: Mucosa is pink and moist. Anicteric. Acyanotic. Neck: Supple. Chest: Good air entry bilaterally. There are still mild crackles posteriorly. Cardiovascular: Regular rate and rhythm. GI: Abdomen is soft, nontender. Bowel sounds present. Extremities: There is 2+ pedal edema on the right. The left has an AKA. The stump looks remarkably clean with surgical juve. FLAVORER: The patient is awake, alert. She is bilaterally blind. ASSESSMENT: 1. Chronic kidney disease stage 5 associated with volume distention and uremic symptoms. The patient was dialyzed yesterday for the first time. She refers to be feeling a whole lot better today. No more nauseation. 2. Left foot necrotizing cellulitis. Patient is status post left above knee amputation. The stump looks clean. Today is day 7 postop. 3. Bilateral blindness noted. 4. Diabetes mellitus with end-organ complications. Patient is on insulin regimen. 5. Vitamin D and folate deficiency. We will continue with replacement. 6. Normocytic anemia due to anemia of chronic disease. The patient is status post 3 units or packed red blood cell transfusion. She is also getting an iron infusion by nephrology. cc: Nnamdi Nation MD
[2020-02-22] MEDS ORDERED: HEPARIN IV PRN (15:39)
[2020-02-22] MEDS ORDERED: NS 1,000 ML IV PRN (15:39)
[2020-02-22] MEDS ORDERED: NS 2,000 ML MISC PRN (15:39)
[2020-02-22] MEDS: TYLENOL PO PRN (16:30)
[2020-02-22] MEDS: LOVENOX SUBQ SCH (17:30)
--- NOTE | 2020-02-22 19:13 | NEPHROLOGY PROGRESS NOTE ---
DATE: 02/22/2020 SUBJECTIVE: Ms. Rosa is very uncomfortable in dialysis. She has difficulty staying in a single position for long. Poor catheter function. OBJECTIVE: Vital Signs: Blood pressure 168/59, heart rate 86, respirations 24, afebrile. General: No acute distress. Skin: Warm and dry. Heart: Regular. Lungs: Equal. No crackles. Abdomen: Benign. Extremities: 2+ edema. IMPRESSION: 1. Chronic kidney disease stage 5D. I have discussed the case with Dr. Madison, who will place a new tunneled catheter in order to facilitate ongoing dialysis. We will have to abort her treatment today. 2. Electrolytes/acid base in target. Hemoglobin stable at 7.5. cc: Deangelo Martinez MD
[2020-02-22] MEDS: XANAX PO PRN (22:06)
[2020-02-23] MEDS: PERIDEX MT SCH ×3 (01:19→20:25)
[2020-02-23] MEDS: LIPITOR PO SCH ×2 (01:19→20:26)
[2020-02-23] MEDS: MYCOSTATIN POWDER TOP SCH ×2 (01:19→12:23)
[2020-02-23] MEDS: LASIX IV SCH ×2 (04:33→17:37)
[2020-02-23] MEDS: TYLENOL PO PRN (04:37)
[2020-02-23] MEDS: PRILOSEC PO SCH ×2 (04:58→06:14)
[2020-02-23 06:59] LABS: HEMOGLOBIN 7.1 g/dL (12.0-16.0); MCH 27.8 PG (27-31); MCHC 32.3 g/dL (33-37); MCV 86.3 FL (81-99); MPV 9.9 FL (7.4-10.4); RBC 2.55 XMIL (4.2-5.4); RDW 14.7 % (11.5-14.5); WBC 10.04 X1000 (4.8-10.8)
[2020-02-23 07:10] LABS: ALBUMIN 2.8 g/dL (3.5-5.0); CALCIUM 7.2 mg/dL (8.8-10.2); CREATININE 3.2 mg/dL (0.5-0.9); PHOSPHORUS 4.7 mg/dL (2.7-4.5); POTASSIUM 3.9 mmol/L (3.5-5.1)
[2020-02-23] MEDS: VENTOLIN HFA INH PRN ×2 (07:43→20:05)
--- NOTE | 2020-02-23 07:49 | PROGRESS NOTE ---
DATE: 02/23/2020 SUBJECTIVE: Ms. Sejal Rosa has started hemodialysis during this hospitalization. She is dialyzing with a right IJ Vas-Cath. We were asked to place a PermCath for more permanent access. We will try to do that today according to the operating room schedule. I have discussed it with the patient, including reasons for PermCath and its risks of bleeding, infection, pneumothorax and nonfunctional catheter. cc: Kristin Madison MD
[2020-02-23] MEDS: HUMALOG SUBQ SCH ×3 (08:31→17:37)
[2020-02-23] MEDS: PHOSLO PO SCH (08:32)
[2020-02-23] MEDS: THERA M PLUS PO SCH (08:32)
[2020-02-23] MEDS ORDERED: TYLENOL PO PRN (08:37)
[2020-02-23] MEDS ORDERED: NS 1,000 ML IV PRN (08:37)
[2020-02-23] MEDS ORDERED: NS 2,000 ML MISC PRN (08:37)
[2020-02-23] MEDS ORDERED: HEPARIN IV PRN ×2 (08:37)
[2020-02-23] MEDS ORDERED: ROBINUL ONE (09:06)
[2020-02-23] MEDS ORDERED: XYLOCAINE-MPF 2% ONE ×2 (09:06→14:21)
[2020-02-23] MEDS ORDERED: DIPRIVAN 1% ONE ×2 (09:07→13:14)
[2020-02-23] MEDS ORDERED: FENTANYL ONE ×3 (09:08→13:14)
[2020-02-23] MEDS: LANTUS INSULIN SUBQ SCH (09:47)
[2020-02-23] MEDS: LOPRESSOR PO SCH ×2 (09:50→20:26)
[2020-02-23] MEDS ORDERED: NS 500 ML IV ONE (10:44)
--- NOTE | 2020-02-23 11:35 | NEPHROLOGY PROGRESS NOTE ---
DATE: 02/23/2020 SUBJECTIVE: She is sitting up in bed complaining of pain. Still complaining with difficulty emptying her bladder. OBJECTIVE: Vital Signs: Blood pressure 150/64, heart rate 84, respirations 16, temperature 99.8 degrees. General: No acute distress. Skin: Warm and dry. Eyes: Conjunctivae are pink. Neck: Neck veins are not appreciated. Heart: Regular. Lungs: Equal. No crackles. Abdomen: Obese, soft, nontender. Bowel sounds present. Extremities: With 3+ edema. No clubbing or cyanosis. IMPRESSION: 1. Chronic kidney disease stage 5 D. She will have dialysis today after catheters are placed. 2. Volume overload. Managed with dialysis. 3. Electrolytes/acid base. Acceptable. 4. Anemia. She has received 3 units of packed red blood cells. Most recent hemoglobin 7.1. I will give 1 additional unit during dialysis today. 5. Difficulty voiding. We will straight catheterize once daily. 6. Nausea with calcium acetate. Change to TUMS. cc: Deangelo Martinez MD
[2020-02-23] MEDS: FERROUS SULFATE PO SCH (12:22)
[2020-02-23] MEDS: HYDROCHLOROTHIAZIDE PO SCH (12:23)
[2020-02-23] MEDS: FOLIC ACID PO SCH (12:23)
[2020-02-23] MEDS: SODIUM BICARBONATE PO SCH ×2 (12:23→17:37)
[2020-02-23] MEDS: ROCALTROL PO SCH (12:24)
[2020-02-23] MEDS ORDERED: XYLOCAINE-MPF 1%/EPI 1:200,000 ONE (13:28)
[2020-02-23] MEDS ORDERED: HEPARIN ONE (13:28)
[2020-02-23] MEDS ORDERED: NS 250 ML ONE (13:28)
[2020-02-23] MEDS ORDERED: CLINDAMYCIN 900 MG/D5W 900 MG/50 ML IVPB ONE (13:38)
[2020-02-23] MEDS: DILAUDID ONE ×2 (14:43→14:52)
--- NOTE | 2020-02-23 14:47 | OPERATIVE NOTE ---
PROCEDURE DATE: 02/23/2020 PREOPERATIVE DIAGNOSIS: Chronic renal failure requiring hemodialysis. POSTOPERATIVE DIAGNOSIS: Chronic renal failure requiring hemodialysis. PRINCIPAL PROCEDURE: 1. Removal of right internal jugular Vas-Cath. 2. Placement of right internal jugular PermCath using ultrasound and fluoroscopy. SURGEON: Kristin Madison MD. ANESTHESIA: General in addition to local anesthetic. ESTIMATED BLOOD LOSS: 25 mL. DRAINS: None. INDICATIONS: Sejal Rosa is a 54-year-old, white female who recently I just removed her left leg because of infection. She has chronic renal failure and has started hemodialysis. She has been dialyzing through a right internal jugular Vas-Cath but she needs more permanent access and we were asked by her utilization manager Dr. Martinez to place a PermCath. DESCRIPTION OF PROCEDURE: The patient was brought to the operating room, placed supine, received general anesthesia, was ventilated. Right neck, shoulder, and anterior chest were prepped and draped in a sterile field. She received clindamycin prophylactically. I removed her right IJ Vas- Cath by cutting the sutures and removing it and holding pressure at the base of her right neck. We then directed our attention to placement of the PermCath. I used ultrasound guidance and an 18- gauge needle to access the right internal jugular vein below the previous Vas-Cath site, between the 2 heads right sternocleidomastoid muscle. A guidewire was placed through the needle into the right side of the heart. The position of the guidewire was checked with fluoroscopy. I placed a counterincision on the anterior right chest and then a blunt tunneler was used to tunnel a 19 cm total length pre curved PermCath from the chest incision up to the neck incision. Sequential dilators were placed over the guidewire, and then a dilator and sheath were placed over the guidewire into the superior vena cava. The dilator and guidewire were removed and through the sheath we placed the distal end of our PermCath into the superior vena cava and peeled away the sheath. Both ports were functioning well and we flushed them with heparin saline. We secured the catheter to its exit site anterior chest with two 2-0 nylon stitches and we closed the small incision at base of right neck with a 4-0 Monocryl subcuticular stitch. X-ray was again taken with fluoroscopy and the catheter was in good position and it was functioning well. Steri-Strips were placed over the incision at base of neck and a dry dressing was placed at the exit site of the catheter. She tolerated the procedure well with plans for her to go the recovery room and then be readmitted to the floor. cc: Kristin Madison MD
--- NOTE | 2020-02-23 15:29 | PROGRESS NOTE ---
DATE: 02/23/2020 This morning Ms. Rosa refers to be feeling okay. No nauseation, but she did complain of having difficulty emptying her bladder. OBJECTIVE: Vital signs: Blood pressure 153/52, pulse of 73, respirations 16, temperature is 98.2 degrees. General: Ms. Rosa is a 54-year-old female. She was sitting up in a bed, was not in any cardiopulmonary distress. HEENT: Mucosa is pink and moist. Anicteric. Acyanotic. Neck: Supple. Chest: Clear to auscultation. There were no crepitations. No rhonchi. Cardiovascular: Regular rate and rhythm. No murmurs. GI: Abdomen is soft, distended but nontender. Bowel sounds present. Extremities: There is a 2+ pedal edema on the right. Left has an AKA. The stump looks clean with surgical juve. MYCOLOGIST: Patient is awake, alert. She is bilaterally blind. LABORATORY DATA: Hemoglobin is 7.1 today. ASSESSMENT: 1. CKD stage 5, associated with volume distention and uremic symptoms. The patient is getting dialysis. She feels a whole lot better. There is a plan to turn the Vas- Cath into a tunneled catheter for long-term management. 2. Left foot necrotizing cellulitis. Patient is status post left AKA. Today is day 8 postop. Stump looks clean. 3. Bilateral blindness. 4. Diabetes mellitus with end-organ complications. We will continue with insulin regimen. 5. Vitamin D and folate deficiency, will continue replacement. 6. Normocytic anemia due to anemia of chronic disease. Patient's hemoglobin is down again to 7.1, and she will get a unit of blood during dialysis. We have ordered fecal occult blood testing, which is still pending. 7. Urine incontinence. The patient has sensation of not being able to void. Unsure if she has diabetic autonomic cystopathy. We are going to put her on some oxybutynin to help with the bladder neck physiology. She has been ordered an in and out catheterization as well by Nephrology. cc: MD TODD Muhammad
[2020-02-23] MEDS: VENOFER 200 MG in NS 150 ML IV SCH (17:36)
[2020-02-23] MEDS: TUMS PO SCH ×2 (17:37→17:38)
[2020-02-23] MEDS: LOVENOX SUBQ SCH (20:27)
[2020-02-23] MEDS: DITROPAN PO SCH (20:27)
[2020-02-24] MEDS: MYCOSTATIN POWDER TOP SCH ×4 (01:13→21:09)
[2020-02-24] MEDS: LASIX IV SCH ×2 (03:28→13:35)
[2020-02-24] MEDS: PRILOSEC PO SCH (05:59)
[2020-02-24 06:52] LABS: HEMATOCRIT 26.5 % (37.0-47.0); HEMOGLOBIN 8.4 g/dL (12.0-16.0); MCH 26.8 PG (27-31); MCHC 31.7 g/dL (33-37); MCV 84.4 FL (81-99); MPV 9.5 FL (7.4-10.4); RBC 3.14 XMIL (4.2-5.4); RDW 14.9 % (11.5-14.5); WBC 8.09 X1000 (4.8-10.8)
[2020-02-24 07:12] LABS: ALBUMIN 2.8 g/dL (3.5-5.0); CALCIUM 7.2 mg/dL (8.8-10.2); CREATININE 2.4 mg/dL (0.5-0.9); PHOSPHORUS 3.7 mg/dL (2.7-4.5); POTASSIUM 4.1 mmol/L (3.5-5.1)
[2020-02-24] MEDS ORDERED: NS 2,000 ML MISC PRN (07:15)
--- NOTE | 2020-02-24 11:21 | NEPHROLOGY PROGRESS NOTE ---
DATE: 02/24/2020 SUBJECTIVE: She is sitting up. Complains of discomfort in the back. No shortness of breath. OBJECTIVE: Vital Signs: Blood pressure 154/62, heart rate 77, respiration 18, afebrile. General: Chronically ill, but no acute distress. Skin: Warm and dry. Neck: Neck veins are not appreciated. Heart: Regular. Lungs: Equal. No crackles. Abdomen: Soft, nontender. Bowel sounds present. Extremities: 3+ edema. No clubbing or cyanosis. IMPRESSION: Chronic kidney disease 5 D. Continue routine hemodialysis. Continue to challenge her dry weight. Target of 4 liters ultrafiltration today. cc: Deangelo Martinez MD
[2020-02-24] MEDS: VENOFER 200 MG in NS 150 ML IV SCH ×2 (11:31→12:05)
[2020-02-24] MEDS: LOPRESSOR PO SCH ×2 (11:33→21:11)
[2020-02-24] MEDS: TUMS PO SCH ×4 (11:33→18:05)
[2020-02-24] MEDS: HYDROCHLOROTHIAZIDE PO SCH ×2 (11:33→12:03)
[2020-02-24] MEDS: THERA M PLUS PO SCH ×2 (11:33→12:04)
[2020-02-24] MEDS: ROCALTROL PO SCH ×2 (11:33→12:04)
[2020-02-24] MEDS: FERROUS SULFATE PO SCH ×2 (11:33→12:01)
[2020-02-24] MEDS: SODIUM BICARBONATE PO SCH ×4 (11:34→18:05)
[2020-02-24] MEDS: FOLIC ACID PO SCH ×2 (11:34→12:02)
[2020-02-24] MEDS: DITROPAN PO SCH ×3 (11:34→21:11)
[2020-02-24] MEDS: PERIDEX MT SCH ×3 (11:34→21:09)
[2020-02-24] MEDS: LANTUS INSULIN SUBQ SCH (11:38)
[2020-02-24] MEDS: HUMALOG SUBQ SCH ×3 (11:38→18:04)
[2020-02-24] MEDS: TYLENOL PO PRN (12:06)
--- NOTE | 2020-02-24 13:39 | PROGRESS NOTE ---
DATE: 02/24/2020 SUBJECTIVE: I have seen and examined Ms. Rosa this morning. She refers to be doing well. Still some nauseation but no shortness of breath, no chest pain. The patient denies any urinary symptoms at this point. OBJECTIVE: Vital signs: Blood pressure 173/59, pulse of 82, respiration is 16, temperature is 98.9 degrees. General: Ms. Rosa is a 54-year-old female. She was sitting at the edge of the bed, no distress. HEENT: Mucosa is pink and moist. Anicteric. Acyanotic. Neck: Supple. I did not see any JVD. There is a tunneled dialysis catheter on the right anterior chest wall. Cardiovascular: Regular rate and rhythm. Abdomen: Soft, nontender. Bowel sounds present. Extremities: About 2+ pedal edema in the right lower extremity. Left has an AKA. The stump looks clean. Central nervous system: Patient is awake, alert. She has bilaterally blind. Respiratory System: There is good air entry bilateral. INTAKE AND OUTPUT: Dialysis pulled 3000 fluid yesterday. She is currently positive balance 288. LABORATORY DATA: WBC of 8.09, hemoglobin is 8.4, platelet count of 236,000. Chemistry is also reviewed. MEDICATIONS: Have all been reviewed today, no changes. ASSESSMENT: 1. Chronic kidney disease stage 5, associated with volume overload and uremic symptoms. The patient has been started on renal replacement therapy. She has a tunneled catheter on the right anterior chest wall and she has been getting treatment. Nephrology is on board. 2. Left foot necrotizing cellulitis. Patient is status post left above-knee amputation. Today is day 9 postoperatively. Stump looks clean. Surgery is on board. 3. Longstanding diabetes mellitus with end-organ complications including diabetic nephropathy, retinopathy resulting into bilateral blindness. 4. Vitamin D and folate deficiency. We will continue replacement. 5. Anemia of chronic disease. Patient has had a total of a total of 4 packed red blood cells transfusion during the hospital course. Fecal occult blood testing has been ordered. Unfortunately, patient has not been able to do this yet. 6. Questionable urge incontinence due to diabetic autonomic cystopathy. Patient has been started on oxybutynin. This morning she feels a lot better. cc: Nnamdi Nation MD
[2020-02-24] MEDS: LOVENOX SUBQ SCH (18:03)
[2020-02-24] MEDS: XANAX PO PRN (19:45)
[2020-02-24] MEDS: LIPITOR PO SCH (21:09)
[2020-02-25] MEDS: LASIX IV SCH ×2 (02:05→02:12)
[2020-02-25] MEDS: PRILOSEC PO SCH (06:51)
--- NOTE | 2020-02-25 07:37 | GENERAL SURGERY PROGRESS NOTE ---
DATE: 02/24/2020 SUBJECTIVE: The patient has returned from dialysis and has a little pain but otherwise is doing okay. OBJECTIVE: She is afebrile. Vital signs are stable. General: She is awake, alert, and oriented x3. No acute distress. Chest: Her PermCath is intact without bleeding, drainage, swelling, or redness, and apparently worked well with dialysis. ASSESSMENT AND PLAN: A 54-year-old female status post left above knee amputation and PermCath placement for dialysis. We will follow along as needed. cc: Ruben Mcallister MD
[2020-02-25] MEDS: HUMALOG SUBQ SCH ×3 (09:51→16:26)
[2020-02-25] MEDS: THERA M PLUS PO SCH (09:52)
[2020-02-25] MEDS: VENOFER 200 MG in NS 150 ML IV SCH (09:52)
[2020-02-25] MEDS: SODIUM BICARBONATE PO SCH ×3 (09:53→16:31)
[2020-02-25] MEDS: PERIDEX MT SCH ×2 (09:54→21:43)
[2020-02-25] MEDS: ROCALTROL PO SCH (09:54)
[2020-02-25] MEDS: MYCOSTATIN POWDER TOP SCH ×2 (09:54→21:43)
[2020-02-25] MEDS: LOPRESSOR PO SCH (09:54)
[2020-02-25] MEDS: TUMS PO SCH ×3 (09:54→19:56)
[2020-02-25] MEDS: FOLIC ACID PO SCH (09:55)
[2020-02-25] MEDS: LANTUS INSULIN SUBQ SCH (09:55)
[2020-02-25] MEDS: HYDROCHLOROTHIAZIDE PO SCH (09:55)
[2020-02-25] MEDS: DITROPAN PO SCH ×2 (11:34→21:41)
[2020-02-25] MEDS: FERROUS SULFATE PO SCH (11:34)
--- NOTE | 2020-02-25 13:12 | PROGRESS NOTE ---
DATE: 02/25/2020 SUBJECTIVE: Today, Ms. Rosa refers to be doing well. She was sitting at the edge of the bed. When I asked her why she is normally just sitting down, she said she prefers that better to lying down. OBJECTIVE: Vital Signs: Her current vitals are blood pressure is 146/65, pulse of 65, respirations of 21, temperature 98.7 degrees. General: Ms. Rosa is a 54-year-old female. She is sitting at the edge of the bed. No distress. HEENT: Mucosa is pink and moist. Anicteric. Acyanotic. Neck: Supple. Chest: Air entry is bilaterally reduced. There are some crackles in the posterior lung stephens. Cardiovascular: Regular rate and rhythm. No murmurs. Abdomen: Soft, is mildly distended, but nontender. Bowel sounds present. Extremities: 3+ pedal edema on the right lower extremity. The left has an AKA. The stump looks clean. DEPARTMENT MGR: Patient is awake, alert. She is bilaterally blind. LABORATORY DATA: None for this morning. Glucose of 180. The patient is on insulin regimen. ASSESSMENT: 1. Chronic kidney disease stage 5, associated with volume overload and uremic symptoms. The patient is currently on renal replacement therapy. She has a tunneled catheter on the right anterior chest wall. Nephrology is on board. 2. Status post left above knee amputation due to necrotizing infection. Today is day 10 postop. The stump looks clean. 3. Long-standing diabetes mellitus with end-organ complications including diabetic nephropathy, retinopathy noted. 4. Vitamin D and folate deficiency. Patient is on replacement. 5. Anemia of chronic disease. The patient is status post 4 PRBC transfusion. FOBT is negative. We will continue to monitor. 6. Urge incontinence, presumably due to diabetic autonomic cystopathy. The patient is on oxybutynin. She refers to be feeling better. 7. Uncontrolled hypertension. I will switch the patient's metoprolol to carvedilol for better blood pressure control. Disposition. Ms. Rosa is from a [facility]. Hopefully, she gets dialysis tomorrow and then after that she can be discharged back to the [facility]. cc: MD TODD Muhammad
[2020-02-25] MEDS: LOVENOX SUBQ SCH (16:43)
[2020-02-25] MEDS: COREG PO SCH (21:41)
[2020-02-25] MEDS: XANAX PO PRN (21:41)
[2020-02-25] MEDS: LIPITOR PO SCH (21:43)
[2020-02-26] MEDS: PRILOSEC PO SCH (06:44)
[2020-02-26 06:59] LABS: HEMATOCRIT 26.2 % (37.0-47.0); HEMOGLOBIN 8.3 g/dL (12.0-16.0); MCH 27.3 PG (27-31); MCHC 31.7 g/dL (33-37); MCV 86.2 FL (81-99); MPV 9.7 FL (7.4-10.4); RBC 3.04 XMIL (4.2-5.4); RDW 14.5 % (11.5-14.5); WBC 5.68 X1000 (4.8-10.8)
[2020-02-26] MEDS ORDERED: TYLENOL PO PRN (07:16)
[2020-02-26] MEDS ORDERED: NS 2,000 ML MISC PRN (07:16)
[2020-02-26] MEDS ORDERED: NS 1,000 ML IV PRN (07:16)
[2020-02-26 07:24] LABS: ALBUMIN 2.6 g/dL (3.5-5.0); CALCIUM 7.3 mg/dL (8.8-10.2); CREATININE 3.1 mg/dL (0.5-0.9); PHOSPHORUS 4.6 mg/dL (2.7-4.5); POTASSIUM 4.1 mmol/L (3.5-5.1)
--- NOTE | 2020-02-26 08:05 | PROGRESS NOTE ---
DATE: 02/26/2020 Ms. Rosa is status post [id number] amputation. The wound is intact, seems to be healing without infection. She has some intermittent bleeding between the clips, which is minor. She is on dialysis. She has a right IJ PermCath. Her skin clips need to stay for several more weeks. As she feels better, she needs to work with physical therapy so she can be as independent as possible with this [id number] amputation. At discharge, plans are sending her to a snf. cc: Kristin Madison MD
[2020-02-26] MEDS: DITROPAN PO SCH ×2 (09:01→21:22)
[2020-02-26] MEDS: LANTUS INSULIN SUBQ SCH (09:01)
[2020-02-26] MEDS: HUMALOG SUBQ SCH ×3 (09:01→18:04)
[2020-02-26] MEDS: MYCOSTATIN POWDER TOP SCH ×2 (09:02→21:41)
[2020-02-26] MEDS: TUMS PO SCH ×3 (09:05→18:06)
[2020-02-26] MEDS: SODIUM BICARBONATE PO SCH ×3 (09:05→18:05)
[2020-02-26] MEDS: THERA M PLUS PO SCH (09:05)
[2020-02-26] MEDS: ROCALTROL PO SCH (09:06)
[2020-02-26] MEDS: PERIDEX MT SCH ×2 (09:06→21:42)
[2020-02-26] MEDS: COREG PO SCH ×2 (09:06→21:21)
[2020-02-26] MEDS: ALDACTONE PO SCH (09:07)
[2020-02-26] MEDS: FERROUS SULFATE PO SCH (09:07)
[2020-02-26] MEDS: HYDROCHLOROTHIAZIDE PO SCH (09:07)
[2020-02-26] MEDS: FOLIC ACID PO SCH (09:07)
--- NOTE | 2020-02-26 11:45 | PROGRESS NOTE ---
DATE: 02/26/2020 SUBJECTIVE: I have seen and examined Ms. Rosa this morning. She refers to be doing okay. No new complaints. She was very resistant to the idea of wanting to go back to the group home. She said the people there do not seem to know what they are doing. At any case I discussed with her windows application packager who plans to dialyze her daily until Wednesday before she can be discharged. OBJECTIVE: Vital Signs: Blood pressure is 185/66, pulse of 73, respirations 18, temperature 98.6 degrees. General: Ms. Rosa is a 54-year-old female. She is sitting at the edge of the bed. No distress. HEENT: Mucosa is pink and moist. Anicteric, acyanotic. Neck: Supple. Chest: Good air entry bilateral. Some crepitations in the posterior lung stephens. Cardiovascular: Regular rate and rhythm. No murmurs, no rubs, no gallops. GI: Abdomen is soft, distended but nontender. Bowel sounds present. Extremities: About 2+ pedal edema on the right lower extremity. The left has an AKA. The stump looks clean. API PRODUCT MANAGER: Patient is awake, alert, oriented. Bilaterally blind. LABORATORY DATA: CBC shows normocytic anemia. Chemistry is consistent with renal failure. Glucose of 250. CURRENT MEDICATIONS: Have all been reviewed. No changes today. ASSESSMENT: 1. Chronic kidney disease stage IV associated with volume overload and uremic symptoms on admission. The patient is currently on renal replacement therapy. She has tunneled catheter on the right anterior chest wall. Nephrology is on board and they plan to dialyze her 3 days in a row before she gets discharged. 2. Status post left above knee amputation due to necrotizing limb infection. The patient is day 11 postop. The stump looks clean. Surgery is on board. 3. Longstanding diabetes mellitus with end-organ complications including diabetic nephropathy and diabetic retinopathy noted. 4. Vitamin D and folate deficiency. Patient is on replacement. 5. Anemia of chronic disease. Patient is status post 4 PRBC transfusion. FOBT is negative. She also continues getting iron replacement. 6. Urge incontinence, presumably due to diabetic autonomic cystopathy. The patient is on oxybutynin. She refers to be feeling better. 7. Severe uncontrolled hypertension. We are going to continue titrating her blood pressure medications. She is allergic to so many BP meds. cc: Nnamdi Nation MD MTDD
--- NOTE | 2020-02-26 14:57 | NEPHROLOGY PROGRESS NOTE ---
DATE: 02/26/2020 SUBJECTIVE: She is sitting up on the side of the bed. No shortness of breath. Not eating well. OBJECTIVE: Vital Signs: Blood pressure 181/69, heart rate 80, respirations 16, afebrile. General: No acute distress. Skin: Warm and dry. Neck: Neck veins are not distended. Heart: Regular. No gallops. Lungs: Equal. No crackles. Abdomen: Obese, soft, nontender. Bowel sounds are present. Extremities: With 3+ edema. No clubbing or cyanosis. IMPRESSION: 1. Chronic kidney disease 5D. We will continue her routine dialysis daily with extended treatments for ultrafiltration. Catheter function is good. Electrolytes/acid base in target. 2. Anemia is below target but stable. cc: Deangelo Martinez MD
[2020-02-26] MEDS: LOVENOX SUBQ SCH (18:06)
[2020-02-26] MEDS: XANAX PO PRN (21:23)
[2020-02-26] MEDS: LIPITOR PO SCH (21:42)
[2020-02-27] MEDS: PRILOSEC PO SCH ×2 (05:52→06:07)
[2020-02-27] MEDS ORDERED: NS 1,000 ML IV PRN (08:07)
[2020-02-27] MEDS ORDERED: TYLENOL PO PRN (08:07)
[2020-02-27] MEDS ORDERED: NS 2,000 ML MISC PRN (08:07)
[2020-02-27] MEDS: LANTUS INSULIN SUBQ SCH (08:39)
[2020-02-27] MEDS: DITROPAN PO SCH ×2 (08:40→20:13)
[2020-02-27] MEDS: MYCOSTATIN POWDER TOP SCH (08:44)
[2020-02-27] MEDS: ALDACTONE PO SCH (08:45)
[2020-02-27] MEDS: SODIUM BICARBONATE PO SCH ×3 (08:45→17:52)
[2020-02-27] MEDS: TUMS PO SCH ×3 (08:45→17:52)
[2020-02-27] MEDS: HUMALOG SUBQ SCH ×3 (08:45→17:51)
[2020-02-27] MEDS: COREG PO SCH ×2 (08:46→20:12)
[2020-02-27] MEDS: THERA M PLUS PO SCH (08:46)
[2020-02-27] MEDS: ROCALTROL PO SCH (08:46)
[2020-02-27] MEDS: PERIDEX MT SCH (08:46)
[2020-02-27] MEDS: HYDROCHLOROTHIAZIDE PO SCH (08:47)
[2020-02-27] MEDS: FOLIC ACID PO SCH (08:47)
[2020-02-27] MEDS: FERROUS SULFATE PO SCH (11:11)
--- NOTE | 2020-02-27 11:54 | NEPHROLOGY PROGRESS NOTE ---
DATE: 02/27/2020 SUBJECTIVE: She is sitting up. She states she did not eat well and was somewhat somnolent after dialysis. OBJECTIVE: Vital Signs: Blood pressure 176/63, heart rate 67, respirations 15, afebrile. General: No acute distress. Skin: Warm and dry. Neck: Neck veins are not appreciated in the erect position. Heart: Regular. No gallops. Lungs: Equal. No crackles. Abdomen: Soft, obese, nontender. Extremities: There is 2+ edema, improved. IMPRESSION: Volume overload. Dialysis again today. HF only for a goal of 3 to 4 L ultrafiltration. Routine hemodialysis again tomorrow. cc: Deangelo Martinez MD
--- NOTE | 2020-02-27 13:53 | EKG Report ---
Test Performed on : 02/27/2020 1:42:33 PM Test Reason : Syncope Blood Pressure : / mmHG Vent. Rate : 068 BPM Atrial Rate : 068 BPM P-R Int : 158 ms QRS Dur : 084 ms QT Int : 434 ms P-R-T Axes : 028 -30 031 degrees QTc Int : 461 ms Normal sinus rhythm. Left axis deviation Minimal voltage criteria for LVH, may be normal variant Septal infarct (cited on or before 22-NOV-2019) Abnormal ECG When compared with ECG of 14-FEB-2020 16:56, (Unconfirmed) No significant change was found Confirmed by Luciana AMATO, Sai Nguyễn ([id number]) on 02/28/2020 9:08:03 AM
[2020-02-27 14:30] LABS: BASO# 0.06 X1000 (0.0-0.2); EOS# 1.15 X1000 (0.0-0.7); EOS% 18.3 % (0.0-10.0); HEMOGLOBIN 8.2 g/dL (12.0-16.0); IMM GRAN# 0.02 X1000 (0.0-0.04); IMM GRAN% 0.3 % (0.0-0.5); LYMPH# 1.03 X1000 (1.2-3.4); LYMPH% 16.3 % (20.5-51.1); MCH 27.2 PG (27-31); MCHC 31.5 g/dL (33-37); MCV 86.1 FL (81-99); MONO# 0.69 X1000 (0.11-0.59); MPV 9.9 FL (7.4-10.4); NEUT# 3.35 X1000 (1.4-6.5); NEUT% 53.1 % (42.2-75.2); PLT 228 X1000 (130-400); RBC 3.02 XMIL (4.2-5.4); RDW 14.5 % (11.5-14.5)
--- NOTE | 2020-02-27 15:17 | PROGRESS NOTE ---
DATE: 02/27/2020 INTERVAL HISTORY: Initially, a code blue was called for Ms. Rosa when she was in the dialysis unit, which was later on canceled. Apparently, during dialysis, Ms. Rosa had passed out and was unresponsive initially, though she was responsive to sternal rub. I immediately responded and saw her in the dialysis unit. She had regained her consciousness by that time, though initially she appeared confused. SUBJECTIVE: At the time of my evaluation, she was denying any chest pain. She denied shortness of breath. She was complaining of headache. She denied any nausea or vomiting. REVIEW OF SYSTEMS: Negative for abdominal pain. Negative for bowel or bladder incontinence. Positive for headache. VITALS: Temperature was afebrile to touch. Her pulse was in the 70s. Her blood pressure was 170 systolic. She was saturating 97% on room air. PHYSICAL EXAMINATION: Her oral cavity was moist. Lungs: Air entry bilaterally equal. No wheeze, rhonchi, or crackles. Cardiovascular: S1, S2 normal. No murmur, rub, or gallop. She had a right-sided chest central catheter which was hooked up to the dialysis machine. Abdomen: Soft, nontender. She has a chronic lymphedema of the right lower extremity with blisters. She had left above-knee amputation. She was alert and then was able to answer questions appropriately. She was able to reposition herself in her bed. LABORATORY DATA: Stat labs were ordered which shows WBC 6.3, hemoglobin 8.2, platelets 228,000. Her CMP is pending. Lactate is 0.9. EKG had a normal sinus rhythm. ASSESSMENT AND PLAN: 1. Syncope. This could be in the setting of hypotension associated with hemodialysis. Her blood glucose at the bedside was 170. Electrocardiogram did not have acute coronary syndrome- related changes or significant cardiac arrhythmia. I am awaiting a metabolic panel. She is back to her baseline so head imaging was not ordered. 2. Acute kidney injury on chronic kidney disease stage 4 with volume overload and uremia. The patient has been started on intermittent hemodialysis through right-sided chest through a dialysis catheter. Nephrology is planning dialysis for 3 consecutive days. 3. Left foot necrotizing cellulitis with chronic lymphedema and insulin-dependent diabetes myelitis. She is status post above-knee amputation on February 14. Her wound has been healing well. Surgical team on board. 4. Others. Continue atorvastatin for a history of peripheral artery disease, alprazolam as needed for anxiety, carvedilol for essential hypertension, calcitriol for vitamin D deficiency and hypocalcemia associated with it with calcium carbonate; enoxaparin for deep venous thrombosis prophylaxis. 5. Anemia of chronic disease, likely chronic kidney disease. Continue iron, folic acid. 6. History of insulin-dependent diabetes mellitus. Continue glargine and sliding scale insulin. 7. Disposition. The patient will be discharged back to the intermediate once cleared by nephrology. Plan of care was discussed with . She was allowed to ask questions. Her questions have been answered. cc: Nawaf Treadwell MD
[2020-02-27 15:36] LABS: ALB/GLOB RATIO 0.8; ALBUMIN 3.1 g/dL (3.5-5.0); CALCIUM 7.4 mg/dL (8.8-10.2); CREATININE 2.7 mg/dL (0.5-0.9); POTASSIUM 4.2 mmol/L (3.5-5.1); TOTAL BILIRUBIN 0.54 mg/dL (0.20-1.00); TOTAL PROTEIN 6.8 g/dL (6.3-8.3)
[2020-02-27] MEDS: LOVENOX SUBQ SCH (18:35)
[2020-02-27] MEDS: LIPITOR PO SCH (20:13)
[2020-02-28] MEDS: PRILOSEC PO SCH (06:37)
[2020-02-28] MEDS: PERIDEX MT SCH ×3 (06:37→20:22)
[2020-02-28] MEDS: MYCOSTATIN POWDER TOP SCH ×3 (06:37→20:22)
[2020-02-28] MEDS ORDERED: NS 2,000 ML MISC PRN (07:15)
[2020-02-28] MEDS ORDERED: NS 1,000 ML IV PRN (07:15)
[2020-02-28] MEDS ORDERED: TYLENOL PO PRN (07:15)
[2020-02-28] MEDS: HUMALOG SUBQ SCH ×3 (12:12→16:46)
[2020-02-28] MEDS: TUMS PO SCH ×3 (12:15→16:47)
[2020-02-28] MEDS: COREG PO SCH ×2 (12:15→20:21)
[2020-02-28] MEDS: LANTUS INSULIN SUBQ SCH (12:16)
[2020-02-28] MEDS: HYDROCHLOROTHIAZIDE PO SCH (12:24)
[2020-02-28] MEDS: FOLIC ACID PO SCH (12:24)
[2020-02-28] MEDS: ALDACTONE PO SCH (12:25)
[2020-02-28] MEDS: FERROUS SULFATE PO SCH (12:25)
[2020-02-28] MEDS: DITROPAN PO SCH ×2 (12:25→22:31)
[2020-02-28] MEDS: SODIUM BICARBONATE PO SCH ×3 (12:26→16:47)
[2020-02-28] MEDS: THERA M PLUS PO SCH (12:26)
[2020-02-28] MEDS: ROCALTROL PO SCH (12:26)
--- NOTE | 2020-02-28 14:09 | NEPHROLOGY PROGRESS NOTE ---
DATE: 02/28/2020 SUBJECTIVE: Not much change. No shortness of breath. She is still having symptoms with voiding. OBJECTIVE: Vital Signs: Blood pressure 159/54, heart rate 76, respirations 16, afebrile. General: No acute distress. Skin: Warm and dry. Neck: Neck veins are not appreciated. Heart: Regular. Lungs: Equal. No crackles. Abdomen: Soft, nontender. Bowel sounds are present. Extremities: Have 2+ edema. Much softer. IMPRESSION: Chronic kidney disease 5D. PLAN: Continue her dialysis today and focus on volume management. Okay for discharge from my perspective thereafter. We will continue to work on her dry weight as an outpatient. She continues to require p.r.n. straight cath for difficulty voiding. cc: Deangelo Martinez MD
--- NOTE | 2020-02-28 15:52 | PROGRESS NOTE ---
DATE: 02/28/2020 INTERVAL HISTORY: No acute events overnight. SUBJECTIVE: I am seeing Ms. Rosa in dialysis. She complains of being exhausted. She states she is a little nauseous and she feels extremely tired. I asked her if I after dialysis she would be able to [facility] she states that she states that she is feeling too exhausted and would not be able to go back. REVIEW OF SYSTEMS: Negative for chest pain. Negative for shortness of breath. She complains of occasional dry cough. Negative for nausea and vomiting. Negative for abdominal pain. VITALS: Temperature 98.2 degrees, pulse 76, respiratory rate 16, blood pressure 159/54. Saturating 94% on room air. PHYSICAL EXAMINATION: General: Ms. Rosa is not in any acute distress. HEENT: She does have conjunctival pallor. Oral cavity is moist. Respiratory: She has decreased air entry on right infrascapular region. No wheeze, rhonchi, or crackles. Cardiovascular: S1, S2 normal. No murmur, rub, or gallop. She has a right-sided chest tunneled dialysis catheter which is hooked up to dialysis catheter. Abdomen: Soft, mild tenderness. Extremities: She has a right lower extremity edema which has decreased. She has left above-knee amputation which is dressed. Neurologic: She is alert and oriented x3. She repeatedly states she wanted to go home tomorrow. Input and output 200 mL. MEDICATIONS: She is on acetaminophen, Jansen 10, Ventolin inhaler, Xanax, Lipitor, calcitriol, calcium carbonate, carvedilol, chlorhexidine, enoxaparin, ferrous sulfate, folic acid, hydrochlorothiazide, insulin glargine, insulin lispro, multivitamin, nystatin, omeprazole, Zofran, oxybutynin, sodium bicarbonate 13 mg t.i.d. No new microbiological or no new imaging data. ASSESSMENT AND PLAN: 1. Acute kidney injury on chronic kidney disease stage 4 with volume overload and uremia. She has been receiving intermittent hemodialysis through right-sided chest tunneled dialysis catheter. Nephrology team is planning next dialysis session on March 01. I will continue her on calcitriol for vitamin D deficiency; calcium carbonate for hypocalcemia; sodium bicarbonate for acidosis. 2. Left foot necrotizing cellulitis with chronic lymphedema and diabetic neuropathy status post above-knee amputation on February 14. Wound has been healing well. I will continue her on atorvastatin for peripheral artery disease, Jansen as needed for pain and chlorhexidine for pneumonia prophylaxis. 3. Cough and decreased right lower lung breath sounds. Follow up with chest x-ray to rule out hospital-acquired pneumonia. 4. Acute blood loss anemia on top of anemia of chronic kidney disease. Currently, hemoglobin is stable. She is status post 4 units of packed red blood cell transfusion since hospital admission. Continue iron, multivitamin tablets. 5. Essential hypertension with multiple medication allergies. Continue maximum tolerated dose of carvedilol, spironolactone and hydrochlorothiazide. 6. Others. Continue alprazolam as needed for anxiety; enoxaparin for deep venous thrombosis prophylaxis; glargine and sliding scale insulin for history of insulin-dependent diabetes mellitus. There was no evidence of cerebrovascular accident on the previous head CT or deep venous thrombosis in previous ultrasound, so I have decided to stop her Eliquis. DISPOSITION: The patient would likely be discharged to jail tomorrow as I await chest x- ray. She was allowed to ask questions. All questions have been answered. She is in agreement with the plan. cc: Nawaf Treadwell MD
--- NOTE | 2020-02-28 16:32 | Diag Imaging Result Doc PS360 ---
EXAM: CHEST-2 VIEWS - 02/28/2020 HISTORY: Evaluate for right lower lobe pneumonia TECHNIQUE: Chest two views COMPARISON: 02/15/2020 portable chest FINDINGS: There is a medium right pleural effusion which appears of increased. There are ill-defined infiltrates or atelectasis at the lung bases. There is no evidence of pneumothorax. There are stable borderline cardiomegaly. Central venous catheter remains in place. IMPRESSION: Medium right pleural effusion which has increased. Ill-defined basilar infiltrates or atelectasis. Electronically signed by Shreyas Luu 02/28/2020 4:30 PM
[2020-02-28] MEDS: LOVENOX SUBQ SCH (18:45)
[2020-02-28] MEDS: LIPITOR PO SCH (20:21)
[2020-02-29] MEDS: PRILOSEC PO SCH (06:04)
[2020-02-29] MEDS: HUMALOG SUBQ SCH ×2 (10:15→13:08)
[2020-02-29] MEDS: COREG PO SCH (10:17)
[2020-02-29] MEDS: TUMS PO SCH ×2 (10:24→13:08)
[2020-02-29] MEDS: THERA M PLUS PO SCH (10:25)
[2020-02-29] MEDS: ALDACTONE PO SCH (10:25)
[2020-02-29] MEDS: ROCALTROL PO SCH (10:25)
[2020-02-29] MEDS: SODIUM BICARBONATE PO SCH ×2 (10:25→13:08)
[2020-02-29] MEDS: DITROPAN PO SCH (10:25)
[2020-02-29] MEDS: MYCOSTATIN POWDER TOP SCH (10:26)
[2020-02-29] MEDS: HYDROCHLOROTHIAZIDE PO SCH (10:26)
[2020-02-29] MEDS: FOLIC ACID PO SCH (10:26)
[2020-02-29] MEDS: FERROUS SULFATE PO SCH (10:26)
[2020-02-29] MEDS: PERIDEX MT SCH (10:26)
[2020-02-29] MEDS: LANTUS INSULIN SUBQ SCH (10:32)
[2020-02-29] MEDS ORDERED: DOXYCYCLINE 100 MG in NS 250 ML IV ONE (10:52)
--- NOTE | 2020-02-29 11:06 | NEPHROLOGY PROGRESS NOTE ---
DATE: 02/29/2020 SUBJECTIVE: She is hoping for discharge today. Sitting up, no significant shortness of breath. No nausea or vomiting. OBJECTIVE: Vital Signs: Blood pressure 169/70, heart rate 71, respirations 16, afebrile. General: No acute distress. Skin: Warm and dry. Heart: Regular. Lungs: Equal. No crackles. Abdomen: Benign. Extremities: Still with 3+ edema. IMPRESSION: Chronic kidney disease 5D. We dialyzed her 3 days consecutively. Okay for discharge and we can resume her dialysis as an outpatient. No new labs today. I discussed fluid restriction and avoidance of dark sodas and dairy. cc: Deangelo Martinez MD
[2020-02-29 11:08] VITALS: BP 168/63
[2020-02-29] MEDS ORDERED: ZITHROMAX PO ONE (11:41)
--- NOTE | 2020-02-29 13:43 | DISCHARGE SUMMARY ---
ADMISSION DATE: 02/14/2020 DISCHARGE DATE: 02/29/2020 DISCHARGE DISPOSITION: Back to detention. DISCHARGE CONDITION: Hemodynamically stable. She is complaining of dry cough. She has been started on azithromycin. She denies chest pain or shortness of breath. She denies undue pain at the lower extremity on the left side at the site of amputation which is healing well. DISCHARGE DIAGNOSES: 1. Acute kidney injury on chronic kidney disease stage 4, now on dialysis through right-sided tunneled dialysis catheter on Tuesdays, , and Saturdays. 2. Left foot necrotizing cellulitis status post left above-knee amputation. 3. Chronic lymphedema and diabetic neuropathy. 4. Proteus and Citrobacter infection of the left foot on presentation, diabetic foot infection. 5. Right lung effusion and cough suspicious for pneumonia without any fever or leukocytosis. 6. Acute blood loss anemia. 7. Essential hypertension with allergies to multiple medications. 8. Severe sepsis without septic shock due to necrotizing cellulitis on presentation. 9. Hyponatremia, hypochloremia. 10. Coagulopathy in the setting of sepsis versus use of Eliquis. 11. Chronic right lung pleural effusion. 12. Episode of syncope likely due to hypotension during dialysis. OTHER DIAGNOSES: 1. History of legal blindness. 2. History of chronic anemia with splenomegaly and cervical lymphadenopathy on previous imaging, pending outpatient workup. 3. Chronic right lung pleural effusion. 4. Chronic anticoagulation on Eliquis without any clear indication with negative ultrasound of lower extremities in 2019 for [address] or without CT scan evidence of stroke. 5. Reported history of cerebrovascular accident with left-sided weakness in May 2019. 6. Congestive heart failure. 7. Diabetes mellitus type 2. 8. Chronic kidney disease stage 4. 9. Essential hypertension. 10. Glaucoma with legal blindness. 11. Reported history of bilateral DVT in the past. VITALS: At the time of discharge temperature 98.2 degrees, pulse 71, respiratory rate 17, blood pressure 168/63, saturating 99% on room air/ PHYSICAL EXAMINATION: At the time of discharge, not in any acute distress. Oral cavity was moist. Lungs: Air entry decreased on the right infrascapular region, adequate on left hemithorax. Heart: S1, S2 normal, regular. No murmur or gallop. Abdomen: Obese, soft, nontender. She has a right-sided chest tunneled dialysis catheter. She has a right lower extremity chronic appearing lymphedema. She has a left above-knee amputation which is well healed. She has a legal blindness both eyes. She is able to raise both upper extremities above ground level. She is able to reposition herself in the bed. She is able to wiggle and move right lower extremity. DISCHARGE MEDICATIONS: 1. Insulin Aspart 10 units subcu t.i.d. 2. Phenergan 25 mg every 6 hours as needed for nausea and vomiting. 3. Albuterol sulfate 8.5 gram inhalation every 4 hours as needed. 4. Atorvastatin 20 mg at nighttime. 5. Spironolactone 25 mg daily. 6. Calcium carbonate 600 mg daily. 7. Carvedilol 25 mg b.i.d. 8. Oxybutynin 5 mg b.i.d. 9. Ferrous sulfate 325 mg daily. 10. Hydrochlorothiazide 25 mg daily. 11. Insulin glargine 10 units subcutaneously daily. 12. Lasix 40 mg p.o. b.i.d. 13. Nystatin powder application topical. 14. Hemlock 7.5 one tablet every 12 hours as needed for pain not controlled on Tylenol, 20 tablets have been prescribed. 15. Omeprazole 20 mg daily. 16. Calcitriol 0.25 mcg daily for vitamin D deficiency. 17. Sodium bicarbonate 1300 mg t.i.d. 18. Multivitamin tablet 1 tablet daily. 19. Tylenol 650 mg every 6 hours as needed for pain. 20. Alprazolam 125 mg at nighttime as needed for anxiety. 21. Azithromycin 500 mg daily for 5 days. LABS: 1. At the time of discharge WBC 6.3, hemoglobin 8.2, platelets 228,000, BUN 21, creatinine 2.7, blood sugar 247. 2. INR on presentation was 3.04, which had decreased to 1.4 on February 17. She did require fresh frozen plasma and vitamin K. 3. Hepatitis panel during hospital admission did not have any have positive report. 4. Microbiology during hospital admission: Initially left foot culture was growing Proteus and Citrobacter freundii which were both sensitive to 3rd generation cephalosporins and resistant to first-generation cephalosporin. They were also sensitive to Levaquin. 5. C. difficile toxin analysis was negative. 6. Stool occult blood test was negative. SIGNIFICANT IMAGING: During hospital admission. 1. Foot x-ray on February 13 had severe cellulitis, multifocal soft tissue gas consistent with penetrating injury or gas-forming cellulitis without any fracture or bony erosions. 2. Lower extremity x-ray had moderate nonspecific subcutaneous edema of the lower leg compatible with cellulitis and/or pedal edema. 3. Chest x-ray on February 13 had small right pleural effusion with adjacent right basilar atelectasis or infiltrate. 4. February 27 chest x-ray had a medium right pleural effusion, which had increased and ill- defined basilar infiltrate or atelectasis. Pathology of the amputation site had extensive ulceration necrosis, acute and chronic inflammation and marked edema. Electrocardiogram on February 13 had normal sinus rhythm, left axis deviation, septal infarct, ST and T-wave abnormality, consider lateral ischemia. CONSULTATION DURING HOSPITAL ADMISSION: Nephrology Dr. Martinez, General Surgeon Dr. Madison. PROCEDURE DURING HOSPITAL ADMISSION: 1. On 02/15/2020, patient underwent left above-knee amputation and right internal jugular vascular catheter placement using ultrasound. 2. On 02/23/2020 patient underwent removal of the right internal jugular Vas- Cath and placement of the right internal jugular PermCath using ultrasound and fluoroscopy. HOSPITAL COURSE SUMMARY: Ms. Rosa is a 54-year-old lady with a past medical history of chronic kidney disease stage 4, insulin-dependent diabetes mellitus, chronic lymphedema of the bilateral lower extremity, came in with chief complaints of worsening left lower extremity pain, oozing and foul smelling discharge since several days from her left foot. She used to live in a detention. On presentation she was found to have temperature of 98.3 degrees, pulse 96, respiratory rate 20, blood pressure 157/69, and saturation of 99% on room air. She had profound leukocytosis of 29,000 with normal lactate. She also had suspected acute kidney injury on chronic kidney disease, so the hospitalist team was consulted for further management. The patient was diagnosed with severe sepsis without septic shock due to left foot necrotizing cellulitis based on the x-ray of the foot and was started on broad-spectrum antibiotics and general surgical team was consulted. She was also initially resuscitated with intravenous fluid. Since she was taking Eliquis, she had elevated INR, so she was given vitamin K, fresh frozen plasma and eventually the general surgical team took her for surgery on 02/15/2020 and she underwent left above-knee amputation, which she tolerated well. Postoperatively, her Eliquis was resumed however she started developing acute blood loss anemia and throughout the hospitalization she required a total of 4 units of packed red blood cells, so eventually her Eliquis was held and she was discharged without it with and was advised to resume it outpatient under sod stripper's guidance if her blood count remained stable outpatient. She will be discharged on iron and multivitamin tablet. Because of her volume overload and lymphedema, Nephrology team had decided to start her on dialysis and she has been receiving hemodialysis through right-sided tunneled dialysis catheter. Her outpatient schedule should be Tuesdays, , and Saturdays. Patient had chronic right lung effusion and a chest x-ray on February 27 had shown worsening effusion. Most likely this was worsening of her chronic effusion related to volume overload because of her kidney failure. However, considering her history of cough, she was started on brief course of azithromycin that she should complete. She was listed to be allergic to a lot of medications and refused to take other antibiotics. 35 minutes were spent in discharging this patient. Plan of care were discussed with her. She was advised to have a discussion about resuming her Eliquis outpatient. All of her questions satisfactorily answered. cc: Nawaf Treadwell MD MTDD
[2020-02-29] MEDS ORDERED: DOXYCYCLINE PO SCH (21:00)
[2020-03-01] MEDS ORDERED: ZITHROMAX PO SCH (09:00)
== END 2020-02-29 15:06 | DRG 853 ==
LOC: ED 13:25 → 4N 18:54 → SUATTDRO 18:54
PROVIDERS: ATTEND Internal Medicine